=== PATIENT | female | born 1960 | race Caucasian/White ===

== ENCOUNTER 2017-10-22 16:00 | Inpatient (IN) | payer BC ==
[~2017-10-22] VITALS: Ht 172.7 cm; Wt 68.6 kg
[2017-10-22] MEDS ORDERED: SODIUM CHLORIDE 0.9% 1000ML 1,000 ML IV ONE (16:28)
[2017-10-22] MEDS ORDERED: ACETAMINOPHEN 500 MG TAB PO STA (16:32)
[2017-10-22] MEDS ORDERED: DEXAMETHASONE SOD INJ 4 MG/ML VIAL IV STA (16:34)
[2017-10-22] MEDS ORDERED: ALBUT/IPRATROP 3MG/0.5MG NEB 3 ML VIAL INH STA (16:34)
[2017-10-22] MEDS ORDERED: LEVAQUIN 750MG / 150ML D5W IV ONE (16:45)
--- NOTE | 2017-10-22 16:53 | DIAGNOSTIC IMAGING REPORT ---
CHEST ONE VIEW PORTABLE CLINICAL HISTORY: Sepsis sepsis COMPARISON STUDY: No previous studies for comparison. FINDINGS: Infiltrate right pulmonary apex. Moderate bronchovascular prominence throughout both hemithoraces. Diaphragms smooth. IMPRESSION: Parenchymal infiltrate right pulmonary apex. The above report was generated using voice recognition software. It may contain grammatical, syntax or spelling errors. Electronically signed by: Elvis Boyd M.D. 10/22/2017 4:52 PM Dictated Date/Time: 10/22/2017 4:51 PM
--- NOTE | 2017-10-22 17:25 | EMERGENCY ROOM VISIT NOTE ---
History Report prepared by Michelle: Beatriz Young Under the Supervision of: Kayli PlunkettO. First contact with patient: 16:27 Chief Complaint: ALTERED MENTAL STATUS Stated Complaint: AMS Nursing Triage Summary: pt arrived als from the doctors 79% o2 on room air + fever pt had flu like symptoms for one week pt given 500ml ns bolus in route History of Present Illness The patient is a 57 year old female who presents to the Emergency Room with complaints of flu like symptoms that began 5 days ago. The patients states the patient seems confused and not at her baseline behavior. She notes she has some headaches, congestion, fevers, and chills. The patient denies any nausea, vomiting, and diarrhea. She notes she fell on Wednesday, but denies hitting her head. The patient denies any history of diabetes or hypertension. She denies any smoking, but notes she occasionally drinks wine. Source of History: patient Onset: 5 days ago Position: other (global) Quality: other (flu like symptoms) Timing: other (persistent) Associated Symptoms: + fevers, + chills, + headache, No nausea, No vomiting , No diarrhea Review of Systems See HPI for pertinent positives & negatives. A total of 10 systems reviewed and were otherwise negative. Family History Patient reports no known family medical history. Social History Smoking Status: Never Smoker Smokeless Tobacco Use: No Alcohol Use: occasionally Drug Use: none Marital Status: Housing Status: lives with family Occupation Status: employed Current/Historical Medications Scheduled Levothyroxine Sodium (Levothyroxine Sodium), 100 MCG PO DAILY Multivitamin (Multivitamin), 1 TAB PO DAILY Allergies Coded Allergies: No Known Allergies (Unverified , 10/22/17) Physical Exam Vital Signs Date Time Temp Pulse Resp B/P (MAP) Pulse Ox O2 Delivery O2 Flow Rate FiO2 10/22/17 22:17 67 18 94/55 92 Nasal Cannula 6.0 10/22/17 20:50 70 18 88/51 92 3.0 10/22/17 18:46 85 18 86/50 92 Room Air 10/22/17 18:45 85/74 86/50 10/22/17 17:22 37.7 10/22/17 16:43 79 Room Air 10/22/17 16:20 102 10/22/17 16:19 38.9 93 10 151/140 79 Room Air Physical Exam GENERAL: Patient is awake, alert, and in no acute distress. Patient is somewhat anxious, but comfortable EYES: The conjunctivae are clear. The pupils are round and reactive. EARS, NOSE, MOUTH AND THROAT: The nose is without any evidence of any deformity. Mucous membranes are moist tongue is midline NECK: The neck is nontender and supple. RESPIRATORY: Lung sounds diminished throughout with scattered rhonchi, absent sounds at right base. CARDIOVASCULAR: Tachycardic rate but regular rhythm, no murmur noted with auscultation. GASTROINTESTINAL: The abdomen is soft. Bowel sounds are present in all quadrants. Abdomen is nontender MUSCULOSKELETAL/EXTREMITIES: There is no evidence of gross deformity full range of motion is noted in the hips and shoulders SKIN: There is no obvious evidence of any rash. There are no petechiae, pallor or cyanosis noted. NEUROLOGIC: Awake, oriented to person, place, and time, patellar reflex 2+ bilaterally Medical Decision & Procedures ER Provider Diagnostic Interpretation: Radiology results as stated below per my review and radiologist interpretation: CHEST ONE VIEW PORTABLE CLINICAL HISTORY: Sepsis sepsis COMPARISON STUDY: No previous studies for comparison. FINDINGS: Infiltrate right pulmonary apex. Moderate bronchovascular prominence throughout both hemithoraces. Diaphragms smooth. IMPRESSION: Parenchymal infiltrate right pulmonary apex. The above report was generated using voice recognition software. It may contain grammatical, syntax or spelling errors. Electronically signed by: Elvis Boyd M.D. 10/22/2017 4:52 PM Dictated Date/Time: 10/22/2017 4:[address] CT DOSE: 537.48 mGy.cm HISTORY: Altered mental status. TECHNIQUE: Multiaxial CT images of the head were performed without the use of intravenous contrast. Automated exposure control was utilized for this study. A dose lowering technique was utilized adhering to the principles of ALARA. Comparison: None. Findings: The paranasal sinuses and mastoid air cells are clear. The calvarium and skull base are intact. The ventricles and sulci are within normal limits. There is no mass, hematoma, midline shift, or acute infarct. Impression: No acute intracranial abnormality. Electronically signed by: Jimmy Tovar M.D. 10/22/2017 6:09 PM Dictated Date/Time: 10/22/2017 6:03 PM (CHEST FOR PE) ANGIO WITH CT DOSE: 212.54 mGy.cm HISTORY: Chest pain infiltrate TECHNIQUE: Multiaxial CT images of the chest were performed following the intravenous administration of contrast to evaluate the pulmonary arteries. Maximal intensity projection images were also obtained. A dose lowering technique was utilized adhering to the principles of ALARA. COMPARISON STUDY: None. FINDINGS: Thoracic aorta is normal in course and caliber. Moderate motion artifact is present. The study nevertheless isn't negative for a significant filling defect within the pulmonary arterial structures. Diffuse parenchymal infiltrate right upper lung with minimal infiltrative changes superior segment right lower lobe and left upper lobe. Mild interstitial prominence of the mid to lower lung regions bilaterally. IMPRESSION: 1. No evidence for pulmonary embolus. 2. Patchy bilateral mid and upper lung parenchymal infiltrative changes most prominent in the right pulmonary apex. The above report was generated using voice recognition software. It may contain grammatical, syntax or spelling errors. Electronically signed by: Elvis Boyd M.D. 10/22/2017 6:11 PM Dictated Date/Time: 10/22/2017 6:08 PM Laboratory Results Test 10/22/17 16:51 10/22/17 17:03 10/22/17 17:04 10/22/17 17:10 Nucleated RBC Absolute Count (auto) 0.02 K/uL (0-0) Neutrophils % (Manual) 87.8 % Lymphocytes % (Manual) 6.1 % Monocytes % (Manual) 6.1 % Nucleated Red Blood Cells % 1.5 % Neutrophils # (Manual) 1.12 K/uL (1.4-6.5) Total Absolute Neutrophils 1.12 K/uL (1.4-6.5) Lymphocytes # (Manual) 0.08 K/uL (1.2-3.4) Total Absolute Lymphocytes 0.08 K/uL (1.2-3.4) Monocytes # (Manual) 0.08 K/uL (0.11-0.59) Erythrocyte Sedimentation Rate 30 mm/hr (0-21) Total Creatine Kinase 156 U/L (26-192) Creatine Kinase MB < 0.5 ng/ml (0.5-3.6) Creatine Kinase MB Ratio (0-3.0) Troponin I 0.024 ng/ml (0-0.045) C-Reactive Protein 2.90 mg/dl (0-0.29) Pro-B-Type Natriuretic Peptide 272 pg/ml (0-900) 25-Hydroxy Vitamin D Total 15.3 ng/ml (30-100) Procalcitonin 0.29 ng/ml (0-0.5) Thyroid Stimulating Hormone (TSH) 0.010 uIu/ml (0.300-4.500) Free Thyroxine 1.39 ng/dl (0.80-1.60) Free Triiodothyronine 1.29 pg/ml (2.30-4.20) Salicylates Level < 2.0 mg/dl (2.8-20) Acetaminophen Level 7 ug/ml (10-30) Immunoglobulin G 2920.0 mg/dL (700-1600) Immunoglobulin A 507.0 mg/dL (70-400) Immunoglobulin M 148.0 mg/dL (40-230) Venous Blood pH 7.47 (7.36-7.41) Venous Blood Partial Pressure CO2 29 mmHg (38.0-50.0) Venous Blood Partial Pressure O2 46 mmHg Venous Blood HCO3 21 mmol/L Venous Blood Oxygen Saturation 82.6 % Venous Blood Base Excess -2.0 mEq/L Bedside Lactic Acid Venous 2.35 mmol/L (0.90-1.70) Urine Color DK YELLOW Urine Appearance CLEAR (CLEAR) Urine pH 5.5 (4.5-7.5) Urine Specific Kaufman 1.023 (1.000-1.030) Urine Protein NEG (NEG) Urine Glucose (UA) NEG (NEG) Urine Ketones NEG (NEG) Urine Occult Blood NEG (NEG) Urine Nitrite POS (NEG) Urine Bilirubin 1+ (NEG) Urine Urobilinogen POS (NEG) Urine Leukocyte Esterase TRACE (NEG) Urine WBC (Auto) 1-5 /hpf (0-5) Urine RBC (Auto) 0-4 /hpf (0-4) Urine Hyaline Casts (Auto) 1-5 /lpf (0-5) Urine Epithelial Cells (Auto) 5-10 /lpf (0-5) Urine Bacteria (Auto) NEG (NEG) Test 10/22/17 18:12 10/22/17 22:10 Ionized Calcium 1.00 mmol/l (1.12-1.32) Ethyl Alcohol mg/dL < 3.0 mg/dl (0-3) Urine Opiates Screen POS (NEG) Urine Methadone, Qualitative NEG (NEG) Urine Barbiturates NEG (NEG) Urine Phencyclidine (PCP) Level NEG (NEG) Ur Amphetamine/Methamphetamine NEG (NEG) MDMA (Ecstasy) Screen NEG (NEG) Urine Benzodiazepines Screen NEG (NEG) Urine Cocaine Metabolite NEG (NEG) Urine Marijuana (THC) NEG (NEG) Laboratory results per my review. Medications Administered Medications (Trade) Dose Ordered Sig/Rodrigo Route Start Time Stop Time Status Last Admin Dose Admin Sodium Chloride 1,000 ml @ 999 mls/hr Q1H1M ONCE IV 10/22/17 16:28 10/22/17 17:28 DC 10/22/17 16:28 999 MLS/HR Acetaminophen (Tylenol Tab) 1,000 mg NOW STAT PO 10/22/17 16:32 10/22/17 16:34 DC 10/22/17 16:32 1,000 MG Albuterol/ Ipratropium (Duoneb) 3 ml NOW STAT INH 10/22/17 16:34 10/22/17 16:36 DC 10/22/17 16:34 3 ML Dexamethasone Sodium Phosphate (Decadron Inj) 10 mg NOW STAT IV 10/22/17 16:34 10/22/17 16:36 DC 10/22/17 16:34 10 MG Levofloxacin (Levaquin / D5W) 750 mg NOW ONCE IV 10/22/17 16:45 10/22/17 16:46 DC 10/22/17 16:45 750 MG Piperacillin Sod/ Tazobactam Sod (Zosyn Iv) 4.5 gm NOW STAT IV 10/22/17 17:37 10/22/17 17:38 DC 10/22/17 19:20 4.5 GM Magnesium Sulfate (Magnesium Sulfate) 2 gm NOW STAT IV 10/22/17 17:40 10/22/17 17:41 DC 10/22/17 19:20 2 GM Thiamine HCl (Vitamin B-1 Inj) 100 mg NOW STAT IV 10/22/17 18:05 10/22/17 18:06 DC 10/22/17 19:20 100 MG Diphenhydramine HCl (Benadryl Inj) 25 mg NOW STAT IV 10/22/17 20:56 10/22/17 20:57 DC 10/22/17 21:03 25 MG Potassium Chloride (Klor-Con Tab) 20 meq NOW STAT PO 10/22/17 22:01 1/12/18 22:39 DC 10/22/17 23:35 20 MEQ Potassium/ Phosphorus/Sodium (Phospha 250 Neutral 155-852-130 Mg) 2 tab 2201 ONCE PO 10/22/17 22:01 10/22/17 22:39 DC 10/22/17 23:35 2 TAB ECG Indication: altered mental status Rate (beats per minute): 86 Rhythm: normal sinus Findings: ST depression (Lateral), no ectopy Comparison ECG Date: no prior available ED Course 1621: The patient was evaluated in room A9. A complete history and physical examination were performed. 1628: Ordered Sodium Chloride 1000ml @ 999 mls/hr IV. 1632: Ordered Tylenol Tab 1000mg PO. 1634: Ordered Decadron Inj 10mg IV and Duoneb 3ml INH. 1645: Ordered Levaquin 750mg IV. 1737: Ordered Zosyn IV 4.5 mg. 1740: Ordered Magnesium Sulfate 2gm IV. 1745: Ordered Ioversol 100ml IV. 1749: I discussed the patient's case with Dr. Mariee [facility]. The patient will be evaluated for further management. Medical Decision Prior records/ancillary studies reviewed and summarized above. Nursing notes reviewed. Additional history obtained from the patients . The patient's history was concerning for altered mental status. Differential diagnosis: Etiologies such as metabolic, infection, hypoglycemia, electrolyte abnormalities , cardiac sources, intracerebral event, toxicologic, neurologic, as well as others were entertained. The patient is a 57-year-old female who presented to the emergency department for an evaluation of cough and difficulty breathing. The patient was at her primary care physician's office. She was very confused initially. The patient was found have hypoxia as well as abnormal lung sounds. The patient's primary care physician was very concerned and called the paramedics. The patient initially did not wish to come to the hospital but the dermatologist was able to convince the patient she required further treatment. She was treated with a bronchodilator treatment as well as IV fluids. She was also given IV antibiotic.the patient's fever was further treated with Tylenol. The patient was also given magnesium replacement. I discussed the patient's laboratory and radiographic studies with her. Because of her apical infiltrate a CT the chest was obtained to confirm that this was not a cavitary lesion. I discussed her case with the on-call [facility] hospitalist group. They've agreed to evaluate the patient in the emergency department for further management and disposition. Medication Reconcilliation Current Medication List: was personally reviewed by me Consults Time Called: 1748 Consulting Physician: ARAMIS Ding Returned Call: 1748 I discussed the patient's case with ARAMIS Ding. The patient will be evaluated for further management. Impression Primary Impression: Pneumonia Additional Impressions: Hypoxia Altered mental status Hypomagnesemia Hypocalcemia Scribe Attestation The scribe's documentation has been prepared under my direction and personally reviewed by me in its entirety. I confirm that the note above accurately reflects all work, treatment, procedures, and medical decision making performed by me. Departure Information Dispostion Being Evaluated By Hospitalist Forms HOME CARE DOCUMENTATION FORM, IMPORTANT VISIT INFORMATION Patient Instructions My [facility] Health Problem Qualifiers Primary Impression: Pneumonia Pneumonia type: due to unspecified organism Laterality: right Lung location : upper lobe of lung Qualified Codes: J18.1 - Lobar pneumonia, unspecified organism Additional Impressions: Altered mental status Altered mental status type: unspecified Qualified Codes: R41.82 - Altered mental status, unspecified
[2017-10-22 17:33] LABS: INR 1.5 (0.9-1.1)
[2017-10-22] MEDS ORDERED: PIPERACILLIN/TAZOBACTAM 4.5 GM/100ML D5W IV STA (17:37)
[2017-10-22 17:39] LABS: ALBUMIN 1.8 gm/dl (3.4-5.0); ALT/SGPT 20 U/L (12-78); AST/SGOT 49 U/L (15-37); BLOOD UREA NITROGEN 6 mg/dl (7-18); CALCIUM 6.9 mg/dl (8.5-10.1); CARBON DIOXIDE 20 mmol/L (21-32); CREATININE 0.52 mg/dl (0.60-1.20); GLUCOSE 89 mg/dl (70-99); LIPASE 843 U/L (73-393); POTASSIUM 3.3 mmol/L (3.5-5.1); SODIUM 133 mmol/L (136-145)
[2017-10-22] MEDS ORDERED: MAGNESIUM SULFATE 1GM / D5W 1 GM BAG IV STA (17:40)
[2017-10-22] MEDS ORDERED: OPTIRAY 320 IV PRN (17:45)
[2017-10-22 17:48] LABS: ALKALINE PHOSPHATASE 67 U/L (45-117); CKMB < 0.5 ng/ml (0.5-3.6); TOTAL PROTEIN 6.8 gm/dl (6.4-8.2)
[2017-10-22 17:55] LABS: HEMATOCRIT 37.1 % (37-47); HEMOGLOBIN 12.5 g/dL (12.0-16.0); MEAN CELL VOLUME 92.5 fL (80-100); MEAN CORPUSCULAR HEMOGLOBIN 31.2 pg (25-34); MEAN CORPUSCULAR HGB CONC 33.7 g/dl (32-36); NUCLEATED RED BLOOD CELL ABS 0.02 K/uL (0-0); PLATELET COUNT 30 K/uL (130-400); RED CELL DISTRIBUTION WIDTH CV 16.6 % (11.5-14.5); RED CELL DISTRIBUTION WIDTH SD 56.5 fL (36.4-46.3); WHITE BLOOD COUNT 1.28 K/uL (4.8-10.8)
[2017-10-22] MEDS ORDERED: THIAMINE HCL 100 MG/ML 2 ML VIAL IV STA (18:05)
--- NOTE | 2017-10-22 18:10 | DIAGNOSTIC IMAGING REPORT ---
HEAD CT NONCONTRAST CT DOSE: 537.48 mGy.cm HISTORY: Altered mental status. TECHNIQUE: Multiaxial CT images of the head were performed without the use of intravenous contrast. Automated exposure control was utilized for this study. A dose lowering technique was utilized adhering to the principles of ALARA. Comparison: None. Findings: The paranasal sinuses and mastoid air cells are clear. The calvarium and skull base are intact. The ventricles and sulci are within normal limits. There is no mass, hematoma, midline shift, or acute infarct. Impression: No acute intracranial abnormality. Electronically signed by: Jimmy Tovar M.D. 10/22/2017 6:09 PM Dictated Date/Time: 10/22/2017 6:03 PM
--- NOTE | 2017-10-22 18:12 | DIAGNOSTIC IMAGING REPORT ---
(CHEST FOR PE) ANGIO WITH CT DOSE: 212.54 mGy.cm HISTORY: Chest pain infiltrate TECHNIQUE: Multiaxial CT images of the chest were performed following the intravenous administration of contrast to evaluate the pulmonary arteries. Maximal intensity projection images were also obtained. A dose lowering technique was utilized adhering to the principles of ALARA. COMPARISON STUDY: None. FINDINGS: Thoracic aorta is normal in course and caliber. Moderate motion artifact is present. The study nevertheless isn't negative for a significant filling defect within the pulmonary arterial structures. Diffuse parenchymal infiltrate right upper lung with minimal infiltrative changes superior segment right lower lobe and left upper lobe. Mild interstitial prominence of the mid to lower lung regions bilaterally. IMPRESSION: 1. No evidence for pulmonary embolus. 2. Patchy bilateral mid and upper lung parenchymal infiltrative changes most prominent in the right pulmonary apex. The above report was generated using voice recognition software. It may contain grammatical, syntax or spelling errors. Electronically signed by: Elvis Boyd M.D. 10/22/2017 6:11 PM Dictated Date/Time: 10/22/2017 6:08 PM
[2017-10-22] MEDS ORDERED: LEVO100T7 PO (18:13)
[2017-10-22] MEDS ORDERED: MULT-506 PO (18:15)
[2017-10-22] MEDS ORDERED: DiphenhydrAMINE HCL 50 MG/ML VIAL IV STA (20:56)
--- NOTE | 2017-10-22 21:49 | History and Physical ---
History & Physical Date & Time of Service: Oct 22, 2017 at 21:07 Chief Complaint: [facility] Primary Care Physician: Sarthak Fox D.O. History of Present Illness Source: family, hospital records 5 days history of nasal congestion and cough felt deep in the chest with intermittent phlegm production in the morning, associated with dyspnea with coughing but not at rest and no CP. Chills, but no fevers. Patient was concerned for pneumonia, although she has no history of pneumonia. She denies recent travel or TB exposure. Denies sore throat, rhinorrhea, headaches, sinus pain. ear pain, myalgia, exertional dyspnea, post tussive vomiting. She denies urinary symptoms, back pain, diarrhea or constipation, or blood in stool. She admits to chronic fatigue and loss of ~30lb in last 6 months. She has not changed her exercise, and states no dietary changes (Breakfast: Cheerios and banana, Lunch: half a bologna or PBJ sandwich, Dinner: pasta and vegetables, no meat intake). She states no chronic health issues except hypothyroidism, and states levothyroxine and multivitamin are her only medications. She is an ex smoker of 20 years with ~15 pack year history and admits to a bottle of red wine weekly. She admits to a history of falls, but denies vasovagal or arrhythmic symptoms, stating she "always trips on things." She denies DM, neuropathy, problems with balance, or issues with her vision. She has never had PT. She lives alone with her who has a TBI, and is his primary care provider. Since coming to the ED she was placed on O2 for low initial sats of 72%. She was also started on abx for pneumonia. She states she had "allergic reaction to the penicillin" when she developed red palms and swelling and redness of her nail beds on her hands bilaterally. She was given Benadryl, although she states this has not seemed to improve the redness. Past Medical/Surgical History Hypothyroid Family History Patient reports no known family medical history. Mom: stroke and PR, severe hypothyroidism Dad: smoker, renal failure Sister: asthma Social History Smoking Status: Former Smoker (Ex smoker of 20 years, with 15-20 pack year history) Smokeless Tobacco Use: No Alcohol Use: occasionally (1 bottle of wine a week) Drug Use: none Marital Status: Housing status: lives with significant other Occupational Status: employed ([employer]) Immunizations History of Influenza Vaccine: No History of Tetanus Vaccine?: No History of Pneumococcal: No History of Hepatitis B Vaccine: No Multi-Drug Resistant Organisms History of MDRO: No Allergies Coded Allergies: No Known Allergies (Unverified , 10/22/17) Home Medications Scheduled Levothyroxine Sodium (Levothyroxine Sodium), 100 MCG PO DAILY Multivitamin (Multivitamin), 1 TAB PO DAILY Review of Systems Constitutional: + chills, + sweats, + weight loss, + fatigue, No fever, No weakness Eyes: No worsening of vision, No eye pain ENT: No hearing loss, No sore throat Respiratory: + cough, + sputum, + shortness of breath (with coughing), No wheezing, No dyspnea on exertion, No dyspnea at rest Cardiovascular: No chest pain, No orthopnea, No PND, No edema, No palpitations Abdomen: No pain, No nausea, No vomiting, No diarrhea, No constipation Musculoskeletal: No joint pain, No muscle pain Genitourinary - Female: No dysuria, No urinary frequency, No urinary urgency, No urinary incontinence Neurologic: No numbness/tingling, No balance problems Integumentary: No rash, No itch, No new/changing skin lesions Allergic / Immunologic: No environmental allergies, No seasonal allergies, No pet sensitivities, No food allergies, No hives Physical Exam Vital Signs Date Time Temp Pulse Resp B/P (MAP) Pulse Ox O2 Delivery O2 Flow Rate FiO2 10/22/17 18:46 85 18 86/50 92 Room Air 10/22/17 18:45 85/74 86/50 10/22/17 17:22 37.7 10/22/17 16:43 79 Room Air 10/22/17 16:20 102 10/22/17 16:19 38.9 93 10 151/140 79 Room Air General Appearance: WD/WN, no apparent distress Head: normocephalic, atraumatic Eyes: normal inspection, PERRL, EOMI ENT: hearing grossly normal, pharynx normal Neck: supple, no adenopathy, thyroid normal Respiratory/Chest: lungs clear, normal breath sounds, no respiratory distress, no accessory muscle use Cardiovascular: regular rate, rhythm, no edema, no JVD, no murmur, normal peripheral pulses Abdomen/GI: normal bowel sounds, non tender, soft, no organomegaly Back: normal inspection, no CVA tenderness, no muscle spasm Extremities/Musculoskelatal: no calf tenderness, normal capillary refill, no pedal edema Neurologic/Psych: aromatherapist II-XII nml as tested, no motor/sensory deficits, alert, normal mood/affect, oriented x 3 Skin: normal color, warm/dry, no rash, + pertinent finding (palms are erythematous, although not particularly hot to touch. Purple-pinky swelling under all nailbeds of hand) Lymphatic: no adenopathy Diagnostics Laboratory Results Results Past 24 Hours Test 10/22/17 16:51 10/22/17 17:03 10/22/17 17:04 10/22/17 17:10 Range/Units White Blood Count 1.28 4.8-10.8 K/uL Red Blood Count 4.01 4.2-5.4 M/uL Hemoglobin 12.5 12.0-16.0 g/dL Hematocrit 37.1 37-47 % Mean Corpuscular Volume 92.5 80-100 fL Mean Corpuscular Hemoglobin 31.2 25-34 pg Mean Corpuscular Hemoglobin Concent 33.7 32-36 g/dl Platelet Count 30 130-400 K/uL RDW Standard Deviation 56.5 36.4-46.3 fL RDW Coefficient of Variation 16.6 11.5-14.5 % Nucleated RBC Absolute Count (auto) 0.02 0-0 K/uL Neutrophils % (Manual) 87.8 % Lymphocytes % (Manual) 6.1 % Monocytes % (Manual) 6.1 % Nucleated Red Blood Cells % 1.5 % Neutrophils # (Manual) 1.12 1.4-6.5 K/uL Total Absolute Neutrophils 1.12 1.4-6.5 K/uL Lymphocytes # (Manual) 0.08 1.2-3.4 K/uL Total Absolute Lymphocytes 0.08 1.2-3.4 K/uL Monocytes # (Manual) 0.08 0.11-0.59 K/uL Platelet Estimate SIGNIFIC DECREASED Erythrocyte Sedimentation Rate 30 0-21 mm/hr Prothrombin Time 16.0 9.0-12.0 SECONDS Prothromb Time International Ratio 1.5 0.9-1.1 Activated Partial Thromboplast Time 38.0 21.0-31.0 SECONDS Partial Thromboplastin Ratio 1.5 Sodium Level 133 136-145 mmol/L Potassium Level 3.3 3.5-5.1 mmol/L Chloride Level 106 98-107 mmol/L Carbon Dioxide Level 20 21-32 mmol/L Anion Gap 8.0 3-11 mmol/L Blood Urea Nitrogen 6 7-18 mg/dl Creatinine 0.52 0.60-1.20 mg/dl Est Creatinine Clear Calc Drug Dose 125.4 ml/min Estimated GFR () 121.2 Estimated GFR (Non- 104.6 BUN/Creatinine Ratio 12.0 10-20 Random Glucose 89 70-99 mg/dl Calcium Level 6.9 8.5-10.1 mg/dl Phosphorus Level 2.0 2.5-4.9 mg/dl Magnesium Level 1.7 1.8-2.4 mg/dl Total Bilirubin 2.3 0.2-1 mg/dl Aspartate Amino Transf (AST/SGOT) 49 15-37 U/L Alanine Aminotransferase (ALT/SGPT) 20 12-78 U/L Alkaline Phosphatase 67 45-117 U/L Total Creatine Kinase 156 26-192 U/L Creatine Kinase MB < 0.5 0.5-3.6 ng/ml Creatine Kinase MB Ratio 0-3.0 Troponin I 0.024 0-0.045 ng/ml C-Reactive Protein 2.90 0-0.29 mg/dl Pro-B-Type Natriuretic Peptide 272 0-900 pg/ml Total Protein 6.8 6.4-8.2 gm/dl Albumin 1.8 3.4-5.0 gm/dl Globulin 5.0 2.5-4.0 gm/dl Albumin/Globulin Ratio 0.4 0.9-2 Lipase 843 73-393 U/L Thyroid Stimulating Hormone (TSH) 0.010 0.300-4.500 uIu/ml Free Thyroxine 1.39 0.80-1.60 ng/dl Salicylates Level < 2.0 2.8-20 mg/dl Acetaminophen Level 7 10-30 ug/ml Venous Blood pH 7.47 7.36-7.41 Venous Blood Partial Pressure CO2 29 38.0-50.0 mmHg Venous Blood Partial Pressure O2 46 mmHg Venous Blood HCO3 21 mmol/L Venous Blood Oxygen Saturation 82.6 % Venous Blood Base Excess -2.0 mEq/L Ammonia 32.7 11-32 umol/L Bedside Lactic Acid Venous 2.35 0.90-1.70 mmol/L Urine Color DK YELLOW Urine Appearance CLEAR CLEAR Urine pH 5.5 4.5-7.5 Urine Specific [place] 1.023 1.000-1.030 Urine Protein NEG NEG Urine Glucose (UA) NEG NEG Urine Ketones NEG NEG Urine Occult Blood NEG NEG Urine Nitrite POS NEG Urine Bilirubin 1+ NEG Urine Urobilinogen POS NEG Urine Leukocyte Esterase TRACE NEG Urine WBC (Auto) 1-5 0-5 /hpf Urine RBC (Auto) 0-4 0-4 /hpf Urine Hyaline Casts (Auto) 1-5 0-5 /lpf Urine Epithelial Cells (Auto) 5-10 0-5 /lpf Urine Bacteria (Auto) NEG NEG Test 10/22/17 18:12 Range/Units Ionized Calcium 1.00 1.12-1.32 mmol/l Ethyl Alcohol mg/dL < 3.0 0-3 mg/dl Microbiology Results 10/22/17 Blood Culture, Received Pending 10/22/17 Blood Culture, Received Pending Diagnostic Radiology CHEST ONE VIEW PORTABLE CLINICAL HISTORY: Sepsis sepsis COMPARISON STUDY: No previous studies for comparison. FINDINGS: Infiltrate right pulmonary apex. Moderate bronchovascular prominence throughout both hemithoraces. Diaphragms smooth. IMPRESSION: Parenchymal infiltrate right pulmonary apex. HEAD CT NONCONTRAST CT DOSE: 537.48 mGy.cm HISTORY: Altered mental status. TECHNIQUE: Multiaxial CT images of the head were performed without the use of intravenous contrast. Automated exposure control was utilized for this study. A dose lowering technique was utilized adhering to the principles of ALARA. Comparison: None. Findings: The paranasal sinuses and mastoid air cells are clear. The calvarium and skull base are intact. The ventricles and sulci are within normal limits. There is no mass, hematoma, midline shift, or acute infarct. Impression: No acute intracranial abnormality. (CHEST FOR PE) ANGIO WITH CT DOSE: 212.54 mGy.cm HISTORY: Chest pain infiltrate TECHNIQUE: Multiaxial CT images of the chest were performed following the intravenous administration of contrast to evaluate the pulmonary arteries. Maximal intensity projection images were also obtained. A dose lowering technique was utilized adhering to the principles of ALARA. COMPARISON STUDY: None. FINDINGS: Thoracic aorta is normal in course and caliber. Moderate motion artifact is present. The study nevertheless isn't negative for a significant filling defect within the pulmonary arterial structures. Diffuse parenchymal infiltrate right upper lung with minimal infiltrative changes superior segment right lower lobe and left upper lobe. Mild interstitial prominence of the mid to lower lung regions bilaterally. IMPRESSION: 1. No evidence for pulmonary embolus. 2. Patchy bilateral mid and upper lung parenchymal infiltrative changes most prominent in the right pulmonary apex. EKG Normal sinus rhythm Normal EKG, No prior EKG available Impression Assessment and Plan 57 year old female with hypothyroidism presents to hospital with flu like symptoms and admitted with pulmonary infiltrate and multiple concerning lab findings. Pneumonia with acute hypoxic respiratory failure - CXR shows parenchymal infiltrate right pulmonary apex, elevated lactic acid - O2 via nasal cannula to keep sats >92%, wean as tolerated - IV Abx: Vancomycin and doxycycline - ordered RAST testing for penicillin to confirm allergy - Check procal and trend lactic acid - Blood cultures pending Hypothyroidism - TSH significantly suppressed. - Free T3/T4 pending - Ordered thyroglobulin and microsomal antibodies - Continue levothyroxine 100 mcg daily Leukopenia/Thrombocytopenia/deranged coags - IgG, IgA, IgM ordered - Hematology consulted - Trend CBC, coags - Monitor for bruising/bleeding Deranged LFTs/elevated lipase - Elevated AST, bili, and ammonia, significantly decreased albumin, deranged coags - Ordered CT abdo/pelvis with PO and IV contrast to assess liver, pancreas, spleen - Trend CMP, lipase, coags Urine tox screen - negative for everything except opiates - Follow up for further tox evaluation Electrolyte disturbance - Low levels of K+, Mg+, PO4, Ca+ - Trend BMP, Mg+, PO4, check vitamin D levels - supplement as necessary Asymptomatic bacturia - UA shows nitrites, leuks, and urobilinogen, patient asymptomatic - Watch for cultures, and adjust abx as necessary Recurrent falls - PT/OT consulted - Check HbA1c and B12 levels for causes of neuropathy VTE PPx - SCDs, TEDs - Heparin C/I due to low platelets FULL CODE Attending addendum: I have physically seen this patient, have supervised the medical residents activities, and agree with the H&P unless as otherwise noted. Assessment and Plan: Acute respiratory failure with hypoxia/pneumonia-- Patient reportedly had a reaction to penicillin based antibiotic in the ED, which will be confirmed with RAST testing. Placed on vancomycin IV and doxycycline IV Follow sputum Gram stain and culture, and blood cultures. Hematologic abnormalities/leukopenia last thrombocytopenia-- Order peripheral smear Repeat labs in the a.m. Test for immunoglobulin deficiencies Hypothyroidism/pharmacologic hyperthyroidism-- Check a free T4 and free T3, along with thyroid antibodies. Hold levothyroxine sodium 100 g for now Level of Care Telemetry Advanced Directives Existing Advance Directive: No Existing Living Will: No Existing Power of [employer] Supervisor: No Existing Health Care Proxy: No Resuscitation Status FULL RESUSCITATION VTE Prophylaxis VTE Risk Assessment Done? Y/N: Yes Risk Level: Moderate Given or contraindicated: T.E.D. Stockings Note Total Time: Critical Care 30 - 74 minutes Resident Tracking Resident Involvement: Resident Care Provided Care Provided: Adult Hospital Medicine
[2017-10-22] MEDS ORDERED: POT PHOSPHATE MONOBASIC W/ SOD TAB PO ONE (22:01)
[2017-10-22] MEDS ORDERED: POTASSIUM CHLORIDE 20 MEQ TABCR PO STA (22:01)
[2017-10-22] MEDS ORDERED: NITROGLYCERIN 0.4 MG SL PER TAB CHARGE SL PRN (22:15)
[2017-10-22] MEDS ORDERED: MAGNESIUM HYDROXIDE SUSP 30 ML UDC PO PRN (22:15)
[2017-10-22] MEDS ORDERED: ALUMINUM/MAGNESIUM/SIMETH (MAALOX MAX) 30 ML UDC PO PRN (22:15)
[2017-10-22] MEDS ORDERED: POLYETHYLENE (MIRALAX) 17 GM PACK PO PRN (22:15)
[2017-10-22] MEDS ORDERED: ONDANSETRON INJ 2 MG/ML 2 ML VIAL IV PRN (22:15)
[2017-10-22] MEDS ORDERED: MAGNESIUM OXIDE 400 MG TAB PO STA (22:27)
[2017-10-22 23:50] VITALS: BP 82/50; PULSE 67; TEMP 36.4; O2SAT 94
[2017-10-23] VITALS (11 sets, daily range): BP systolic 81–96; BP diastolic 41–60; PULSE 62–87; TEMP 36.3–37.6; O2SAT 90–96; Ht 172.7 cm; Wt 68.6 kg
[2017-10-23] MEDS ORDERED: VANCOMYCIN CONSULT ACTIVE PRN (00:15)
[2017-10-23] MEDS ORDERED: VANCOMYCIN INJ 2,000 MG in SODIUM CHLORIDE 0.9% 500ML 500 ML IV SCH (00:30)
[2017-10-23 01:10] LABS: T3 FREE 1.29 pg/ml (2.30-4.20)
[2017-10-23] MEDS: LEVOTHYROXINE 100 MCG TAB PO SCH (06:01)
[2017-10-23 07:34] LABS: INR 1.7 (0.9-1.1); PTT PATIENT 43.8 SECONDS (21.0-31.0)
[2017-10-23 08:03] LABS: ALBUMIN 1.7 gm/dl (3.4-5.0); CALCIUM 7.4 mg/dl (8.5-10.1); CREATININE 0.67 mg/dl (0.60-1.20); POTASSIUM 3.6 mmol/L (3.5-5.1)
[2017-10-23 08:06] LABS: TOTAL PROTEIN 7.2 gm/dl (6.4-8.2)
[2017-10-23 08:33] LABS: HEMATOCRIT 41.9 % (37-47); HEMOGLOBIN 13.5 g/dL (12.0-16.0); MEAN CELL VOLUME 93.9 fL (80-100); MEAN CORPUSCULAR HEMOGLOBIN 30.3 pg (25-34); MEAN CORPUSCULAR HGB CONC 32.2 g/dl (32-36); PLATELET COUNT 30 K/uL (130-400); RED CELL DISTRIBUTION WIDTH CV 16.4 % (11.5-14.5); RED CELL DISTRIBUTION WIDTH SD 56.9 fL (36.4-46.3); WHITE BLOOD COUNT 0.55 K/uL (4.8-10.8)
[2017-10-23 08:35] LABS: LYMPH % 38.2 %; LYMPH ABS # 0.21 K/uL (1.2-3.4); MONO % 12.7 %; MONO ABS # 0.07 K/uL (0.11-0.59); NEUT % 49.1 %; NEUT ABS # 0.27 K/uL (1.4-6.5)
[2017-10-23] MEDS ORDERED: VANCOMYCIN INJ 1,000 MG in SODIUM CHLORIDE 0.9% 250ML 250 ML IV SCH (09:00)
[2017-10-23 09:02] LABS: HEMOGLOBIN A1C 4.7 % (4.5-5.6)
--- NOTE | 2017-10-23 09:52 | Oncology Consultation ---
Oncology/Heme Consultation Date of Consultation: Oct 23, 2017. Attending Physician: Helen Scott M.D. Reason for Consultation: Neutropenia and thrombocytopenia History of Present Illness Ms. Scanlon is a 57 year old woman with a history of hypothyroidism. She presents after about a week of flu-like symptoms, fevers, and generalized fatigue. On admission, she was found to be neutropenic and thrombocytopenic and to have a coagulopathy and other evidence of impaired hepatic synthetic function. She also had an elevated lipase. She reports that her acute symptoms started about 5-7 days ago. However, for a while before that (up to about 2 years), she has had vague constitutional symptoms, including generalized fatigue. She is a somewhat difficult historian, giving confusing and sometimes contradictory responses and having a hard time remembering details, so she had a hard time better characterizing these issues. She shopped around on the internet for supplements, most of which appear to be antioxidants. She admitted she doesn't like to tell doctors about these things, since she "knows I'm not supposed to take them." She denies any blood transfusion history. She isn't aware of any exposures to HIV or hepatitis. She denies any recent overseas travel. She was kind of vague about her alcohol history, changing the amount a few times, but it appears she drinks up to a few times per week. She denies any illicit drug use. Past Medical/Surgical History Medical Problems: (1) Altered mental status Status: Acute (2) Hypocalcemia Status: Acute (3) Hypomagnesemia Status: Acute (4) Hypoxia Status: Acute (5) Pneumonia Status: Acute Family History Patient reports no known family medical history. Social History Smoking Status: Former Smoker Smokeless Tobacco Use: No Alcohol Use: occasionally (1 bottle of wine a week) Drug Use: none Marital Status: Housing Status: lives with family Occupation Status: employed ([employer]) Allergies Coded Allergies: No Known Allergies (Unverified , 10/22/17) Home Medications Scheduled Levothyroxine Sodium (Levothyroxine Sodium), 100 MCG PO DAILY Multivitamin (Multivitamin), 1 TAB PO DAILY Current Inpatient Medications Current Inpatient Medications Medications (Trade) Dose Ordered Sig/Rodrigo Route Start Time Stop Time Status Last Admin Dose Admin Ioversol (Optiray 320) 100 ml UD PRN IV 10/22/17 17:45 10/26/17 17:44 Acetaminophen (Tylenol Tab) 650 mg Q4H PRN PO 10/22/17 22:15 11/21/17 22:14 Al Hydrox/Mg Hydrox/Simethicone (Maalox Max Susp) 15 ml Q4H PRN PO 10/22/17 22:15 11/21/17 22:14 Magnesium Hydroxide (Milk Of Magnesia Susp) 30 ml Q12H PRN PO 10/22/17 22:15 11/21/17 22:14 Ondansetron HCl (Zofran Inj) 4 mg Q6H PRN IV 10/22/17 22:15 11/21/17 22:14 Nitroglycerin (Nitrostat Tab) 0.4 mg UD PRN SL 10/22/17 22:15 11/21/17 22:14 Polyethylene (Miralax Powder Packet) 17 gm DAILY PRN PO 10/22/17 22:15 11/21/17 22:14 Potassium Chloride (Klor-Con Tab) 20 meq BID PO 10/23/17 09:00 10/24/17 08:59 Magnesium Oxide (Mag-Ox Tab) 400 mg BID PO 10/23/17 09:00 10/24/17 08:59 Potassium/ Phosphorus/Sodium (Phospha 250 Neutral [id number] Mg) 2 tab QID PO 10/23/17 09:00 10/24/17 08:59 Levothyroxine Sodium (Synthroid Tab) 100 mcg DAILYBB PO 10/23/17 06:30 11/22/17 06:59 10/23/17 06:01 100 MCG Multivitamins (Multivitamin Tab) 1 tab DAILY PO 10/23/17 09:00 11/22/17 08:59 Doxycycline Hyclate 100 mg/ Dextrose 110 ml @ 50 mls/hr Q12 IV 10/23/17 09:00 10/30/17 08:59 Vancomycin HCl (Consult) 1 ea UD PRN N/A 10/23/17 00:15 11/22/17 00:14 Review of Systems Constitutional: + fever, + chills, + sweats, + fatigue ENT: No unusual epistaxis Respiratory: No cough, No shortness of breath Cardiovascular: No chest pain Abdomen: No pain, No nausea, No vomiting Musculoskeletal: No joint pain, No muscle pain Genitourinary - Female: No dysuria, No urinary frequency, No hematuria Neurologic: No weakness, No numbness/tingling Hematologic / Lymphatic: No abnormal bleeding/bruising, No night sweats Integumentary: No rash Physical Exam Date Time Temp Pulse Resp B/P (MAP) Pulse Ox O2 Delivery O2 Flow Rate FiO2 10/23/17 07:45 36.4 64 18 86/48 (61) 95 10/23/17 05:33 36.3 64 18 81/50 (60) 92 Nasal Cannula 5.0 10/23/17 04:00 Nasal Cannula 6.0 10/23/17 00:00 36.4 67 20 82/50 94 Nasal Cannula 6.0 10/22/17 23:50 36.4 67 20 82/50 (61) 94 Nasal Cannula 6.0 Humidified Oxygen 10/22/17 23:25 60 18 94 10/22/17 23:20 64 18 92 10/22/17 23:15 60 20 92 10/22/17 23:10 66 18 92 10/22/17 23:05 64 21 92 10/22/17 23:00 68 23 92/53 81 10/22/17 22:55 62 21 95 10/22/17 22:50 69 26 91 10/22/17 22:45 66 19 93 10/22/17 22:40 67 20 92 10/22/17 22:35 67 20 92 10/22/17 22:30 66 18 84/56 93 10/22/17 22:17 67 18 94/55 92 Nasal Cannula 6.0 10/22/17 20:50 70 18 88/51 92 3.0 10/22/17 18:46 85 18 86/50 92 Room Air 10/22/17 18:45 85/74 86/50 10/22/17 17:22 37.7 10/22/17 16:43 79 Room Air 10/22/17 16:20 102 10/22/17 16:19 38.9 93 10 151/140 79 Room Air General Appearance: WD/WN, no apparent distress Eyes: EOMI, sclerae normal (anicteric) ENT: pharynx normal (no bleeding) Respiratory/Chest: lungs clear Cardiovascular: regular rate, rhythm Abdomen/GI: non tender, soft Extremities/Musculoskelatal: no pedal edema, + pertinent finding (dusky, chronic venous stasis changes in her ankles bilaterally) Neurologic/Psych: no motor/sensory deficits (grossly), alert, oriented x 3 Lymphatic: no adenopathy Laboratory Results Last 24 Hours Test 10/22/17 16:51 10/22/17 17:03 10/22/17 17:04 10/22/17 17:10 White Blood Count 1.28 K/uL Red Blood Count 4.01 M/uL Hemoglobin 12.5 g/dL Hematocrit 37.1 % Mean Corpuscular Volume 92.5 fL Mean Corpuscular Hemoglobin 31.2 pg Mean Corpuscular Hemoglobin Concent 33.7 g/dl Platelet Count 30 K/uL RDW Standard Deviation 56.5 fL RDW Coefficient of Variation 16.6 % Nucleated RBC Absolute Count (auto) 0.02 K/uL Neutrophils % (Manual) 87.8 % Lymphocytes % (Manual) 6.1 % Monocytes % (Manual) 6.1 % Nucleated Red Blood Cells % 1.5 % Neutrophils # (Manual) 1.12 K/uL Total Absolute Neutrophils 1.12 K/uL Lymphocytes # (Manual) 0.08 K/uL Total Absolute Lymphocytes 0.08 K/uL Monocytes # (Manual) 0.08 K/uL Platelet Estimate SIGNIFIC DECREASED Erythrocyte Sedimentation Rate 30 mm/hr Prothrombin Time 16.0 SECONDS Prothromb Time International Ratio 1.5 Activated Partial Thromboplast Time 38.0 SECONDS Partial Thromboplastin Ratio 1.5 Sodium Level 133 mmol/L Potassium Level 3.3 mmol/L Chloride Level 106 mmol/L Carbon Dioxide Level 20 mmol/L Anion Gap 8.0 mmol/L Blood Urea Nitrogen 6 mg/dl Creatinine 0.52 mg/dl Est Creatinine Clear Calc Drug Dose 125.4 ml/min Estimated GFR () 121.2 Estimated GFR (Non- 104.6 BUN/Creatinine Ratio 12.0 Random Glucose 89 mg/dl Calcium Level 6.9 mg/dl Phosphorus Level 2.0 mg/dl Magnesium Level 1.7 mg/dl Total Bilirubin 2.3 mg/dl Aspartate Amino Transf (AST/SGOT) 49 U/L Alanine Aminotransferase (ALT/SGPT) 20 U/L Alkaline Phosphatase 67 U/L Total Creatine Kinase 156 U/L Creatine Kinase MB < 0.5 ng/ml Creatine Kinase MB Ratio Troponin I 0.024 ng/ml C-Reactive Protein 2.90 mg/dl Pro-B-Type Natriuretic Peptide 272 pg/ml Total Protein 6.8 gm/dl Albumin 1.8 gm/dl Globulin 5.0 gm/dl Albumin/Globulin Ratio 0.4 Lipase 843 U/L 25-Hydroxy Vitamin D Total 15.3 ng/ml Procalcitonin 0.29 ng/ml Thyroid Stimulating Hormone (TSH) 0.010 uIu/ml Free Thyroxine 1.39 ng/dl Free Triiodothyronine 1.29 pg/ml Salicylates Level < 2.0 mg/dl Acetaminophen Level 7 ug/ml Immunoglobulin G 2920.0 mg/dL Immunoglobulin A 507.0 mg/dL Immunoglobulin M 148.0 mg/dL Venous Blood pH 7.47 Venous Blood Partial Pressure CO2 29 mmHg Venous Blood Partial Pressure O2 46 mmHg Venous Blood HCO3 21 mmol/L Venous Blood Oxygen Saturation 82.6 % Venous Blood Base Excess -2.0 mEq/L Ammonia 32.7 umol/L Bedside Lactic Acid Venous 2.35 mmol/L Urine Color DK YELLOW Urine Appearance CLEAR Urine pH 5.5 Urine Specific [place] 1.023 Urine Protein NEG Urine Glucose (UA) NEG Urine Ketones NEG Urine Occult Blood NEG Urine Nitrite POS Urine Bilirubin 1+ Urine Urobilinogen POS Urine Leukocyte Esterase TRACE Urine WBC (Auto) 1-5 /hpf Urine RBC (Auto) 0-4 /hpf Urine Hyaline Casts (Auto) 1-5 /lpf Urine Epithelial Cells (Auto) 5-10 /lpf Urine Bacteria (Auto) NEG Test 10/22/17 18:12 10/22/17 22:10 10/23/17 07:07 10/23/17 07:08 Ionized Calcium 1.00 mmol/l Ethyl Alcohol mg/dL < 3.0 mg/dl Urine Opiates Screen POS Urine Methadone, Qualitative NEG Urine Barbiturates NEG Urine Phencyclidine (PCP) Level NEG Ur Amphetamine/Methamphetamine NEG MDMA (Ecstasy) Screen NEG Urine Benzodiazepines Screen NEG Urine Cocaine Metabolite NEG Urine Marijuana (THC) NEG White Blood Count 0.55 K/uL Red Blood Count 4.46 M/uL Hemoglobin 13.5 g/dL Hematocrit 41.9 % Mean Corpuscular Volume 93.9 fL Mean Corpuscular Hemoglobin 30.3 pg Mean Corpuscular Hemoglobin Concent 32.2 g/dl Platelet Count 30 K/uL Neutrophils (%) (Auto) 49.1 % Lymphocytes (%) (Auto) 38.2 % Monocytes (%) (Auto) 12.7 % Eosinophils (%) (Auto) 0.0 % Basophils (%) (Auto) 0.0 % Neutrophils # (Auto) 0.27 K/uL Lymphocytes # (Auto) 0.21 K/uL Monocytes # (Auto) 0.07 K/uL Eosinophils # (Auto) 0.00 K/uL Basophils # (Auto) 0.00 K/uL RDW Standard Deviation 56.9 fL RDW Coefficient of Variation 16.4 % Immature Granulocyte % (Auto) 0.0 % Immature Granulocyte # (Auto) 0.00 K/uL Platelet Estimate SIGNIFIC DECREASED Echinocytes 1+ Prothrombin Time 17.2 SECONDS Prothromb Time International Ratio 1.7 Activated Partial Thromboplast Time 43.8 SECONDS Partial Thromboplastin Ratio 1.7 Sodium Level 135 mmol/L Potassium Level 3.6 mmol/L Chloride Level 105 mmol/L Carbon Dioxide Level 21 mmol/L Anion Gap 9.0 mmol/L Blood Urea Nitrogen 9 mg/dl Creatinine 0.67 mg/dl Est Creatinine Clear Calc Drug Dose 84.6 ml/min Estimated GFR () 111.5 Estimated GFR (Non- 96.2 BUN/Creatinine Ratio 12.7 Random Glucose 267 mg/dl Estimated Average Glucose 88 mg/dl Hemoglobin A1c 4.7 % Lactic Acid Level 4.5 mmol/L Calcium Level 7.4 mg/dl Phosphorus Level 2.0 mg/dl Magnesium Level 2.3 mg/dl Total Bilirubin 2.0 mg/dl Aspartate Amino Transf (AST/SGOT) 48 U/L Alanine Aminotransferase (ALT/SGPT) 21 U/L Alkaline Phosphatase 81 U/L Ammonia 26.3 umol/L Total Protein 7.2 gm/dl Albumin 1.7 gm/dl Globulin 5.5 gm/dl Albumin/Globulin Ratio 0.3 Lipase 540 U/L Vitamin B12 Level 1934 pg/mL Assessment & Plan Ms. Scanlon is a 57 year old woman with a history of hypothyroidism. She presents with flu-like symptoms for the last week or so. On admission, she was found to be markedly neutropenic and thrombocytopenic and to have evidence of acute liver injury. Her CT chest reveals what appears to be a markedly enlarged spleen, which could absolutely explain her cytopenias. Her peripheral smear shows an abundance of veronica cells, consistent with liver disease, and a bandemia , consistent with an acute infection. Overall, I strongly suspect an infectious cause, particularly as she does not give a good history of toxic exposures. Her salicylate and Tylenol levels were normal and, though she is somewhat vague about it, it does not appear that she drinks heavily. I would screen her for viral hepatitis, HIV, EBV, and CMV. If that is unrevealing, we could consider a zoonosis workup, though this is the wrong time of year for such infections. Hemophagocytic syndrome can present with cytopenias and splenomegaly, but is usually seen in the context of a severe illness. Her upcoming CT A/P will shed light on possible adenopathy that might point toward a malignant etiology for her splenomegaly. She also is prone to buying supplements off the internet and taking them. I searched the ones she's taking and did not find any evidence of hepatotoxicty. However, a more detailed ingestion history might be warranted, as it is possible she is taking other things as well (she frankly admitted to not telling doctors about this habit).
[2017-10-23] MEDS ORDERED: OPTIRAY 320 IV PRN (10:00)
--- NOTE | 2017-10-23 10:41 | DIAGNOSTIC IMAGING REPORT ---
ABD/PELVIS IV AND ORAL CONT CT DOSE: 372.57 mGy.cm HISTORY: Abnormal liver function tests abnormal LFTs, elevated ammonia and lipase, low platelets TECHNIQUE: Multiaxial CT images of the abdomen and pelvis were performed following the use of intravenous and oral contrast. A dose lowering technique was utilized adhering to the principles of ALARA. COMPARISON STUDY: None. FINDINGS: Mild prominence of the basilar basilar pulmonary vasculature. Findings suggesting hepatic cirrhosis. Splenomegaly. Patent upper abdominal varices consistent with portal hypertension. Kidneys enhance uniformly. 1.2 cm left renal cortical cyst. Moderately contracted gallbladder with several gallstones. Trace amount of upper abdominal ascites. Mid to lower abdominal region demonstrates a nonobstructive bowel pattern. Mild body wall anasarca. Bilateral inguinal hernias containing loops of bowel which are nonobstructive. Small periumbilical hernia containing fat as well as several small vessels. IMPRESSION: 1. Hepatic cirrhosis with evidence for portal hypertension. 2. Trace amount of abdominal and pelvic ascites. 3. Moderate body wall anasarca. 4. Patent upper abdominal varices. 5. Nonobstructive bowel pattern. 6. Bilateral bowel containing inguinal hernias felt to be nonobstructive. 7. Splenomegaly. The above report was generated using voice recognition software. It may contain grammatical, syntax or spelling errors. Electronically signed by: Elvis Boyd M.D. 10/23/2017 10:40 AM Dictated Date/Time: 10/23/2017 10:35 AM
[2017-10-23] MEDS: POT PHOSPHATE MONOBASIC W/ SOD TAB PO SCH ×4 (10:46→20:42)
[2017-10-23] MEDS: MAGNESIUM OXIDE 400 MG TAB PO SCH ×2 (10:46→20:42)
[2017-10-23] MEDS: DOXYCYCLINE IV 100 MG in DEXTROSE 5% 100ML 100 ML IV SCH ×2 (10:46→20:41)
[2017-10-23] MEDS: POTASSIUM CHLORIDE 20 MEQ TABCR PO SCH ×2 (10:47→20:42)
[2017-10-23] MEDS: MULTIVITAMIN TAB PO SCH (10:47)
--- NOTE | 2017-10-23 13:49 | Family Medicine Progress Note ---
Progress Note Date of Service Oct 23, 2017. Subjective Pt evaluation today including: conversation w/ patient, physical exam, chart review, lab review Voiding: no voiding problems Patient describes feeling fatigued for quit sometime. She reports feeling increasing flu symptoms over the past week which prompted her to seek medical attention. The patient had difficulty articulating the course of her illness or her specific symptoms. Later in the afternoon, I met with the patient who was accompanied with her family. The family reports that she has been feeling ill and has had a poor appetite and oral intake during this period. In addition, she has refused to seek out medical care. Her sister followed me into the hallway and detailed that she has been the machine set up of her who suffered a brain injury. is functional, but highly dependant on the patient Constitutional: + chills, No fever Respiratory: + cough, No wheezing, No shortness of breath Cardiovascular: No chest pain, No palpitations Abdomen: + pain, No nausea, No vomiting, No diarrhea Female : No dysuria, No urinary frequency Medications Current Inpatient Medications Medications (Trade) Dose Ordered Sig/Rodrigo Route Start Time Stop Time Status Last Admin Dose Admin Ioversol (Optiray 320) 100 ml UD PRN IV 10/22/17 17:45 10/26/17 17:44 Acetaminophen (Tylenol Tab) 650 mg Q4H PRN PO 10/22/17 22:15 11/21/17 22:14 Al Hydrox/Mg Hydrox/Simethicone (Maalox Max Susp) 15 ml Q4H PRN PO 10/22/17 22:15 11/21/17 22:14 Magnesium Hydroxide (Milk Of Magnesia Susp) 30 ml Q12H PRN PO 10/22/17 22:15 11/21/17 22:14 Ondansetron HCl (Zofran Inj) 4 mg Q6H PRN IV 10/22/17 22:15 11/21/17 22:14 Nitroglycerin (Nitrostat Tab) 0.4 mg UD PRN SL 10/22/17 22:15 11/21/17 22:14 Polyethylene (Miralax Powder Packet) 17 gm DAILY PRN PO 10/22/17 22:15 11/21/17 22:14 Potassium Chloride (Klor-Con Tab) 20 meq BID PO 10/23/17 09:00 10/24/17 08:59 10/23/17 10:47 20 MEQ Magnesium Oxide (Mag-Ox Tab) 400 mg BID PO 10/23/17 09:00 10/24/17 08:59 10/23/17 10:46 400 MG Potassium/ Phosphorus/Sodium (Phospha 250 Neutral 155-852-130 Mg) 2 tab QID PO 10/23/17 09:00 10/24/17 08:59 10/23/17 13:08 2 TAB Levothyroxine Sodium (Synthroid Tab) 100 mcg DAILYBB PO 10/23/17 06:30 11/22/17 06:59 10/23/17 06:01 100 MCG Multivitamins (Multivitamin Tab) 1 tab DAILY PO 10/23/17 09:00 11/22/17 08:59 10/23/17 10:47 1 TAB Doxycycline Hyclate 100 mg/ Dextrose 110 ml @ 50 mls/hr Q12 IV 10/23/17 09:00 10/30/17 08:59 10/23/17 10:46 50 MLS/HR Vancomycin HCl (Consult) 1 ea UD PRN N/A 10/23/17 00:15 11/22/17 00:14 Ioversol (Optiray 320) 100 ml UD PRN IV 10/23/17 10:00 10/27/17 09:59 Vancomycin HCl 750 mg/Sodium Chloride 265 ml @ 125 mls/hr Q10H IV 10/23/17 16:00 10/30/17 15:59 Objective Vital Signs Date Time Temp Pulse Resp B/P (MAP) Pulse Ox O2 Delivery O2 Flow Rate FiO2 10/23/17 12:00 95 Nasal Cannula 4.0 10/23/17 11:34 36.5 62 16 89/58 (68) 96 4.0 94/54 (67) 10/23/17 08:00 95 Nasal Cannula 6.0 10/23/17 07:45 36.4 64 18 86/48 (61) 95 10/23/17 05:33 36.3 64 18 81/50 (60) 92 Nasal Cannula 5.0 10/23/17 04:00 Nasal Cannula 6.0 10/23/17 00:00 36.4 67 20 82/50 94 Nasal Cannula 6.0 10/22/17 23:50 36.4 67 20 82/50 (61) 94 Nasal Cannula 6.0 Humidified Oxygen 10/22/17 23:25 60 18 94 10/22/17 23:20 64 18 92 10/22/17 23:15 60 20 92 10/22/17 23:10 66 18 92 10/22/17 23:05 64 21 92 10/22/17 23:00 68 23 92/53 81 10/22/17 22:55 62 21 95 10/22/17 22:50 69 26 91 10/22/17 22:45 66 19 93 10/22/17 22:40 67 20 92 10/22/17 22:35 67 20 92 10/22/17 22:30 66 18 84/56 93 10/22/17 22:17 67 18 94/55 92 Nasal Cannula 6.0 10/22/17 20:50 70 18 88/51 92 3.0 10/22/17 18:46 85 18 86/50 92 Room Air 10/22/17 18:45 85/74 86/50 10/22/17 17:22 37.7 10/22/17 16:43 79 Room Air 10/22/17 16:20 102 10/22/17 16:19 38.9 93 10 151/140 79 Room Air Physical Exam General Appearance: no apparent distress, + pertinent finding (pallor) Respiratory/Chest: chest non-tender, normal breath sounds, no respiratory distress Cardiovascular: regular rate, rhythm, no murmur Abdomen: normal bowel sounds, non tender, soft Neurologic/Psychiatric: alert, normal mood/affect, oriented x 3 Skin: warm/dry, no rash Laboratory Results 10/23/17 07:08 Red Blood Count 4.46, Mean Corpuscular Volume 93.9, Mean Corpuscular Hemoglobin 30.3, Mean Corpuscular Hemoglobin Concent 32.2, Neutrophils (%) (Auto) 49.1, Lymphocytes (%) (Auto) 38.2, Monocytes (%) (Auto) 12.7, Eosinophils (%) (Auto) 0.0, Basophils (%) (Auto) 0.0, Neutrophils # (Auto) 0.27, Lymphocytes # (Auto) 0.21, Monocytes # (Auto) 0.07, Eosinophils # (Auto) 0.00, Basophils # (Auto) 0.00 10/23/17 07:08 Test 10/22/17 16:51 10/22/17 17:03 10/22/17 17:04 10/22/17 17:10 Nucleated RBC Absolute Count (auto) 0.02 K/uL (0-0) Neutrophils % (Manual) 87.8 % Lymphocytes % (Manual) 6.1 % Monocytes % (Manual) 6.1 % Nucleated Red Blood Cells % 1.5 % Neutrophils # (Manual) 1.12 K/uL (1.4-6.5) Total Absolute Neutrophils 1.12 K/uL (1.4-6.5) Lymphocytes # (Manual) 0.08 K/uL (1.2-3.4) Total Absolute Lymphocytes 0.08 K/uL (1.2-3.4) Monocytes # (Manual) 0.08 K/uL (0.11-0.59) Erythrocyte Sedimentation Rate 30 mm/hr (0-21) Total Creatine Kinase 156 U/L (26-192) Creatine Kinase MB < 0.5 ng/ml (0.5-3.6) Creatine Kinase MB Ratio (0-3.0) Troponin I 0.024 ng/ml (0-0.045) C-Reactive Protein 2.90 mg/dl (0-0.29) Pro-B-Type Natriuretic Peptide 272 pg/ml (0-900) 25-Hydroxy Vitamin D Total 15.3 ng/ml (30-100) Procalcitonin 0.29 ng/ml (0-0.5) Thyroid Stimulating Hormone (TSH) 0.010 uIu/ml (0.300-4.500) Free Thyroxine 1.39 ng/dl (0.80-1.60) Free Triiodothyronine 1.29 pg/ml (2.30-4.20) Salicylates Level < 2.0 mg/dl (2.8-20) Acetaminophen Level 7 ug/ml (10-30) Immunoglobulin G 2920.0 mg/dL (700-1600) Immunoglobulin A 507.0 mg/dL (70-400) Immunoglobulin M 148.0 mg/dL (40-230) Venous Blood pH 7.47 (7.36-7.41) Venous Blood Partial Pressure CO2 29 mmHg (38.0-50.0) Venous Blood Partial Pressure O2 46 mmHg Venous Blood HCO3 21 mmol/L Venous Blood Oxygen Saturation 82.6 % Venous Blood Base Excess -2.0 mEq/L Bedside Lactic Acid Venous 2.35 mmol/L (0.90-1.70) Urine Color DK YELLOW Urine Appearance CLEAR (CLEAR) Urine pH 5.5 (4.5-7.5) Urine Specific Burns 1.023 (1.000-1.030) Urine Protein NEG (NEG) Urine Glucose (UA) NEG (NEG) Urine Ketones NEG (NEG) Urine Occult Blood NEG (NEG) Urine Nitrite POS (NEG) Urine Bilirubin 1+ (NEG) Urine Urobilinogen POS (NEG) Urine Leukocyte Esterase TRACE (NEG) Urine WBC (Auto) 1-5 /hpf (0-5) Urine RBC (Auto) 0-4 /hpf (0-4) Urine Hyaline Casts (Auto) 1-5 /lpf (0-5) Urine Epithelial Cells (Auto) 5-10 /lpf (0-5) Urine Bacteria (Auto) NEG (NEG) Test 10/22/17 18:12 10/22/17 22:10 10/23/17 07:07 10/23/17 07:08 Ionized Calcium 1.00 mmol/l (1.12-1.32) Ethyl Alcohol mg/dL < 3.0 mg/dl (0-3) Urine Opiates Screen POS (NEG) Urine Methadone, Qualitative NEG (NEG) Urine Barbiturates NEG (NEG) Urine Phencyclidine (PCP) Level NEG (NEG) Ur Amphetamine/Methamphetamine NEG (NEG) MDMA (Ecstasy) Screen NEG (NEG) Urine Benzodiazepines Screen NEG (NEG) Urine Cocaine Metabolite NEG (NEG) Urine Marijuana (THC) NEG (NEG) White Blood Count 0.55 K/uL (4.8-10.8) Red Blood Count 4.46 M/uL (4.2-5.4) Hemoglobin 13.5 g/dL (12.0-16.0) Hematocrit 41.9 % (37-47) Mean Corpuscular Volume 93.9 fL (80-100) Mean Corpuscular Hemoglobin 30.3 pg (25-34) Mean Corpuscular Hemoglobin Concent 32.2 g/dl (32-36) Platelet Count 30 K/uL (130-400) Neutrophils (%) (Auto) 49.1 % Lymphocytes (%) (Auto) 38.2 % Monocytes (%) (Auto) 12.7 % Eosinophils (%) (Auto) 0.0 % Basophils (%) (Auto) 0.0 % Neutrophils # (Auto) 0.27 K/uL (1.4-6.5) Lymphocytes # (Auto) 0.21 K/uL (1.2-3.4) Monocytes # (Auto) 0.07 K/uL (0.11-0.59) Eosinophils # (Auto) 0.00 K/uL (0-0.5) Basophils # (Auto) 0.00 K/uL (0-0.2) RDW Standard Deviation 56.9 fL (36.4-46.3) RDW Coefficient of Variation 16.4 % (11.5-14.5) Immature Granulocyte % (Auto) 0.0 % Immature Granulocyte # (Auto) 0.00 K/uL (0.00-0.02) Platelet Estimate SIGNIFIC DECREASED Echinocytes 1+ Prothrombin Time 17.2 SECONDS (9.0-12.0) Prothromb Time International Ratio 1.7 (0.9-1.1) Activated Partial Thromboplast Time 43.8 SECONDS (21.0-31.0) Partial Thromboplastin Ratio 1.7 Anion Gap 9.0 mmol/L (3-11) Est Creatinine Clear Calc Drug Dose 84.6 ml/min Estimated GFR () 111.5 Estimated GFR (Non- 96.2 BUN/Creatinine Ratio 12.7 (10-20) Estimated Average Glucose 88 mg/dl Hemoglobin A1c 4.7 % (4.5-5.6) Lactic Acid Level 4.5 mmol/L (0.4-2.0) Calcium Level 7.4 mg/dl (8.5-10.1) Phosphorus Level 2.0 mg/dl (2.5-4.9) Magnesium Level 2.3 mg/dl (1.8-2.4) Total Bilirubin 2.0 mg/dl (0.2-1) Aspartate Amino Transf (AST/SGOT) 48 U/L (15-37) Alanine Aminotransferase (ALT/SGPT) 21 U/L (12-78) Alkaline Phosphatase 81 U/L (45-117) Ammonia 26.3 umol/L (11-32) Total Protein 7.2 gm/dl (6.4-8.2) Albumin 1.7 gm/dl (3.4-5.0) Globulin 5.5 gm/dl (2.5-4.0) Albumin/Globulin Ratio 0.3 (0.9-2) Lipase 540 U/L (73-393) Vitamin B12 Level 1934 pg/mL (211-911) Test 10/23/17 11:31 10/23/17 13:41 Bedside Glucose 112 mg/dl (70-90) Assessment and Plan 57 year old female with hypothyroidism presents to hospital with flu like symptoms and admitted with pulmonary infiltrate and multiple concerning lab findings. Sepsis with Flu like symptoms possibly secondary to CAP/UTI - CXR shows parenchymal infiltrate right pulmonary apex, elevated lactic acid - O2 via nasal cannula to keep sats >92%, wean as tolerated - Continue IV Abx: Vancomycin and doxycycline. day 1 - Patient had a potential allergic reaction to Levaquin/Zosyn. RAST testing pending. Will review abx based on culture. - lactic acid 4.5 - Blood cultures pending - UA shows nitrites, leuks, and urobilinogen, patient asymptomatic - Watch for cultures, and adjust abx as necessary Liver Cirrhosis/Hepatosplenomegaly - Newly diagnosed - possibly alcoholic -Revealed on AbCT -Elevated AST, bili, and ammonia, significantly decreased albumin, deranged coags -Following CMP, ammonia -Hepatitis panel ordered. -Drinks one bottle of wine a week. Will get more detailed history. Concern of alcohol use ds - Get more detailed history. - Add multivitamin. Leukopenia/Thrombocytopenia/deranged coags - Hypergammaglobulinemia - Hematology consulted; recommends ordering infectious test; HIV, CMV, EBV, hepatitis panel - Considering consulting GI and infectious depending on the results. - Trend CBC, coags - Monitor for bruising/bleeding Hypothyroidism - TSH significantly suppressed. - Free T3/T4 pending - Ordered thyroglobulin and microsomal antibodies - Continue levothyroxine 100 mcg daily Urine tox screen - negative for everything except opiates - Follow up for further tox evaluation Electrolyte disturbance - Low levels of K+, Mg+, PO4, Ca+ - Trend BMP, Mg+, PO4, check vitamin D levels - supplement as necessary Recurrent falls - PT/OT consulted - Check HbA1c and B12 levels for causes of neuropathy VTE PPx - SCDs, TEDs - Heparin C/I due to low platelets Reviewed: Pt Seen/Exam by Me History breathing is better cough still present and now bringing up phlegm overall feeling better though. Constitutional: denies: fever Cardiovascular: denies chest pain Gastrointestinal/Abdominal: negative: abdominal pain General Appearance: mild distress Respiratory: lungs clear, no respiratory distress Cardiovascular: regular rate, rhythm Gastrointestinal: normal bowel sounds, non tender, soft Neurologic/Psychiatric: alert, oriented x 3 Skin Characteristics: warm/dry Assessment/Plan Resident Physician Supervision Note: I independently interviewed and examined the patient and verified the snider history and physical, reviewed labs and image studies, discussed the case with the resident Dr. Mayers and agree with the findings and care plan.
--- NOTE | 2017-10-23 15:11 | Pharmacy Progress Note ---
Pharmacy Abx Dose Short Note Date of Service Oct 23, 2017. Assessment & Plan 10/23/17 Pt receiving Vancomycin/Zosyn for pulmonary source. Pt is immunosuppressed 2/2 pancytopenia. Unknown etiology at this juncture. Pt population p'kinetics: t1/2= 9, ke: 0.0750, Vd: 0.6. Ordered a MRSA nasal swab in an effort to potentially de -escalate antibx. * Pt received a large dose of Vancomycin in the ED 2000mg (33mg/kg) to achieve a peak of about 49mcg/mL. Will thus dose maintenance dose conservatively to mitigate any nephrotoxicity. * Will start Vanco 750mg (12.7mg/kg) q10 10/23/17 at 1600 * Goal trough for pulmonary source 15-20mcg/mL * Trough ordered for 10/24/17 @ 1130 10/24/17 Trough prior to Css low at 7.4mcg/mL. Will increase dose and adjust dosing interval to achieve higher peaks and troughs. New dose Vancomycin 1000mg (16mg/ kg) q8hrs. Trough ordered for 10/25/17 @ 1930 10/25/17 Tonight's trough at Css is therapeutic at 17.4mcg/mL. Pt has nil risk factors for Vancomycin accumulation at this juncture. Will continue Vanco 1000mg q8. Trough ordered for 10/27/17 @ 0330 to ensure we are achieving therapeutic lvls in Ms. Scanlon. Pt doesn't look to be improving clinically, will hold off on d/c 'ing Vancomycin despite negative MRSA nares. 10/27/17 Trough therapeutic at 19.7mcg/mL. Will decrease dose to Vanco 750mg (11.4mg/mL) and continue current dosing interval. Will check trough 10/28/17 @ 1130. Pharmacy will continue to follow and will adjust dose/frequency as necessary. Thank you.
[2017-10-23 15:18] LABS: HEP C IGG 13 YRS+OLDER_RFLX NEG (NEG)
[2017-10-23] MEDS: VANCOMYCIN INJ 750 MG in SODIUM CHLORIDE 0.9% 250ML 250 ML IV SCH (16:21)
[2017-10-23] MEDS ORDERED: MULTIVITAMIN TAB PO ONE (19:24)
[2017-10-23] MEDS ORDERED: THIAMINE HCL 100 MG TAB PO ONE (19:24)
[2017-10-23] MEDS ORDERED: INFLUENZA ADMINISTRATION CHARGE ONE (20:00)
[2017-10-23] MEDS ORDERED: INFLUENZA VIRUS QUAD VACCINE 0.5 ML SYR IM. ONE (20:00)
[2017-10-24] VITALS (13 sets, daily range): BP systolic 76–97; BP diastolic 51–62; PULSE 60–99; TEMP 37.1–39.1; O2SAT 84–94
[2017-10-24] MEDS: VANCOMYCIN INJ 750 MG in SODIUM CHLORIDE 0.9% 250ML 250 ML IV SCH ×2 (02:58→12:33)
[2017-10-24] MEDS: ACETAMINOPHEN 325 MG TAB PO PRN ×3 (03:06→22:21)
[2017-10-24] MEDS ORDERED: SODIUM CHLORIDE 0.9% 500ML 500 ML IV SCH (04:45)
[2017-10-24] MEDS: LEVOTHYROXINE 100 MCG TAB PO SCH (05:10)
[2017-10-24 08:59] LABS: ALBUMIN 1.6 gm/dl (3.4-5.0); CALCIUM 7.3 mg/dl (8.5-10.1); CREATININE 0.49 mg/dl (0.60-1.20); POTASSIUM 4.1 mmol/L (3.5-5.1); TOTAL PROTEIN 6.1 gm/dl (6.4-8.2)
[2017-10-24] MEDS: MULTIVITAMIN TAB PO SCH ×2 (09:00→10:03)
[2017-10-24 09:01] LABS: HEMATOCRIT 35.4 % (37-47); HEMOGLOBIN 11.9 g/dL (12.0-16.0); MEAN CELL VOLUME 92.2 fL (80-100); MEAN CORPUSCULAR HGB CONC 33.6 g/dl (32-36); PLATELET COUNT 23 K/uL (130-400); RED CELL DISTRIBUTION WIDTH CV 16.7 % (11.5-14.5); RED CELL DISTRIBUTION WIDTH SD 56.5 fL (36.4-46.3)
--- NOTE | 2017-10-24 09:23 | Hematology/Oncology Prog Note ---
Hematology/Onc Progress Note Date of Service Oct 24, 2017. Diagnoses Leukopenia and thrombocytopenia Liver cirrhosis Medications Medications Administered Medications (Trade) Dose Ordered Sig/Rodrigo Route Start Time Stop Time Status Last Admin Dose Admin Sodium Chloride 1,000 ml @ 999 mls/hr Q1H1M ONCE IV 10/22/17 16:28 10/22/17 17:28 DC 10/22/17 16:28 999 MLS/HR Acetaminophen (Tylenol Tab) 1,000 mg NOW STAT PO 10/22/17 16:32 10/22/17 16:34 DC 10/22/17 16:32 1,000 MG Albuterol/ Ipratropium (Duoneb) 3 ml NOW STAT INH 10/22/17 16:34 10/22/17 16:36 DC 10/22/17 16:34 3 ML Dexamethasone Sodium Phosphate (Decadron Inj) 10 mg NOW STAT IV 10/22/17 16:34 10/22/17 16:36 DC 10/22/17 16:34 10 MG Levofloxacin (Levaquin / D5W) 750 mg NOW ONCE IV 10/22/17 16:45 10/22/17 16:46 DC 10/22/17 16:45 750 MG Piperacillin Sod/ Tazobactam Sod (Zosyn Iv) 4.5 gm NOW STAT IV 10/22/17 17:37 10/22/17 17:38 DC 10/22/17 19:20 4.5 GM Magnesium Sulfate (Magnesium Sulfate) 2 gm NOW STAT IV 10/22/17 17:40 10/22/17 17:41 DC 10/22/17 19:20 2 GM Thiamine HCl (Vitamin B-1 Inj) 100 mg NOW STAT IV 10/22/17 18:05 10/22/17 18:06 DC 10/22/17 19:20 100 MG Diphenhydramine HCl (Benadryl Inj) 25 mg NOW STAT IV 10/22/17 20:56 10/22/17 20:57 DC 10/22/17 21:03 25 MG Acetaminophen (Tylenol Tab) 650 mg Q4H PRN PO 10/22/17 22:15 11/21/17 22:14 10/24/17 03:06 650 MG Potassium Chloride (Klor-Con Tab) 20 meq NOW STAT PO 10/22/17 22:01 1/12/18 22:39 DC 10/22/17 23:35 20 MEQ Potassium Chloride (Klor-Con Tab) 20 meq BID PO 10/23/17 09:00 10/24/17 08:59 DC 10/23/17 20:42 20 MEQ Magnesium Oxide (Mag-Ox Tab) 400 mg BID PO 10/23/17 09:00 10/24/17 08:59 DC 10/23/17 20:42 400 MG Magnesium Oxide (Mag-Ox Tab) 400 mg NOW STAT PO 10/22/17 22:27 10/22/17 22:28 DC 10/22/17 22:35 400 MG Potassium/ Phosphorus/Sodium (Phospha 250 Neutral 155-852-130 Mg) 2 tab QID PO 10/23/17 09:00 10/24/17 08:59 DC 10/23/17 20:42 2 TAB Potassium/ Phosphorus/Sodium (Phospha 250 Neutral 155-852-130 Mg) 2 tab 2201 ONCE PO 10/22/17 22:01 10/22/17 22:39 DC 10/22/17 23:35 2 TAB Levothyroxine Sodium (Synthroid Tab) 100 mcg DAILYBB PO 10/23/17 06:30 11/22/17 06:59 10/24/17 05:10 100 MCG Multivitamins (Multivitamin Tab) 1 tab DAILY PO 10/23/17 09:00 11/22/17 08:59 10/23/17 10:47 1 TAB Doxycycline Hyclate 100 mg/ Dextrose 110 ml @ 50 mls/hr Q12 IV 10/23/17 09:00 10/30/17 08:59 10/23/17 20:41 50 MLS/HR Vancomycin HCl 2000 mg/Sodium Chloride 540 ml @ 200 mls/hr TODAY@0030 IV 10/23/17 00:30 10/23/17 03:11 DC 10/23/17 01:58 200 MLS/HR Vancomycin HCl 750 mg/Sodium Chloride 265 ml @ 125 mls/hr Q10H IV 10/23/17 16:00 10/30/17 15:59 10/24/17 02:58 125 MLS/HR Multivitamins (Multivitamin Tab) 1 tab 1924 ONCE PO 10/23/17 19:24 10/23/17 20:07 DC 10/23/17 20:41 1 TAB Thiamine HCl (Vitamin B-1 Tab) 100 mg 1924 ONCE PO 10/23/17 19:24 10/23/17 20:07 DC 10/23/17 20:41 100 MG Sodium Chloride 500 ml @ 200 mls/hr Q2H30M IV 10/24/17 04:45 10/24/17 07:14 DC 10/24/17 05:01 200 MLS/HR Subjective Ms. Scanlon is seated comfortably in bed. She had an episode last night where she got stuck in a doorway and pulled out her IV, leading to gross bleeding. She is feeling better this morning. Her CT demonstrated cirrhosis and splenomegaly, along with other features of chronic liver disease. Review of Systems: Constitutional: No fever Eyes: No worsening of vision ENT: No unusual epistaxis Respiratory: No cough, No hemoptysis Cardiovascular: No chest pain Abdomen: No pain, No nausea, No GI bleeding Heme: No abnormal bleeding/bruising Vital Signs Vital Signs Past 12 Hours Date Time Temp Pulse Resp B/P (MAP) Pulse Ox O2 Delivery O2 Flow Rate FiO2 10/24/17 07:03 37.2 78 16 92/51 (65) 91 Nasal Cannula 6.0 10/24/17 04:40 37.1 60 18 76/52 (60) 94 Oxymask 10.0 10/24/17 04:00 86 Oxymask 10.0 10/24/17 00:00 92 Nasal Cannula 4.0 10/23/17 23:46 37.6 87 21 91/41 (58) 90 Nasal Cannula 4.0 Physical Exam Constitutional: General Apperance: too thin Level of Distress: NAD Psychiatric: Mental Status: active & alert, confused Lungs: Auscuitation: breath sounds normal Cardiovascular: Heart Auscultation: RRR Abdomen: Inspection & Palpation: soft, no tenderness, guarding & rebound Extremities: no edema Laboratory Last 24 Hours Test 10/23/17 11:31 10/23/17 13:41 10/24/17 04:39 10/24/17 08:11 Bedside Glucose 112 mg/dl 88 mg/dl Hepatitis B Surface Antigen NEG Hepatitis C Antibody NEG Monoscreen NEG HIV (1&2) Ab and P24 Ag, 4th Gener NEG White Blood Count 1.60 K/uL Red Blood Count 3.84 M/uL Hemoglobin 11.9 g/dL Hematocrit 35.4 % Mean Corpuscular Volume 92.2 fL Mean Corpuscular Hemoglobin 31.0 pg Mean Corpuscular Hemoglobin Concent 33.6 g/dl Platelet Count 23 K/uL RDW Standard Deviation 56.5 fL RDW Coefficient of Variation 16.7 % Sodium Level 137 mmol/L Potassium Level 4.1 mmol/L Chloride Level 107 mmol/L Carbon Dioxide Level 22 mmol/L Anion Gap 7.0 mmol/L Blood Urea Nitrogen 13 mg/dl Creatinine 0.49 mg/dl Est Creatinine Clear Calc Drug Dose 119.8 ml/min Estimated GFR () 123.6 Estimated GFR (Non- 106.6 BUN/Creatinine Ratio 27.1 Random Glucose 100 mg/dl Calcium Level 7.3 mg/dl Total Bilirubin 1.5 mg/dl Aspartate Amino Transf (AST/SGOT) 42 U/L Alanine Aminotransferase (ALT/SGPT) 19 U/L Alkaline Phosphatase 56 U/L Total Protein 6.1 gm/dl Albumin 1.6 gm/dl Globulin 4.5 gm/dl Albumin/Globulin Ratio 0.4 Test 10/24/17 08:14 Ammonia 50.0 umol/L Assessment & Plan Ms. Scanlon's overall clinical presentation is one consistent with chronic liver disease. She has cirrhosis with multiple imaging findings consistent with portal hypertension. She also seems encephalopathic and her ammonia is 50. Her history is entirely unreliable and, given these findings, I strongly doubt this is a new issue. Acute/fulminant liver failure generally presents with very high transaminases, for instance, and doesn't present with these type of decompensated, chronic findings. I would consult Hepatology. I would also see if there is more family or someone else who knows Ms. Scanlon that we could contact that might shed more light on her situation. With regard to her counts, they are consistent with splenomegaly and splenic sequestration. Her platelets are somewhat lower than are usually seen in this context, but not necessarily incompatible, especially if this is a long-standing issue. I would not transfuse her unless she is bleeding or has a platelet count below 15K. Finally , with regard to her altered mentation, while it is certainly consistent with hepatic encephalopathy, given her very low platelet count, I would consider a CT of her head to rule out a CASER IN bleed.
[2017-10-24] MEDS: THIAMINE HCL 100 MG TAB PO SCH (10:03)
[2017-10-24] MEDS: DOXYCYCLINE IV 100 MG in DEXTROSE 5% 100ML 100 ML IV SCH ×2 (10:04→21:56)
[2017-10-24] MEDS ORDERED: VANCOMYCIN TROUGH ONE (11:30)
--- NOTE | 2017-10-24 11:34 | Family Medicine Progress Note ---
Progress Note Date of Service Oct 24, 2017. Subjective Pt evaluation today including: conversation w/ patient, physical exam, chart review, lab review Voiding: no voiding problems Today Ms. Cordova was awake, alert and oriented. While alert, the patient does appear a bit confused. During the interview that patient was distracted and at times would lose train of thought. According to the night team, the patient tried to go to the bathroom on her own and pulled out her IV lines and took of her O2. She desaturated to 86% and required 10 L to get herself back in the 90' s. Did discuss with the patient regarding Etoh consumption. The patient admits to drinking 1 bottle of wine per week, 1-2 glasses per evening. She does mention that during the holidays she has been drinking a bit more. Medications Current Inpatient Medications Medications (Trade) Dose Ordered Sig/Rodrigo Route Start Time Stop Time Status Last Admin Dose Admin Ioversol (Optiray 320) 100 ml UD PRN IV 10/22/17 17:45 10/26/17 17:44 Acetaminophen (Tylenol Tab) 650 mg Q4H PRN PO 10/22/17 22:15 11/21/17 22:14 10/24/17 03:06 650 MG Al Hydrox/Mg Hydrox/Simethicone (Maalox Max Susp) 15 ml Q4H PRN PO 10/22/17 22:15 11/21/17 22:14 Magnesium Hydroxide (Milk Of Magnesia Susp) 30 ml Q12H PRN PO 10/22/17 22:15 11/21/17 22:14 Ondansetron HCl (Zofran Inj) 4 mg Q6H PRN IV 10/22/17 22:15 11/21/17 22:14 Nitroglycerin (Nitrostat Tab) 0.4 mg UD PRN SL 10/22/17 22:15 11/21/17 22:14 Polyethylene (Miralax Powder Packet) 17 gm DAILY PRN PO 10/22/17 22:15 11/21/17 22:14 Levothyroxine Sodium (Synthroid Tab) 100 mcg DAILYBB PO 10/23/17 06:30 11/22/17 06:59 10/24/17 05:10 100 MCG Multivitamins (Multivitamin Tab) 1 tab DAILY PO 10/23/17 09:00 11/22/17 08:59 10/24/17 10:03 1 TAB Doxycycline Hyclate 100 mg/ Dextrose 110 ml @ 50 mls/hr Q12 IV 10/23/17 09:00 10/30/17 08:59 10/24/17 10:04 50 MLS/HR Vancomycin HCl (Consult) 1 ea UD PRN N/A 10/23/17 00:15 11/22/17 00:14 Ioversol (Optiray 320) 100 ml UD PRN IV 10/23/17 10:00 10/27/17 09:59 Vancomycin HCl 750 mg/Sodium Chloride 265 ml @ 125 mls/hr Q10H IV 10/23/17 16:00 10/30/17 15:59 10/24/17 02:58 125 MLS/HR Multivitamins (Multivitamin Tab) 1 tab QAM PO 10/24/17 09:00 11/23/17 08:59 Thiamine HCl (Vitamin B-1 Tab) 100 mg QAM PO 10/24/17 09:00 11/23/17 08:59 10/24/17 10:03 100 MG Objective Vital Signs Date Time Temp Pulse Resp B/P (MAP) Pulse Ox O2 Delivery O2 Flow Rate FiO2 10/24/17 08:00 92 Nasal Cannula 6.0 10/24/17 07:03 37.2 78 16 92/51 (65) 91 Nasal Cannula 6.0 10/24/17 04:40 37.1 60 18 76/52 (60) 94 Oxymask 10.0 10/24/17 04:00 86 Oxymask 10.0 10/24/17 00:00 92 Nasal Cannula 4.0 10/23/17 23:46 37.6 87 21 91/41 (58) 90 Nasal Cannula 4.0 10/23/17 20:00 92 Nasal Cannula 4.0 10/23/17 19:30 36.7 74 18 96/57 (70) 92 Nasal Cannula 6.0 10/23/17 16:05 92 Nasal Cannula 4.0 10/23/17 15:25 36.5 77 16 94/60 (71) Physical Exam General Appearance: WD/WN, no apparent distress Neck: supple, no adenopathy Respiratory/Chest: lungs clear, normal breath sounds, no respiratory distress Cardiovascular: regular rate, rhythm, no murmur Abdomen: non tender, soft, no organomegaly Neurologic/Psychiatric: alert, normal mood/affect, oriented x 3 Skin: normal color, warm/dry, no rash Laboratory Results 10/24/17 08:11 Red Blood Count 3.84, Mean Corpuscular Volume 92.2, Mean Corpuscular Hemoglobin 31.0, Mean Corpuscular Hemoglobin Concent 33.6 10/24/17 08:11 Test 10/23/17 13:41 10/24/17 04:39 10/24/17 08:11 10/24/17 08:14 Hepatitis B Surface Antigen NEG (NEG) Hepatitis C Antibody NEG (NEG) Monoscreen NEG (NEG) HIV (1&2) Ab and P24 Ag, 4th Gener NEG (NEG) Bedside Glucose 88 mg/dl (70-90) White Blood Count 1.60 K/uL (4.8-10.8) Red Blood Count 3.84 M/uL (4.2-5.4) Hemoglobin 11.9 g/dL (12.0-16.0) Hematocrit 35.4 % (37-47) Mean Corpuscular Volume 92.2 fL (80-100) Mean Corpuscular Hemoglobin 31.0 pg (25-34) Mean Corpuscular Hemoglobin Concent 33.6 g/dl (32-36) Platelet Count 23 K/uL (130-400) RDW Standard Deviation 56.5 fL (36.4-46.3) RDW Coefficient of Variation 16.7 % (11.5-14.5) Neutrophils % (Manual) 91.2 % Lymphocytes % (Manual) 5.3 % Monocytes % (Manual) 3.5 % Neutrophils # (Manual) 1.46 K/uL (1.4-6.5) Total Absolute Neutrophils 1.46 K/uL (1.4-6.5) Lymphocytes # (Manual) 0.08 K/uL (1.2-3.4) Total Absolute Lymphocytes 0.08 K/uL (1.2-3.4) Monocytes # (Manual) 0.06 K/uL (0.11-0.59) Platelet Estimate SIGNIFIC DECREASED Anion Gap 7.0 mmol/L (3-11) Est Creatinine Clear Calc Drug Dose 119.8 ml/min Estimated GFR () 123.6 Estimated GFR (Non- 106.6 BUN/Creatinine Ratio 27.1 (10-20) Calcium Level 7.3 mg/dl (8.5-10.1) Total Bilirubin 1.5 mg/dl (0.2-1) Aspartate Amino Transf (AST/SGOT) 42 U/L (15-37) Alanine Aminotransferase (ALT/SGPT) 19 U/L (12-78) Alkaline Phosphatase 56 U/L (45-117) Total Protein 6.1 gm/dl (6.4-8.2) Albumin 1.6 gm/dl (3.4-5.0) Globulin 4.5 gm/dl (2.5-4.0) Albumin/Globulin Ratio 0.4 (0.9-2) Ammonia 50.0 umol/L (11-32) Test 10/24/17 11:48 Date/Time Source Procedure Growth Status 10/23/17 16:00 Nasal MRSA DNA Surveillance Screen - Final Specimen Negative for MRSA by DNA Probe Complete Assessment and Plan 57 year old female with hypothyroidism presents to hospital with flu like symptoms and admitted with pulmonary infiltrate and multiple concerning lab findings. Patient found to have new cirrhosis. Cause unknown. Patient appears encephalopathic and is not a reliable historian. Family denies alcohol abuse, but report concerning behavior; patient is more withdrawn, has a poor appetite and nutrition. Patient denies alcohol or drug abuse. Urine tox is positive for opiates, but the patient denies taking opioid medications. Patient being followed by hematology, GI. Sepsis with Flu like symptoms possibly secondary to CAP/UTI - CXR shows parenchymal infiltrate right pulmonary apex - O2 via nasal cannula to keep sats >92%, wean as tolerated - Continue IV Abx: Vancomycin and doxycycline. day 2 - Patient had a potential allergic reaction to Levaquin/Zosyn. RAST testing pending. - lactic acid 4.5, will trend in the morning - Blood cultures pending - UA shows nitrites, leuks, and urobilinogen, patient asymptomatic - Watch for cultures, and adjust abx as necessary Liver Cirrhosis/Hepatosplenomegaly - Newly diagnosed - possibly alcoholic -Revealed on AbCT -MADDRY of 26, MELD of 19. -Elevated AST, bili, and ammonia, significantly decreased albumin, deranged coags -Following CMP, ammonia -Hepatitis panel ordered. -Per H and P drinks one bottle of wine a week. -Patient reports taking a various supplements -Ordered test for infectious causes; HIV, CMV, HIV, hep panel. -GI consulted with the following recs; JOSSELYN, ASMA, Fe sat, ferritin Hepatic Encephalopathy -Continue lactulose -Monitor mental status Concern of alcohol abuse - Patient admits to drinking 1 bottle of wine per week. - Denies taking opiates, but urine tox positive - Patient is confused, maybe an unreliable historian - Add multivitamin. Leukopenia/Thrombocytopenia/deranged coags - - wbc count better today - Hematology consulted likely 2/2 to splenic sequestration due to underlying cirrhosis - Leukopenia, thrombocytopenia, Hypergammaglobulinemia - Trend CBC, coags - Monitor for bruising/bleeding Hypothyroidism - TSH suppressed, low T3 - Ordered thyroglobulin and microsomal antibodies - Continue levothyroxine 100 mcg daily Urine tox screen - negative for everything except opiates - Follow up for further tox evaluation Electrolyte disturbance - Low levels of K+, Mg+, PO4, Ca+ - Trend BMP, Mg+, PO4, check vitamin D levels - supplement as necessary Recurrent falls - PT/OT consulted - Check HbA1c and B12 levels for causes of neuropathy VTE PPx - SCDs, TEDs - Heparin C/I due to low platelets Reviewed: Pt Seen/Exam by Me History denies any concerns. sitting up in bed Constitutional: denies: fever Respiratory: negative: short of breath Cardiovascular: denies chest pain General Appearance: no apparent distress Respiratory: lungs clear, no respiratory distress Cardiovascular: regular rate, rhythm Gastrointestinal: soft Neurologic/Psychiatric: alert, other (confused) Skin Characteristics: warm/dry Assessment/Plan Resident Physician Supervision Note: I independently interviewed and examined the patient and verified the snider history and physical, reviewed labs and image studies, discussed the case with the resident Dr. Mayers and agree with the findings and care plan.
--- NOTE | 2017-10-24 17:23 | Gastrointestinal Consultation ---
Gastrointestinal Consultation Date of Consultation: Oct 24, 2017 Attending Physician: Helen Scott Consulting Physician: Hugh Viera Reason for Consultation: cirrhosis History of Present Illness Patient is a 57 year old female admitted CC of cough and fatigue and SOB. HPI Pt vague historian but history obtained from her and chart. There is weight loss of 30 lbs reported in chart but I ask her and she does not corroborate that. She does corroborate fatigue and use of OTC supplements of unknown type over the last year. She states no history of liver problems but Fhx of alcoholism with liver problems. She states bowels normal at home but dark here. No change in bowels otherwise and no red blood in stools. No abd pain. Apparently decreased appetite over last 2 years. A/P CT scan portal HTNw with varices, cirrhosis, splenomegaly. Head CT neg, CTA chest neg for PE but pnemonia noted. She denies every having EGD or colo. She states drinks 2 glasses of wine a week and never heavy use but in other places says 1-2 glasses a night. Ammonia 32.7 on admit and up to 50 today. Mildly elevated LFTS noted. INR is elevated. Lipase is elevated but no mention of pancreatitis on CT. thrombocytopenia and leukopenia noted. Hematology thought combination of infection and chronic liver disease. Tox screen pos for opiates but supposedly not on any at home. ETOH on admit neg. Past Medical/Surgical History Medical Problems: (1) Altered mental status Status: Acute (2) Hypocalcemia Status: Acute (3) Hypomagnesemia Status: Acute (4) Hypoxia Status: Acute (5) Pneumonia Status: Acute Family History alcoholism Social History Smoking Status: Former Smoker Alcohol Use: occasionally Drug Use: none Marital Status: Housing Status: lives with family Occupation Status: employed ([employer]) Allergies Coded Allergies: No Known Allergies (Unverified , 10/22/17) Current Medications Home Meds and Scripts Medications Dose Route/Sig Max Daily Dose Days Date Category Multivitamin (Multivitamins) Tab 1 Tab PO DAILY 10/22/17 Reported Levothyroxine Sodium 100 Mcg Tab 100 Mcg PO DAILY 10/22/17 Reported Review of Systems See HPI. Ten ROS otherwise negative. Physical Exam Date Time Temp Pulse Resp B/P (MAP) Pulse Ox O2 Delivery O2 Flow Rate FiO2 10/24/17 15:03 37.2 99 16 95/54 (68) 93 Nasal Cannula 7.0 1/14/18 13:41 37.8 90 26 84 Nasal Cannula 6.0 10/24/17 12:09 Nasal Cannula 6.0 10/24/17 08:00 92 Nasal Cannula 6.0 10/24/17 07:03 37.2 78 16 92/51 (65) 91 Nasal Cannula 6.0 10/24/17 04:40 37.1 60 18 76/52 (60) 94 Oxymask 10.0 10/24/17 04:00 86 Oxymask 10.0 10/24/17 00:00 92 Nasal Cannula 4.0 10/23/17 23:46 37.6 87 21 91/41 (58) 90 Nasal Cannula 4.0 10/23/17 20:00 92 Nasal Cannula 4.0 10/23/17 19:30 36.7 74 18 96/57 (70) 92 Nasal Cannula 6.0 General Appearance: WD/WN, no apparent distress Eyes: normal inspection, PERRL ENT: hearing grossly normal, TMs normal Neck: supple, trachea midline Respiratory/Chest: lungs clear, no respiratory distress Cardiovascular: regular rate, rhythm, no edema, no murmur Abdomen: normal bowel sounds, non tender, soft, no organomegaly, no pulsatile mass Extremities: normal range of motion, normal inspection Neurologic/Psych: no motor/sensory deficits, alert (but some confusion), normal mood/affect, oriented x 3 Skin: normal color Laboratory Results Last 24 Hours Test 10/24/17 04:39 10/24/17 08:11 10/24/17 08:14 10/24/17 11:48 Bedside Glucose 88 mg/dl White Blood Count 1.60 K/uL Red Blood Count 3.84 M/uL Hemoglobin 11.9 g/dL Hematocrit 35.4 % Mean Corpuscular Volume 92.2 fL Mean Corpuscular Hemoglobin 31.0 pg Mean Corpuscular Hemoglobin Concent 33.6 g/dl Platelet Count 23 K/uL RDW Standard Deviation 56.5 fL RDW Coefficient of Variation 16.7 % Neutrophils % (Manual) 91.2 % Lymphocytes % (Manual) 5.3 % Monocytes % (Manual) 3.5 % Neutrophils # (Manual) 1.46 K/uL Total Absolute Neutrophils 1.46 K/uL Lymphocytes # (Manual) 0.08 K/uL Total Absolute Lymphocytes 0.08 K/uL Monocytes # (Manual) 0.06 K/uL Platelet Estimate SIGNIFIC DECREASED Sodium Level 137 mmol/L Potassium Level 4.1 mmol/L Chloride Level 107 mmol/L Carbon Dioxide Level 22 mmol/L Anion Gap 7.0 mmol/L Blood Urea Nitrogen 13 mg/dl Creatinine 0.49 mg/dl Est Creatinine Clear Calc Drug Dose 119.8 ml/min Estimated GFR () 123.6 Estimated GFR (Non- 106.6 BUN/Creatinine Ratio 27.1 Random Glucose 100 mg/dl Calcium Level 7.3 mg/dl Total Bilirubin 1.5 mg/dl Aspartate Amino Transf (AST/SGOT) 42 U/L Alanine Aminotransferase (ALT/SGPT) 19 U/L Alkaline Phosphatase 56 U/L Total Protein 6.1 gm/dl Albumin 1.6 gm/dl Globulin 4.5 gm/dl Albumin/Globulin Ratio 0.4 Ammonia 50.0 umol/L Vancomycin Level Trough 7.4 mcg/ml Impression Patient is a 57 year old female Plan cirrhosis-- Acute hep panel pending, Check JOSSELYN, ASMA, Fe sat and ferritin. Pt may drinks more than she lets on also. This is an acute recognition of chronic liver problems. Even if supplement cause liver issues would not expect cirrhosis in one year of them Elev LFTS--mild, indicative of chronic liver disease rather than acute hepatititis elevated lipase--no indication of pancreatitis on CT portal HTN/varices--check U/S of portal venous system to look for obstruction-- eventual staging EGD for varices when pneumonia cleared splenomegaly--can be from chronic liver diseaea---mono neg, CMV and EBV pending thrombocytopenia-can be from splenomegaly leukopenia--not usually this low from liver disease alone--infectious workup per ID elevated INR--can be from cirrhosis but give vit K to see if corrects mental status issues--mild ammonia elevation--recommend lactulose in case she has an element of hepatic encephalopahty trace ascites on CT--not enough to tap but c/w cirrhosis gallstones--asymptomatic elevated lactic acid--nothing on CT nor abd pain to suggest bowel ischemia-- presumably infection process--defer to admitting team, elevated ammonia--as above wt loss--recommend eventual EGD and colonoscopy depending on plts count and stability of INR. No explained by cirrhosis in and of itself. pneumonia--per admitting fatigue--not explained by cirrhosis necesarily. I am going off service tomorrow 10/[address] Jameson is on schedule to be assuming GI care then.
[2017-10-24] MEDS ORDERED: PHYTONADIONE INJ 10 MG in SODIUM CHLORIDE 0.9% 50ML 50 ML IV ONE (17:45)
[2017-10-24] MEDS: VANCOMYCIN INJ 1,000 MG in SODIUM CHLORIDE 0.9% 250ML 250 ML IV SCH (20:19)
[2017-10-24] MEDS: LACTULOSE SYRUP 30 GM/45 ML UDP PO SCH (20:19)
[2017-10-24] MEDS: BOOST VANILLA PO SCH (20:24)
[2017-10-25] VITALS (14 sets, daily range): BP systolic 93–111; BP diastolic 54–70; PULSE 75–88; TEMP 36.8–39.1; O2SAT 65–93
[2017-10-25] MEDS ORDERED: CEFEPIME IV 2,000 MG in DEXTROSE 5% 100ML 100 ML IV ONE (00:34)
[2017-10-25] MEDS ORDERED: FUROSEMIDE 40 MG/4 ML VIAL ONE (00:37)
[2017-10-25] MEDS ORDERED: FUROSEMIDE INJ 40 MG in SYRINGE 0 ML IV ONE (00:45)
[2017-10-25] MEDS ORDERED: CEFEPIME IV 2,000 MG in DEXTROSE 5% 100ML 100 ML IV SCH (00:45)
[2017-10-25] MEDS ORDERED: CEFEPIME IV 2,000 MG in SYRINGE 7.5 ML IV SCH (01:00)
[2017-10-25 01:12] LABS: INFLUENZA A PCR POS for Influ A (NEG); INFLUENZA B PCR Neg for Influ B (NEG)
[2017-10-25 01:30] LABS: HEMATOCRIT 33.1 % (37-47); HEMOGLOBIN 11.3 g/dL (12.0-16.0); MEAN CELL VOLUME 91.7 fL (80-100); MEAN CORPUSCULAR HEMOGLOBIN 31.3 pg (25-34); MEAN CORPUSCULAR HGB CONC 34.1 g/dl (32-36); PLATELET COUNT 24 K/uL (130-400); RED CELL DISTRIBUTION WIDTH CV 16.6 % (11.5-14.5); RED CELL DISTRIBUTION WIDTH SD 55.5 fL (36.4-46.3); WHITE BLOOD COUNT 0.83 K/uL (4.8-10.8)
[2017-10-25] MEDS ORDERED: OSELTAMIVIR PHOSPHATE 75 MG CAP PO ONE (01:37)
[2017-10-25 01:43] LABS: LYMPH % 31.3 %; LYMPH ABS # 0.26 K/uL (1.2-3.4); MONO % 14.5 %; MONO ABS # 0.12 K/uL (0.11-0.59); NEUT % 54.2 %; NEUT ABS # 0.45 K/uL (1.4-6.5)
[2017-10-25] MEDS: ALBUT/IPRATROP 3MG/0.5MG NEB 3 ML VIAL INH PRN ×2 (02:27→10:02)
--- NOTE | 2017-10-25 04:00 | Progress Note ---
Progress Note Date of Service Oct 25, 2017. Progress Note Contacted regarding worsening o2 req despite interventions completed; once again febrile exam reveals short expiratory phase, bilat lower lobe crackles, occasional end expiratory wheeze, decreased to bilat bases, no acute distress repeat cxr reflective of mild pulmonary congestion and progression of rt upper lobe consolidation doxy changed to cefepime for klebsiella coverage, 40 mg iv lasix influenza positive, tamiflu initiated with contact precautions blood cx redrawn, Ucx was not completed initially and repeat UA wnl duonebs prn
[2017-10-25] MEDS: VANCOMYCIN INJ 1,000 MG in SODIUM CHLORIDE 0.9% 250ML 250 ML IV SCH ×3 (04:17→20:27)
[2017-10-25 05:50] LABS: INR 1.5 (0.9-1.1)
[2017-10-25 06:01] LABS: ALBUMIN 1.6 gm/dl (3.4-5.0); CREATININE 0.59 mg/dl (0.60-1.20); POTASSIUM 3.5 mmol/L (3.5-5.1)
[2017-10-25 06:03] LABS: HEMOGLOBIN 11.7 g/dL (12.0-16.0); MEAN CELL VOLUME 92.3 fL (80-100); MEAN CORPUSCULAR HEMOGLOBIN 30.9 pg (25-34); MEAN CORPUSCULAR HGB CONC 33.4 g/dl (32-36); PLATELET COUNT 19 K/uL (130-400); RED CELL DISTRIBUTION WIDTH CV 16.5 % (11.5-14.5); RED CELL DISTRIBUTION WIDTH SD 55.8 fL (36.4-46.3); WHITE BLOOD COUNT 0.78 K/uL (4.8-10.8)
[2017-10-25 06:05] LABS: IG# 0.01 K/uL (0.00-0.02); LYMPH % 33.3 %; LYMPH ABS # 0.26 K/uL (1.2-3.4); MONO % 15.4 %; MONO ABS # 0.12 K/uL (0.11-0.59); NEUT ABS # 0.39 K/uL (1.4-6.5)
[2017-10-25] MEDS: LEVOTHYROXINE 100 MCG TAB PO SCH (06:30)
--- NOTE | 2017-10-25 06:41 | DIAGNOSTIC IMAGING REPORT ---
CHEST ONE VIEW PORTABLE CLINICAL HISTORY: hypoxia dyspnea COMPARISON STUDY: 10/22/2017 FINDINGS: Mildly progressive infiltrative changes right pulmonary apex as well as right mid to lower lung. Left lung remains generally clear. Mild stable cardiomegaly. IMPRESSION: Mildly progressive right hemithoracic infiltrate. The above report was generated using voice recognition software. It may contain grammatical, syntax or spelling errors. Electronically signed by: Elvis Boyd M.D. 10/25/2017 6:39 AM Dictated Date/Time: 10/25/2017 6:39 AM
[2017-10-25] MEDS: ACETAMINOPHEN 325 MG TAB PO PRN ×2 (07:24→16:24)
[2017-10-25] MEDS: OSELTAMIVIR PHOSPHATE 75 MG CAP PO SCH ×2 (07:27→20:29)
[2017-10-25] MEDS: MULTIVITAMIN TAB PO SCH ×2 (07:27)
[2017-10-25] MEDS: THIAMINE HCL 100 MG TAB PO SCH (07:27)
--- NOTE | 2017-10-25 08:03 | Clinical Documentation Query ---
Dr. COURTNEY, [facility] : CLINICAL DOCUMENTATION QUERY Patient is a 57 year old female admitted for evaluation of flu like symptoms and pneumonia. Documentation of sepsis began on hospital day #2. Additionally, despite symptoms, flu swab not obtained until hospital day #4 despite presenting symptoms. With worsening symptomology, Doxycycline was changed to Cefepime for Klebsiella coverage. As appropriate, consider please document POA status of sepsis and influenza as documented below. Thank you. In your clinical opinion is this patient being managed for: (x ) Sepsis secondary to Influenza A and/or possible Klebsiella/other gram negative pneumonia, POA ( ) Not Agree ( ) Other explanation of clinical findings (Please Explain) ( ) Unable to determine (Please Define) ( ) Need to Discuss The medical record reflects the following clinical findings, treatment, and risk factors. Clinical Indicators: Treatment: IV antibiotics, labs, cultures, droplet precautions. Risk Factors: Seasonal, cirrhosis, encephalopathy, CAP, UTI Please clarify and document your clinical opinion in the progress notes and discharge summary. Terms such as "probable", "suspected", "likely", "questionable", "possible", or "still to be ruled out" are acceptable. IF IN AGREEMENT, YOU MUST DOCUMENT ABOVE DIAGNOSTIC STATEMENT IN DAILY PROGRESS NOTES AND DISCHARGE SUMMARY. This document is not part of the patient's record. Thank You, Hugh Cehster, VINCENT [phone]
--- NOTE | 2017-10-25 08:04 | Clinical Documentation Query ---
Dr. MCKEON [facility] : CLINICAL DOCUMENTATION QUERY Patient is a 57 year old female admitted for evaluation of flu like symptoms and pneumonia. Documentation of sepsis began on hospital day #2. Additionally, despite symptoms, flu swab not obtained until hospital day #4 despite presenting symptoms. With worsening symptomology, Doxycycline was changed to Cefepime for Klebsiella coverage. As appropriate, consider please document POA status of sepsis and influenza as documented below. Thank you. In your clinical opinion is this patient being managed for: ( x ) Sepsis secondary to Influenza A and/or possible Klebsiella/other gram negative pneumonia, POA ( ) Not Agree ( ) Other explanation of clinical findings (Please Explain) ( ) Unable to determine (Please Define) ( ) Need to Discuss The medical record reflects the following clinical findings, treatment, and risk factors. Clinical Indicators: Treatment: IV antibiotics, labs, cultures, droplet precautions. Risk Factors: Seasonal, cirrhosis, encephalopathy, CAP, UTI Please clarify and document your clinical opinion in the progress notes and discharge summary. Terms such as "probable", "suspected", "likely", "questionable", "possible", or "still to be ruled out" are acceptable. IF IN AGREEMENT, YOU MUST DOCUMENT ABOVE DIAGNOSTIC STATEMENT IN DAILY PROGRESS NOTES AND DISCHARGE SUMMARY. This document is not part of the patient's record. Thank You, Hugh Chester, VINCENT [phone]
--- NOTE | 2017-10-25 09:14 | DIAGNOSTIC IMAGING REPORT ---
DUPLEX PORTAL HEPATIC VEINS HISTORY: 57 years-old Female portal HTN on CT, splenomegaly splenomegaly with stigmata of portal hypertension COMPARISON: CT abdomen and pelvis 10/23/2017 TECHNIQUE: Multiple real-time sonographic images of the hepatic vascular structures were obtained assessing grayscale appearance, color and spectral flow FINDINGS: Patent phasic flow is noted within the IVC and splenic vein. Portal vein is patent with hepatopedal flow. Hepatic artery is patent with normal appearing low resistance waveforms. The hepatic veins also appear to be patent. Mild right upper quadrant ascites. IMPRESSION: 1. Patent hepatic vascularity. Portal vein is patent with hepatopedal flow. 2. Right upper quadrant ascites. The above report was generated using voice recognition software. It may contain grammatical, syntax or spelling errors. Electronically signed by: Tong Ochoa M.D. 10/25/2017 9:13 AM Dictated Date/Time: 10/25/2017 9:09 AM
[2017-10-25] MEDS: BOOST VANILLA PO SCH ×2 (09:17→20:35)
[2017-10-25] MEDS: LACTULOSE SYRUP 30 GM/45 ML UDP PO SCH ×2 (09:17→20:29)
[2017-10-25] MEDS: CEFEPIME IV 2,000 MG in SYRINGE 7.5 ML IV SCH ×2 (09:17→16:25)
--- NOTE | 2017-10-25 10:56 | Hematology/Oncology Prog Note ---
Hematology/Onc Progress Note Date of Service Oct 25, 2017. 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 Medications Medications Administered Medications (Trade) Dose Ordered Sig/Rodrigo Route Start Time Stop Time Status Last Admin Dose Admin Sodium Chloride 1,000 ml @ 999 mls/hr Q1H1M ONCE IV 10/22/17 16:28 10/22/17 17:28 DC 10/22/17 16:28 999 MLS/HR Acetaminophen (Tylenol Tab) 1,000 mg NOW STAT PO 10/22/17 16:32 10/22/17 16:34 DC 10/22/17 16:32 1,000 MG Albuterol/ Ipratropium (Duoneb) 3 ml NOW STAT INH 10/22/17 16:34 10/22/17 16:36 DC 10/22/17 16:34 3 ML Dexamethasone Sodium Phosphate (Decadron Inj) 10 mg NOW STAT IV 10/22/17 16:34 10/22/17 16:36 DC 10/22/17 16:34 10 MG Levofloxacin (Levaquin / D5W) 750 mg NOW ONCE IV 10/22/17 16:45 10/22/17 16:46 DC 10/22/17 16:45 750 MG Piperacillin Sod/ Tazobactam Sod (Zosyn Iv) 4.5 gm NOW STAT IV 10/22/17 17:37 10/22/17 17:38 DC 10/22/17 19:20 4.5 GM Magnesium Sulfate (Magnesium Sulfate) 2 gm NOW STAT IV 10/22/17 17:40 10/22/17 17:41 DC 10/22/17 19:20 2 GM Thiamine HCl (Vitamin B-1 Inj) 100 mg NOW STAT IV 10/22/17 18:05 10/22/17 18:06 DC 10/22/17 19:20 100 MG Diphenhydramine HCl (Benadryl Inj) 25 mg NOW STAT IV 10/22/17 20:56 10/22/17 20:57 DC 10/22/17 21:03 25 MG Acetaminophen (Tylenol Tab) 650 mg Q4H PRN PO 10/22/17 22:15 11/21/17 22:14 10/25/17 07:24 650 MG Potassium Chloride (Klor-Con Tab) 20 meq NOW STAT PO 10/22/17 22:01 10/22/17 22:39 DC 10/22/17 23:35 20 MEQ Potassium Chloride (Klor-Con Tab) 20 meq BID PO 10/23/17 09:00 10/24/17 08:59 DC 10/23/17 20:42 20 MEQ Magnesium Oxide (Mag-Ox Tab) 400 mg BID PO 10/23/17 09:00 10/24/17 08:59 DC 10/23/17 20:42 400 MG Magnesium Oxide (Mag-Ox Tab) 400 mg NOW STAT PO 10/22/17 22:27 10/22/17 22:28 DC 10/22/17 22:35 400 MG Potassium/ Phosphorus/Sodium (Phospha 250 Neutral 155-852-130 Mg) 2 tab QID PO 10/23/17 09:00 10/24/17 08:59 DC 10/23/17 20:42 2 TAB Potassium/ Phosphorus/Sodium (Phospha 250 Neutral 155-852-130 Mg) 2 tab 2201 ONCE PO 10/22/17 22:01 10/22/17 22:39 DC 10/22/17 23:35 2 TAB Levothyroxine Sodium (Synthroid Tab) 100 mcg DAILYBB PO 10/23/17 06:30 11/22/17 06:59 10/24/17 05:10 100 MCG Multivitamins (Multivitamin Tab) 1 tab DAILY PO 10/23/17 09:00 11/22/17 08:59 10/25/17 07:27 1 TAB Doxycycline Hyclate 100 mg/ Dextrose 110 ml @ 50 mls/hr Q12 IV 10/23/17 09:00 10/25/17 00:42 DC 10/24/17 21:56 50 MLS/HR Vancomycin HCl 2000 mg/Sodium Chloride 540 ml @ 200 mls/hr TODAY@0030 IV 10/23/17 00:30 10/23/17 03:11 DC 10/23/17 01:58 200 MLS/HR Vancomycin HCl 750 mg/Sodium Chloride 265 ml @ 125 mls/hr Q10H IV 10/23/17 16:00 10/24/17 13:34 DC 10/24/17 12:33 125 MLS/HR Multivitamins (Multivitamin Tab) 1 tab 1924 ONCE PO 10/23/17 19:24 10/23/17 20:07 DC 10/23/17 20:41 1 TAB Thiamine HCl (Vitamin B-1 Tab) 100 mg QAM PO 10/24/17 09:00 11/23/17 08:59 10/25/17 07:27 100 MG Thiamine HCl (Vitamin B-1 Tab) 100 mg 1924 ONCE PO 10/23/17 19:24 10/23/17 20:07 DC 10/23/17 20:41 100 MG Sodium Chloride 500 ml @ 200 mls/hr Q2H30M IV 10/24/17 04:45 10/24/17 07:14 DC 10/24/17 05:01 200 MLS/HR Vancomycin HCl 1000 mg/Sodium Chloride 270 ml @ 125 mls/hr Q8@0400,1200,2000 IV 10/24/17 20:00 10/31/17 19:59 10/25/17 04:17 125 MLS/HR Enteral Nutritional Formula (Boost) 1 can BID PO 10/24/17 21:00 11/23/17 20:59 10/25/17 09:17 1 CAN Phytonadione 10 mg/Sodium Chloride 51 ml @ 102 mls/hr ONE ONCE IV 10/24/17 17:45 10/24/17 18:14 DC 10/24/17 18:31 102 MLS/HR Lactulose (Chronulac Syrup) 30 gm BID PO 10/24/17 21:00 11/23/17 20:59 10/25/17 09:17 30 GM Furosemide (Lasix Inj) 40 mg STK-MED ONCE .ROUTE 10/25/17 00:37 10/25/17 00:38 DC 10/25/17 00:41 40 MG Cefepime HCl 2000 mg/Syringe 20 ml @ 5 mls/min TODAY@0100 IV 10/25/17 01:00 10/25/17 01:03 DC 10/25/17 01:17 5 MLS/MIN Cefepime HCl 2000 mg/Syringe 20 ml @ 5 mls/min Q8H IV 10/25/17 09:00 11/01/17 08:59 10/25/17 09:17 5 MLS/MIN Oseltamivir Phosphate (Tamiflu Cap) 75 mg BID PO 10/25/17 09:00 10/30/17 08:59 10/25/17 07:27 75 MG Oseltamivir Phosphate (Tamiflu Cap) 75 mg 0137 ONCE PO 10/25/17 01:37 10/25/17 01:46 DC 10/25/17 02:01 75 MG Albuterol/ Ipratropium (Duoneb) 3 ml QID PRN INH 10/25/17 02:15 11/24/17 02:14 10/25/17 10:02 3 ML Subjective She states she feels fairly well. She denies new shortness of breath or abdominal pain. Review of Systems: Constitutional: She states her weight is been stable at home. She has had a fever she states at home Eyes: Negative for event change of vision ENT: Negative for epistaxis, nasal discharge, sore throat, or deafness Cardiovascular: Negative for chest pain, palpitations, dizziness, diaphoresis Respiratory: Negative for new shortness of breath,hemoptysis, or purulent cough Gastrointestinal: Negative for diarrhea, hematemesis, melena, nausea, vomiting , or dyspepsia Integumentary (skin): Negative for rash or jaundice discoloration Genitourinary: Negative for urinary frequency, hematuria, or dysuria Neurological: Negative for weakness, seizure activity, headache, or dizziness Lymphatic/Hematologic: Negative for petechiae, bleeding or new adenopathy Musculoskeletal: Negative for new joint or back pain Allergic/Immunologic: Negative for unusual rash or pruritis. Vital Signs Vital Signs Past 12 Hours Date Time Temp Pulse Resp B/P (MAP) Pulse Ox O2 Delivery O2 Flow Rate FiO2 10/25/17 10:02 83 16 65 Room Air 10/25/17 09:18 36.8 10/25/17 07:15 Oxymask 10.0 10/25/17 07:09 38.5 88 19 93/54 (67) 90 Oxymask 10.0 10/25/17 04:41 38.2 82 20 103/64 (77) 91 Oxymask 11.0 10/25/17 04:00 91 Oxymask 10.0 10/25/17 02:27 75 16 90 Mask 11.0 10/25/17 00:18 39.1 88 18 102/64 (77) 90 Oxymask 10.0 10/25/17 00:00 90 Oxymask 10.0 Physical Exam Constitutional: vitals are stable. Alert and oriented Eyes: Eyes are RIDDHI EOMI without conjuctival erythema or icterus. ENT: External examination was negative for masses. Neck: Negative for masses or palpable thyromegaly Respiratory: Lung sounds were generally clear bilaterally Cardiovascular: Heart was RRR without significant murmur, gallops aoe rubs Gastrointestinal: No palpable hepatic. Does have a left upper quadrant fullness. Lymphatic system: there was no palpable peripheral lymphadenopathy Musculoskeletal System: The musculoskeletal system seemed concordant with age. Skin: The skin was negative for jaundice. Neurologic exam: The exam was negative for any focal findings. Deep tendon reflexes were equal and symmetrical. Psychiatric exam: Was essentially negative with normal mood and effect. Breast exam: Not done Extremities: Negative for edems, Hint of early stasis clor change distally. Constitutional: General Apperance: too thin Level of Distress: NAD Psychiatric: Mental Status: active & alert, confused Lungs: Auscuitation: breath sounds normal Cardiovascular: Heart Auscultation: RRR Abdomen: Inspection & Palpation: soft, no tenderness, guarding & rebound Extremities: no edema Laboratory Last 24 Hours Test 10/24/17 11:48 10/24/17 18:24 10/25/17 00:22 10/25/17 00:56 Vancomycin Level Trough 7.4 mcg/ml Lactic Acid Level 2.6 mmol/L Influenza Type A (RT-PCR) POS for Influ A Influenza Type B (RT-PCR) Neg for Influ B White Blood Count 0.83 K/uL Red Blood Count 3.61 M/uL Hemoglobin 11.3 g/dL Hematocrit 33.1 % Mean Corpuscular Volume 91.7 fL Mean Corpuscular Hemoglobin 31.3 pg Mean Corpuscular Hemoglobin Concent 34.1 g/dl Platelet Count 24 K/uL Neutrophils (%) (Auto) 54.2 % Lymphocytes (%) (Auto) 31.3 % Monocytes (%) (Auto) 14.5 % Eosinophils (%) (Auto) 0.0 % Basophils (%) (Auto) 0.0 % Neutrophils # (Auto) 0.45 K/uL Lymphocytes # (Auto) 0.26 K/uL Monocytes # (Auto) 0.12 K/uL Eosinophils # (Auto) 0.00 K/uL Basophils # (Auto) 0.00 K/uL RDW Standard Deviation 55.5 fL RDW Coefficient of Variation 16.6 % Immature Granulocyte % (Auto) 0.0 % Immature Granulocyte # (Auto) 0.00 K/uL Test 10/25/17 01:05 10/25/17 05:21 10/25/17 05:22 Urine Color DK YELLOW Urine Appearance CLOUDY Urine pH 5.5 Urine Specific [place] 1.033 Urine Protein NEG Urine Glucose (UA) NEG Urine Ketones NEG Urine Occult Blood NEG Urine Nitrite NEG Urine Bilirubin NEG Urine Urobilinogen POS Urine Leukocyte Esterase NEG Urine WBC (Auto) 1-5 /hpf Urine RBC (Auto) 0-4 /hpf Urine Hyaline Casts (Auto) 5-10 /lpf Urine Epithelial Cells (Auto) >30 /lpf Urine Bacteria (Auto) NEG Prothrombin Time 15.3 SECONDS Prothromb Time International Ratio 1.5 White Blood Count 0.78 K/uL Red Blood Count 3.79 M/uL Hemoglobin 11.7 g/dL Hematocrit 35.0 % Mean Corpuscular Volume 92.3 fL Mean Corpuscular Hemoglobin 30.9 pg Mean Corpuscular Hemoglobin Concent 33.4 g/dl Platelet Count 19 K/uL Neutrophils (%) (Auto) 50.0 % Lymphocytes (%) (Auto) 33.3 % Monocytes (%) (Auto) 15.4 % Eosinophils (%) (Auto) 0.0 % Basophils (%) (Auto) 0.0 % Neutrophils # (Auto) 0.39 K/uL Lymphocytes # (Auto) 0.26 K/uL Monocytes # (Auto) 0.12 K/uL Eosinophils # (Auto) 0.00 K/uL Basophils # (Auto) 0.00 K/uL RDW Standard Deviation 55.8 fL RDW Coefficient of Variation 16.5 % Immature Granulocyte % (Auto) 1.3 % Immature Granulocyte # (Auto) 0.01 K/uL Toxic Vacuolation 1+ Platelet Estimate SIGNIFIC DECREASED Sodium Level 136 mmol/L Potassium Level 3.5 mmol/L Chloride Level 108 mmol/L Carbon Dioxide Level 24 mmol/L Anion Gap 4.0 mmol/L Blood Urea Nitrogen 12 mg/dl Creatinine 0.59 mg/dl Est Creatinine Clear Calc Drug Dose 102.1 ml/min Estimated GFR () 116.3 Estimated GFR (Non- 100.3 BUN/Creatinine Ratio 21.2 Random Glucose 80 mg/dl Lactic Acid Level 1.9 mmol/L Calcium Level 7.0 mg/dl Iron Level 18 mcg/dl Total Iron Binding Capacity 203 mcg/dl Transferrin 135 mg/dl Transferrin % Saturation 10 % Ferritin 109.5 ng/ml Total Bilirubin 1.3 mg/dl Aspartate Amino Transf (AST/SGOT) 53 U/L Alanine Aminotransferase (ALT/SGPT) 19 U/L Alkaline Phosphatase 58 U/L Ammonia 28.0 umol/L Total Protein 6.0 gm/dl Albumin 1.6 gm/dl Globulin 4.4 gm/dl Albumin/Globulin Ratio 0.4 Lipase 846 U/L Assessment & Plan Cirrhosis with splenomegaly and resultant hypersplenism. CT scan was reviewed. The hemoglobin level is about where I would expected with the exam that she has today. The white cell and platelet numbers however are a bit more severely depressed and I would expect. Nevertheless I believe that this is all in keeping with hypersplenism. CBC should be watched of course. Ferritin is normal. Total serum iron and TIBC are consistent more with an anemia chronic disease. The cause of the cirrhosis is not clear. She denies any family history of liver problems. She denies significant alcohol usage.
[2017-10-25 12:06] LABS: MICROSOMAL AB <1 IU/ML (<9)
[2017-10-25] MEDS ORDERED: ZOLPIDEM TARTRATE 5 MG TAB PO PRN (16:15)
--- NOTE | 2017-10-25 16:37 | Family Medicine Progress Note ---
Progress Note Date of Service Oct 25, 2017. Subjective Pt evaluation today including: conversation w/ patient, physical exam, chart review, lab review Pain: no discomfort this AM PO Intake: on boost this AM Voiding: no voiding problems This AM reports improvement in breathing and denies any discomfort. Constitutional: No fever, No chills Respiratory: No wheezing, No shortness of breath Cardiovascular: No chest pain Abdomen: No pain, No nausea, No vomiting Female : No dysuria Medications Current Inpatient Medications Medications (Trade) Dose Ordered Sig/Rodrigo Route Start Time Stop Time Status Last Admin Dose Admin Ioversol (Optiray 320) 100 ml UD PRN IV 10/22/17 17:45 10/26/17 17:44 Acetaminophen (Tylenol Tab) 650 mg Q4H PRN PO 10/22/17 22:15 11/21/17 22:14 10/25/17 07:24 650 MG Al Hydrox/Mg Hydrox/Simethicone (Maalox Max Susp) 15 ml Q4H PRN PO 10/22/17 22:15 11/21/17 22:14 Magnesium Hydroxide (Milk Of Magnesia Susp) 30 ml Q12H PRN PO 10/22/17 22:15 11/21/17 22:14 Ondansetron HCl (Zofran Inj) 4 mg Q6H PRN IV 10/22/17 22:15 11/21/17 22:14 Nitroglycerin (Nitrostat Tab) 0.4 mg UD PRN SL 10/22/17 22:15 11/21/17 22:14 Polyethylene (Miralax Powder Packet) 17 gm DAILY PRN PO 10/22/17 22:15 11/21/17 22:14 Levothyroxine Sodium (Synthroid Tab) 100 mcg DAILYBB PO 10/23/17 06:30 11/22/17 06:59 10/24/17 05:10 100 MCG Multivitamins (Multivitamin Tab) 1 tab DAILY PO 10/23/17 09:00 11/22/17 08:59 10/25/17 07:27 1 TAB Vancomycin HCl (Consult) 1 ea UD PRN N/A 10/23/17 00:15 11/22/17 00:14 Ioversol (Optiray 320) 100 ml UD PRN IV 10/23/17 10:00 10/27/17 09:59 Multivitamins (Multivitamin Tab) 1 tab QAM PO 10/24/17 09:00 11/23/17 08:59 Thiamine HCl (Vitamin B-1 Tab) 100 mg QAM PO 10/24/17 09:00 11/23/17 08:59 10/25/17 07:27 100 MG Vancomycin HCl 1000 mg/Sodium Chloride 270 ml @ 125 mls/hr Q8@0400,1200,2000 IV 10/24/17 20:00 10/31/17 19:59 10/25/17 11:52 125 MLS/HR Enteral Nutritional Formula (Boost) 1 can BID PO 10/24/17 21:00 11/23/17 20:59 10/25/17 09:17 1 CAN Lactulose (Chronulac Syrup) 30 gm BID PO 10/24/17 21:00 11/23/17 20:59 10/25/17 09:17 30 GM Cefepime HCl 2000 mg/Syringe 20 ml @ 5 mls/min Q8H IV 10/25/17 09:00 11/01/17 08:59 10/25/17 09:17 5 MLS/MIN Oseltamivir Phosphate (Tamiflu Cap) 75 mg BID PO 10/25/17 09:00 10/30/17 08:59 10/25/17 07:27 75 MG Albuterol/ Ipratropium (Duoneb) 3 ml QID PRN INH 10/25/17 02:15 11/24/17 02:14 10/25/17 10:02 3 ML Zolpidem Tartrate (Ambien Tab) 5 mg HS PRN PO 10/25/17 16:15 11/24/17 16:14 Objective Vital Signs Date Time Temp Pulse Resp B/P (MAP) Pulse Ox O2 Delivery O2 Flow Rate FiO2 10/25/17 16:22 38.4 10/25/17 15:45 Oxymask 7.0 10/25/17 15:06 38.1 83 16 94/61 (72) 92 Oxymask 7.0 10/25/17 11:45 Oxymask 10.0 10/25/17 11:31 37.2 88 16 111/65 (80) 93 Oxymask 5.0 10/25/17 10:02 83 16 65 Room Air 10/25/17 09:18 36.8 10/25/17 07:15 Oxymask 10.0 10/25/17 07:09 38.5 88 19 93/54 (67) 90 Oxymask 10.0 10/25/17 04:41 38.2 82 20 103/64 (77) 91 Oxymask 11.0 10/25/17 04:00 91 Oxymask 10.0 10/25/17 02:27 75 16 90 Mask 11.0 10/25/17 00:18 39.1 88 18 102/64 (77) 90 Oxymask 10.0 10/25/17 00:00 90 Oxymask 10.0 10/24/17 22:45 39.1 83 18 96/60 (72) 90 Oxymask 8.0 10/24/17 20:00 Oxymask 7.0 10/24/17 19:04 37.6 77 20 95/59 (71) 94 Oxymask 7.0 10/24/17 18:47 37.7 79 20 96/61 (73) 91 Oxymask 7.0 10/24/17 18:28 37.9 78 20 97/62 (74) 91 Oxymask 7.0 Physical Exam General Appearance: no apparent distress Eyes: normal inspection, sclerae normal Neck: supple Respiratory/Chest: lungs clear, + decreased breath sounds Cardiovascular: regular rate, rhythm, no murmur Abdomen: normal bowel sounds, non tender, soft Extremities: non-tender, no pedal edema Neurologic/Psychiatric: alert Laboratory Results 10/25/17 05:22 Red Blood Count 3.79, Mean Corpuscular Volume 92.3, Mean Corpuscular Hemoglobin 30.9, Mean Corpuscular Hemoglobin Concent 33.4, Neutrophils (%) (Auto) 50.0, Lymphocytes (%) (Auto) 33.3, Monocytes (%) (Auto) 15.4, Eosinophils (%) (Auto) 0.0, Basophils (%) (Auto) 0.0, Neutrophils # (Auto) 0.39, Lymphocytes # (Auto) 0.26, Monocytes # (Auto) 0.12, Eosinophils # (Auto) 0.00, Basophils # (Auto) 0.00 10/25/17 05:22 Test 10/25/17 00:22 10/25/17 01:05 10/25/17 05:21 10/25/17 05:22 Influenza Type A (RT-PCR) POS for Influ A (NEG) Influenza Type B (RT-PCR) Neg for Influ B (NEG) Urine Color DK YELLOW Urine Appearance CLOUDY (CLEAR) Urine pH 5.5 (4.5-7.5) Urine Specific [place] 1.033 (1.000-1.030) Urine Protein NEG (NEG) Urine Glucose (UA) NEG (NEG) Urine Ketones NEG (NEG) Urine Occult Blood NEG (NEG) Urine Nitrite NEG (NEG) Urine Bilirubin NEG (NEG) Urine Urobilinogen POS (NEG) Urine Leukocyte Esterase NEG (NEG) Urine WBC (Auto) 1-5 /hpf (0-5) Urine RBC (Auto) 0-4 /hpf (0-4) Urine Hyaline Casts (Auto) 5-10 /lpf (0-5) Urine Epithelial Cells (Auto) >30 /lpf (0-5) Urine Bacteria (Auto) NEG (NEG) Prothrombin Time 15.3 SECONDS (9.0-12.0) Prothromb Time International Ratio 1.5 (0.9-1.1) White Blood Count 0.78 K/uL (4.8-10.8) Red Blood Count 3.79 M/uL (4.2-5.4) Hemoglobin 11.7 g/dL (12.0-16.0) Hematocrit 35.0 % (37-47) Mean Corpuscular Volume 92.3 fL (80-100) Mean Corpuscular Hemoglobin 30.9 pg (25-34) Mean Corpuscular Hemoglobin Concent 33.4 g/dl (32-36) Platelet Count 19 K/uL (130-400) Neutrophils (%) (Auto) 50.0 % Lymphocytes (%) (Auto) 33.3 % Monocytes (%) (Auto) 15.4 % Eosinophils (%) (Auto) 0.0 % Basophils (%) (Auto) 0.0 % Neutrophils # (Auto) 0.39 K/uL (1.4-6.5) Lymphocytes # (Auto) 0.26 K/uL (1.2-3.4) Monocytes # (Auto) 0.12 K/uL (0.11-0.59) Eosinophils # (Auto) 0.00 K/uL (0-0.5) Basophils # (Auto) 0.00 K/uL (0-0.2) RDW Standard Deviation 55.8 fL (36.4-46.3) RDW Coefficient of Variation 16.5 % (11.5-14.5) Immature Granulocyte % (Auto) 1.3 % Immature Granulocyte # (Auto) 0.01 K/uL (0.00-0.02) Toxic Vacuolation 1+ Platelet Estimate SIGNIFIC DECREASED Anion Gap 4.0 mmol/L (3-11) Est Creatinine Clear Calc Drug Dose 102.1 ml/min Estimated GFR () 116.3 Estimated GFR (Non- 100.3 BUN/Creatinine Ratio 21.2 (10-20) Lactic Acid Level 1.9 mmol/L (0.4-2.0) Calcium Level 7.0 mg/dl (8.5-10.1) Iron Level 18 mcg/dl (35-150) Total Iron Binding Capacity 203 mcg/dl (250-450) Transferrin 135 mg/dl (200-360) Transferrin % Saturation 10 % (15-50) Ferritin 109.5 ng/ml (8.0-388.0) Total Bilirubin 1.3 mg/dl (0.2-1) Aspartate Amino Transf (AST/SGOT) 53 U/L (15-37) Alanine Aminotransferase (ALT/SGPT) 19 U/L (12-78) Alkaline Phosphatase 58 U/L (45-117) Ammonia 28.0 umol/L (11-32) Total Protein 6.0 gm/dl (6.4-8.2) Albumin 1.6 gm/dl (3.4-5.0) Globulin 4.4 gm/dl (2.5-4.0) Albumin/Globulin Ratio 0.4 (0.9-2) Lipase 846 U/L (73-393) Test 10/25/17 16:18 Assessment and Plan 57 year old female with hypothyroidism presented with flu like symptoms. Admitted for pulmonary infiltrate and multiple concerning lab findings and found to have new cirrhosis of unknown etiology. No fhx of liver disease or significant alcohol use per patient and family. Also concern for poor appetite/ nutrition, and encephalopathy vs pt not being a reliable historian. Urine tox is positive for opiates, but patient denies taking opioid medications. Patient being followed by hematology, GI. Sepsis in the setting of flu like symptoms possibly secondary to CAP/Influenza A /UTI - Repeat CXR with worsening parenchymal infiltrate right pulmonary apex, 10/24 - Influenza A pos, 10/24 - Continue Tamiflu, and contact precautions - O2 increased from 2L NC to 10L on oxymask, sating 90-91%, wean as tolerated - Continue IV Abx: Vancomycin day 3 - Doxycycline changed to Cefepime for Klebsiella coverage - Patient had a potential allergic reaction to Levaquin/Zosyn. RAST testing pending. - lactic acid 4.5 --> 1.9 this AM - Blood cultures redrawn - pending; BCx 10/22 NGTD - initial UA (nitrites, leuks, and urobilinogen); repeat UA 10/24 wnl, patient asymptomatic - Duoneb Q4H - Watch for cultures, and adjust abx as necessary Liver Cirrhosis/Hepatosplenomegaly - Newly diagnosed, possibly alcoholic, unknown etiology - Per H and P drinks one bottle of wine a week. - Patient reports taking various supplements - CT abdomen - Hepatic cirrhosis with portal HTN, trace abd/pelvic ascites, moderate body wall anasarca, upper abd varices, splenomegaly - Hepatitis panel neg - MELD of 13 - Elevated AST 53, bili 1.3, significantly decreased albumin 1.6, deranged coags (INR 1.5, PT 15.3) - Ammonia improved to 28 from 50 - F/u infectious testing HIV and mono neg, CMV pending - GI consulted with the following recs; f/u JOSSELYN pending , ASMA pending, Fe low 18, ferritin nl 109 (anemia of chronic disease) - Following CMP, ammonia Hepatic Encephalopathy - Continue lactulose 30mg BID PO - Monitor mental status Concern of alcohol abuse - Patient admits to drinking 1 bottle of wine per week. - Denies taking opiates, but urine tox positive - Patient is confused, maybe an unreliable historian - Add multivitamin Leukopenia/Thrombocytopenia/deranged coags - WBC 1.6 -> 0.78 this AM - Plt 24 -> 19 this AM - Hematology consulted likely 2/2 to splenomegaly/splenic sequestration due to underlying cirrhosis - Trend CBC, coags - Monitor for bruising/bleeding Hypothyroidism - TSH suppressed, low T3 - Ordered thyroglobulin and microsomal antibodies - Continue levothyroxine 100 mcg daily Urine tox screen - negative for everything except opiates - Follow up for further tox evaluation Electrolyte disturbance - resolved - Trend electrolytes - Vit D level 15.3 - Started on vit D 50,000 units twice a week for 6 weeks total Recurrent falls - PT/OT consulted - HbA1c 4.7 and B12 elevated at 1934 unlikely to be from neuropathy VTE PPx - SCDs, TEDs - Heparin hold due to low platelets Resident Involvement: Resident Care Provided Care Provided: Adult [facility] Reviewed: Pt Seen/Exam by Me History Pt is feeling improved. Breathing is better. Pt is tolerating PO. No chest pain. Agree with HPI/ROS as noted by resident General Appearance: no apparent distress, thin Respiratory: no respiratory distress Cardiovascular: regular rate, rhythm, no edema Gastrointestinal: non tender, soft Extremities: non-tender, no pedal edema Neurologic/Psychiatric: alert, normal mood/affect Skin Characteristics: normal color, warm/dry Assessment/Plan Agree with plan as outlined above PNA Now with flu +, tamiflu New dx cirrhosis, uncertain etiology Labs pending for infectious etiologies Needs EGD and c-scope once stable
[2017-10-25] MEDS ORDERED: ERGOCALCIFEROL 50,000 INTER.UNIT CAP PO STA (16:42)
--- NOTE | 2017-10-25 18:05 | PROGRESS NOTE ---
DATE: 10/25/2017 SUBJECTIVE: The patient continues to feel fatigued and cough. She is having trouble sleeping at night and has tried Benadryl in the past, which did not help. She was found to have influenza A today and was started on Tamiflu. This could explain several of her symptoms. OBJECTIVE: VITAL SIGNS: Show temperature of 38.1, blood pressure is 94/61, pulse 83. LABORATORY: Shows an elevated and IgG and IgA, antinuclear antibody and antismooth muscle antibody are pending at this time. Her iron studies show a ferritin of 109; iron saturation is 10%, which is low. Hepatitis B surface antigen is negative, hepatitis C is antibody negative. JOSSELYN and an alpha 1 antitrypsin level are pending at this time. IMPRESSION AND PLAN: The patient has influenza A, which could account for her acute illness with cough, shortness of breath and possible pneumonia, fatigue and potential weight loss. She also has CT findings that suggest cirrhosis of the liver. Her ultrasound showed portal veins patent and has correct directional flow. Influenza and cirrhosis could account for her pancytopenia. At this point, she will need to recover from her influenza, will wait for several of these lab tests to come back to see if directs us to the underlying etiology of her liver disease. At some point, she may need a liver biopsy, but will wait until she is recovered from the flu. Dr. Franz will be following the patient starting tomorrow in the next 3 days.
[2017-10-25] MEDS ORDERED: VANCOMYCIN TROUGH ONE (19:30)
[2017-10-26] VITALS (11 sets, daily range): BP systolic 97–109; BP diastolic 61–70; PULSE 78–94; TEMP 36.7–37.8; O2SAT 75–95
[2017-10-26] MEDS: CEFEPIME IV 2,000 MG in SYRINGE 7.5 ML IV SCH ×3 (03:58→17:00)
[2017-10-26] MEDS: VANCOMYCIN INJ 1,000 MG in SODIUM CHLORIDE 0.9% 250ML 250 ML IV SCH ×3 (04:10→20:04)
[2017-10-26] MEDS: LEVOTHYROXINE 100 MCG TAB PO SCH (04:12)
[2017-10-26 04:54] LABS: INR 1.4 (0.9-1.1); PTT PATIENT 44.3 SECONDS (21.0-31.0)
[2017-10-26 05:12] LABS: ALBUMIN 1.5 gm/dl (3.4-5.0); CALCIUM 7.4 mg/dl (8.5-10.1); CREATININE 0.47 mg/dl (0.60-1.20); PHOSPHORUS 2.1 mg/dl (2.5-4.9); POTASSIUM 3.9 mmol/L (3.5-5.1); TOTAL PROTEIN 6.2 gm/dl (6.4-8.2)
[2017-10-26 05:28] LABS: HEMATOCRIT 37.4 % (37-47); HEMOGLOBIN 12.3 g/dL (12.0-16.0); MEAN CORPUSCULAR HEMOGLOBIN 30.6 pg (25-34); MEAN CORPUSCULAR HGB CONC 32.9 g/dl (32-36); PLATELET COUNT 19 K/uL (130-400); RED CELL DISTRIBUTION WIDTH CV 16.6 % (11.5-14.5); RED CELL DISTRIBUTION WIDTH SD 56.9 fL (36.4-46.3); WHITE BLOOD COUNT 1.46 K/uL (4.8-10.8)
[2017-10-26 05:52] LABS: IG# 0.01 K/uL (0.00-0.02); LYMPH % 26.7 %; LYMPH ABS # 0.39 K/uL (1.2-3.4); MONO % 10.3 %; MONO ABS # 0.15 K/uL (0.11-0.59); NEUT % 62.3 %; NEUT ABS # 0.91 K/uL (1.4-6.5)
[2017-10-26] MEDS: BOOST VANILLA PO SCH ×2 (07:56→20:08)
[2017-10-26] MEDS: MULTIVITAMIN TAB PO SCH (07:56)
[2017-10-26] MEDS: THIAMINE HCL 100 MG TAB PO SCH ×2 (07:57→20:12)
[2017-10-26] MEDS: OSELTAMIVIR PHOSPHATE 75 MG CAP PO SCH ×2 (07:57→21:16)
[2017-10-26] MEDS: LACTULOSE SYRUP 30 GM/45 ML UDP PO SCH ×2 (07:57→20:12)
--- NOTE | 2017-10-26 08:21 | Family Medicine Progress Note ---
Progress Note Date of Service Oct 26, 2017. Subjective Pt evaluation today including: conversation w/ patient, physical exam, chart review, lab review Pain: chest pain and abdominal pain when coughing PO Intake: tolerating Voiding: no voiding problems This AM reports mostly dry cough which is causing abdominal and chest pain. o/w asymptomatic Constitutional: No fever, No chills Respiratory: + cough, + sputum, No shortness of breath Cardiovascular: + chest pain Abdomen: + pain, No nausea, No vomiting, No diarrhea, No constipation Female : No dysuria Medications Current Inpatient Medications Medications (Trade) Dose Ordered Sig/Rodrigo Route Start Time Stop Time Status Last Admin Dose Admin Ioversol (Optiray 320) 100 ml UD PRN IV 10/22/17 17:45 10/26/17 17:44 Acetaminophen (Tylenol Tab) 650 mg Q4H PRN PO 10/22/17 22:15 11/21/17 22:14 10/25/17 16:24 650 MG Al Hydrox/Mg Hydrox/Simethicone (Maalox Max Susp) 15 ml Q4H PRN PO 10/22/17 22:15 11/21/17 22:14 Magnesium Hydroxide (Milk Of Magnesia Susp) 30 ml Q12H PRN PO 10/22/17 22:15 11/21/17 22:14 Ondansetron HCl (Zofran Inj) 4 mg Q6H PRN IV 10/22/17 22:15 11/21/17 22:14 Nitroglycerin (Nitrostat Tab) 0.4 mg UD PRN SL 10/22/17 22:15 11/21/17 22:14 Polyethylene (Miralax Powder Packet) 17 gm DAILY PRN PO 10/22/17 22:15 11/21/17 22:14 Levothyroxine Sodium (Synthroid Tab) 100 mcg DAILYBB PO 10/23/17 06:30 11/22/17 06:59 10/26/17 04:12 100 MCG Vancomycin HCl (Consult) 1 ea UD PRN N/A 10/23/17 00:15 11/22/17 00:14 Ioversol (Optiray 320) 100 ml UD PRN IV 10/23/17 10:00 10/27/17 09:59 Multivitamins (Multivitamin Tab) 1 tab QAM PO 10/24/17 09:00 11/23/17 08:59 10/26/17 07:56 1 TAB Thiamine HCl (Vitamin B-1 Tab) 100 mg QAM PO 10/24/17 09:00 11/23/17 08:59 10/26/17 07:57 100 MG Vancomycin HCl 1000 mg/Sodium Chloride 270 ml @ 125 mls/hr Q8@0400,1200,2000 IV 10/24/17 20:00 10/31/17 19:59 10/26/17 04:10 125 MLS/HR Enteral Nutritional Formula (Boost) 1 can BID PO 10/24/17 21:00 11/23/17 20:59 10/25/17 20:35 1 CAN Lactulose (Chronulac Syrup) 30 gm BID PO 10/24/17 21:00 11/23/17 20:59 10/26/17 07:57 30 GM Cefepime HCl 2000 mg/Syringe 20 ml @ 5 mls/min Q8H IV 10/25/17 09:00 11/01/17 08:59 10/26/17 07:55 5 MLS/MIN Oseltamivir Phosphate (Tamiflu Cap) 75 mg BID PO 10/25/17 09:00 10/30/17 08:59 10/26/17 07:57 75 MG Albuterol/ Ipratropium (Duoneb) 3 ml QID PRN INH 10/25/17 02:15 11/24/17 02:14 10/25/17 10:02 3 ML Zolpidem Tartrate (Ambien Tab) 5 mg HS PRN PO 10/25/17 16:15 11/24/17 16:14 Objective Vital Signs Date Time Temp Pulse Resp B/P (MAP) Pulse Ox O2 Delivery O2 Flow Rate FiO2 10/26/17 07:29 37.6 83 20 104/64 (77) 94 10/26/17 04:05 Oxymask 7.0 10/26/17 03:59 37.0 80 18 109/70 (83) 95 Oxymask 7.0 10/26/17 00:05 Oxymask 7.0 10/25/17 23:18 37.2 84 20 104/58 (73) 92 Oxymask 7.0 10/25/17 20:05 Oxymask 7.0 1/15/18 19:29 37.5 79 20 104/70 (81) 91 Oxymask 7.0 10/25/17 18:14 37.3 10/25/17 16:22 38.4 10/25/17 15:45 Oxymask 7.0 10/25/17 15:06 38.1 83 16 94/61 (72) 92 Oxymask 7.0 10/25/17 11:45 Oxymask 10.0 10/25/17 11:31 37.2 88 16 111/65 (80) 93 Oxymask 5.0 10/25/17 10:02 83 16 65 Room Air 10/25/17 09:18 36.8 Physical Exam General Appearance: no apparent distress Eyes: normal inspection, sclerae normal Neck: supple Respiratory/Chest: + decreased breath sounds, + rhonchi Cardiovascular: regular rate, rhythm, no murmur Abdomen: normal bowel sounds, non tender, soft Extremities: non-tender, no pedal edema Neurologic/Psychiatric: alert, oriented x 3 Laboratory Results 10/26/17 04:27 Red Blood Count 4.02, Mean Corpuscular Volume 93.0, Mean Corpuscular Hemoglobin 30.6, Mean Corpuscular Hemoglobin Concent 32.9, Neutrophils (%) (Auto) 62.3, Lymphocytes (%) (Auto) 26.7, Monocytes (%) (Auto) 10.3, Eosinophils (%) (Auto) 0.0, Basophils (%) (Auto) 0.0, Neutrophils # (Auto) 0.91, Lymphocytes # (Auto) 0.39, Monocytes # (Auto) 0.15, Eosinophils # (Auto) 0.00, Basophils # (Auto) 0.00 10/26/17 04:27 Test 10/25/17 16:32 10/25/17 19:28 10/26/17 04:27 Vancomycin Level Trough 17.4 mcg/ml (SEE COMMENT) White Blood Count 1.46 K/uL (4.8-10.8) Red Blood Count 4.02 M/uL (4.2-5.4) Hemoglobin 12.3 g/dL (12.0-16.0) Hematocrit 37.4 % (37-47) Mean Corpuscular Volume 93.0 fL (80-100) Mean Corpuscular Hemoglobin 30.6 pg (25-34) Mean Corpuscular Hemoglobin Concent 32.9 g/dl (32-36) Platelet Count 19 K/uL (130-400) Neutrophils (%) (Auto) 62.3 % Lymphocytes (%) (Auto) 26.7 % Monocytes (%) (Auto) 10.3 % Eosinophils (%) (Auto) 0.0 % Basophils (%) (Auto) 0.0 % Neutrophils # (Auto) 0.91 K/uL (1.4-6.5) Lymphocytes # (Auto) 0.39 K/uL (1.2-3.4) Monocytes # (Auto) 0.15 K/uL (0.11-0.59) Eosinophils # (Auto) 0.00 K/uL (0-0.5) Basophils # (Auto) 0.00 K/uL (0-0.2) RDW Standard Deviation 56.9 fL (36.4-46.3) RDW Coefficient of Variation 16.6 % (11.5-14.5) Immature Granulocyte % (Auto) 0.7 % Immature Granulocyte # (Auto) 0.01 K/uL (0.00-0.02) Toxic Vacuolation 1+ Platelet Estimate SIGNIFIC DECREASED Echinocytes 1+ Prothrombin Time 15.1 SECONDS (9.0-12.0) Prothromb Time International Ratio 1.4 (0.9-1.1) Activated Partial Thromboplast Time 44.3 SECONDS (21.0-31.0) Partial Thromboplastin Ratio 1.7 Anion Gap 9.0 mmol/L (3-11) Est Creatinine Clear Calc Drug Dose 128.2 ml/min Estimated GFR () 125.3 Estimated GFR (Non- 108.1 BUN/Creatinine Ratio 21.3 (10-20) Lactic Acid Level 1.9 mmol/L (0.4-2.0) Calcium Level 7.4 mg/dl (8.5-10.1) Phosphorus Level 2.1 mg/dl (2.5-4.9) Magnesium Level 1.8 mg/dl (1.8-2.4) Total Bilirubin 1.6 mg/dl (0.2-1) Aspartate Amino Transf (AST/SGOT) 70 U/L (15-37) Alanine Aminotransferase (ALT/SGPT) 21 U/L (12-78) Alkaline Phosphatase 60 U/L (45-117) Total Protein 6.2 gm/dl (6.4-8.2) Albumin 1.5 gm/dl (3.4-5.0) Globulin 4.7 gm/dl (2.5-4.0) Albumin/Globulin Ratio 0.3 (0.9-2) Chemistry Specimen Hemolysis Assessment and Plan 57 year old female with hypothyroidism presented with flu like symptoms. Admitted for pulmonary infiltrate and multiple concerning lab findings and found to have new cirrhosis of unknown etiology. No fhx of liver disease or significant alcohol use per patient and family. Also concern for poor appetite/ nutrition, and encephalopathy vs pt not being a reliable historian. Urine tox is positive for opiates, but patient denies taking opioid medications. Patient being followed by hematology, GI. Sepsis in the setting of flu like symptoms possibly secondary to CAP/Influenza A /UTI - Repeat CXR with worsening parenchymal infiltrate right pulmonary apex, 10/24 - Influenza A pos, 10/24 - Continue Tamiflu, and contact precautions - O2 increased from 2L NC to 7L on oxymask, sating 90-91%, wean as tolerated - Continue IV Abx: Vancomycin day 4 - Doxycycline changed to Cefepime for Klebsiella coverage, day 2 - Patient had a potential allergic reaction to Levaquin/Zosyn. RAST testing pending. - lactic acid 4.5 --> 1.9 - Blood cultures 10/25 NGTD; BCx 10/22 NGTD - initial UA (nitrites, leuks, and urobilinogen); repeat UA 10/24 wnl, patient asymptomatic - Duoneb Q4H - Watch for cultures, and adjust abx as necessary Liver Cirrhosis/Hepatosplenomegaly - Newly diagnosed, possibly alcoholic, unknown etiology - Per H and P drinks one bottle of wine a week. - Patient reports taking various supplements - CT abdomen - Hepatic cirrhosis with portal HTN, trace abd/pelvic ascites, moderate body wall anasarca, upper abd varices, splenomegaly - Hepatitis panel neg - MELD of 13 - Elevated AST 70, bili 1.6, significantly decreased albumin 1.5, deranged coags (INR 1.4, PT 15.1) - Ammonia improved to 28 from 50 - F/u infectious testing HIV and mono neg, CMV pending - GI consulted with the following recs; f/u JOSSELYN pending , ASMA pending, Fe low 18, ferritin nl 109 (anemia of chronic disease) - no biopsy until recovers from influenza - Following CMP Hepatic Encephalopathy - Continue lactulose 30mg BID PO - Monitor mental status Concern of alcohol abuse - Patient admits to drinking 1 bottle of wine per week. - Denies taking opiates, but urine tox positive - Patient is confused, maybe an unreliable historian - Add multivitamin Leukopenia/Thrombocytopenia/deranged coags - WBC 0.78 -> 1.46 this AM - Plt 19 -> 19 this AM - Hematology consulted likely 2/2 to splenomegaly/splenic sequestration due to underlying cirrhosis - Trend CBC, coags - Monitor for bruising/bleeding Hypothyroidism - TSH suppressed, low T3 - Ordered thyroglobulin and microsomal antibodies - Continue levothyroxine 100 mcg daily Urine tox screen - negative for everything except opiates - Follow up for further tox evaluation Electrolyte disturbance - resolved - Trend electrolytes - Vit D level 15.3 - Started on vit D 50,000 units twice a week for 6 weeks total Recurrent falls - PT/OT consulted - HbA1c 4.7 and B12 elevated at 1934 unlikely to be from neuropathy VTE PPx - SCDs, TEDs - Heparin hold due to low platelets Resident Involvement: Resident Care Provided Care Provided: Adult [facility] Medicine Reviewed: Pt Seen/Exam by Me History Pt is feeling improved overall. Still with SOB, but better. She is tolerating PO without issue but her intake is low which she feels is due to not getting much activity. A friend is present and feels pt is improving. Discussed alcohol use with pt. She states she has "a glass or two of wine a week". She states that she "partied in college" but not regularly since that time. 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 Pt states she has been taking many different supplements for some time now. She orders off of the internet and would not be surprised if some of what she takes comes from [employer] or [employer], although she cannot state this with certainty. She does have some pain with her cough, but otherwise is pain free. Agree with HPI/ROS as noted by resident. General Appearance: WD/WN, no apparent distress Respiratory: normal breath sounds, no respiratory distress Cardiovascular: normal peripheral pulses, regular rate, rhythm Gastrointestinal: non tender, soft Extremities: non-tender, pedal edema (1+ pitting) Neurologic/Psychiatric: alert, normal mood/affect, oriented x 3 Skin Characteristics: normal color, warm/dry Assessment/Plan Agree with plan as outlined above PNA Now with flu +, tamiflu sepsis POA New dx cirrhosis, uncertain etiology. ???Possible heavy metal toxicity due to supplements from [place] or [employer] that may have been worsened by mild alcohol use? ? Labs pending for infectious etiologies Needs EGD and c-scope once stable
[2017-10-26] MEDS: ALBUT/IPRATROP 3MG/0.5MG NEB 3 ML VIAL INH SCH ×4 (09:10→19:54)
[2017-10-26] MEDS ORDERED: POT PHOSPHATE MONOBASIC W/ SOD TAB PO STA (18:02)
[2017-10-27] VITALS (10 sets, daily range): BP systolic 91–122; BP diastolic 56–77; PULSE 75–96; TEMP 36.5–36.9; O2SAT 90–100
[2017-10-27] MEDS: CEFEPIME IV 2,000 MG in SYRINGE 7.5 ML IV SCH ×3 (01:06→16:51)
[2017-10-27] MEDS ORDERED: VANCOMYCIN TROUGH ONE (03:30)
[2017-10-27] MEDS: VANCOMYCIN INJ 1,000 MG in SODIUM CHLORIDE 0.9% 250ML 250 ML IV SCH (04:27)
[2017-10-27] MEDS: LEVOTHYROXINE 100 MCG TAB PO SCH (04:28)
[2017-10-27] MEDS: ALBUT/IPRATROP 3MG/0.5MG NEB 3 ML VIAL INH SCH ×4 (07:12→19:59)
[2017-10-27] MEDS: BOOST VANILLA PO SCH ×2 (08:59→20:43)
[2017-10-27] MEDS: LACTULOSE SYRUP 30 GM/45 ML UDP PO SCH (09:00)
[2017-10-27] MEDS: OSELTAMIVIR PHOSPHATE 75 MG CAP PO SCH ×2 (09:01→20:43)
[2017-10-27] MEDS: MULTIVITAMIN TAB PO SCH (09:01)
[2017-10-27 09:50] LABS: HEMATOCRIT 36.4 % (37-47); MEAN CELL VOLUME 93.6 fL (80-100); MEAN CORPUSCULAR HEMOGLOBIN 30.8 pg (25-34); RED CELL DISTRIBUTION WIDTH CV 16.8 % (11.5-14.5); RED CELL DISTRIBUTION WIDTH SD 57.5 fL (36.4-46.3); WHITE BLOOD COUNT 2.56 K/uL (4.8-10.8)
[2017-10-27 09:55] LABS: PLATELET COUNT 28 K/uL (130-400)
[2017-10-27 09:56] LABS: BASO % 0.4 %; BASO ABS # 0.01 K/uL (0-0.2); EOS ABS # 0.05 K/uL (0-0.5); IG# 0.02 K/uL (0.00-0.02); LYMPH % 17.6 %; LYMPH ABS # 0.45 K/uL (1.2-3.4); MONO % 16.4 %; MONO ABS # 0.42 K/uL (0.11-0.59); NEUT % 62.8 %; NEUT ABS # 1.61 K/uL (1.4-6.5)
[2017-10-27 10:19] LABS: ALBUMIN 1.6 gm/dl (3.4-5.0); CALCIUM 7.5 mg/dl (8.5-10.1); CREATININE 0.61 mg/dl (0.60-1.20); POTASSIUM 3.6 mmol/L (3.5-5.1)
[2017-10-27 10:22] LABS: TOTAL PROTEIN 6.1 gm/dl (6.4-8.2)
[2017-10-27] MEDS ORDERED: CLINDAMYCIN 600 MG/54 ML D5W IV SCH (11:30)
[2017-10-27] MEDS ORDERED: VANCOMYCIN INJ 750 MG in SODIUM CHLORIDE 0.9% 250ML 250 ML IV SCH (12:00)
[2017-10-27] MEDS: CLINDAMYCIN IV 600 MG in DEXTROSE 5% 50ML 50 ML IV SCH (15:38)
[2017-10-27 15:46] LABS: ANA SCREEN TC 249X NEGATIVE (NEGATIVE)
--- NOTE | 2017-10-27 16:01 | Family Medicine Progress Note ---
Progress Note Date of Service Oct 27, 2017. Subjective Pt evaluation today including: conversation w/ patient, physical exam, chart review, lab review Pain: abdominal discomfort reported with coughing PO Intake: tolerating Voiding: no voiding problems This AM pt reports abdominal discomfort with coughing episodes. Also reports 3 episodes of loose stools and more swelling in legs Constitutional: No fever, No chills Respiratory: + cough, + sputum, No shortness of breath Cardiovascular: No chest pain Abdomen: + diarrhea, No pain, No nausea, No vomiting Female : No dysuria Medications Current Inpatient Medications Medications (Trade) Dose Ordered Sig/Rodrigo Route Start Time Stop Time Status Last Admin Dose Admin Acetaminophen (Tylenol Tab) 650 mg Q4H PRN PO 10/22/17 22:15 11/21/17 22:14 10/25/17 16:24 650 MG Al Hydrox/Mg Hydrox/Simethicone (Maalox Max Susp) 15 ml Q4H PRN PO 10/22/17 22:15 11/21/17 22:14 Magnesium Hydroxide (Milk Of Magnesia Susp) 30 ml Q12H PRN PO 10/22/17 22:15 11/21/17 22:14 Ondansetron HCl (Zofran Inj) 4 mg Q6H PRN IV 10/22/17 22:15 11/21/17 22:14 10/26/17 14:16 4 MG Nitroglycerin (Nitrostat Tab) 0.4 mg UD PRN SL 10/22/17 22:15 11/21/17 22:14 Polyethylene (Miralax Powder Packet) 17 gm DAILY PRN PO 10/22/17 22:15 11/21/17 22:14 Multivitamins (Multivitamin Tab) 1 tab QAM PO 10/24/17 09:00 11/23/17 08:59 10/27/17 09:01 1 TAB Thiamine HCl (Vitamin B-1 Tab) 100 mg QAM PO 10/24/17 09:00 11/23/17 08:59 10/26/17 20:12 100 MG Enteral Nutritional Formula (Boost) 1 can BID PO 10/24/17 21:00 11/23/17 20:59 10/26/17 20:08 1 CAN Cefepime HCl 2000 mg/Syringe 20 ml @ 5 mls/min Q8H IV 10/25/17 09:00 11/01/17 08:59 10/27/17 08:59 5 MLS/MIN Oseltamivir Phosphate (Tamiflu Cap) 75 mg BID PO 10/25/17 09:00 10/30/17 08:59 10/27/17 09:01 75 MG Zolpidem Tartrate (Ambien Tab) 5 mg HS PRN PO 10/25/17 16:15 11/24/17 16:14 Albuterol/ Ipratropium (Duoneb) 3 ml QIDR INH 10/26/17 08:15 11/25/17 08:14 10/27/17 15:20 3 ML Lactulose (Chronulac Syrup) 30 gm DAILY PO 10/28/17 09:00 11/27/17 08:59 Levothyroxine Sodium (Synthroid Tab) 88 mcg DAILYBB PO 10/28/17 06:30 11/27/17 06:29 Clindamycin Phosphate 600 mg/ Dextrose 54 ml @ 108 mls/hr Q8H IV 10/27/17 16:00 11/03/17 15:59 10/27/17 15:38 108 MLS/HR Objective Vital Signs Date Time Temp Pulse Resp B/P (MAP) Pulse Ox O2 Delivery O2 Flow Rate FiO2 10/27/17 15:20 89 18 90 Nasal Cannula 5.0 10/27/17 11:40 Nasal Cannula 5.5 10/27/17 11:39 36.8 75 16 96/60 (72) 90 10/27/17 11:22 82 18 92 Nasal Cannula 5.0 10/27/17 08:00 Nasal Cannula 6.0 10/27/17 07:37 36.5 76 16 122/77 (92) 92 Nasal Cannula 5.5 10/27/17 07:12 76 18 92 Nasal Cannula 5.5 10/27/17 04:05 Nasal Cannula 6.0 10/27/17 03:05 36.8 86 18 102/67 (79) 91 Nasal Cannula 6.0 10/27/17 00:05 Nasal Cannula 6.0 10/26/17 22:56 36.9 91 16 105/69 (81) 90 Nasal Cannula 6.0 10/26/17 20:05 Nasal Cannula 6.0 10/26/17 19:54 90 18 94 Nasal Cannula 6.0 10/26/17 19:30 36.8 94 24 97/64 (75) 91 Nasal Cannula 6.0 10/26/17 16:00 Nasal Cannula 6.0 Physical Exam General Appearance: no apparent distress Eyes: normal inspection, sclerae normal Respiratory/Chest: + decreased breath sounds, + crackles (RLL) Cardiovascular: regular rate, rhythm, no murmur Abdomen: normal bowel sounds, non tender, soft Extremities: non-tender, no pedal edema, + pertinent finding (bilateral calves tense) Neurologic/Psychiatric: alert, oriented x 3 Skin: warm/dry Laboratory Results 10/27/17 09:20 Red Blood Count 3.89, Mean Corpuscular Volume 93.6, Mean Corpuscular Hemoglobin 30.8, Mean Corpuscular Hemoglobin Concent 33.0, Neutrophils (%) (Auto) 62.8, Lymphocytes (%) (Auto) 17.6, Monocytes (%) (Auto) 16.4, Eosinophils (%) (Auto) 2.0, Basophils (%) (Auto) 0.4, Neutrophils # (Auto) 1.61, Lymphocytes # (Auto) 0.45, Monocytes # (Auto) 0.42, Eosinophils # (Auto) 0.05, Basophils # (Auto) 0.01 10/27/17 09:20 Test 10/27/17 03:34 10/27/17 09:20 Vancomycin Level Trough 19.7 mcg/ml (SEE COMMENT) White Blood Count 2.56 K/uL (4.8-10.8) Red Blood Count 3.89 M/uL (4.2-5.4) Hemoglobin 12.0 g/dL (12.0-16.0) Hematocrit 36.4 % (37-47) Mean Corpuscular Volume 93.6 fL (80-100) Mean Corpuscular Hemoglobin 30.8 pg (25-34) Mean Corpuscular Hemoglobin Concent 33.0 g/dl (32-36) Platelet Count 28 K/uL (130-400) Neutrophils (%) (Auto) 62.8 % Lymphocytes (%) (Auto) 17.6 % Monocytes (%) (Auto) 16.4 % Eosinophils (%) (Auto) 2.0 % Basophils (%) (Auto) 0.4 % Neutrophils # (Auto) 1.61 K/uL (1.4-6.5) Lymphocytes # (Auto) 0.45 K/uL (1.2-3.4) Monocytes # (Auto) 0.42 K/uL (0.11-0.59) Eosinophils # (Auto) 0.05 K/uL (0-0.5) Basophils # (Auto) 0.01 K/uL (0-0.2) RDW Standard Deviation 57.5 fL (36.4-46.3) RDW Coefficient of Variation 16.8 % (11.5-14.5) Immature Granulocyte % (Auto) 0.8 % Immature Granulocyte # (Auto) 0.02 K/uL (0.00-0.02) Smudge Cells PRESENT Platelet Estimate SIGNIFIC DECREASED Anion Gap 5.0 mmol/L (3-11) Est Creatinine Clear Calc Drug Dose 100.1 ml/min Estimated GFR () 115.0 Estimated GFR (Non- 99.2 BUN/Creatinine Ratio 16.2 (10-20) Calcium Level 7.5 mg/dl (8.5-10.1) Total Bilirubin 2.0 mg/dl (0.2-1) Aspartate Amino Transf (AST/SGOT) 66 U/L (15-37) Alanine Aminotransferase (ALT/SGPT) 20 U/L (12-78) Alkaline Phosphatase 65 U/L (45-117) Total Protein 6.1 gm/dl (6.4-8.2) Albumin 1.6 gm/dl (3.4-5.0) Globulin 4.5 gm/dl (2.5-4.0) Albumin/Globulin Ratio 0.4 (0.9-2) Assessment and Plan 57 year old female with hypothyroidism presented with flu like symptoms. Admitted for pulmonary infiltrate and multiple concerning lab findings and found to have new cirrhosis of unknown etiology. No fhx of liver disease or significant alcohol use per patient and family. Also concern for poor appetite/ nutrition, and encephalopathy vs pt not being a reliable historian. Urine tox is positive for opiates, but patient denies taking opioid medications. Patient being followed by hematology, GI. Sepsis in the setting of flu like symptoms possibly secondary to CAP/Influenza A - improving - Repeat CXR with worsening parenchymal infiltrate right pulmonary apex, 10/24 - Influenza A pos, 10/24 - Continue Tamiflu 75mg BID, and contact precautions - O2 increased from 2L NC to now 5.5L, sating 92%, wean as tolerated - Received Vancomycin for 4 days, dced 10/27 - Doxycycline changed to Cefepime for Klebsiella coverage, day 3 - Started on Clindamycin 800mg IV Q3H for anaerobic coverage - Patient had a potential allergic reaction to Levaquin/Zosyn. RAST testing pending. - lactic acid 4.5 --> 1.9 - repeat blood cultures 10/25 NGTD; BCx 10/22 NGTD - Duoneb Q4H Liver Cirrhosis/Hepatosplenomegaly - Newly diagnosed, possibly alcoholic, unknown etiology - Per H and P drinks one bottle of wine a week. - Patient reports taking various supplements - advised to stop taking - CT abdomen - Hepatic cirrhosis with portal HTN, trace abd/pelvic ascites, moderate body wall anasarca, upper abd varices, splenomegaly - Hepatitis panel neg, Hep B core IgM and Hep A IgM pending - MELD of 13 - Elevated AST 60, bili 2, significantly decreased albumin 1.5, deranged coags ( INR 1.4, PT 15.1) - Ammonia improved to 28 from 50 - F/u infectious testing HIV and mono neg, CMV and EBV pending - GI consulted with the following recs; JOSSELYN neg , ASMA 1:40 abnormal, Fe low 18 , ferritin nl 109 (anemia of chronic disease) - no biopsy until recovers from influenza - outpt EGD for varices - Following CMP, coags, pending studies Hepatic Encephalopathy - Continue lactulose 30mg BID PO --> decreased to once a day given diarrhea - last Ammonia 28, repeat having AMS - Monitor mental status Concern of alcohol abuse - Patient admits to drinking 1 bottle of wine per week. - Denies taking opiates, but urine tox positive - Patient is confused, maybe an unreliable historian - Add multivitamin Leukopenia/Thrombocytopenia/deranged coags - WBC 1.46 -> 2.56 this AM - Plt 19 -> 28 this AM - Hematology consulted likely 2/2 to splenomegaly/splenic sequestration due to underlying cirrhosis - Trend CBC, coags - Monitor for bruising/bleeding Hypothyroidism - TSH 0.01 suppressed, low T3 1.29 - Thyroglobulin and microsomal antibodies <1 - Decreased levothyroxine from 100 to 88 mcg daily, PCP follow up on d/c Urine tox screen - negative for everything except opiates - Follow up for further tox evaluation Electrolyte disturbance - resolved - Trend electrolytes - Vit D level 15.3 - Started on vit D 50,000 units twice a week for 6 weeks total Recurrent falls - PT/OT consulted - HbA1c 4.7 and B12 elevated at 1934 unlikely to be from neuropathy VTE PPx - SCDs, TEDs - Heparin hold due to low platelets Resident Involvement: Resident Care Provided Care Provided: Adult Hospital Medicine Reviewed: Pt Seen/Exam by Me History Resident Physician Supervision Note: I interviewed and examined the patient. Discussed with Dr. Strong and agree with findings and plan as documented in the note. Any exceptions or clarifications are listed here: Patient feeling fairly well today. Denies chest pain or shortness of breath. Once no in is being discharged. Remains afebrile. Vitals reviewed NAD, appears older than stated age Regular rate and rhythm, no murmurs gallops rubs Lungs with decreased breath sounds in the right upper lung field, otherwise clear Abdomen positive bowel sounds soft nontender nondistended, unable to appreciate splenomegaly Extremities no calf tenderness, 1+ pitting edema bilaterally Patient is a 57-year-old female who presents with altered mental status, influenza A respiratory illness with right upper lobe pneumonia and sepsis, found to have cirrhosis and evidence of hepatic synthetic dysfunction on admission. -Anti-smooth muscle antibody is mildly positive today, alpha-1 antitrypsin is normal, CMV and EBV are still pending, hepatitis panel negative, could be combination of alcoholic cirrhosis plus autoimmune hepatitis-we will discuss with GI -Will eventually need liver biopsy -Pancytopenia-improving, likely combination of cirrhosis, hypersplenism, and acute suppression secondary to viral illness, no evidence of bleeding at this time -We'll need screening EGD for varices and possible commencement of propranolol for portal hypertension-will defer to GI for management -Decrease her levothyroxine to 88 for suppressed TSH -Decrease lactulose and titrate for 2-3 bowel movements a day to prevent recurrent hepatic encephalopathy -Add on clindamycin to cover for aspiration pneumonia, continue cefepime as well -Likely discharged home in the next 1-2 days if blood counts continue to improve , wean down off oxygen a little bit more Documented By: Elisabeth Mcginnis
[2017-10-27] MEDS: SACCHAROMYCES BOUL (FLORASTOR) 250 MG CAP PO SCH (20:43)
[2017-10-28] VITALS (16 sets, daily range): BP systolic 97–115; BP diastolic 62–72; PULSE 74–94; TEMP 36.7–37.1; O2SAT 88–95
[2017-10-28] MEDS: CLINDAMYCIN IV 600 MG in DEXTROSE 5% 50ML 50 ML IV SCH ×4 (00:19→23:59)
[2017-10-28] MEDS: CEFEPIME IV 2,000 MG in SYRINGE 7.5 ML IV SCH ×4 (00:30→23:55)
[2017-10-28] MEDS: LEVOTHYROXINE 88 MCG TAB PO SCH (04:51)
[2017-10-28 06:12] LABS: INR 1.5 (0.9-1.1); PTT PATIENT 43.8 SECONDS (21.0-31.0)
[2017-10-28 06:35] LABS: ALBUMIN 1.5 gm/dl (3.4-5.0); CALCIUM 7.7 mg/dl (8.5-10.1); CREATININE 0.48 mg/dl (0.60-1.20); POTASSIUM 3.9 mmol/L (3.5-5.1)
[2017-10-28 06:38] LABS: TOTAL PROTEIN 6.2 gm/dl (6.4-8.2)
[2017-10-28 07:08] LABS: HEMATOCRIT 36.1 % (37-47); HEMOGLOBIN 11.7 g/dL (12.0-16.0); MEAN CELL VOLUME 92.3 fL (80-100); MEAN CORPUSCULAR HEMOGLOBIN 29.9 pg (25-34); MEAN CORPUSCULAR HGB CONC 32.4 g/dl (32-36); PLATELET COUNT 37 K/uL (130-400); RED CELL DISTRIBUTION WIDTH CV 16.5 % (11.5-14.5); RED CELL DISTRIBUTION WIDTH SD 55.5 fL (36.4-46.3); WHITE BLOOD COUNT 2.26 K/uL (4.8-10.8)
[2017-10-28 07:11] LABS: BASO % 0.4 %; BASO ABS # 0.01 K/uL (0-0.2); EOS % 4.4 %; IG# 0.01 K/uL (0.00-0.02); LYMPH % 23.5 %; LYMPH ABS # 0.53 K/uL (1.2-3.4); MONO % 16.8 %; MONO ABS # 0.38 K/uL (0.11-0.59); NEUT % 54.5 %; NEUT ABS # 1.23 K/uL (1.4-6.5)
[2017-10-28] MEDS: ALBUT/IPRATROP 3MG/0.5MG NEB 3 ML VIAL INH SCH ×4 (07:16→18:27)
[2017-10-28] MEDS: LACTULOSE SYRUP 30 GM/45 ML UDP PO SCH (08:21)
[2017-10-28] MEDS: SACCHAROMYCES BOUL (FLORASTOR) 250 MG CAP PO SCH ×2 (08:21→20:41)
[2017-10-28] MEDS: BOOST VANILLA PO SCH (08:21)
[2017-10-28] MEDS: MULTIVITAMIN TAB PO SCH (08:22)
[2017-10-28] MEDS: THIAMINE HCL 100 MG TAB PO SCH (08:22)
[2017-10-28] MEDS: OSELTAMIVIR PHOSPHATE 75 MG CAP PO SCH ×2 (08:22→20:41)
[2017-10-28] MEDS ORDERED: VANCOMYCIN TROUGH ONE (11:30)
[2017-10-28] MEDS ORDERED: PROPRANOLOL HCL 10 MG TAB PO ONE (12:30)
--- NOTE | 2017-10-28 13:40 | Hematology/Oncology Prog Note ---
Hematology/Onc Progress Note Date of Service Oct 28, 2017. 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 Medications Medications Administered Medications (Trade) Dose Ordered Sig/Rodrigo Route Start Time Stop Time Status Last Admin Dose Admin Sodium Chloride 1,000 ml @ 999 mls/hr Q1H1M ONCE IV 10/22/17 16:28 10/22/17 17:28 DC 10/22/17 16:28 999 MLS/HR Acetaminophen (Tylenol Tab) 1,000 mg NOW STAT PO 10/22/17 16:32 10/22/17 16:34 DC 10/22/17 16:32 1,000 MG Albuterol/ Ipratropium (Duoneb) 3 ml NOW STAT INH 10/22/17 16:34 10/22/17 16:36 DC 10/22/17 16:34 3 ML Dexamethasone Sodium Phosphate (Decadron Inj) 10 mg NOW STAT IV 10/22/17 16:34 10/22/17 16:36 DC 10/22/17 16:34 10 MG Levofloxacin (Levaquin / D5W) 750 mg NOW ONCE IV 10/22/17 16:45 10/22/17 16:46 DC 10/22/17 16:45 750 MG Piperacillin Sod/ Tazobactam Sod (Zosyn Iv) 4.5 gm NOW STAT IV 10/22/17 17:37 10/22/17 17:38 DC 10/22/17 19:20 4.5 GM Magnesium Sulfate (Magnesium Sulfate) 2 gm NOW STAT IV 10/22/17 17:40 10/22/17 17:41 DC 10/22/17 19:20 2 GM Thiamine HCl (Vitamin B-1 Inj) 100 mg NOW STAT IV 10/22/17 18:05 10/22/17 18:06 DC 10/22/17 19:20 100 MG Diphenhydramine HCl (Benadryl Inj) 25 mg NOW STAT IV 10/22/17 20:56 10/22/17 20:57 DC 10/22/17 21:03 25 MG Acetaminophen (Tylenol Tab) 650 mg Q4H PRN PO 10/22/17 22:15 11/21/17 22:14 10/25/17 16:24 650 MG Ondansetron HCl (Zofran Inj) 4 mg Q6H PRN IV 10/22/17 22:15 11/21/17 22:14 10/26/17 14:16 4 MG Potassium Chloride (Klor-Con Tab) 20 meq NOW STAT PO 10/22/17 22:01 10/22/17 22:39 DC 10/22/17 23:35 20 MEQ Potassium Chloride (Klor-Con Tab) 20 meq BID PO 10/23/17 09:00 10/24/17 08:59 DC 10/23/17 20:42 20 MEQ Magnesium Oxide (Mag-Ox Tab) 400 mg BID PO 10/23/17 09:00 10/24/17 08:59 DC 10/23/17 20:42 400 MG Magnesium Oxide (Mag-Ox Tab) 400 mg NOW STAT PO 10/22/17 22:27 10/22/17 22:28 DC 10/22/17 22:35 400 MG Potassium/ Phosphorus/Sodium (Phospha 250 Neutral 155-852-130 Mg) 2 tab QID PO 10/23/17 09:00 10/24/17 08:59 DC 10/23/17 20:42 2 TAB Potassium/ Phosphorus/Sodium (Phospha 250 Neutral 155-852-130 Mg) 2 tab 2201 ONCE PO 10/22/17 22:01 10/22/17 22:39 DC 10/22/17 23:35 2 TAB Levothyroxine Sodium (Synthroid Tab) 100 mcg DAILYBB PO 10/23/17 06:30 10/27/17 11:24 DC 10/27/17 04:28 100 MCG Multivitamins (Multivitamin Tab) 1 tab DAILY PO 10/23/17 09:00 10/25/17 23:24 DC 10/25/17 07:27 1 TAB Doxycycline Hyclate 100 mg/ Dextrose 110 ml @ 50 mls/hr Q12 IV 10/23/17 09:00 10/25/17 00:42 DC 10/24/17 21:56 50 MLS/HR Vancomycin HCl 2000 mg/Sodium Chloride 540 ml @ 200 mls/hr TODAY@0030 IV 10/23/17 00:30 10/23/17 03:11 DC 10/23/17 01:58 200 MLS/HR Vancomycin HCl 750 mg/Sodium Chloride 265 ml @ 125 mls/hr Q10H IV 10/23/17 16:00 10/24/17 13:34 DC 10/24/17 12:33 125 MLS/HR Multivitamins (Multivitamin Tab) 1 tab QAM PO 10/24/17 09:00 11/23/17 08:59 10/28/17 08:22 1 TAB Multivitamins (Multivitamin Tab) 1 tab 1924 ONCE PO 10/23/17 19:24 10/23/17 20:07 DC 10/23/17 20:41 1 TAB Thiamine HCl (Vitamin B-1 Tab) 100 mg QAM PO 10/24/17 09:00 11/23/17 08:59 10/28/17 08:22 100 MG Thiamine HCl (Vitamin B-1 Tab) 100 mg 1924 ONCE PO 10/23/17 19:24 10/23/17 20:07 DC 10/23/17 20:41 100 MG Sodium Chloride 500 ml @ 200 mls/hr Q2H30M IV 10/24/17 04:45 10/24/17 07:14 DC 10/24/17 05:01 200 MLS/HR Vancomycin HCl 1000 mg/Sodium Chloride 270 ml @ 125 mls/hr Q8@0400,1200,2000 IV 10/24/17 20:00 10/27/17 10:40 DC 10/27/17 04:27 125 MLS/HR Enteral Nutritional Formula (Boost) 1 can BID PO 10/24/17 21:00 11/23/17 20:59 10/28/17 08:21 1 CAN Phytonadione 10 mg/Sodium Chloride 51 ml @ 102 mls/hr ONE ONCE IV 10/24/17 17:45 10/24/17 18:14 DC 10/24/17 18:31 102 MLS/HR Lactulose (Chronulac Syrup) 30 gm BID PO 10/24/17 21:00 10/27/17 11:23 DC 10/26/17 20:12 30 GM Furosemide (Lasix Inj) 40 mg STK-MED ONCE .ROUTE 10/25/17 00:37 10/25/17 00:38 DC 10/25/17 00:41 40 MG Cefepime HCl 2000 mg/Syringe 20 ml @ 5 mls/min TODAY@0100 IV 10/25/17 01:00 10/25/17 01:03 DC 10/25/17 01:17 5 MLS/MIN Cefepime HCl 2000 mg/Syringe 20 ml @ 5 mls/min Q8H IV 10/25/17 09:00 11/01/17 08:59 10/28/17 08:20 5 MLS/MIN Oseltamivir Phosphate (Tamiflu Cap) 75 mg BID PO 10/25/17 09:00 10/30/17 08:59 10/28/17 08:22 75 MG Oseltamivir Phosphate (Tamiflu Cap) 75 mg 0137 ONCE PO 10/25/17 01:37 10/25/17 01:46 DC 10/25/17 02:01 75 MG Albuterol/ Ipratropium (Duoneb) 3 ml QID PRN INH 10/25/17 02:15 10/26/17 08:06 DC 10/25/17 10:02 3 ML Ergocalciferol (Vitamin D Cap) 50,000 interunit NOW STAT PO 10/25/17 16:42 10/25/17 16:43 DC 10/25/17 16:58 50,000 INTERUNIT Albuterol/ Ipratropium (Duoneb) 3 ml QIDR INH 10/26/17 08:15 11/25/17 08:14 10/28/17 11:58 3 ML Potassium/ Phosphorus/Sodium (Phospha 250 Neutral 155-852-130 Mg) 2 tab ONE STAT PO 10/26/17 18:02 10/26/17 18:13 DC 10/26/17 20:05 2 TAB Lactulose (Chronulac Syrup) 30 gm DAILY PO 10/28/17 09:00 11/27/17 08:59 10/28/17 08:21 30 GM Levothyroxine Sodium (Synthroid Tab) 88 mcg DAILYBB PO 10/28/17 06:30 11/27/17 06:29 10/28/17 04:51 88 MCG Clindamycin Phosphate 600 mg/ Dextrose 54 ml @ 108 mls/hr Q8H IV 10/27/17 16:00 11/03/17 15:59 10/28/17 08:20 108 MLS/HR Saccharomyces Boulardii (Florastor Cap) 250 mg BID PO 10/27/17 21:00 11/26/17 20:59 10/28/17 08:21 250 MG Subjective Seems to be doing fairly well. No obvious bleeding. Really offers no new complaints Review of Systems: Constitutional: Negative for weight loss, night sweats, or fever Eyes: Negative for event change of vision ENT: Negative for epistaxis, nasal discharge, sore throat, or deafness Cardiovascular: Negative for chest pain, palpitations, dizziness, diaphoresis Respiratory: Negative for new shortness of breath,hemoptysis, or purulent cough Gastrointestinal: Negative for diarrhea, hematemesis, melena, nausea, vomiting , or dyspepsia Integumentary (skin): Negative for rash or jaundice discoloration Genitourinary: Negative for urinary frequency, hematuria, or dysuria Neurological: Negative for weakness, seizure activity, headache, or dizziness Lymphatic/Hematologic: Negative for petechiae, bleeding or new adenopathy Musculoskeletal: Negative for new joint or back pain Allergic/Immunologic: Negative for unusual rash or pruritis. Vital Signs Vital Signs Past 12 Hours Date Time Temp Pulse Resp B/P (MAP) Pulse Ox O2 Delivery O2 Flow Rate FiO2 10/28/17 12:00 93 Nasal Cannula 6.0 10/28/17 11:58 92 18 94 Nasal Cannula 5.0 10/28/17 11:49 37.1 84 16 99/63 (75) 95 Nasal Cannula 6.0 10/28/17 08:00 93 Nasal Cannula 6.0 10/28/17 07:32 36.7 80 16 101/63 (76) 92 Nasal Cannula 6.0 10/28/17 07:16 88 18 90 Nasal Cannula 5.0 10/28/17 05:22 37.0 85 21 97/64 (75) 90 Nasal Cannula 6.0 10/28/17 04:05 Nasal Cannula 5.0 Physical Exam Constitutional: vitals are stable. Thin pleasant female. Eyes: Eyes are RIDDHI EOMI without conjuctival erythema or icterus. ENT: External examination was negative for masses. Neck: Negative for masses or palpable thyromegaly Respiratory: Lung sounds were generally clear bilaterally Cardiovascular: Heart was RRR without significant murmur, gallops aoe rubs Gastrointestinal: No palpable hepatic or splenomegaly. The abdomen was soft with normal bowel sounds. Lymphatic system: there was no palpable peripheral lymphadenopathy Musculoskeletal System: The musculoskeletal system seemed concordant with age. Skin: The skin was negative for jaundice. Neurologic exam: The exam was negative for any focal findings. Deep tendon reflexes were equal and symmetrical. Psychiatric exam: Was essentially negative with normal mood and effect. Extremities: mild bilateral 1 plus dependent edema at most Constitutional: General Apperance: too thin Level of Distress: NAD Psychiatric: Mental Status: active & alert, confused Lungs: Auscuitation: breath sounds normal Cardiovascular: Heart Auscultation: RRR Abdomen: Inspection & Palpation: soft, no tenderness, guarding & rebound Extremities: no edema Laboratory Last 24 Hours Test 10/28/17 05:46 10/28/17 12:39 White Blood Count 2.26 K/uL Red Blood Count 3.91 M/uL Hemoglobin 11.7 g/dL Hematocrit 36.1 % Mean Corpuscular Volume 92.3 fL Mean Corpuscular Hemoglobin 29.9 pg Mean Corpuscular Hemoglobin Concent 32.4 g/dl Platelet Count 37 K/uL Neutrophils (%) (Auto) 54.5 % Lymphocytes (%) (Auto) 23.5 % Monocytes (%) (Auto) 16.8 % Eosinophils (%) (Auto) 4.4 % Basophils (%) (Auto) 0.4 % Neutrophils # (Auto) 1.23 K/uL Lymphocytes # (Auto) 0.53 K/uL Monocytes # (Auto) 0.38 K/uL Eosinophils # (Auto) 0.10 K/uL Basophils # (Auto) 0.01 K/uL RDW Standard Deviation 55.5 fL RDW Coefficient of Variation 16.5 % Immature Granulocyte % (Auto) 0.4 % Immature Granulocyte # (Auto) 0.01 K/uL Prothrombin Time 15.7 SECONDS Prothromb Time International Ratio 1.5 Activated Partial Thromboplast Time 43.8 SECONDS Partial Thromboplastin Ratio 1.7 Sodium Level 131 mmol/L Potassium Level 3.9 mmol/L Chloride Level 102 mmol/L Carbon Dioxide Level 25 mmol/L Anion Gap 4.0 mmol/L Blood Urea Nitrogen 9 mg/dl Creatinine 0.48 mg/dl Est Creatinine Clear Calc Drug Dose 127.3 ml/min Estimated GFR () 124.4 Estimated GFR (Non- 107.4 BUN/Creatinine Ratio 18.1 Random Glucose 81 mg/dl Calcium Level 7.7 mg/dl Total Bilirubin 2.5 mg/dl Aspartate Amino Transf (AST/SGOT) 60 U/L Alanine Aminotransferase (ALT/SGPT) 20 U/L Alkaline Phosphatase 67 U/L Ammonia 16.0 umol/L Total Protein 6.2 gm/dl Albumin 1.5 gm/dl Globulin 4.7 gm/dl Albumin/Globulin Ratio 0.3 Triglycerides Level 91 mg/dl Cholesterol Level 60 mg/dl HDL Cholesterol 12 mg/dl LDL Cholesterol, Calculated 30 mg/dl VLDL Cholesterol, Calculated 18 mg/dl Cholesterol/HDL Ratio 5.0 Direct Bilirubin 1.2 mg/dl Assessment & Plan Cirrhosis with splenomegaly and resultant hypersplenism. Her counts seem to be better. At this juncture there is little need for us to be involved. Fibrinogen low but acceptable in addition. The severity of the cytopenias seem to be more severe than the degree of splenomegaly suggesting that the cytopenias were influenced by some of the toxin such as viral, alcohol etc. With that then we will sign off of his as a service please not hesitate to reconsult as needed.
--- NOTE | 2017-10-28 17:29 | DIAGNOSTIC IMAGING REPORT ---
SINGLE VIEW CHEST CLINICAL HISTORY: Follow-up pneumonia. FINDINGS: An AP, portable, upright chest radiograph is compared to study dated 10/25/2017 and correlated with chest CT dated 10/22/2017. The examination is degraded by portable technique and patient rotation. The heart is mildly enlarged. There is prominence of the pulmonary vasculature. There is patchy airspace consolidation present throughout both lungs, greatest at the right apex. This is similar to 10/25/2017 examination. Trace pleural effusions are identified. No pneumothorax is seen. The skeletal structures are osteopenic. The bony thorax is grossly intact. IMPRESSION: 1. Cardiomegaly with prominence of the central pulmonary vasculature. Correlate clinically for evidence of congestive failure 2. There are bilateral airspace opacities, most confluent in the right upper lobe. The appearance suggests pneumonia. Asymmetric pulmonary edema is considered less likely but could have a similar appearance. Clinical correlation will be required. 3. Trace pleural effusions. Electronically signed by: Victoriano Middleton M.D. 10/28/2017 5:28 PM Dictated Date/Time: 10/28/2017 5:26 PM
[2017-10-28] MEDS ORDERED: FUROSEMIDE INJ 20 MG in SYRINGE 0 ML IV ONE (20:00)
[2017-10-28] MEDS ORDERED: ALBUMIN 25% 50 ML with FUROSEMIDE INJ 20 MG IV ONE ×2 (20:15)
[2017-10-28] MEDS: BOOST BREEZE NUTRITION DRINK 1 BOX PO SCH (20:38)
--- NOTE | 2017-10-28 22:05 | GASTROENTEROLOGY PROGRESS NOTE ---
DATE: 10/27/2017 GASTROINTESTINAL INPATIENT PROGRESS NOTE SUBJECTIVE: Chart reviewed, patient examined. This is the first day of evaluation for this patient by me. The patient has been seen by Dr. Jameson during the earlier part of this admission. The patient with a history of acute influenza A infection and possibly another source of pneumonia. The patient was found to have incidental changes of chronic liver disease and cirrhosis with features of portal hypertension on CT scan and subsequently on portal Doppler studies. The patient has no prior history of gastrointestinal bleeding or significant abdominal ascites. Additionally, there has been no reports of jaundice by the patient or the family members present today, which include her sister and . There has been some aspect of alcohol history over the years and she operated a tavern but believes that alcohol intake overall has been only small to moderate at best over the years. Recently, she has not consumed alcoholic beverages. REVIEW OF SYSTEMS: Otherwise noncontributory. At the present time, she is sitting at the bedside with family members, eating her meal, which she reports tolerating well. There has been no gastrointestinal bleeding and her breathing is comfortable overall. PHYSICAL EXAMINATION: VITAL SIGNS: This afternoon - blood pressure 100/64, pulse 88, respirations 18, temperature 36.6, afebrile. She is 90% on 5 liters nasal cannula, on respiratory isolation. GENERAL: The patient is awake, alert and oriented x3 and accompanied by family. LUNGS: Show coarse sounds and diminished breath sounds in various areas of the lung mckinney. There are no wheezes noted. HEART: Normal S1, S2. ABDOMEN: Soft, nontender, nondistended with good bowel sounds. EXTREMITIES: Show +1 edema. RECTAL: Deferred. LABORATORY VALUES: Today show a sodium of 131, potassium 3.6, BUN and creatinine are 10 and 0.6, total calcium 7.5. Total bilirubin 2.0, AST 66, ALT 20, and alk phos 60. The patient's prior LFTs showed a similar pattern since admission on the with essentially a mildly elevated total bilirubin and AST, but ALT and alkaline phosphatase have been essentially normal. Iron studies show a 10% saturation, TIBC of 203, serum iron 18, transferrin percent saturation of 10% and transferrin of 135. Hematologic markers were reviewed with the negative hepatitis B surface antibody, elevated IgG and IgA; CMV, EBV are pending at this time. Hepatitis B surface antigen was negative and hepatitis C antibody was negative. IMAGING DATA: Imaging studies were reviewed. IMPRESSION AND PLAN: I spoke with the patient and her family for approximately 20 minutes this evening after reviewing examination of the chart. The source of the patient's incidental finding of chronic liver disease, cirrhosis and portal hypertension is unclear. This may reflect use of alcohol, although the alcohol history does not suggest a significant alcohol intake for many years or recently. Currently, most of the markers have not identified the cause and fatty liver is not described on imaging. At the present time, the patient's liver status is stable and that LFTs are well controlled and the modest elevation in bilirubin may be multifactorial including the infection. I believe that the primary goal is maintaining good cardiopulmonary, optimizing cardiopulmonary status with the current treatment plan that includes antibiotics for influenza and possible aspiration pneumonia. Either later during the hospitalization or ideally as an outpatient, the patient can undergo a more formal testing to assess her variceal screening. The patient will need alpha fetoprotein testing. Right sided heart failure may be a culprit and perhaps echocardiogram if not performed, would be reasonable. We will continue to follow with you. Additional markers may be necessary to exclude any other liver sources. Nutrition consultation may be of benefit to optimize patient's protein levels and overall status. We will continue to follow with you. PAOLO
--- NOTE | 2017-10-28 22:06 | GASTROENTEROLOGY PROGRESS NOTE ---
DATE: 10/28/2017 Chart reviewed, patient examined. The patient is sitting in bed comfortably, in no acute respiratory distress. She is on nasal cannula at 6 liters. Her appetite has been good and she had breakfast and lunch without difficulty. She denies any abdominal pain at the present time and also denies any melena, bright red blood per rectum, coffee-ground emesis or hematemesis. She is currently treated for acute influenza A, pneumonia and a consolidation in the right upper lobe that suggest a pneumonia. There is also asymmetric pulmonary edema. Cardiomegaly is also noted. I also spoke with the patient's sister today. MEDICATIONS: The patient's current medications include lactulose 45 mL daily, levothyroxine, Florastor, clindamycin q. 8 IV, Ambien, DuoNeb, cefepime 2 g, Tamiflu, multivitamins, thiamine and magnesium hydroxide. Beginning Inderal was discussed with Dr. Mcginnis as described below. REVIEW OF SYSTEMS: Otherwise noncontributory based on 13-point exam. LABORATORY STUDIES: Today show that her white count is slightly lower than yesterday but overall improving since admission, it is 2.26 today, hemoglobin is stable at 11.7, platelets have increased to 37,000. INR is stable at 1.5, serum chemistries today show sodium 131, potassium 4.0, BUN and creatinine are 9 and 0.48, calcium slightly low at 7.7 although albumin is also low. Total bilirubin is 2.5, up from 2.0 yesterday. AST 60, ALT 20, alk phos 67, bilirubin is 1.2 today representing approximately 50% indirect fraction. Ceruloplasmin is still pending. Other serologic markers that were both added on today and have been accumulative include a negative Monospot, HIV, influenza B. Influenza A is positive by PCR. Hepatitis B surface antibody is negative, surface antigen is negative. Hepatitis A IgM is pending as are most of the CMV and EBV antibody titers. A hepatitis B core total is pending. Hepatitis C antibody was negative. The patient shows increased gamma globulin of 29/20. JOSSELYN is negative and antismooth muscle is elevated at 1-40 with normal range is less than 1-20. The source of the patient's gamma globulin elevation may be multifactorial. The patient was positive urinary opiates on admission, but ethanol alcohol level was less than 3. Tylenol was less than 7 and salicylates less than 2. The patient's liver ultrasound from October 25 was a duplex portal Dopplers which showed patent hepatic vascular studies with a patent portal vein with hepatopedal flow. There was right upper quadrant ascites but this is not described significant. PHYSICAL EXAMINATION: VITAL SIGNS: The patient is afebrile at 37.0, blood pressure 115/72, pulse ox 88% on 6 liters, heart rate 90, respirations 20. GENERAL: The patient is awake, alert and oriented x3, breathing comfortably without exertion. LUNGS: Show decreased breath sounds bilaterally and some course sounds noted bilaterally. There are no wheezes. HEART: Normal S1, S2. ABDOMEN: Soft, nontender, nondistended, without evidence of ascites or shifting dullness. There is no rebound or guarding. I do not appreciate hepatosplenomegaly on palpation. There are positive bowel sounds. EXTREMITIES: Showed trace to +1 pitting edema bilaterally. There is no focal tenderness. NEUROLOGIC: The patient is awake, alert and oriented x3. RECTAL: Deferred. IMPRESSION AND PLAN: A few additional markers are pending for the patient regarding a potential source of chronic liver disease. The patient's history of alcohol take intake over the years is less than straight forward, although recently she has not used alcoholic beverages heavily by her description and the family's description. I suspect that alcohol nevertheless has played some influence in the patient's liver disease. The CT scan showed hepatic cirrhosis with evidence of portal hypertension with moderate body wall anasarca, nonobstructing pattern abdominal varices, splenomegaly and inguinal hernias. Significant ascites was not identified on the initial CT scan and a description of the fatty appearance to the liver is not made. Alcohol may be a culprit. The patient's JOSSELYN is negative and the smooth muscle antibody is only marginally elevated, although the patient's immunoglobulins are elevated on admission. However, these may be difficult to interpret in the setting of the acute viral pneumonia and possible bacterial pneumonia and should be repeated in several weeks once this acute illness has stopped. If these are elevated, it is possible that autoimmune hepatitis may be a cause of the patient's chronic liver disease and cirrhosis or at least a contributing fracture. We will await the results of additional markers; however, based on her hepatitis B serologies, she should receive vaccination for hepatitis B. Hepatitis A total IgG is pending and if negative, hepatitis A vaccination is also warranted. There is a component of congestive heart failure in the patient and a more chronic history of leg swelling that is intermittent according to the patient. If not recently performed, echocardiogram may be helpful to exclude right-sided heart failure given the patient's body wall anasarca and potentially could be a cause of passive liver congestion and cirrhosis. The patient's bilirubin although elevated is a mixture of direct and indirect at 50% and given that her transaminases and alkaline phosphatase remains stable, this may be part of the acute infectious illness. As we discussed earlier today, I believe a small dose of propranolol initially to reduce portal pressure is reasonable provided that the patient can tolerate this medication. Once the patient is cardiopulmonary stable, upper endoscopy for variceal assessment is prudent and this can be arranged as an outpatient over the next couple of weeks. Ultimately, we will have the patient follow with Dr. Jameson in GI clinic for chronic care. The patient's sister had commented that she would like to establish more consistent primary care for the patient. Lastly, the patient apparently with discussion by the patient's sister has had a weight loss of unclear etiology and this has been noticed for a couple of years. The source of this is also unclear and although it may be related to sarcopenia associated with chronic liver disease, other sources may need to be excluded. At some point, it may be reasonable to place a PPD or perform a QuantiFERON Gold given the description of the patient's right upper lobe lung changes although I think this is less likely. We will continue to follow along with you during the hospitalization and make arrangements for continued outpatient assessment and care upon discharge. Dr. Jameson is covering the service on Wednesday. All the patient's and sister's questions were answered.
[2017-10-28] MEDS: PROPRANOLOL HCL 10 MG TAB PO SCH (22:09)
--- NOTE | 2017-10-28 22:26 | Family Medicine Progress Note ---
Progress Note Date of Service Oct 28, 2017. Subjective Pt evaluation today including: conversation w/ patient, physical exam, chart review, lab review Pain: no discomfort reported PO Intake: tolerating Voiding: no voiding problems This AM pt reported improvement in cough and associated abdominal pain. Also reported more formed BM this AM and improvement in diarrhea Constitutional: No fever, No chills Respiratory: + cough, + sputum, + shortness of breath Abdomen: + diarrhea, No pain, No nausea, No vomiting Female : No dysuria Medications Current Inpatient Medications Medications (Trade) Dose Ordered Sig/Rodrigo Route Start Time Stop Time Status Last Admin Dose Admin Acetaminophen (Tylenol Tab) 650 mg Q4H PRN PO 10/22/17 22:15 11/21/17 22:14 10/25/17 16:24 650 MG Al Hydrox/Mg Hydrox/Simethicone (Maalox Max Susp) 15 ml Q4H PRN PO 10/22/17 22:15 11/21/17 22:14 Magnesium Hydroxide (Milk Of Magnesia Susp) 30 ml Q12H PRN PO 10/22/17 22:15 11/21/17 22:14 Ondansetron HCl (Zofran Inj) 4 mg Q6H PRN IV 10/22/17 22:15 11/21/17 22:14 10/26/17 14:16 4 MG Nitroglycerin (Nitrostat Tab) 0.4 mg UD PRN SL 10/22/17 22:15 11/21/17 22:14 Polyethylene (Miralax Powder Packet) 17 gm DAILY PRN PO 10/22/17 22:15 11/21/17 22:14 Multivitamins (Multivitamin Tab) 1 tab QAM PO 10/24/17 09:00 11/23/17 08:59 10/28/17 08:22 1 TAB Thiamine HCl (Vitamin B-1 Tab) 100 mg QAM PO 10/24/17 09:00 11/23/17 08:59 10/28/17 08:22 100 MG Cefepime HCl 2000 mg/Syringe 20 ml @ 5 mls/min Q8H IV 10/25/17 09:00 11/01/17 08:59 10/28/17 16:30 5 MLS/MIN Oseltamivir Phosphate (Tamiflu Cap) 75 mg BID PO 10/25/17 09:00 10/30/17 08:59 10/28/17 20:41 75 MG Zolpidem Tartrate (Ambien Tab) 5 mg HS PRN PO 10/25/17 16:15 11/24/17 16:14 Albuterol/ Ipratropium (Duoneb) 3 ml QIDR INH 10/26/17 08:15 11/25/17 08:14 10/28/17 18:27 3 ML Lactulose (Chronulac Syrup) 30 gm DAILY PO 10/28/17 09:00 11/27/17 08:59 10/28/17 08:21 30 GM Levothyroxine Sodium (Synthroid Tab) 88 mcg DAILYBB PO 10/28/17 06:30 11/27/17 06:29 10/28/17 04:51 88 MCG Clindamycin Phosphate 600 mg/ Dextrose 54 ml @ 108 mls/hr Q8H IV 10/27/17 16:00 11/03/17 15:59 10/28/17 16:29 108 MLS/HR Saccharomyces Boulardii (Florastor Cap) 250 mg BID PO 10/27/17 21:00 11/26/17 20:59 10/28/17 20:41 250 MG Propranolol HCl (Inderal Tab) 10 mg BID PO 10/28/17 21:00 11/27/17 20:59 10/28/17 22:09 10 MG Enteral Nutritional Formula (Boost Breeze Nutritional Drink) 1 box TID PO 10/28/17 21:00 11/27/17 20:59 10/28/17 20:38 1 BOX Objective Vital Signs Date Time Temp Pulse Resp B/P (MAP) Pulse Ox O2 Delivery O2 Flow Rate FiO2 10/28/17 22:05 94 105/62 (76) 10/28/17 21:16 86 104/66 (79) 90 Nasal Cannula 6.0 10/28/17 20:38 91 100/62 (75) 91 Humidified Oxygen 6.0 10/28/17 20:00 90 Nasal Cannula 6.0 10/28/17 18:27 90 18 93 Nasal Cannula 6.0 10/28/17 16:00 90 Nasal Cannula 6.0 10/28/17 15:36 37.0 90 20 115/72 (86) 88 6.0 10/28/17 15:22 90 18 92 Nasal Cannula 5.0 10/28/17 12:00 93 Nasal Cannula 6.0 10/28/17 11:58 92 18 94 Nasal Cannula 5.0 10/28/17 11:49 37.1 84 16 99/63 (75) 95 Nasal Cannula 6.0 10/28/17 08:00 93 Nasal Cannula 6.0 10/28/17 07:32 36.7 80 16 101/63 (76) 92 Nasal Cannula 6.0 10/28/17 07:16 88 18 90 Nasal Cannula 5.0 10/28/17 05:22 37.0 85 21 97/64 (75) 90 Nasal Cannula 6.0 10/28/17 04:05 Nasal Cannula 5.0 10/28/17 00:02 Nasal Cannula 5.0 10/27/17 23:17 36.7 96 19 97/56 (70) 90 Nasal Cannula 6.0 Physical Exam General Appearance: no apparent distress Eyes: normal inspection, sclerae normal Respiratory/Chest: + decreased breath sounds (improved from yesterday ), + crackles (RLL) Cardiovascular: regular rate, rhythm, no murmur Abdomen: normal bowel sounds, soft, + tenderness (LLQ) Extremities: + pertinent finding (tense calves; 1+ edema) Laboratory Results 10/28/17 05:46 Red Blood Count 3.91, Mean Corpuscular Volume 92.3, Mean Corpuscular Hemoglobin 29.9, Mean Corpuscular Hemoglobin Concent 32.4, Neutrophils (%) (Auto) 54.5, Lymphocytes (%) (Auto) 23.5, Monocytes (%) (Auto) 16.8, Eosinophils (%) (Auto) 4.4, Basophils (%) (Auto) 0.4, Neutrophils # (Auto) 1.23, Lymphocytes # (Auto) 0.53, Monocytes # (Auto) 0.38, Eosinophils # (Auto) 0.10, Basophils # (Auto) 0.01 10/28/17 05:46 Test 10/28/17 05:46 10/28/17 12:39 10/28/17 22:14 White Blood Count 2.26 K/uL (4.8-10.8) Red Blood Count 3.91 M/uL (4.2-5.4) Hemoglobin 11.7 g/dL (12.0-16.0) Hematocrit 36.1 % (37-47) Mean Corpuscular Volume 92.3 fL (80-100) Mean Corpuscular Hemoglobin 29.9 pg (25-34) Mean Corpuscular Hemoglobin Concent 32.4 g/dl (32-36) Platelet Count 37 K/uL (130-400) Neutrophils (%) (Auto) 54.5 % Lymphocytes (%) (Auto) 23.5 % Monocytes (%) (Auto) 16.8 % Eosinophils (%) (Auto) 4.4 % Basophils (%) (Auto) 0.4 % Neutrophils # (Auto) 1.23 K/uL (1.4-6.5) Lymphocytes # (Auto) 0.53 K/uL (1.2-3.4) Monocytes # (Auto) 0.38 K/uL (0.11-0.59) Eosinophils # (Auto) 0.10 K/uL (0-0.5) Basophils # (Auto) 0.01 K/uL (0-0.2) RDW Standard Deviation 55.5 fL (36.4-46.3) RDW Coefficient of Variation 16.5 % (11.5-14.5) Immature Granulocyte % (Auto) 0.4 % Immature Granulocyte # (Auto) 0.01 K/uL (0.00-0.02) Prothrombin Time 15.7 SECONDS (9.0-12.0) Prothromb Time International Ratio 1.5 (0.9-1.1) Activated Partial Thromboplast Time 43.8 SECONDS (21.0-31.0) Partial Thromboplastin Ratio 1.7 Anion Gap 4.0 mmol/L (3-11) Est Creatinine Clear Calc Drug Dose 127.3 ml/min Estimated GFR () 124.4 Estimated GFR (Non- 107.4 BUN/Creatinine Ratio 18.1 (10-20) Calcium Level 7.7 mg/dl (8.5-10.1) Total Bilirubin 2.5 mg/dl (0.2-1) Aspartate Amino Transf (AST/SGOT) 60 U/L (15-37) Alanine Aminotransferase (ALT/SGPT) 20 U/L (12-78) Alkaline Phosphatase 67 U/L (45-117) Ammonia 16.0 umol/L (11-32) Total Protein 6.2 gm/dl (6.4-8.2) Albumin 1.5 gm/dl (3.4-5.0) Globulin 4.7 gm/dl (2.5-4.0) Albumin/Globulin Ratio 0.3 (0.9-2) Triglycerides Level 91 mg/dl (0-150) Cholesterol Level 60 mg/dl (0-200) HDL Cholesterol 12 mg/dl LDL Cholesterol, Calculated 30 mg/dl VLDL Cholesterol, Calculated 18 mg/dl Cholesterol/HDL Ratio 5.0 Direct Bilirubin 1.2 mg/dl (0-0.2) Hepatitis B Surface Antibody NEG Assessment and Plan 57 year old female with hypothyroidism presented with flu like symptoms. Admitted for pulmonary infiltrate and multiple concerning lab findings and found to have new cirrhosis of unknown etiology. No fhx of liver disease or significant alcohol use per patient and family. Also concern for poor appetite/ nutrition, and encephalopathy vs pt not being a reliable historian. Urine tox is positive for opiates, but patient denies taking opioid medications. Patient being followed by hematology, GI. Sepsis in the setting of flu like symptoms possibly secondary to CAP/Influenza A - improving - Repeat CXR bilateral airspace opacities worse in RUL c/w PNA; cardiomegaly with prominence of central pulmonary vasculature; trace pleural effusion, 10/28 - Influenza A pos, 10/24 - Continue Tamiflu 75mg BID, and contact precautions - O2 increased from 2L NC to now 6L NC, sating 92%, wean as tolerated - Received Vancomycin for 4 days, dced 10/27 - Doxycycline changed to Cefepime for Klebsiella coverage, day 4 - Started on Clindamycin 800mg IV Q3H for anaerobic coverage, day 2 - Patient had a potential allergic reaction to Levaquin/Zosyn. RAST testing pending. - lactic acid 4.5 --> 1.9 - repeat blood cultures 10/25 NGTD - Duoneb Q4H ? CHF in the setting of pulmonary edema and worsening LE edema - Echo ordered to evaluate EF - B/l LE venous doppler - Given low albumin and hypotension administered albumin to increase oncotic pressure - Lasix 20mg IV to diurese - Hold propranolol 10mg BID for SBP <100 and HR <60 Liver Cirrhosis/Hepatosplenomegaly - Newly diagnosed, possibly alcoholic, unknown etiology - Per H and P drinks one bottle of wine a week. - Patient reports taking various supplements - advised to stop taking - CT abdomen - Hepatic cirrhosis with portal HTN, trace abd/pelvic ascites, moderate body wall anasarca, upper abd varices, splenomegaly - MELD of 13 - Elevated AST 60, bili 2.5, significantly decreased albumin 1.5, deranged coags (INR 1.5, PT 15.7) - Ammonia improved to 16 from 28 - F/u infectious testing HIV and mono neg, CMV and EBV pending - GI consulted with the following recs: likely alcohol related - Hepatitis panel neg, Hep B core IgM and Hep A IgM pending, Hep B total core AB and Hep A total core Ab pending - HIV and mono neg, CMV and EBV pending - JOSSELYN neg , ASMA 1:40 abnormal (mildly elevated), Fe low 18, ferritin nl 109 (anemia of chronic disease) - ceruloplasmin pending - no biopsy until recovers from influenza - outpt EGD for varices - Hep B surface antibody neg - vaccinate - Started on propranolol 10mg BID hold for SBP <100 and HR <60 - Following BMP, LFT, coags, pending studies Hepatic Encephalopathy - Continue lactulose 30mg BID PO --> decreased to once a day given diarrhea - last Ammonia 28, repeat having AMS - Monitor mental status Concern of alcohol abuse - Patient admits to drinking 1 bottle of wine per week. - Denies taking opiates, but urine tox positive - Patient is confused, maybe an unreliable historian - Add multivitamin Leukopenia/Thrombocytopenia/deranged coags - WBC 1.46 -> 2.06 this AM - Plt 19 -> 37 this AM - Hematology consulted likely 2/2 to splenomegaly/splenic sequestration due to underlying cirrhosis - Trend CBC, coags - Monitor for bruising/bleeding Hypothyroidism - TSH 0.01 suppressed, low T3 1.29 - Thyroglobulin and microsomal antibodies <1 - Decreased levothyroxine from 100 to 88 mcg daily, PCP follow up on d/c Urine tox screen - negative for everything except opiates - Follow up for further tox evaluation Electrolyte disturbance - resolved - Trend electrolytes - Vit D level 15.3 - Started on vit D 50,000 units twice a week for 6 weeks total Recurrent falls - PT/OT consulted - HbA1c 4.7 and B12 elevated at 1934 unlikely to be from neuropathy VTE PPx - SCDs, TEDs - Heparin hold due to low platelets Resident Involvement: Resident Care Provided Care Provided: Adult [facility] Medicine Reviewed: Pt Seen/Exam by Me History Resident Physician Supervision Note: I interviewed and examined the patient. Discussed with Dr. Strong and agree with findings and plan as documented in the note. Any exceptions or clarifications are listed here: Patient feeling fairly well today. Denies chest pain or shortness of breath. Still requiring 6 L of oxygen and pulse ox is in the 70s when not on oxygen as per RN. She complains of worsening swelling in her legs. Vitals reviewed NAD, appears older than stated age Regular rate and rhythm, no murmurs gallops rubs Lungs with decreased breath sounds in the right upper lung field with crackles, otherwise some crackles in the left lower lung field Abdomen positive bowel sounds soft nontender nondistended, unable to appreciate splenomegaly Extremities no calf tenderness, 2+ pitting edema bilaterally Patient is a 57-year-old female who presents with altered mental status, influenza A respiratory illness with right upper lobe pneumonia and sepsis, found to have cirrhosis and evidence of hepatic synthetic dysfunction on admission. -Anti-smooth muscle antibody is mildly positive, alpha-1 antitrypsin is normal, CMV and EBV are still pending, hepatitis panel negative except hepatitis A IgM pending, could be combination of alcoholic cirrhosis plus autoimmune hepatitis- I discussed the case with GI -Check for immune status to hepatitis A and B and vaccinate if negative -Check ceruloplasmin as was not done previously -Will eventually need liver biopsy -Pancytopenia-continues to improve- likely combination of cirrhosis, hypersplenism, and acute suppression secondary to viral illness, no evidence of bleeding at this time -Will need screening EGD for varices and will start low-dose propranolol for portal hypertension -Decreased her levothyroxine to 88 for suppressed TSH-repeat TSH in 4-6 weeks as an outpatient -Decreased lactulose and titrate for 2-3 bowel movements a day to prevent recurrent hepatic encephalopathy -Continue on clindamycin to cover for aspiration pneumonia, continue cefepime as well-chest x-ray today worsening pulmonary vascular congestion in addition to persistent right upper lobe opacity, with worsening hypoxemia-we'll give albumin and Lasix, consult pulmonology -Significant pitting edema in lower extremities-could be combination of right- sided heart failure, severe hypoalbuminemia, but need to rule out DVT-check venous Dopplers bilaterally, check echocardiogram -Elevated bilirubin is 50% direct-mild elevation in transaminases-could be from cirrhosis versus hepatic congestion, viral illness-follow -Likely discharged home in the next 1-2 days if blood counts continue to improve , wean down off oxygen a little bit more Documented By: Elisabeth Mcginnis Documented By: Elisabeth Mcginnis
--- NOTE | 2017-10-28 22:58 | DIAGNOSTIC IMAGING REPORT ---
ULTRASOUND BILATERAL LOWER EXTREMITY VENOUS CLINICAL HISTORY: Lower extremity edema. COMPARISON STUDY: No priors. TECHNIQUE: Real-time, grayscale, and color Doppler sonography of the deep veins of the right and left lower extremity was performed from the inguinal crease to the calf. Compression and augmentation were utilized. FINDINGS: There is no sonographic evidence of deep venous thrombosis identified in the right or left lower extremity. The common femoral, superficial femoral, and popliteal veins are patent and normally compressible bilaterally. The greater saphenous vein and the profunda femoris vein at the junction with the common femoral vein are clear in both legs. The visualized calf veins are patent bilaterally. IMPRESSION: There is no sonographic evidence of deep venous thrombosis identified in the right or left lower extremity. Electronically signed by: Victoriano Middleton M.D. 10/28/2017 10:56 PM Dictated Date/Time: 10/28/2017 10:56 PM
[2017-10-29] VITALS (12 sets, daily range): BP systolic 86–97; BP diastolic 52–62; PULSE 64–84; TEMP 36.2–36.7; O2SAT 88–95
[2017-10-29] MEDS ORDERED: METHYLPREDNISOLONE IV 125 MG in SYRINGE 0 ML IV SCH
[2017-10-29 05:40] LABS: MEAN CORPUSCULAR HGB CONC 33.4 g/dl (32-36)
[2017-10-29 05:48] LABS: INR 1.6 (0.9-1.1)
[2017-10-29 06:04] LABS: HEMATOCRIT 34.4 % (37-47); HEMOGLOBIN 11.5 g/dL (12.0-16.0); MEAN CORPUSCULAR HEMOGLOBIN 30.7 pg (25-34); RED CELL DISTRIBUTION WIDTH CV 16.5 % (11.5-14.5); RED CELL DISTRIBUTION WIDTH SD 55.8 fL (36.4-46.3); WHITE BLOOD COUNT 2.28 K/uL (4.8-10.8)
[2017-10-29 06:05] LABS: PLATELET COUNT 36 K/uL (130-400)
[2017-10-29 06:08] LABS: ALBUMIN 1.6 gm/dl (3.4-5.0); CALCIUM 7.9 mg/dl (8.5-10.1); CREATININE 0.42 mg/dl (0.60-1.20); POTASSIUM 3.9 mmol/L (3.5-5.1)
[2017-10-29 06:10] LABS: TOTAL PROTEIN 6.1 gm/dl (6.4-8.2)
[2017-10-29] MEDS: LEVOTHYROXINE 88 MCG TAB PO SCH (06:37)
[2017-10-29] MEDS: ALBUT/IPRATROP 3MG/0.5MG NEB 3 ML VIAL INH SCH ×4 (07:20→19:19)
[2017-10-29] MEDS: PROPRANOLOL HCL 10 MG TAB PO SCH ×3 (09:00→21:11)
--- NOTE | 2017-10-29 09:15 | ECHOCARDIOGRAM REPORT ---
*NOTICE TO RECEIVING [employer] This information is strictly Confidential and protected under [place] law. [place] law prohibits you from making any further disclosure of this information unless further disclosure is expressly permitted by the written consent of the person to whom it pertains or is authorized by law. A general authorization for the release of medical or other information is not sufficient for this purpose. Hospital accepts no responsibility if the information is made available to any other person, INCLUDING THE PATIENT. Interpretation Summary * Name: CHE MAY Study Date: 10/29/2017 06:40 AM BP: 86/52 mmHg * Patient Location: [facility]\S\N280\S\1 HR: 67 * : 1960 (M/d/yyyy) Gender: Female Height: 68 in * Age: 57 yrs Ethnicity: [place] Weight: 147 lb * Ordering Physician: Elisabeth Mcginnis * Referring Physician: No Doctor, Assigned * Performed By: Radha Olguin RCS * * Reason For Study: CHF * BSA: 1.8 m2 * -- Conclusions -- * Left ventricular systolic function is normal. * The left atrium is mildly dilated. * There is mild to moderate mitral regurgitation. Procedure Details * A complete two-dimensional transthoracic echocardiogram was performed (2D, M-mode, Doppler and color flow Doppler). Left Ventricle * The left ventricle is normal in size. * There is normal left ventricular wall thickness. * Left ventricular systolic function is normal. * Normal diastiolic function * The left ventricular wall motion is normal. Right Ventricle * The right ventricle is normal in size and function. Atria * The left atrium is mildly dilated. * Right atrial size is normal. Mitral Valve * The mitral valve anatomy is normal. * There is mild to moderate mitral regurgitation. Tricuspid Valve * The tricuspid valve is not well visualized, but is grossly normal. * There is mild tricuspid regurgitation. Aortic Valve * The aortic valve is normal in structure and function. * The aortic valve is trileaflet. * No hemodynamically significant valvular aortic stenosis. * There is no significant aortic regurgitation. Great Vessels * The aortic root is normal size. Pericardium/Pleural * There is no pericardial effusion. MMode 2D Measurements and Calculations IVSd 1.0 cm IVSs 1.3 cm LVIDd 4.0 cm LVIDs 2.9 cm LVPWd 0.92 cm LVPWs 1.1 cm IVS/LVPW 1.1 FS 27.5 % EDV(Teich) 70.9 ml ESV(Teich) 32.7 ml EF(Teich) 53.9 % EDV(cubed) 65.0 ml ESV(cubed) 24.8 ml EF(cubed) 61.8 % % IVS thick 22.2 % % LVPW thick 20.7 % LV mass(C)d 123.5 grams LV mass(C)dI 68.9 grams/m\S\2 LV mass(C)s 102.7 grams LV mass(C)sI 57.3 grams/m\S\2 SV(Teich) 38.2 ml SI(Teich) 21.3 ml/m\S\2 SV(cubed) 40.2 ml SI(cubed) 22.4 ml/m\S\2 Ao root diam 3.0 cm Ao root area 7.0 cm\S\2 ACS 2.0 cm LA dimension 4.3 cm LA/Ao 1.4 LVOT diam 2.0 cm LVOT area 3.0 cm\S\2 Doppler Measurements and Calculations MV E max tre 80.5 cm/sec MV P1/2t max tre 104.5 cm/sec MV P1/2t 108.3 msec MVA(P1/2t) 2.0 cm\S\2 MV dec slope 282.7 cm/sec\S\2 MV dec time 0.29 sec Ao V2 max 129.0 cm/sec Ao max PG 6.7 mmHg Ao max PG (full) 1.8 mmHg PADDY(V,A) 2.6 cm\S\2 PADDY(V,D) 2.6 cm\S\2 LV V1 max PG 4.8 mmHg LV V1 max 109.6 cm/sec MR max tre 443.3 cm/sec MR max PG 78.7 mmHg PI max tre 215.3 cm/sec PI max PG 18.5 mmHg PI dec slope 287.6 cm/sec\S\2 PI P1/2t 219.2 msec
--- NOTE | 2017-10-29 10:05 | PULMONARY CONSULTATION ---
DATE OF CONSULTATION: 10/29/2017 REASON FOR CONSULTATION: Bronchopneumonia in a patient with influenza A. HISTORY OF PRESENT ILLNESS: A 57-year-old white female who was admitted on 10/22/2017 by the hospitalist service following a 5-day history of nasal congestion, productive cough, and dyspnea associated with a fever. She has had chronic fatigue and apparently a 30-pound weight loss in the past 6 months. She is active, teaching adult education classes and has a remote smoking history of 15 pack years, having quit 30 years ago. Her appetite has been poor. She has been treated for thyroid disease with levothyroxine and denies ethanol abuse history. Her primary care physician is Dr. Sarthak Fox. She came to our ED and her sats were in the 70 percentile range. She was cultured and started on antibiotic therapy. She has a history of ALLERGY TO PENICILLIN in the past. She did not receive influenza vaccine this year and has had no history of hepatitis B vaccination or pneumococcal vaccination as well. She denies previous admission for any medical problem, let alone treatment for chronic medical condition other than that her thyroid disease. She has a negative travel history and a negative tuberculosis history. Chest x-ray on admission suggested a parenchymal infiltrate at right apex. Head CT scan on admission showed no acute intracranial abnormality. CT angiogram done on admission showed no evidence of pulmonary thromboembolic disease, but patchy bilateral mid and upper lung parenchymal infiltrative changes, most prominently displayed on the right pulmonary apex were noted. The patient demonstrated a level of pancytopenia on admission and was evaluated by Dr. Trell Sheth. She was found to be neutropenic and thrombocytopenic and impaired hepatic synthetic function. She also had an elevated lipase and gives a 2-year history of generalized fatigue. She has a changing story as to her alcohol history, but appears to have several drinks per week. Denies illicit drug use. CAT scan suggests an enlarged spleen as well and the peripheral smear showed an abundance of veronica cells consistent with liver disease as well as a bandemia consistent with an acute infection. The suspicion was that the thrombocytopenia and leukopenia were result of her viral infection and not toxic exposure. She was screened for viral hepatitis, HIV, EBV and CMV and some of the workup is pending. Hemophagocytic syndrome was felt to be a possibility, but presenting with cytopenias and splenomegaly. Workup is still pending. The patient has also been seen by GI, both Dr. Franz and Dr. Viera. The CT scan of the abdomen and pelvis suggests the presence of portal hypertension with varices and cirrhosis along with splenomegaly. Ultrasound of the lower extremities did not reveal evidence for DVT, although the patient has had problems with chronic swelling of both lower extremities and does wear compression stockings at home. Serum ammonia was elevated along with elevated LFTs. INR was elevated. Most recently, she was seen by Dr. Franz yesterday. Her O2 requirements have increased and she requires 6 liters by nasal cannula, although she states from a respiratory standpoint, she is feeling much better and feels less dyspneic. Cough is occasionally productive. No hemoptysis or pleuritic pain is noted. She has been placed on lactulose and clindamycin along with cefepime and Tamiflu. Hemoglobin was stable at 11.7 and platelets have increased at 37,000. INR is 1.5. Albumin is low with a total bilirubin of 2.5. AST 60 and ALT of 20. The patient has had a negative Monospot, HIV, serology and influenza B. Influenza A was positive by PCR for the antigen. Hepatitis B surface antigen is negative. Hepatitis A IgM is pending as were the CMV and EB virus antibody titers. Hepatitis C antibody was negative. The gammaglobulin was elevated at 2920. The urine was positive for opiates on admission, but ethanol level was low. For details of past medical history, medications, family and social history, I refer you to current and past record. PHYSICAL EXAMINATION: GENERAL: Reveals a frail white female, appearing slightly older than stated age, coughing sporadically, but exhibiting no signs of respiratory distress. VITAL SIGNS: Temperature 36.3, pulse 67 and regular, respiratory rate 20, blood pressure is low at 86/52, and O2 sat 95% on 6 liters. SKIN: Without lesion. HEENT: Atraumatic and normocephalic. PERRLA. EOMI. Conjunctivae pale. Sclerae nonicteric. Fundi poorly visualized. NECK: Neck veins are not distended at 45 degrees. No evidence of adenopathy in the supra or infraclavicular areas. LUNGS: Scattered rhonchi at the right posterior with fine rales. CARDIAC EXAM: Regular rate and rhythm. I do not appreciate a gallop. ABDOMEN: Soft. Mildly distended. I cannot appreciate an ascitic wave. Liver percussed 2 fingerbreadths below the right costal margin. EXTREMITIES: 1-2+ pitting edema bilaterally. NEUROLOGIC: Intact. No lateralizing signs. LABORATORY DATA: As mentioned in the H&P. Venous Doppler showed no evidence of DVT. Chest x-ray on 10/28/2017 and followup of previous chest x-ray on 10/25/2017 and CAT scan of 10/22/2017, continued to show cardiomegaly. I agree with the report suggested prominence of the central pulmonary vasculature. Diffuse bilateral airspace opacities, most prominently displayed in the right upper lobe were noted. This could represent asymmetric pulmonary edema and also trace pleural effusions noted. OVERALL ASSESSMENT: A 57-year-old white female who appears to have chronic liver disease of uncertain etiology, possibly alcoholic cirrhosis with portal hypertension, splenomegaly and thrombocytopenia associated as well with neutropenia. The latter could be seen certainly with the severe or overwhelming viral syndrome and I agree with placing her on coverage for superimposed bacterial pneumonitis. I do believe that an echocardiogram should be done and the patient should be assessed for underlying cardiac disease as some of the findings on x-ray could very well represent asymmetric pulmonary edema especially with the patient being compromised with significant liver disease and hypoalbuminemia. At this point in time, I would not make any changes, but I would evaluate her cardiac status and continue to follow and watch for any signs of worsening cardiopulmonary status. Thank you very much for this consultation.
[2017-10-29 13:17] LABS: EBV EARLY ANTIGEN AB < 9.00 U/ML; HEPATITIS A IGM TC 51813E NON-REACTIVE (NON-REACTIVE); HEPATITIS B CORE IGM TC51854R NON-REACTIVE (NON-REACTIVE)
[2017-10-29] MEDS: BOOST BREEZE NUTRITION DRINK 1 BOX PO SCH ×3 (13:39→21:11)
[2017-10-29] MEDS: CEFEPIME IV 2,000 MG in SYRINGE 7.5 ML IV SCH ×2 (13:39→16:19)
[2017-10-29] MEDS: CLINDAMYCIN IV 600 MG in DEXTROSE 5% 50ML 50 ML IV SCH ×3 (13:39→23:36)
[2017-10-29] MEDS: LACTULOSE SYRUP 30 GM/45 ML UDP PO SCH (13:39)
[2017-10-29] MEDS: MULTIVITAMIN TAB PO SCH (13:40)
[2017-10-29] MEDS: SACCHAROMYCES BOUL (FLORASTOR) 250 MG CAP PO SCH ×2 (13:40→21:11)
[2017-10-29] MEDS: OSELTAMIVIR PHOSPHATE 75 MG CAP PO SCH ×2 (13:41→21:12)
[2017-10-29] MEDS: THIAMINE HCL 100 MG TAB PO SCH (13:41)
--- NOTE | 2017-10-29 15:16 | PROGRESS NOTE ---
DATE: 10/29/2017 DATE: 10/29/2017 SUBJECTIVE: The patient continues to recover from her influenza A with bronchopneumonia. As far as her liver is concerned, all of her liver tests to try to find a potential cause have returned negative including serologic tests for hepatitis A, B and C, mononucleosis, CMV, alpha 1 antitrypsin deficiency, hemochromatosis, Tayo's disease, autoimmune hepatitis, all are negative. There is no mass lesions in the liver on imaging to suggest hepatoma. The patient's ammonia level has returned to normal. Her bilirubin today is 2.8. AST 51, ALT 20, alkaline phos 66. Albumin is low at 1.6. IMPRESSION: The patient has probable cirrhosis of undetermined etiology, possibly alcohol. When she recovers from influenza I think she will probably need to have a liver biopsy and EGD to assess for esophageal varices. In the meantime, we will just continue to support her clinically through her acute infection. Dr. Maximino Wise from [place] will be covering over the weekend.
--- NOTE | 2017-10-29 18:18 | Family Medicine Progress Note ---
Progress Note Date of Service Oct 29, 2017. Subjective Pt evaluation today including: conversation w/ patient, physical exam, chart review, lab review Pain: denies any discomfort PO Intake: tolerating Voiding: no voiding problems This AM pt reports improved sob, 5 episodes of loose BM, still have edema in legs but improved Constitutional: No fever, No chills Respiratory: + shortness of breath Cardiovascular: No chest pain Abdomen: + diarrhea, No pain, No nausea, No vomiting Female : No dysuria Medications Current Inpatient Medications Medications (Trade) Dose Ordered Sig/Rodrigo Route Start Time Stop Time Status Last Admin Dose Admin Acetaminophen (Tylenol Tab) 650 mg Q4H PRN PO 10/22/17 22:15 11/21/17 22:14 10/25/17 16:24 650 MG Al Hydrox/Mg Hydrox/Simethicone (Maalox Max Susp) 15 ml Q4H PRN PO 10/22/17 22:15 11/21/17 22:14 Magnesium Hydroxide (Milk Of Magnesia Susp) 30 ml Q12H PRN PO 10/22/17 22:15 11/21/17 22:14 Ondansetron HCl (Zofran Inj) 4 mg Q6H PRN IV 10/22/17 22:15 11/21/17 22:14 10/26/17 14:16 4 MG Nitroglycerin (Nitrostat Tab) 0.4 mg UD PRN SL 10/22/17 22:15 11/21/17 22:14 Polyethylene (Miralax Powder Packet) 17 gm DAILY PRN PO 10/22/17 22:15 11/21/17 22:14 Multivitamins (Multivitamin Tab) 1 tab QAM PO 10/24/17 09:00 11/23/17 08:59 10/29/17 13:40 1 TAB Thiamine HCl (Vitamin B-1 Tab) 100 mg QAM PO 10/24/17 09:00 11/23/17 08:59 10/29/17 13:41 100 MG Cefepime HCl 2000 mg/Syringe 20 ml @ 5 mls/min Q8H IV 10/25/17 09:00 11/01/17 08:59 10/29/17 16:19 5 MLS/MIN Oseltamivir Phosphate (Tamiflu Cap) 75 mg BID PO 10/25/17 09:00 10/30/17 08:59 10/29/17 13:41 75 MG Zolpidem Tartrate (Ambien Tab) 5 mg HS PRN PO 10/25/17 16:15 11/24/17 16:14 Albuterol/ Ipratropium (Duoneb) 3 ml QIDR INH 10/26/17 08:15 11/25/17 08:14 10/29/17 15:16 3 ML Lactulose (Chronulac Syrup) 30 gm DAILY PO 10/28/17 09:00 11/27/17 08:59 10/29/17 13:39 30 GM Levothyroxine Sodium (Synthroid Tab) 88 mcg DAILYBB PO 10/28/17 06:30 11/27/17 06:29 10/29/17 06:37 88 MCG Clindamycin Phosphate 600 mg/ Dextrose 54 ml @ 108 mls/hr Q8H IV 10/27/17 16:00 11/03/17 15:59 10/29/17 15:55 108 MLS/HR Saccharomyces Boulardii (Florastor Cap) 250 mg BID PO 10/27/17 21:00 11/26/17 20:59 10/29/17 13:40 250 MG Propranolol HCl (Inderal Tab) 10 mg BID PO 10/28/17 21:00 11/27/17 20:59 10/28/17 22:09 10 MG Enteral Nutritional Formula (Boost Breeze Nutritional Drink) 1 box TID PO 10/28/17 21:00 11/27/17 20:59 10/29/17 13:39 1 BOX Albumin Human (Albumin 25%) 12.5 gm DAILY IV 10/30/17 09:00 11/02/17 08:59 Objective Vital Signs Date Time Temp Pulse Resp B/P (MAP) Pulse Ox O2 Delivery O2 Flow Rate FiO2 10/29/17 16:57 88 Nasal Cannula 6.0 10/29/17 15:53 36.4 84 18 97/62 (74) 88 Nasal Cannula 6.0 10/29/17 15:19 72 16 93 Nasal Cannula 6.0 10/29/17 12:15 36.2 64 20 86/53 (64) 93 10/29/17 12:00 Nasal Cannula 6.0 10/29/17 11:23 70 16 93 Nasal Cannula 6.0 10/29/17 09:33 72 16 88/54 (65) 90 Nasal Cannula 6.0 10/29/17 08:00 Nasal Cannula 6.0 10/29/17 07:58 36.3 67 20 86/52 (63) 95 6.0 10/29/17 07:21 65 16 92 Nasal Cannula 6.0 10/29/17 06:00 92 Nasal Cannula 6.0 Humidified Oxygen 10/29/17 05:19 36.7 71 19 96/59 (71) 89 Oxymask 8.0 10/29/17 04:00 Nasal Cannula 5.0 10/29/17 00:00 Nasal Cannula 5.0 10/28/17 23:44 37.1 74 18 106/68 (81) 92 Nasal Cannula 6.0 10/28/17 22:05 94 105/62 (76) 10/28/17 21:16 86 104/66 (79) 90 Nasal Cannula 6.0 10/28/17 20:38 91 100/62 (75) 91 Humidified Oxygen 6.0 10/28/17 20:00 90 Nasal Cannula 6.0 10/28/17 18:27 90 18 93 Nasal Cannula 6.0 Physical Exam General Appearance: no apparent distress Eyes: normal inspection, sclerae normal Respiratory/Chest: lungs clear, + decreased breath sounds Cardiovascular: regular rate, rhythm, no murmur Abdomen: normal bowel sounds, non tender, soft Extremities: non-tender, + swelling (2+ LE edema) Neurologic/Psychiatric: alert, oriented x 3 Skin: warm/dry Laboratory Results 10/29/17 05:14 Red Blood Count 3.74, Mean Corpuscular Volume 92.0, Mean Corpuscular Hemoglobin 30.7, Mean Corpuscular Hemoglobin Concent 33.4 10/29/17 05:14 Test 10/28/17 22:14 10/29/17 05:14 Random Cortisol 12.81 mcg/dl White Blood Count 2.28 K/uL (4.8-10.8) Red Blood Count 3.74 M/uL (4.2-5.4) Hemoglobin 11.5 g/dL (12.0-16.0) Hematocrit 34.4 % (37-47) Mean Corpuscular Volume 92.0 fL (80-100) Mean Corpuscular Hemoglobin 30.7 pg (25-34) Mean Corpuscular Hemoglobin Concent 33.4 g/dl (32-36) Platelet Count 36 K/uL (130-400) RDW Standard Deviation 55.8 fL (36.4-46.3) RDW Coefficient of Variation 16.5 % (11.5-14.5) Neutrophils % (Manual) 93.9 % Lymphocytes % (Manual) 2.6 % Monocytes % (Manual) 3.5 % Neutrophils # (Manual) 2.14 K/uL (1.4-6.5) Total Absolute Neutrophils 2.14 K/uL (1.4-6.5) Lymphocytes # (Manual) 0.06 K/uL (1.2-3.4) Total Absolute Lymphocytes 0.06 K/uL (1.2-3.4) Monocytes # (Manual) 0.08 K/uL (0.11-0.59) Platelet Estimate DECREASED Echinocytes 1+ Prothrombin Time 16.9 SECONDS (9.0-12.0) Prothromb Time International Ratio 1.6 (0.9-1.1) Anion Gap 7.0 mmol/L (3-11) Est Creatinine Clear Calc Drug Dose 145.5 ml/min Estimated GFR () 130.0 Estimated GFR (Non- 112.2 BUN/Creatinine Ratio 21.9 (10-20) Calcium Level 7.9 mg/dl (8.5-10.1) Total Bilirubin 2.8 mg/dl (0.2-1) Direct Bilirubin 1.2 mg/dl (0-0.2) Aspartate Amino Transf (AST/SGOT) 51 U/L (15-37) Alanine Aminotransferase (ALT/SGPT) 20 U/L (12-78) Alkaline Phosphatase 66 U/L (45-117) Total Protein 6.1 gm/dl (6.4-8.2) Albumin 1.6 gm/dl (3.4-5.0) Assessment and Plan 57 year old female with hypothyroidism presented with flu like symptoms. Admitted for pulmonary infiltrate and multiple concerning lab findings and found to have new cirrhosis of unknown etiology. No fhx of liver disease or significant alcohol use per patient and family. Also concern for poor appetite/ nutrition, and encephalopathy vs pt not being a reliable historian. Urine tox is positive for opiates, but patient denies taking opioid medications. Patient being followed by hematology, GI. Sepsis in the setting of flu like symptoms possibly secondary to CAP/Influenza A - improving - Repeat CXR bilateral airspace opacities worse in RUL c/w PNA; cardiomegaly with prominence of central pulmonary vasculature; trace pleural effusion, 10/28 - Influenza A pos, 10/24 - Continue Tamiflu 75mg BID, and contact precautions - O2 increased from 2L NC to now 6L NC, sating 92%, wean as tolerated - Received Vancomycin for 4 days, dced 10/27 - Doxycycline changed to Cefepime for Klebsiella coverage, day 5 - Started on Clindamycin 800mg IV Q3H for anaerobic coverage, day 3 - Patient had a potential allergic reaction to Levaquin/Zosyn. RAST testing pending. - lactic acid 4.5 --> 1.9 - repeat blood cultures 10/25 NGTD - Duoneb Q4H - Pulm consult - no changes in treatment plan ? CHF in the setting of pulmonary edema and worsening LE edema - Echo EF 60% LV function normal, L atrium mildly dilated and mild-mod MV regurg - B/l LE venous doppler - no DVT - Given low albumin and hypotension administered albumin to increase oncotic pressure 25%, 12.5g daily IV - Lasix 20mg IV to diurese - Hold propranolol 10mg BID for SBP <100 and HR <60 Liver Cirrhosis/Hepatosplenomegaly - Newly diagnosed, possibly alcoholic, unknown etiology - Per H and P drinks one bottle of wine a week. - Patient reports taking various supplements - advised to stop taking - CT abdomen - Hepatic cirrhosis with portal HTN, trace abd/pelvic ascites, moderate body wall anasarca, upper abd varices, splenomegaly - MELD of 13 - Elevated AST 51, bili 2.8, significantly decreased albumin 1.6, deranged coags (INR 1.6, PT 16.9) - Ammonia improved to 16 from 28 - F/u infectious testing HIV and mono neg, CMV and EBV pending - GI consulted with the following recs: likely alcohol related - Hepatitis panel neg, Hep B core IgM and Hep A IgM pending, Hep B total core AB and Hep A total core Ab non-reactive - HIV and mono neg, CMV and EBV pending - JOSSELYN neg , ASMA 1:40 abnormal (mildly elevated), Fe low 18, ferritin nl 109 (anemia of chronic disease) - ceruloplasmin 25 low - no biopsy until recovers from influenza - outpt EGD for varices - Hep B surface antibody neg - vaccinate - Started on propranolol 10mg BID hold for SBP <100 and HR <60 - Following BMP, LFT, coags, pending studies Hepatic Encephalopathy - Continue lactulose 30mg BID PO --> decreased to once a day given diarrhea - last Ammonia 16 - Monitor mental status Concern of alcohol abuse - Patient admits to drinking 1 bottle of wine per week. - Denies taking opiates, but urine tox positive - Patient is confused, maybe an unreliable historian - Add multivitamin Leukopenia/Thrombocytopenia/deranged coags - WBC 1.46 -> 2.28 this AM - Plt 19 -> 36 this AM - Hematology consulted likely 2/2 to splenomegaly/splenic sequestration due to underlying cirrhosis - Trend CBC, coags - Monitor for bruising/bleeding Hypothyroidism - TSH 0.01 suppressed, low T3 1.29 - Thyroglobulin and microsomal antibodies <1 - Decreased levothyroxine from 100 to 88 mcg daily, PCP follow up on d/c Urine tox screen - negative for everything except opiates - Follow up for further tox evaluation Electrolyte disturbance - resolved - Trend electrolytes - Vit D level 15.3 - Started on vit D 50,000 units twice a week for 6 weeks total Recurrent falls - PT/OT consulted - HbA1c 4.7 and B12 elevated at 1934 unlikely to be from neuropathy VTE PPx - SCDs, TEDs - Heparin hold due to low platelets Resident Involvement: Resident Care Provided Care Provided: Adult [facility] Medicine Reviewed: Pt Seen/Exam by Me History Resident Physician Supervision Note: I interviewed and examined the patient. Discussed with Dr. Strong and agree with findings and plan as documented in the note. Any exceptions or clarifications are listed here: Patient feels well and has no complaints. Nurses report that even when her nasal cannula is dislodged from her nose for brief amounts of time, her pulse ox drops to the 70s. Patient denies cough. No abdominal pain. Loose stools are decreasing in frequency. Leg swelling she thinks is improved from yesterday and she's been making plenty of urine after 1 dose of Lasix. Vitals reviewed NAD, appears older than stated age Regular rate and rhythm, no murmurs gallops rubs Lungs with decreased breath sounds in the right upper lung field with crackles, otherwise some crackles in the left lower lung field Abdomen positive bowel sounds soft nontender nondistended, unable to appreciate splenomegaly Extremities no calf tenderness, 2+ pitting edema bilaterally Patient is a 57-year-old female who presents with altered mental status, influenza A respiratory illness with right upper lobe pneumonia and sepsis, found to have cirrhosis and evidence of hepatic synthetic dysfunction on admission. -Anti-smooth muscle antibody is mildly positive but of probable low significance , alpha-1 antitrypsin is normal, CMV and EBV are still pending, hepatitis panel negative except hepatitis A IgM pending, IgA total antibody of hep A is negative , ceruloplasmin is normal. This could be combination of alcoholic cirrhosis plus autoimmune hepatitis-I discussed the case with GI -Check for immune status to hepatitis A and B-both are negative-she will need hepatitis A and B vaccinations as an outpatient -Will eventually need liver biopsy -Pancytopenia-continues to improve- likely combination of cirrhosis, hypersplenism, and acute suppression secondary to viral illness, no evidence of bleeding at this time -Will need screening EGD for varices and will start low-dose propranolol for portal hypertension -Blood pressures have been low but she states they normally run low, also with third spacing from hypoalbuminemia-continue albumin daily and add Lasix if blood pressure is improved -Was given a one-time dose of stress dosed steroids for low random cortisol level -Decreased her levothyroxine to 88 for suppressed TSH-repeat TSH in 4-6 weeks as an outpatient -Decrease lactulose to daily as needed given frequent loose stools persisting to prevent recurrent hepatic encephalopathy -Continue on clindamycin to cover for aspiration pneumonia, continue cefepime as well-her chest x-ray showed worsening pulmonary vascular congestion in addition to persistent right upper lobe opacity, with persistent significant hypoxemia-continue albumin and Lasix, consult pulmonology appreciated -Significant pitting edema in lower extremities-echocardiogram normal without evidence of right-sided heart failure, Dopplers negative for DVT bilaterally, but with severe hypoalbuminemia, continue diuresis -Elevated bilirubin is 50% direct-mild elevation in transaminases-could be from cirrhosis versus hepatic congestion, viral illness-follow -Likely discharged home in the next 1-2 days if blood counts continue to improve , wean down off oxygen a little bit more Documented By: Elisabeth Mcginnis
[2017-10-30] VITALS (15 sets, daily range): BP systolic 84–106; BP diastolic 49–65; PULSE 18–89; TEMP 36.4–36.9; O2SAT 30–95
[2017-10-30] MEDS: CEFEPIME IV 2,000 MG in SYRINGE 7.5 ML IV SCH ×4 (00:40→23:58)
[2017-10-30 06:15] LABS: MEAN CORPUSCULAR HGB CONC 33.2 g/dl (32-36)
[2017-10-30 06:35] LABS: INR 1.7 (0.9-1.1)
[2017-10-30 06:44] LABS: HEMOGLOBIN 11.3 g/dL (12.0-16.0); MEAN CELL VOLUME 92.6 fL (80-100); MEAN CORPUSCULAR HEMOGLOBIN 30.8 pg (25-34); RED CELL DISTRIBUTION WIDTH CV 16.5 % (11.5-14.5); RED CELL DISTRIBUTION WIDTH SD 55.9 fL (36.4-46.3); WHITE BLOOD COUNT 5.23 K/uL (4.8-10.8)
[2017-10-30] MEDS: LEVOTHYROXINE 88 MCG TAB PO SCH (06:44)
[2017-10-30 06:48] LABS: BASO % 0.2 %; BASO ABS # 0.01 K/uL (0-0.2); EOS % 0.2 %; EOS ABS # 0.01 K/uL (0-0.5); IG# 0.05 K/uL (0.00-0.02); LYMPH % 11.7 %; LYMPH ABS # 0.61 K/uL (1.2-3.4); MONO % 9.6 %; NEUT % 77.3 %; NEUT ABS # 4.05 K/uL (1.4-6.5); PLATELET COUNT 52 K/uL (130-400)
[2017-10-30 06:53] LABS: ALBUMIN 1.6 gm/dl (3.4-5.0); CALCIUM 8.1 mg/dl (8.5-10.1); CREATININE 0.49 mg/dl (0.60-1.20); POTASSIUM 3.7 mmol/L (3.5-5.1)
[2017-10-30 07:05] LABS: TOTAL PROTEIN 6.2 gm/dl (6.4-8.2)
[2017-10-30] MEDS: ALBUT/IPRATROP 3MG/0.5MG NEB 3 ML VIAL INH SCH ×3 (07:13→19:28)
[2017-10-30] MEDS: PROPRANOLOL HCL 10 MG TAB PO SCH ×2 (07:39→21:37)
[2017-10-30] MEDS: BOOST BREEZE NUTRITION DRINK 1 BOX PO SCH ×3 (07:39→21:00)
[2017-10-30] MEDS: SACCHAROMYCES BOUL (FLORASTOR) 250 MG CAP PO SCH ×2 (07:39→21:39)
[2017-10-30] MEDS: LACTULOSE SYRUP 30 GM/45 ML UDP PO SCH ×2 (07:39→07:53)
[2017-10-30] MEDS: CLINDAMYCIN IV 600 MG in DEXTROSE 5% 50ML 50 ML IV SCH ×3 (07:47→23:58)
[2017-10-30] MEDS: ALBUMIN HUMAN 25% 12.5 GM/50 ML VIAL IV SCH (08:37)
[2017-10-30] MEDS ORDERED: LACTULOSE SYRUP 30 GM/45 ML UDP PO PRN (09:00)
[2017-10-30] MEDS: MULTIVITAMIN TAB PO SCH (09:04)
[2017-10-30] MEDS: THIAMINE HCL 100 MG TAB PO SCH (09:04)
[2017-10-30] MEDS: FUROSEMIDE INJ 20 MG in SYRINGE 0 ML IV SCH (09:18)
[2017-10-30] MEDS ORDERED: ERGOCALCIFEROL 50,000 INTER.UNIT CAP PO ONE (09:45)
--- NOTE | 2017-10-30 12:08 | Gastroenterology Progress Note ---
Progress Note Date of Service: Oct 30, 2017 Subjective Pt evaluation today including: conversation w/ patient, chart review, conversation w/ customer experience consultant Doing well from Gi stand point Review of Systems Constitutional: No fever Cardiac: + edema, No PND Abdomen: No pain, No nausea, No GI bleeding Medications Current Inpatient Medications Medications (Trade) Dose Ordered Sig/Rodrigo Route Start Time Stop Time Status Last Admin Dose Admin Acetaminophen (Tylenol Tab) 650 mg Q4H PRN PO 10/22/17 22:15 11/21/17 22:14 10/25/17 16:24 650 MG Al Hydrox/Mg Hydrox/Simethicone (Maalox Max Susp) 15 ml Q4H PRN PO 10/22/17 22:15 11/21/17 22:14 Magnesium Hydroxide (Milk Of Magnesia Susp) 30 ml Q12H PRN PO 10/22/17 22:15 11/21/17 22:14 Ondansetron HCl (Zofran Inj) 4 mg Q6H PRN IV 10/22/17 22:15 11/21/17 22:14 10/26/17 14:16 4 MG Nitroglycerin (Nitrostat Tab) 0.4 mg UD PRN SL 10/22/17 22:15 11/21/17 22:14 Polyethylene (Miralax Powder Packet) 17 gm DAILY PRN PO 10/22/17 22:15 11/21/17 22:14 Multivitamins (Multivitamin Tab) 1 tab QAM PO 10/24/17 09:00 11/23/17 08:59 10/30/17 09:04 1 TAB Thiamine HCl (Vitamin B-1 Tab) 100 mg QAM PO 10/24/17 09:00 11/23/17 08:59 10/30/17 09:04 100 MG Cefepime HCl 2000 mg/Syringe 20 ml @ 5 mls/min Q8H IV 10/25/17 09:00 11/01/17 08:59 10/30/17 07:51 5 MLS/MIN Zolpidem Tartrate (Ambien Tab) 5 mg HS PRN PO 10/25/17 16:15 11/24/17 16:14 Albuterol/ Ipratropium (Duoneb) 3 ml QIDR INH 10/26/17 08:15 11/25/17 08:14 10/30/17 11:13 3 ML Levothyroxine Sodium (Synthroid Tab) 88 mcg DAILYBB PO 10/28/17 06:30 11/27/17 06:29 10/30/17 06:44 88 MCG Clindamycin Phosphate 600 mg/ Dextrose 54 ml @ 108 mls/hr Q8H IV 10/27/17 16:00 11/03/17 15:59 10/30/17 07:47 108 MLS/HR Saccharomyces Boulardii (Florastor Cap) 250 mg BID PO 10/27/17 21:00 11/26/17 20:59 10/30/17 07:39 250 MG Propranolol HCl (Inderal Tab) 10 mg BID PO 10/28/17 21:00 11/27/17 20:59 10/30/17 07:39 10 MG Enteral Nutritional Formula (Boost Breeze Nutritional Drink) 1 box TID PO 10/28/17 21:00 11/27/17 20:59 10/30/17 07:39 1 BOX Albumin Human (Albumin 25%) 12.5 gm DAILY IV 10/30/17 09:00 11/02/17 08:59 10/30/17 08:37 12.5 GM Furosemide 20 mg/ Syringe 2 ml @ 4 mls/min DAILY IV 10/30/17 09:00 11/29/17 08:59 10/30/17 09:18 4 MLS/MIN Lactulose (Chronulac Syrup) 30 gm DAILY PRN PO 10/30/17 09:00 11/27/17 08:59 Objective Vital Signs Date Time Temp Pulse Resp B/P (MAP) Pulse Ox O2 Delivery O2 Flow Rate FiO2 10/30/17 11:51 36.4 89 20 88/56 (67) 91 Nasal Cannula 6.0 Humidified Oxygen 10/30/17 11:13 71 16 95 Nasal Cannula 5.0 10/30/17 09:18 36.4 67 18 96/57 (70) 94 Nasal Cannula 6.0 Humidified Oxygen 10/30/17 08:44 36.6 68 18 96/65 (75) 92 Nasal Cannula 6.0 Humidified Oxygen 10/30/17 07:45 36.4 68 18 106/54 (71) 94 6.0 10/30/17 07:13 69 16 94 Nasal Cannula 6.0 10/30/17 04:00 95 Nasal Cannula 6.0 10/30/17 03:54 36.5 70 18 97/61 (73) 92 6.0 10/30/17 00:00 95 Nasal Cannula 6.0 10/29/17 19:50 36.4 65 18 95/58 (70) 93 6.0 10/29/17 19:23 68 16 95 Nasal Cannula 6.0 10/29/17 16:57 88 Nasal Cannula 6.0 10/29/17 15:53 36.4 84 18 97/62 (74) 88 Nasal Cannula 6.0 10/29/17 15:19 72 16 93 Nasal Cannula 6.0 10/29/17 12:15 36.2 64 20 86/53 (64) 93 Physical Exam General Appearance: no apparent distress Respiratory/Chest: lungs clear, no accessory muscle use Cardiovascular: regular rate, rhythm Abdomen: non tender, soft Extremities: + pedal edema (++) Neurologic/Psych: alert, normal mood/affect, oriented x 3 (No sleep reversal) Laboratory Results Last 24 Hours Test 10/30/17 05:24 White Blood Count 5.23 K/uL Red Blood Count 3.67 M/uL Hemoglobin 11.3 g/dL Hematocrit 34.0 % Mean Corpuscular Volume 92.6 fL Mean Corpuscular Hemoglobin 30.8 pg Mean Corpuscular Hemoglobin Concent 33.2 g/dl Platelet Count 52 K/uL Neutrophils (%) (Auto) 77.3 % Lymphocytes (%) (Auto) 11.7 % Monocytes (%) (Auto) 9.6 % Eosinophils (%) (Auto) 0.2 % Basophils (%) (Auto) 0.2 % Neutrophils # (Auto) 4.05 K/uL Lymphocytes # (Auto) 0.61 K/uL Monocytes # (Auto) 0.50 K/uL Eosinophils # (Auto) 0.01 K/uL Basophils # (Auto) 0.01 K/uL RDW Standard Deviation 55.9 fL RDW Coefficient of Variation 16.5 % Immature Granulocyte % (Auto) 1.0 % Immature Granulocyte # (Auto) 0.05 K/uL Platelet Estimate DECREASED Large Platelets 1+ Echinocytes 1+ Prothrombin Time 17.4 SECONDS Prothromb Time International Ratio 1.7 Sodium Level 133 mmol/L Potassium Level 3.7 mmol/L Chloride Level 103 mmol/L Carbon Dioxide Level 23 mmol/L Anion Gap 7.0 mmol/L Blood Urea Nitrogen 15 mg/dl Creatinine 0.49 mg/dl Est Creatinine Clear Calc Drug Dose 124.7 ml/min Estimated GFR () 123.6 Estimated GFR (Non- 106.6 BUN/Creatinine Ratio 30.9 Random Glucose 136 mg/dl Calcium Level 8.1 mg/dl Total Bilirubin 2.1 mg/dl Direct Bilirubin 0.8 mg/dl Aspartate Amino Transf (AST/SGOT) 38 U/L Alanine Aminotransferase (ALT/SGPT) 17 U/L Alkaline Phosphatase 75 U/L Total Protein 6.2 gm/dl Albumin 1.6 gm/dl Assessment and Plan No GI intervention until completely better. Outpatient EGD and Liver biopsy. Please put on 2gm sodium restriction. No NSAIDS Only tylenol for pain, < 2gms per day Need to quit drinking Given onset of ascites, limited life expectancy without treatment and if liver disease progress.
--- NOTE | 2017-10-30 18:21 | Family Medicine Progress Note ---
Progress Note Date of Service Oct 30, 2017. Subjective Pt evaluation today including: conversation w/ patient, physical exam, chart review, lab review Pain: denies any discomfort PO Intake: tolerating Voiding: no voiding problems This AM reports improvement in sob but worsening of edema in legs. Reports improvement in diarrhea frequency and more formed stools now. Constitutional: No fever, No chills Respiratory: + shortness of breath Cardiovascular: No chest pain Abdomen: + diarrhea, No pain, No nausea Musculoskeletal: + problem reported (leg edema) Female : No dysuria Medications Current Inpatient Medications Medications (Trade) Dose Ordered Sig/Rodrigo Route Start Time Stop Time Status Last Admin Dose Admin Acetaminophen (Tylenol Tab) 650 mg Q4H PRN PO 10/22/17 22:15 11/21/17 22:14 10/25/17 16:24 650 MG Al Hydrox/Mg Hydrox/Simethicone (Maalox Max Susp) 15 ml Q4H PRN PO 10/22/17 22:15 11/21/17 22:14 Magnesium Hydroxide (Milk Of Magnesia Susp) 30 ml Q12H PRN PO 10/22/17 22:15 11/21/17 22:14 Ondansetron HCl (Zofran Inj) 4 mg Q6H PRN IV 10/22/17 22:15 11/21/17 22:14 10/26/17 14:16 4 MG Nitroglycerin (Nitrostat Tab) 0.4 mg UD PRN SL 10/22/17 22:15 11/21/17 22:14 Polyethylene (Miralax Powder Packet) 17 gm DAILY PRN PO 10/22/17 22:15 11/21/17 22:14 Multivitamins (Multivitamin Tab) 1 tab QAM PO 10/24/17 09:00 11/23/17 08:59 10/30/17 09:04 1 TAB Thiamine HCl (Vitamin B-1 Tab) 100 mg QAM PO 10/24/17 09:00 11/23/17 08:59 10/30/17 09:04 100 MG Cefepime HCl 2000 mg/Syringe 20 ml @ 5 mls/min Q8H IV 10/25/17 09:00 11/01/17 08:59 10/30/17 16:43 5 MLS/MIN Zolpidem Tartrate (Ambien Tab) 5 mg HS PRN PO 10/25/17 16:15 11/24/17 16:14 Albuterol/ Ipratropium (Duoneb) 3 ml QIDR INH 10/26/17 08:15 11/25/17 08:14 10/30/17 11:13 3 ML Levothyroxine Sodium (Synthroid Tab) 88 mcg DAILYBB PO 10/28/17 06:30 11/27/17 06:29 10/30/17 06:44 88 MCG Clindamycin Phosphate 600 mg/ Dextrose 54 ml @ 108 mls/hr Q8H IV 10/27/17 16:00 11/03/17 15:59 10/30/17 16:42 108 MLS/HR Saccharomyces Boulardii (Florastor Cap) 250 mg BID PO 10/27/17 21:00 11/26/17 20:59 10/30/17 07:39 250 MG Propranolol HCl (Inderal Tab) 10 mg BID PO 10/28/17 21:00 11/27/17 20:59 10/30/17 07:39 10 MG Enteral Nutritional Formula (Boost Breeze Nutritional Drink) 1 box TID PO 10/28/17 21:00 11/27/17 20:59 10/30/17 07:39 1 BOX Albumin Human (Albumin 25%) 12.5 gm DAILY IV 10/30/17 09:00 11/02/17 08:59 10/30/17 08:37 12.5 GM Furosemide 20 mg/ Syringe 2 ml @ 4 mls/min DAILY IV 10/30/17 09:00 11/29/17 08:59 10/30/17 09:18 4 MLS/MIN Lactulose (Chronulac Syrup) 30 gm DAILY PRN PO 10/30/17 09:00 11/27/17 08:59 Objective Vital Signs Date Time Temp Pulse Resp B/P (MAP) Pulse Ox O2 Delivery O2 Flow Rate FiO2 10/30/17 16:00 30 Nasal Cannula 3.0 10/30/17 12:00 Nasal Cannula 5.0 10/30/17 11:51 36.4 89 20 88/56 (67) 91 Nasal Cannula 6.0 Humidified Oxygen 10/30/17 11:13 71 16 95 Nasal Cannula 5.0 10/30/17 09:18 36.4 67 18 96/57 (70) 94 Nasal Cannula 6.0 Humidified Oxygen 10/30/17 08:44 36.6 68 18 96/65 (75) 92 Nasal Cannula 6.0 Humidified Oxygen 10/30/17 08:00 Nasal Cannula 5.0 10/30/17 07:45 36.4 68 18 106/54 (71) 94 6.0 10/30/17 07:13 69 16 94 Nasal Cannula 6.0 10/30/17 04:00 95 Nasal Cannula 6.0 10/30/17 03:54 36.5 70 18 97/61 (73) 92 6.0 10/30/17 00:00 95 Nasal Cannula 6.0 10/29/17 19:50 36.4 65 18 95/58 (70) 93 6.0 10/29/17 19:23 68 16 95 Nasal Cannula 6.0 Physical Exam General Appearance: no apparent distress Eyes: normal inspection, sclerae normal Neck: + JVD (at the cricoid level at 45 degrees; increases with RUQ abdominal pressure) Respiratory/Chest: lungs clear, + decreased breath sounds Cardiovascular: regular rate, rhythm, no murmur Abdomen: normal bowel sounds, non tender, soft Extremities: non-tender, + pertinent finding (2+ bilateral LE edema worse on R even with compression stockings) Neurologic/Psychiatric: alert, oriented x 3 Skin: warm/dry Laboratory Results 10/30/17 05:24 Red Blood Count 3.67, Mean Corpuscular Volume 92.6, Mean Corpuscular Hemoglobin 30.8, Mean Corpuscular Hemoglobin Concent 33.2, Neutrophils (%) (Auto) 77.3, Lymphocytes (%) (Auto) 11.7, Monocytes (%) (Auto) 9.6, Eosinophils (%) (Auto) 0.2, Basophils (%) (Auto) 0.2, Neutrophils # (Auto) 4.05, Lymphocytes # (Auto) 0.61, Monocytes # (Auto) 0.50, Eosinophils # (Auto) 0.01, Basophils # (Auto) 0.01 10/30/17 05:24 Test 10/30/17 05:24 White Blood Count 5.23 K/uL (4.8-10.8) Red Blood Count 3.67 M/uL (4.2-5.4) Hemoglobin 11.3 g/dL (12.0-16.0) Hematocrit 34.0 % (37-47) Mean Corpuscular Volume 92.6 fL (80-100) Mean Corpuscular Hemoglobin 30.8 pg (25-34) Mean Corpuscular Hemoglobin Concent 33.2 g/dl (32-36) Platelet Count 52 K/uL (130-400) Neutrophils (%) (Auto) 77.3 % Lymphocytes (%) (Auto) 11.7 % Monocytes (%) (Auto) 9.6 % Eosinophils (%) (Auto) 0.2 % Basophils (%) (Auto) 0.2 % Neutrophils # (Auto) 4.05 K/uL (1.4-6.5) Lymphocytes # (Auto) 0.61 K/uL (1.2-3.4) Monocytes # (Auto) 0.50 K/uL (0.11-0.59) Eosinophils # (Auto) 0.01 K/uL (0-0.5) Basophils # (Auto) 0.01 K/uL (0-0.2) RDW Standard Deviation 55.9 fL (36.4-46.3) RDW Coefficient of Variation 16.5 % (11.5-14.5) Immature Granulocyte % (Auto) 1.0 % Immature Granulocyte # (Auto) 0.05 K/uL (0.00-0.02) Platelet Estimate DECREASED Large Platelets 1+ Echinocytes 1+ Prothrombin Time 17.4 SECONDS (9.0-12.0) Prothromb Time International Ratio 1.7 (0.9-1.1) Anion Gap 7.0 mmol/L (3-11) Est Creatinine Clear Calc Drug Dose 124.7 ml/min Estimated GFR () 123.6 Estimated GFR (Non- 106.6 BUN/Creatinine Ratio 30.9 (10-20) Calcium Level 8.1 mg/dl (8.5-10.1) Total Bilirubin 2.1 mg/dl (0.2-1) Direct Bilirubin 0.8 mg/dl (0-0.2) Aspartate Amino Transf (AST/SGOT) 38 U/L (15-37) Alanine Aminotransferase (ALT/SGPT) 17 U/L (12-78) Alkaline Phosphatase 75 U/L (45-117) Total Protein 6.2 gm/dl (6.4-8.2) Albumin 1.6 gm/dl (3.4-5.0) Assessment and Plan 57 year old female with hypothyroidism presented with flu like symptoms. Admitted for pulmonary infiltrate and multiple concerning lab findings and found to have new cirrhosis of unknown etiology. No fhx of liver disease or significant alcohol use per patient and family. Also concern for poor appetite/ nutrition, and encephalopathy vs pt not being a reliable historian. Urine tox is positive for opiates, but patient denies taking opioid medications and confirmatory testing negative. Patient being followed by hematology, GI. Sepsis in the setting of flu like symptoms possibly secondary to CAP/Influenza A - improving - Repeat CXR bilateral airspace opacities worse in RUL c/w PNA; cardiomegaly with prominence of central pulmonary vasculature; trace pleural effusion, 10/28 - Influenza A pos, 10/24 - Completed Tamiflu 75mg BID x 5 days - O2 increased from 2L NC to now 6L NC, sating 92%, wean as tolerated - Received Vancomycin for 4 days, dced 10/27 - Doxycycline changed to Cefepime for Klebsiella coverage, day 6 - Started on Clindamycin 800mg IV Q3H for anaerobic coverage, day 4 - Patient had a potential allergic reaction to Levaquin/Zosyn. RAST testing pending. - lactic acid 4.5 --> 1.9 - repeat blood cultures 10/25 NGTD - Duoneb Q4H - Low cotisol - received stress dose of methylprednisone 125mg IV one - Pulm consult - no changes in treatment plan Hepatic congestion vs CHF in the setting of pulmonary edema and worsening LE edema - Echo EF 60% LV function normal, L atrium mildly dilated and mild-mod MV regurg - B/l LE venous doppler - no DVT - Given low albumin and hypotension albumin to increase oncotic pressure 25%, 12.5g daily IV prior to Lasix - Lasix 20mg IV daily to diurese - Low salt diet - Hold propranolol 10mg BID for SBP <100 and HR <60 Liver Cirrhosis/Hepatosplenomegaly - Newly diagnosed, possibly alcoholic, unknown etiology - Per H and P drinks one bottle of wine a week. - Patient reports taking various supplements - advised to stop taking - CT abdomen - Hepatic cirrhosis with portal HTN, trace abd/pelvic ascites, moderate body wall anasarca, upper abd varices, splenomegaly - MELD of 13 - LFT improved: AST 38, bili 2.1, significantly decreased albumin 1.6, deranged coags (INR 1.7, PT 17.4) - Ammonia improved to 16 from 28 - Infectious testing HIV neg, mono neg, CMV neg and EBV exposure but no acute infection - GI consulted with the following recs: likely alcohol related - Hepatitis panel neg, Hep B core IgM and Hep A IgM non-reactive, Hep B total core AB and Hep A total core Ab non-reactive - JOSSELYN neg , ASMA 1:40 abnormal (mildly elevated), Fe low 18, ferritin nl 109 (anemia of chronic disease) - ceruloplasmin 25 normal - no biopsy until recovers from influenza - outpt EGD for varices - Hep B surface antibody neg - vaccinate - Limit tylenol to < 2g; avoid NSAIDs - Started on propranolol 10mg BID hold for SBP <100 and HR <60 - Following BMP, LFT, coags, pending studies Hepatic Encephalopathy - Lactulose 30mg PRN if no BM in 2 days - last Ammonia 16 - Monitor mental status Concern of alcohol abuse - Patient admits to drinking 1 bottle of wine per week. - Denies taking opiates, but urine tox positive - Patient is confused, maybe an unreliable historian - Add multivitamin Leukopenia/Thrombocytopenia/deranged coags - WBC 1.46 -> 5.23 this AM - Plt 36 -> 52 this AM - INR 1.7 - Hematology consulted likely 2/2 to splenomegaly/splenic sequestration due to underlying cirrhosis - Trend CBC, coags - Monitor for bruising/bleeding Hypothyroidism - TSH 0.01 suppressed, low T3 1.29 - Thyroglobulin and microsomal antibodies <1 - Decreased levothyroxine from 100 to 88 mcg daily, PCP follow up on d/c Urine tox screen - negative for everything except opiates, confirmatory testing negative Electrolyte disturbance - resolved - Trend electrolytes - Vit D level 15.3 - Started on vit D 50,000 units once a week for 6 weeks total then Vit D3 2000 units/day Recurrent falls - PT/OT consulted - HbA1c 4.7 and B12 elevated at 1934 unlikely to be from neuropathy VTE PPx - SCDs, TEDs - Heparin hold due to low platelets Resident Involvement: Resident Care Provided Care Provided: Adult Hospital Medicine Reviewed: Pt Seen/Exam by Me History Resident Physician Supervision Note: I interviewed and examined the patient. Discussed with Dr. Strong and agree with findings and plan as documented in the note. Any exceptions or clarifications are listed here: Patient is diuresing despite the ins and outs not being recorded-addressed with nursing today. She feels better. Pressures are still low but she denies lightheadedness. She is ambulating to the bathroom without difficulty. Denies cough. She was actually weaned down to 3 L nasal cannula when I saw her. Had in-depth discussion with patient, her , and her sister about her prognosis and her condition. Vitals reviewed NAD, appears older than stated age Regular rate and rhythm, no murmurs gallops rubs Lungs with decreased breath sounds in the right upper lung field with crackles, otherwise clear Abdomen positive bowel sounds soft nontender nondistended, unable to appreciate splenomegaly Extremities no calf tenderness, 1+ pitting edema bilaterally Patient is a 57-year-old female who presents with altered mental status, influenza A respiratory illness with right upper lobe pneumonia and sepsis, found to have cirrhosis and evidence of hepatic synthetic dysfunction on admission. MELD score is 17-discussed mortality risk associated with this with patient and family -Anti-smooth muscle antibody is mildly positive but of probable low significance , alpha-1 antitrypsin is normal, CMV and EBV are negative for acute infection, however there is evidence of previous EBV infection; hepatitis panel negative for hepatitis A, B, and C, ceruloplasmin is normal. This could be combination of alcoholic cirrhosis plus autoimmune hepatitis-I discussed the case with GI -Checked immune status to hepatitis A and B-both are negative-she will need hepatitis A and B vaccinations as an outpatient -Will eventually need liver biopsy after recovers from acute illness -Avoid NSAIDs, less than 2 g acetaminophen daily, no alcohol, and low sodium diet all discussed with patient -Pancytopenia-continues to improve and was probably assisted by one-time bolus of IV Solu-Medrol for low cortisol- likely combination of cirrhosis, hypersplenism, and acute suppression secondary to viral illness, no evidence of bleeding at this time -Will need screening EGD for varices and will continue low-dose propranolol for portal hypertension with hold parameters for low blood pressure -Blood pressures have been low but she states they normally run low, also with third spacing from hypoalbuminemia-continue albumin daily and daily IV Lasix, will convert to by mouth Lasix and possibly Aldactone if blood pressure can tolerate -Was given a one-time dose of stress dosed steroids for low random cortisol level -Decreased her levothyroxine to 88 for suppressed TSH-repeat TSH in 4-6 weeks as an outpatient -Decrease lactulose to daily as needed given frequent loose stools persisting to prevent recurrent hepatic encephalopathy -Continue on clindamycin to cover for aspiration pneumonia for 7 day course, follow on Quantiferon Gold for TB but low suspicion, continue cefepime as well- her chest x-ray showed worsening pulmonary vascular congestion in addition to persistent right upper lobe opacity, with persistent significant hypoxemia- continue albumin and Lasix, consult pulmonology appreciated-hypoxemia is improving with IV diuresis -Significant pitting edema in lower extremities-echocardiogram normal without evidence of right-sided heart failure, Dopplers negative for DVT bilaterally, but with severe hypoalbuminemia, continue diuresis which is helping -Elevated bilirubin is 50% direct-mild elevation in transaminases both are improved today-could be from cirrhosis versus hepatic congestion, viral illness- follow -Discharge to home if blood counts continue to improve, wean down off oxygen a little bit more-hopefully in the next several days -Appreciate gastroenterology, pulmonology consultations Documented By: Elisabeth Mcginnis
[2017-10-31] VITALS (9 sets, daily range): BP systolic 86–100; BP diastolic 42–57; PULSE 62–84; TEMP 36.8–37; O2SAT 90–96
[2017-10-31] MEDS: LEVOTHYROXINE 88 MCG TAB PO SCH (05:35)
[2017-10-31 06:55] LABS: MEAN CORPUSCULAR HGB CONC 32.7 g/dl (32-36)
[2017-10-31 07:03] LABS: HEMATOCRIT 34.3 % (37-47); HEMOGLOBIN 11.2 g/dL (12.0-16.0); INR 1.6 (0.9-1.1); MEAN CELL VOLUME 92.5 fL (80-100); MEAN CORPUSCULAR HEMOGLOBIN 30.2 pg (25-34); RED CELL DISTRIBUTION WIDTH CV 16.7 % (11.5-14.5); RED CELL DISTRIBUTION WIDTH SD 55.8 fL (36.4-46.3); WHITE BLOOD COUNT 4.55 K/uL (4.8-10.8)
[2017-10-31] MEDS: ALBUT/IPRATROP 3MG/0.5MG NEB 3 ML VIAL INH SCH ×4 (07:14→20:00)
[2017-10-31 07:27] LABS: BASO % 0.2 %; BASO ABS # 0.01 K/uL (0-0.2); EOS % 1.3 %; EOS ABS # 0.06 K/uL (0-0.5); IG# 0.05 K/uL (0.00-0.02); LYMPH % 9.2 %; LYMPH ABS # 0.42 K/uL (1.2-3.4); MONO % 13.4 %; MONO ABS # 0.61 K/uL (0.11-0.59); NEUT % 74.8 %; PLATELET COUNT 59 K/uL (130-400)
[2017-10-31 07:40] LABS: ALBUMIN 1.5 gm/dl (3.4-5.0); CALCIUM 8.1 mg/dl (8.5-10.1); CREATININE 0.44 mg/dl (0.60-1.20); POTASSIUM 3.6 mmol/L (3.5-5.1); TOTAL PROTEIN 5.9 gm/dl (6.4-8.2)
[2017-10-31] MEDS: ALBUMIN HUMAN 25% 12.5 GM/50 ML VIAL IV SCH (08:04)
[2017-10-31] MEDS: CLINDAMYCIN IV 600 MG in DEXTROSE 5% 50ML 50 ML IV SCH ×2 (08:04→16:28)
[2017-10-31] MEDS: FUROSEMIDE INJ 20 MG in SYRINGE 0 ML IV SCH (08:05)
[2017-10-31] MEDS: CEFEPIME IV 2,000 MG in SYRINGE 7.5 ML IV SCH ×2 (08:05→16:28)
[2017-10-31] MEDS: MULTIVITAMIN TAB PO SCH (08:06)
[2017-10-31] MEDS: SACCHAROMYCES BOUL (FLORASTOR) 250 MG CAP PO SCH ×2 (08:06→20:15)
[2017-10-31] MEDS: PROPRANOLOL HCL 10 MG TAB PO SCH ×2 (08:06→20:17)
[2017-10-31] MEDS: THIAMINE HCL 100 MG TAB PO SCH (08:06)
[2017-10-31] MEDS: BOOST BREEZE NUTRITION DRINK 1 BOX PO SCH ×3 (08:07→20:14)
--- NOTE | 2017-10-31 10:53 | DIAGNOSTIC IMAGING REPORT ---
CHEST 2 VIEWS ROUTINE HISTORY: 57 years-old Female Pneumonia follow-up study in a patient with pneumonia. COMPARISON: Chest radiograph 10/28/2017 and 10/25/2017, CTA of the chest 10/22/2017. TECHNIQUE: PA and lateral views of the chest FINDINGS: Cardiomediastinal and hilar silhouettes are within normal limits. There is no pneumothorax. There are trace bilateral pleural effusions. No overt pulmonary edema. Patchy consolidative opacities are present within the upper lobes, right greater than left, and bilateral lung bases, right greater than left. Airspace disease within the right upper lobe appears to have slightly progressed. There is decreased pulmonary vascular congestion. Bones appear grossly intact. IMPRESSION: 1. Slightly decreased pulmonary vascular congestion. 2. Multifocal patchy alveolar opacities are again seen, most pronounced within the right upper lobe where it has slightly worsened again suspicious for pneumonia. 3. Trace bilateral pleural effusions. The above report was generated using voice recognition software. It may contain grammatical, syntax or spelling errors. Electronically signed by: Tong Ochoa M.D. 10/31/2017 10:51 AM Dictated Date/Time: 10/31/2017 10:47 AM
--- NOTE | 2017-10-31 16:45 | Family Medicine Progress Note ---
Progress Note Date of Service Oct 31, 2017. Subjective Pt evaluation today including: conversation w/ patient, physical exam, chart review, lab review Pain: denies any discomfort PO Intake: tolerating Voiding: no voiding problems This AM reports improved sob and 5 BMs yesterday which were loose but more formed. Persistent swelling in legs Constitutional: No fever, No chills Respiratory: + shortness of breath Cardiovascular: No chest pain Abdomen: + diarrhea, No pain, No nausea, No vomiting Musculoskeletal: + problem reported (LE edema) Female : No dysuria Medications Current Inpatient Medications Medications (Trade) Dose Ordered Sig/Rodrigo Route Start Time Stop Time Status Last Admin Dose Admin Acetaminophen (Tylenol Tab) 650 mg Q4H PRN PO 10/22/17 22:15 11/21/17 22:14 10/25/17 16:24 650 MG Al Hydrox/Mg Hydrox/Simethicone (Maalox Max Susp) 15 ml Q4H PRN PO 10/22/17 22:15 11/21/17 22:14 Magnesium Hydroxide (Milk Of Magnesia Susp) 30 ml Q12H PRN PO 10/22/17 22:15 11/21/17 22:14 Ondansetron HCl (Zofran Inj) 4 mg Q6H PRN IV 10/22/17 22:15 11/21/17 22:14 10/26/17 14:16 4 MG Nitroglycerin (Nitrostat Tab) 0.4 mg UD PRN SL 10/22/17 22:15 11/21/17 22:14 Polyethylene (Miralax Powder Packet) 17 gm DAILY PRN PO 10/22/17 22:15 11/21/17 22:14 Multivitamins (Multivitamin Tab) 1 tab QAM PO 10/24/17 09:00 11/23/17 08:59 10/31/17 08:06 1 TAB Thiamine HCl (Vitamin B-1 Tab) 100 mg QAM PO 10/24/17 09:00 11/23/17 08:59 10/31/17 08:06 100 MG Cefepime HCl 2000 mg/Syringe 20 ml @ 5 mls/min Q8H IV 10/25/17 09:00 11/01/17 08:59 10/31/17 16:28 5 MLS/MIN Zolpidem Tartrate (Ambien Tab) 5 mg HS PRN PO 10/25/17 16:15 11/24/17 16:14 Albuterol/ Ipratropium (Duoneb) 3 ml QIDR INH 10/26/17 08:15 11/25/17 08:14 10/31/17 15:11 3 ML Levothyroxine Sodium (Synthroid Tab) 88 mcg DAILYBB PO 10/28/17 06:30 11/27/17 06:29 10/31/17 05:35 88 MCG Clindamycin Phosphate 600 mg/ Dextrose 54 ml @ 108 mls/hr Q8H IV 10/27/17 16:00 11/03/17 15:59 10/31/17 16:28 108 MLS/HR Saccharomyces Boulardii (Florastor Cap) 250 mg BID PO 10/27/17 21:00 11/26/17 20:59 10/31/17 08:06 250 MG Propranolol HCl (Inderal Tab) 10 mg BID PO 10/28/17 21:00 11/27/17 20:59 10/30/17 07:39 10 MG Enteral Nutritional Formula (Boost Breeze Nutritional Drink) 1 box TID PO 10/28/17 21:00 11/27/17 20:59 10/30/17 07:39 1 BOX Albumin Human (Albumin 25%) 12.5 gm DAILY IV 10/30/17 09:00 11/02/17 08:59 10/31/17 08:04 12.5 GM Furosemide 20 mg/ Syringe 2 ml @ 4 mls/min DAILY IV 10/30/17 09:00 11/29/17 08:59 10/31/17 08:05 4 MLS/MIN Lactulose (Chronulac Syrup) 30 gm DAILY PRN PO 10/30/17 09:00 11/27/17 08:59 Objective Vital Signs Date Time Temp Pulse Resp B/P (MAP) Pulse Ox O2 Delivery O2 Flow Rate FiO2 10/31/17 15:18 37.0 72 18 90/51 (64) 90 Nasal Cannula 2.0 10/31/17 15:11 74 16 93 Nasal Cannula 2.5 10/31/17 12:00 Nasal Cannula 3.0 10/31/17 12:00 36.8 71 20 100/57 (71) 90 Nasal Cannula 3.0 10/31/17 11:26 62 16 96 Nasal Cannula 3.0 10/31/17 08:00 Nasal Cannula 3.0 10/31/17 07:56 36.9 73 18 90/54 (66) 90 Room Air 10/31/17 07:14 84 16 91 Nasal Cannula 3.0 10/31/17 04:05 37.0 76 20 86/54 (65) 92 Nasal Cannula 3.0 10/31/17 04:00 Nasal Cannula 3.0 10/31/17 00:00 Nasal Cannula 3.0 10/30/17 23:11 36.9 74 18 93/59 (70) 91 Nasal Cannula 3.0 10/30/17 21:35 81 84/49 (61) 90 High Flow Oxygen 3.0 10/30/17 20:00 30 Nasal Cannula 2.5 10/30/17 19:40 36.8 76 20 95/57 (70) 91 Nasal Cannula 2.5 Humidified Oxygen 10/30/17 19:28 77 16 92 Nasal Cannula 4.0 Physical Exam General Appearance: no apparent distress Eyes: normal inspection, sclerae normal Respiratory/Chest: lungs clear, + decreased breath sounds Cardiovascular: regular rate, rhythm, no murmur Abdomen: normal bowel sounds, non tender, soft Extremities: non-tender, + pertinent finding (RLE 2+ edema; LLE trace) Skin: warm/dry Laboratory Results 10/31/17 06:06 Red Blood Count 3.71, Mean Corpuscular Volume 92.5, Mean Corpuscular Hemoglobin 30.2, Mean Corpuscular Hemoglobin Concent 32.7, Neutrophils (%) (Auto) 74.8, Lymphocytes (%) (Auto) 9.2, Monocytes (%) (Auto) 13.4, Eosinophils (%) (Auto) 1.3, Basophils (%) (Auto) 0.2, Neutrophils # (Auto) 3.40, Lymphocytes # (Auto) 0.42, Monocytes # (Auto) 0.61, Eosinophils # (Auto) 0.06, Basophils # (Auto) 0.01 10/31/17 06:06 Test 10/31/17 06:06 White Blood Count 4.55 K/uL (4.8-10.8) Red Blood Count 3.71 M/uL (4.2-5.4) Hemoglobin 11.2 g/dL (12.0-16.0) Hematocrit 34.3 % (37-47) Mean Corpuscular Volume 92.5 fL (80-100) Mean Corpuscular Hemoglobin 30.2 pg (25-34) Mean Corpuscular Hemoglobin Concent 32.7 g/dl (32-36) Platelet Count 59 K/uL (130-400) Neutrophils (%) (Auto) 74.8 % Lymphocytes (%) (Auto) 9.2 % Monocytes (%) (Auto) 13.4 % Eosinophils (%) (Auto) 1.3 % Basophils (%) (Auto) 0.2 % Neutrophils # (Auto) 3.40 K/uL (1.4-6.5) Lymphocytes # (Auto) 0.42 K/uL (1.2-3.4) Monocytes # (Auto) 0.61 K/uL (0.11-0.59) Eosinophils # (Auto) 0.06 K/uL (0-0.5) Basophils # (Auto) 0.01 K/uL (0-0.2) RDW Standard Deviation 55.8 fL (36.4-46.3) RDW Coefficient of Variation 16.7 % (11.5-14.5) Immature Granulocyte % (Auto) 1.1 % Immature Granulocyte # (Auto) 0.05 K/uL (0.00-0.02) Platelet Estimate DECREASED Prothrombin Time 16.7 SECONDS (9.0-12.0) Prothromb Time International Ratio 1.6 (0.9-1.1) Anion Gap 6.0 mmol/L (3-11) Est Creatinine Clear Calc Drug Dose 138.9 ml/min Estimated GFR () 128.1 Estimated GFR (Non- 110.5 BUN/Creatinine Ratio 33.3 (10-20) Calcium Level 8.1 mg/dl (8.5-10.1) Total Bilirubin 1.6 mg/dl (0.2-1) Direct Bilirubin 0.7 mg/dl (0-0.2) Aspartate Amino Transf (AST/SGOT) 45 U/L (15-37) Alanine Aminotransferase (ALT/SGPT) 22 U/L (12-78) Alkaline Phosphatase 70 U/L (45-117) Total Protein 5.9 gm/dl (6.4-8.2) Albumin 1.5 gm/dl (3.4-5.0) Assessment and Plan 57 year old female with hypothyroidism presented with flu like symptoms. Admitted for pulmonary infiltrate and multiple concerning lab findings and found to have new cirrhosis of unknown etiology. No fhx of liver disease or significant alcohol use per patient and family. Also concern for poor appetite/ nutrition, and encephalopathy vs pt not being a reliable historian. Urine tox is positive for opiates, but patient denies taking opioid medications and confirmatory testing negative. Patient being followed by hematology, GI. Sepsis in the setting of flu like symptoms possibly secondary to CAP/Influenza A - improving - Repeat CXR bilateral airspace opacities worse in RUL c/w PNA; cardiomegaly with prominence of central pulmonary vasculature; trace pleural effusion, 10/28 - Repeat CXR 10/31 - slightly decreased pulmonary vascular congestion, multifocal patchy alveolar opacities more RUL which has worsened, trace jumana pleural effusion - Influenza A pos, 10/24 - Completed Tamiflu 75mg BID x 5 days - O2 increased from 2L NC to now 3L NC, sating 92%, wean as tolerated - Received Vancomycin for 4 days, dced 10/27 - Doxycycline changed to Cefepime for Klebsiella coverage, day 7 - stopped - Started on Clindamycin 800mg IV Q3H for anaerobic coverage, day 5 of 7 - Patient had a potential allergic reaction to Levaquin/Zosyn. RAST testing pending. - lactic acid 4.5 --> 1.9 - repeat blood cultures 10/25 NGTD - Low cotisol - received stress dose of methylprednisone 125mg IV one - Duoneb Q4H - Pulm consult - no changes in treatment plan Hepatic congestion vs CHF in the setting of improving pulmonary edema and LE edema - Echo EF 60% LV function normal, L atrium mildly dilated and mild-mod MV regurg - B/l LE venous doppler - no DVT - Given low albumin and hypotension albumin to increase oncotic pressure 25%, 12.5g daily IV prior to Lasix (stop tomorrow if pt ready for d/c) - Lasix 20mg IV daily to diurese - Low salt diet - Hold propranolol 10mg BID for SBP <100 and HR <60 - Consider discharging with Lasix 20mg PO daily and Spirolactone 12.5mg (2:1 ratio), discuss with GI Liver Cirrhosis/Hepatosplenomegaly - Newly diagnosed, possibly alcoholic, unknown etiology - Per H and P drinks one bottle of wine a week. - Patient reports taking various supplements - advised to stop taking - CT abdomen - Hepatic cirrhosis with portal HTN, trace abd/pelvic ascites, moderate body wall anasarca, upper abd varices, splenomegaly - MELD of 15, 6% 3 month mortality - LFT improved: AST 45, bili 1.6, significantly decreased albumin 1.6, deranged coags (INR 1.6, PT 16.7) - Ammonia improved to 16 from 28 - Infectious testing HIV neg, mono neg, CMV neg and EBV exposure but no acute infection - GI consulted with the following recs: likely alcohol related - Hepatitis panel neg, Hep B core IgM and Hep A IgM non-reactive, Hep B total core AB and Hep A total core Ab non-reactive - JOSSELYN neg , ASMA 1:40 abnormal (mildly elevated), Fe low 18, ferritin nl 109 (anemia of chronic disease) - ceruloplasmin 25 normal - no biopsy until recovers from influenza - outpt EGD for varices - Hep B surface antibody neg - vaccinate - TB testing pending - Limit tylenol to < 2g; avoid NSAIDs - Continue propranolol 10mg BID hold for SBP <100 and HR <60 - Following BMP, LFT, coags, pending studies Hepatic Encephalopathy - Lactulose 30mg PRN if no BM in 2 days - last Ammonia 16 - Monitor mental status Concern of alcohol abuse - Patient admits to drinking 1 bottle of wine per week. - Denies taking opiates, but urine tox positive - Patient is confused, maybe an unreliable historian - Add multivitamin Leukopenia/Thrombocytopenia/deranged coags - WBC 1.46 -> 4.55 this AM - Plt 36 -> 59 this AM - INR 1.6 - Hematology consulted likely 2/2 to splenomegaly/splenic sequestration due to underlying cirrhosis - Trend CBC, coags - Monitor for bruising/bleeding Hypothyroidism - TSH 0.01 suppressed, low T3 1.29 - Thyroglobulin and microsomal antibodies <1 - Decreased levothyroxine from 100 to 88 mcg daily, PCP follow up on d/c Urine tox screen - negative for everything except opiates, confirmatory testing negative Electrolyte disturbance - resolved - Trend electrolytes - Vit D level 15.3 - Started on vit D 50,000 units once a week for 6 weeks total then Vit D3 2000 units/day Recurrent falls - PT/OT consulted - HbA1c 4.7 and B12 elevated at 1934 unlikely to be from neuropathy VTE PPx - SCDs, TEDs - Heparin hold due to low platelets Resident Involvement: Resident Care Provided Care Provided: Adult Hospital Medicine Reviewed: Pt Seen/Exam by Me History Resident Physician Supervision Note: I interviewed and examined the patient. Discussed with Dr. Strong and agree with findings and plan as documented in the note. Any exceptions or clarifications are listed here: Pt feels well, is ambulating, O2 weaned down to 3L, diuresing, leg swelling about the same. No cough. Repeat CXR improved pulm vasc congestion today. Vitals reviewed NAD, appears older than stated age Regular rate and rhythm, no murmurs gallops rubs Lungs with decreased breath sounds in the right upper lung field with crackles, otherwise clear Abdomen positive bowel sounds soft nontender nondistended, unable to appreciate splenomegaly Extremities no calf tenderness, 1+ pitting edema bilaterally Patient is a 57-year-old female who presents with altered mental status, influenza A respiratory illness with right upper lobe pneumonia and sepsis, found to have cirrhosis and evidence of hepatic synthetic dysfunction on admission. MELD score is 15 today-discussed mortality risk associated with this with patient and family -Anti-smooth muscle antibody is mildly positive but of probable low significance , alpha-1 antitrypsin is normal, CMV and EBV are negative for acute infection, however there is evidence of previous EBV infection; hepatitis panel negative for hepatitis A, B, and C, ceruloplasmin is normal. This could be combination of alcoholic cirrhosis plus autoimmune hepatitis-I discussed the case with GI -Checked immune status to hepatitis A and B-both are negative-she will need hepatitis A and B vaccinations as an outpatient -Will eventually need liver biopsy after recovers from acute illness -Avoid NSAIDs, less than 2 g acetaminophen daily, no alcohol, and low sodium diet all discussed with patient -Pancytopenia-improving and was probably assisted by one-time bolus of IV Solu- Medrol for low cortisol- likely combination of cirrhosis, hypersplenism, and acute suppression secondary to viral illness, no evidence of bleeding at this time -Will need screening EGD for varices and will continue low-dose propranolol for portal hypertension with hold parameters for low blood pressure -Blood pressures have been low but she states they normally run low, also with third spacing from hypoalbuminemia-continue albumin daily and daily IV Lasix, will convert to by mouth Lasix and possibly Aldactone if blood pressure can tolerate likely tomorrow -Decreased her levothyroxine to 88 for suppressed TSH-repeat TSH in 4-6 weeks as an outpatient -Decrease lactulose to daily as needed given frequent loose stools persisting to prevent recurrent hepatic encephalopathy -Continue on clindamycin to cover for aspiration pneumonia for 7 day course, follow on Quantiferon Gold for TB but low suspicion, has completed course of cefepime -continue albumin and Lasix, consult pulmonology appreciated-hypoxemia is improving with IV diuresis -Significant pitting edema in lower extremities-echocardiogram normal without evidence of right-sided heart failure, Dopplers negative for DVT bilaterally, but with severe hypoalbuminemia, continue diuresis which is helping -Elevated bilirubin is 50% direct-mild elevation in transaminases both continue to improve-could be from cirrhosis versus hepatic congestion, viral illness- follow -Discharge to home if blood counts continue to improve, wean down off oxygen a little bit more-hopefully in the next 1-2 days -Appreciate gastroenterology, pulmonology consultations Documented By: Elisabeth Mcginnis
[2017-11-01] VITALS (9 sets, daily range): BP systolic 87–101; BP diastolic 57–69; PULSE 62–80; TEMP 36.5–36.8; O2SAT 88–94
[2017-11-01] MEDS: CLINDAMYCIN IV 600 MG in DEXTROSE 5% 50ML 50 ML IV SCH ×3 (00:04→16:00)
[2017-11-01] MEDS: CEFEPIME IV 2,000 MG in SYRINGE 7.5 ML IV SCH (00:39)
[2017-11-01 06:01] LABS: MEAN CORPUSCULAR HGB CONC 33.2 g/dl (32-36)
[2017-11-01 06:05] LABS: HEMATOCRIT 35.8 % (37-47); HEMOGLOBIN 11.9 g/dL (12.0-16.0); MEAN CORPUSCULAR HEMOGLOBIN 31.2 pg (25-34); RED CELL DISTRIBUTION WIDTH CV 17.2 % (11.5-14.5); RED CELL DISTRIBUTION WIDTH SD 57.5 fL (36.4-46.3); WHITE BLOOD COUNT 3.36 K/uL (4.8-10.8)
[2017-11-01 06:15] LABS: INR 1.7 (0.9-1.1)
[2017-11-01 06:35] LABS: BASO % 0.9 %; BASO ABS # 0.03 K/uL (0-0.2); EOS % 1.8 %; EOS ABS # 0.06 K/uL (0-0.5); IG# 0.07 K/uL (0.00-0.02); LYMPH % 17.3 %; LYMPH ABS # 0.58 K/uL (1.2-3.4); MONO % 14.6 %; MONO ABS # 0.49 K/uL (0.11-0.59); NEUT % 63.3 %; NEUT ABS # 2.13 K/uL (1.4-6.5); PLATELET COUNT 57 K/uL (130-400)
[2017-11-01] MEDS: LEVOTHYROXINE 88 MCG TAB PO SCH (06:39)
[2017-11-01 06:51] LABS: ALBUMIN 1.7 gm/dl (3.4-5.0); CREATININE 0.53 mg/dl (0.60-1.20); POTASSIUM 3.3 mmol/L (3.5-5.1); TOTAL PROTEIN 6.2 gm/dl (6.4-8.2)
[2017-11-01] MEDS: ALBUT/IPRATROP 3MG/0.5MG NEB 3 ML VIAL INH SCH ×3 (07:08→14:48)
[2017-11-01] MEDS: THIAMINE HCL 100 MG TAB PO SCH (07:44)
[2017-11-01] MEDS: PROPRANOLOL HCL 10 MG TAB PO SCH (07:44)
[2017-11-01] MEDS: MULTIVITAMIN TAB PO SCH (07:44)
[2017-11-01] MEDS: SACCHAROMYCES BOUL (FLORASTOR) 250 MG CAP PO SCH (07:45)
[2017-11-01] MEDS: BOOST BREEZE NUTRITION DRINK 1 BOX PO SCH ×2 (08:30→14:00)
[2017-11-01] MEDS: FUROSEMIDE INJ 20 MG in SYRINGE 0 ML IV SCH (09:21)
[2017-11-01] MEDS: ALBUMIN HUMAN 25% 12.5 GM/50 ML VIAL IV SCH (09:21)
[2017-11-01] MEDS ORDERED: POTASSIUM CHLORIDE 20 MEQ/15 ML UDC PO ONE (12:00)
[2017-11-01 13:23] LABS: QUANTIF MITOGEN-NIL 0.12 IU/ML; QUANTIFERON INDETERMINATE (NEGATIVE); QUANTIFERON NIL 0.04 IU/ML
[2017-11-01] MEDS ORDERED: CLC/300 PO (13:25)
[2017-11-01] MEDS ORDERED: THM100 PO (13:25)
[2017-11-01] MEDS ORDERED: IPRA1AER2 INH (13:25)
[2017-11-01] MEDS ORDERED: SYN88 PO (13:25)
[2017-11-01] MEDS ORDERED: SACC250C3 PO (13:25)
[2017-11-01] MEDS ORDERED: VNTHFA/IN INH (13:25)
[2017-11-01] MEDS ORDERED: PROP10TA7 PO (13:25)
[2017-11-01] MEDS ORDERED: FURO-85 PO (13:25)
--- NOTE | 2017-11-01 13:25 | Discharge Instructions ---
Discharge Instructions Date of Service Nov 01, 2017. Admission Reason for Admission: Pneumonia Discharge Discharge Diagnosis / Problem: pneumonia, newly diagnosed cirrhosis Discharge Goals Goal(s): Diagnostic testing, Therapeutic intervention Activity Recommendations Activity Limitations: as noted below (use oxygen at all times, follow your oxygen numbers closely) . Instructions / Follow-Up Instructions / Follow-Up pneumonia -this appears to be getting better, but will require a course of antibiotics to clear - we've started clindamycin in the hospital, so we'll finish out a course of clindamycin (three times a day for the next week) to clear the infection -clindamycin does sometimes cause diarrhea - the probiotic can help mitigate this some; if it's bad diarrhea or things "just don't feel right" then obviously get checked out -the pneumonia (and flu that preceded it) are the "acute" part of what is making your oxygen low, however, as outlined below we believe there is more to the story -have Dr Strong repeat a chest xray in about 4 weeks to ensure things have cleared (unless the workup for the low oxygen has landed you with a CT scan before then) -until the low oxygen situation is sorted out, use the combivent inhaler four times a day REGULARLY, and use the albuterol inhaler as needed for shortness of breath/wheezing low oxygen -acutely your oxygen numbers are low due to the flu and the superimposed pneumonia, and that may be the whole story; however, given that you weren't feeling as short of breath as you should for numbers as low as you were, there' s a high suspicion that you have something else underlying with your lungs (COPD , for instance) that is making your numbers low on a typical day, and that the flu/pneumonia is just making things worse on top of that -for now, as we discussed, it would be safer to have you still in a healthcare environment until your numbers improve further, but as we discussed as well, as long as you are careful and manage things vigilantly, you can be safe. -remember that with oxygen numbers, 90% isn't "an A" -- 90% is the threshold of "livable" and anything below that should get your attention - no matter how you feel -right now it's taking about 3L of oxygen (about 25-26%, normal room air is about 21%) to keep your numbers good at rest; and even with 5L (closer to 34% oxygen) your numbers are still not good -what that means is we'll need you to take it very easy, get a pulse ox for your own use, and abide by the numbers even when you're not feeling short of breath -use the oxygen at all times, keep a goal of a pulse ox of NO LESS than 90 %; with exertion, take it easy, move slowly, and be ready to need to stop to rest frequently - turn up the oxygen with exertion, and when you see your numbers drop to below 90%, then stop and rest if it takes more than 5 minutes of rest to get your numbers back above 90% , we'd need you seen right away -likewise, if you have a fever, we'll need you seen right away as well -further workup for this will need to be done, but first we need to get you over the acute part of this with the flu and pneumonia; after that, Dr Strong will be able to get pulmonary function tests, as well as repeat chest imaging ( at least an xray, possibly CT as noted above) and be able to then guide further on what treatment we'll need to do cirrhosis -while it's of unclear cause at this point, it does appear quite real, and will need to be monitored and managed even while it's being investigated further -have Dr Strong check periodic labwork (BMP, CMP) based on how you're doing, and to make sure that the dose of lasix (furosemide) isn't causing you to get dehydrated (usually we'll see that on labs before people start to feel it) -Dr Strong will be working together with gastroenterology to get to the bottom of why you have cirrhosis - although commonly it relates to alcohol ingestion, fatty liver related to diet, or toxic medications -to that end, avoid tylenol (acetaminophen) entirely, and avoid alcohol entirely as well -take the thiamine and folic acid for the indefinite future - this is something that can help replete nutrients that your body may be lacking as it relates to the possible alcohol component of the cirrhosis Current Hospital Diet Patient's current hospital diet: Low Sodium Diet (2gm Na) Discharge Diet Recommended Diet: Low Sodium Diet (2gm Na) Pending Studies Studies pending at discharge: no Laboratory Results Hemoglobin A1c Test 10/23/17 07:08 Range/Units Estimated Average Glucose 88 mg/dl Hemoglobin A1c 4.7 4.5-5.6 % Lipid Panel Test 10/28/17 05:46 Range/Units Triglycerides Level 91 0-150 mg/dl Cholesterol Level 60 0-200 mg/dl HDL Cholesterol 12 mg/dl Cholesterol/HDL Ratio 5.0 LDL Cholesterol, Calculated 30 mg/dl Medical Emergencies . Who to Call and When: Medical Emergencies: If at any time you feel your situation is an emergency, please call 911 immediately. . Non-Emergent Contact Non-Emergency issues call your: Primary Care Provider (Dr Strong - [facility] - [phone]), Getter Filler . . "Provider Documentation" section prepared by Gino Nathan. . VTE Core Measure Inpt VTE Proph given/why not?: David Ma
--- NOTE | 2017-11-01 19:58 | Discharge Summary ---
Discharge Summary Date of Service Nov 01, 2017. Discharge Summary Admission Date: Oct 22, 2017 at 22:24 Discharge Date: Nov 01, 2017 Discharge Disposition: Home with services Principal Diagnosis: Sepsis in the setting of CAP/Influenza; liver cirrhose Problems/Secondary Diagnoses: newly diagnosed liver cirrhosis likely due to alcohol hepatic congestion hepatosplenomegaly leukopenia thrombocytopenia hypothyroidism Immunizations: Have You Had Influenza Vaccine: No History of Tetanus Vaccine?: No History of Pneumococcal: No History of Hepatitis B Vaccine: No Procedures: none Consultations: gastroenterology pulmonology hematology oncology Medication Reconciliation New Medications: Albuterol Hfa (Ventolin Hfa) 200 Puffs/61129 Mcg Aers 2-4 PUFFS INH Q6H PRN for SOB/Wheezing, #1 INHALER Clindamycin HCl (Clindamycin HCl) 300 Mg Cap 1 CAP PO TID for 7 Days, #21 CAP Furosemide (Lasix) 20 Mg Tab 20 MG PO DAILY, #30 TAB Ipratropium-Albuterol (Combivent Respimat) 1 Aer Aer 1 PUFFS INH QID, #1 INH Levothyroxine Sodium (Synthroid) 88 Mcg Tab 88 MCG PO DAILYBB, #30 TAB Propranolol (Inderal) 10 Mg Tab 10 MG PO BID, #30 TAB Saccharomyces Boulardii (Florastor) 250 Mg Cap 250 MG PO BID, #20 CAP Thiamine HCl (Vitamin B-1) 100 Mg Tab 100 MG PO QAM, #30 TAB Continued Medications: Multivitamin (Multivitamin) Tab 1 TAB PO DAILY Discontinued Medications: Levothyroxine Sodium (Levothyroxine Sodium) 100 Mcg Tab 100 MCG PO DAILY Discharge Exam Constitutional: No fever, No chills Respiratory: + shortness of breath Cardiovascular: No chest pain Abdomen: + diarrhea, No pain, No nausea, No vomiting Musculoskeletal: + problem reported (LE edema) Female : No dysuria General Appearance: no apparent distress Eyes: normal inspection, sclerae normal Respiratory/Chest: lungs clear, + decreased breath sounds Cardiovascular: regular rate, rhythm, no murmur Abdomen: normal bowel sounds, non tender, soft Extremities: non-tender, + pertinent finding (2+ edema b/l LEs) Skin: warm/dry Hospital Course 57 year old female with hypothyroidism presented with flu like symptoms. Admitted for pulmonary infiltrate and multiple concerning lab findings and found to have new cirrhosis of unknown etiology. No fhx of liver disease or significant alcohol use per patient and family. Also concern for poor appetite/ nutrition, and encephalopathy vs pt not being a reliable historian. Urine tox is positive for opiates, but patient denies taking opioid medications and confirmatory testing negative. Followed by hematology, GI. Sepsis in the setting of flu like symptoms possibly secondary to CAP/Influenza A - improving - Repeat CXR 10/31 - slightly decreased pulmonary vascular congestion, multifocal patchy alveolar opacities more RUL which has worsened, trace jumana pleural effusion - Influenza A pos, 10/24 - Completed Tamiflu 75mg BID x 5 days - Was on O2 3L NC, sating 92% - Received Vancomycin for 4 days - Doxycycline changed to Cefepime for Klebsiella coverage - received 7 days - Received Clindamycin 800mg IV Q3H for anaerobic coverage for 6 days - Discharged with clindamycin PO 300mg TID x 7 days - Patient had a potential allergic reaction to Levaquin/Zosyn. RAST testing pending - lactic acid 4.5 --> 1.9 - repeat blood cultures 10/25 NGTD - Low cotisol - received stress dose of methylprednisone 125mg IV received - Received Duoneb Q4H - Pulm consult - no changes in treatment plan - Discharged with Albuterol 2-4 puff Q6H PRN for wheezing/sob; combivent respimat 1 puff QID Hepatic congestion vs CHF in the setting of improving pulmonary edema and LE edema - Echo EF 60% LV function normal, L atrium mildly dilated and mild-mod MV regurg - B/l LE venous doppler - no DVT - Given low albumin and hypotension received albumin to increase oncotic pressure 25%, 12.5g daily IV prior to each Lasix - Received Lasix 20mg IV daily to diurese - DCED with Lasix 20mg PO daily - Low salt diet - Was on propranolol 10mg BID held for SBP <100 and HR <60 - continued on DC - Consider Spirolactone 12.5mg (2:1 ratio) on an outpt basis Liver Cirrhosis/Hepatosplenomegaly - Newly diagnosed, possibly alcoholic, unknown etiology - Per H and P drinks one bottle of wine a week. - Patient reports taking various supplements - advised to stop taking - CT abdomen - Hepatic cirrhosis with portal HTN, trace abd/pelvic ascites, moderate body wall anasarca, upper abd varices, splenomegaly - MELD of 15, 6% 3 month mortality - LFT improved: AST 45, bili 1.6, significantly decreased albumin 1.6, deranged coags (INR 1.6, PT 16.7) - Ammonia improved to 16 from 28 - Infectious testing HIV neg, mono neg, CMV neg and EBV exposure but no acute infection - GI consulted with the following recs: likely alcohol related - Hepatitis panel neg, Hep B core IgM and Hep A IgM non-reactive, Hep B total core AB and Hep A total core Ab non-reactive - JOSSELYN neg , ASMA 1:40 abnormal (mildly elevated), Fe low 18, ferritin nl 109 (anemia of chronic disease) - ceruloplasmin 25 normal - no biopsy until recovers from influenza - outpt EGD for varices - Hep B surface antibody neg - vaccinate - TB testing pending - Limit tylenol to < 2g; avoid NSAIDs - Continue propranolol 10mg BID Hepatic Encephalopathy - Received Lactulose 30mg PRN - last Ammonia 16 - Monitor mental status Concern of alcohol abuse - Patient admits to drinking 1 bottle of wine per week. - Patient unreliable historian - Add multivitamin Leukopenia/Thrombocytopenia/deranged coags - WBC 3.36 this AM - Plt 57 this AM - INR 1.7 - Hematology consulted likely 2/2 to splenomegaly/splenic sequestration due to underlying cirrhosis Hypothyroidism - TSH 0.01 suppressed, low T3 1.29 - Thyroglobulin and microsomal antibodies <1 - Decreased levothyroxine from 100 to 88 mcg daily, PCP follow up on d/c Urine tox screen - negative for everything except opiates, confirmatory testing negative Electrolyte disturbance - resolved - Trend electrolytes - Vit D level 15.3 - Started on vit D 50,000 units once a week for 6 weeks total then Vit D3 2000 units/day Recurrent falls - PT/OT consulted - HbA1c 4.7 and B12 elevated at 1934 unlikely to be from neuropathy VTE PPx - SCDs, TEDs - Heparin hold due to low platelets Total Time Spent: Less than 30 minutes This includes examination of the patient, discharge planning, medication reconciliation, and communication with other providers. Discharge Instructions Please refer to the electronic Patient Visit Report (Discharge Instructions) for additional information. Additional Copies To Jam Strong M.D.; Sarthak Fox D.O.
== END 2017-11-01 17:00 | disposition home health service (06) | DRG 871 ==
LOC: EDBD 16:00 → C.EDA 16:04 → C.MED 22:24 → ENRESERV 23:13
PROVIDERS: ADMIT Hospitalist; ATTEND Family Medicine
DX: A41.9 Sepsis, unspecified organism (principal); J18.9 Pneumonia, unspecified organism; J96.01 Acute respiratory failure with hypoxia; N39.0 Urinary tract infection, site not specified; S36.119A Unspecified injury of liver, initial encounter; E83.42 Hypomagnesemia; E83.51 Hypocalcemia; E03.9 Hypothyroidism, unspecified; Z87.891 Personal history of nicotine dependence; D72.819 Decreased white blood cell count, unspecified; D69.6 Thrombocytopenia, unspecified; K72.90 Hepatic failure, unspecified without coma; K70.30 Alcoholic cirrhosis of liver without ascites; X58.XXXA Exposure to other specified factors, initial encounter

== ENCOUNTER → 2017-11-11 | Outpatient (CLI) | payer BC ==
[~2017-11-11] MED LIST: CHOL1TAB53 PO; FLUT1INH INH; FURO-85 PO; IPRA1AER2 INH; MULT-506 PO; PROP10TA7 PO; SACC250C3 PO; SYN88 PO; THM100 PO; VITA400C28 PO; VNTHFA/IN INH
--- NOTE | 2017-11-11 12:12 | DIAGNOSTIC IMAGING REPORT ---
TWO VIEW CHEST CLINICAL HISTORY: Dyspnea. Hypoxia. FINDINGS: PA and lateral chest radiographs are compared to study dated 10/31/2017 and correlated with chest CT dated 10/22/2017. The heart is enlarged. The pulmonary vasculature is noncongested. Emphysema and chronic interstitial thickening are similar to previous. Right apical consolidation persists. Lungs are otherwise clear. No pleural effusion is identified. There is no pneumothorax. The skeletal structures are osteopenic. The bony thorax appears intact. IMPRESSION: 1. Right apical consolidation persists. This has modestly cleared from 10/31/2017. Continued follow-up to complete resolution is recommended. 2. The lungs are otherwise clear. 3. Cardiomegaly and suspect emphysema. Electronically signed by: Victoriano Middleton M.D. 11/11/2017 12:11 PM Dictated Date/Time: 11/11/2017 12:09 PM
[2017-11-11 13:23] LABS: MEAN CORPUSCULAR HGB CONC 32.3 g/dl (32-36)
[2017-11-11 13:30] LABS: INR 1.5 (0.9-1.1)
[2017-11-11 13:53] LABS: HEMATOCRIT 36.8 % (37-47); HEMOGLOBIN 11.9 g/dL (12.0-16.0); MEAN CELL VOLUME 98.1 fL (80-100); MEAN CORPUSCULAR HEMOGLOBIN 31.7 pg (25-34); RED CELL DISTRIBUTION WIDTH CV 19.5 % (11.5-14.5); RED CELL DISTRIBUTION WIDTH SD 69.9 fL (36.4-46.3); WHITE BLOOD COUNT 2.73 K/uL (4.8-10.8)
[2017-11-11 13:55] LABS: ALBUMIN 1.9 gm/dl (3.4-5.0); ALT/SGPT 20 U/L (12-78); AST/SGOT 37 U/L (15-37); BLOOD UREA NITROGEN 5 mg/dl (7-18); CALCIUM 7.9 mg/dl (8.5-10.1); CARBON DIOXIDE 28 mmol/L (21-32); CREATININE 0.46 mg/dl (0.60-1.20); GLUCOSE 71 mg/dl (70-99); POTASSIUM 3.6 mmol/L (3.5-5.1); SODIUM 139 mmol/L (136-145)
[2017-11-11 13:56] LABS: BASO % 2.9 %; BASO ABS # 0.08 K/uL (0-0.2); EOS % 5.9 %; EOS ABS # 0.16 K/uL (0-0.5); IG# 0.01 K/uL (0.00-0.02); LYMPH % 26.4 %; LYMPH ABS # 0.72 K/uL (1.2-3.4); MONO % 10.6 %; MONO ABS # 0.29 K/uL (0.11-0.59); NEUT % 53.8 %; NEUT ABS # 1.47 K/uL (1.4-6.5); PLATELET COUNT 58 K/uL (130-400)
[2017-11-11 13:59] LABS: ALKALINE PHOSPHATASE 106 U/L (45-117); TOTAL PROTEIN 6.8 gm/dl (6.4-8.2)
--- NOTE | 2017-11-12 08:58 | PULMONARY FUNCTION TEST ---
Reading is based off ATS criteria for spirometry. SPIROMETRY: Mild obstructive ventilatory disease. BRONCHODILATOR RESPONSE: Significant response based off FVC standards. INTERPRETATION: Mild obstructive ventilatory disease with a reversible component.
--- NOTE | 2017-11-12 08:59 | PULMONARY FUNCTION TEST ---
Interpretation based off ATS criteria. SPIROMETRY: Mild obstructive ventilatory disease. BRONCHODILATOR RESPONSE: Significant response based off FVC standards. INTERPRETATION: Mild obstructive ventilatory disease with reversible component.
[2017-11-15 14:16] LABS: QUANTIF MITOGEN-NIL 5.18 IU/ML; QUANTIFERON NEGATIVE (NEGATIVE); QUANTIFERON NIL 0.04 IU/ML
== END | disposition home or self-care (01) ==
LOC: C.RC 10:12
PROVIDERS: ATTEND Hospitalist
DX: J18.1 Lobar pneumonia, unspecified organism (principal); I51.7 Cardiomegaly; D47.3 Essential (hemorrhagic) thrombocythemia; D72.819 Decreased white blood cell count, unspecified; D68.9 Coagulation defect, unspecified; R06.02 Shortness of breath; R09.02 Hypoxemia

== ENCOUNTER 2017-11-17 21:28 | Emergency (ER) | payer BC ==
[~2017-11-17] VITALS: Ht 170.2 cm; Wt 63.6 kg
[~2017-11-17 21:28] MED LIST changes: -CHOL1TAB53 PO; -FLUT1INH INH; -VITA400C28 PO
[2017-11-17 21:34] VITALS: TEMP 36.4; Ht 170.2 cm; Wt 63.6 kg
[2017-11-17 21:46] VITALS: O2SAT 95
[2017-11-17] MEDS ORDERED: FLUT1INH INH (22:06)
[2017-11-17] MEDS ORDERED: VITA400C28 PO (22:10)
[2017-11-17] MEDS ORDERED: CHOL1TAB53 PO (22:10)
--- NOTE | 2017-11-17 22:31 | DIAGNOSTIC IMAGING REPORT ---
CHEST ONE VIEW PORTABLE HISTORY: Shortness of breath. COMPARISON: Chest 11/11/2017. FINDINGS: No pneumothorax. No pleural effusions. The heart remains mildly enlarged. The left lung is clear. Irregular right apical opacity persists. No new focal lung consolidations. IMPRESSION: No change in the right apical irregular opacity. This is slightly improved from the October study. However, a follow-up chest CT in one month is recommended to ensure complete resolution. Electronically signed by: Jimmy Tovar M.D. 11/17/2017 10:30 PM Dictated Date/Time: 11/17/2017 10:27 PM
[2017-11-17 23:15] LABS: INR 1.5 (0.9-1.1); PTT PATIENT 31.3 SECONDS (21.0-31.0)
[2017-11-17 23:21] LABS: ALT/SGPT 19 U/L (12-78); AST/SGOT 36 U/L (15-37); BLOOD UREA NITROGEN 8 mg/dl (7-18); CALCIUM 7.7 mg/dl (8.5-10.1); CARBON DIOXIDE 23 mmol/L (21-32); CREATININE 0.57 mg/dl (0.60-1.20); GLUCOSE 115 mg/dl (70-99); POTASSIUM 3.6 mmol/L (3.5-5.1); SODIUM 142 mmol/L (136-145)
[2017-11-17 23:26] LABS: ALKALINE PHOSPHATASE 125 U/L (45-117); TOTAL PROTEIN 7.1 gm/dl (6.4-8.2)
[2017-11-17 23:27] LABS: BASO % 1.4 %; BASO ABS # 0.03 K/uL (0-0.2); EOS % 11.5 %; EOS ABS # 0.25 K/uL (0-0.5); HEMATOCRIT 36.3 % (37-47); IG# 0.01 K/uL (0.00-0.02); LYMPH % 21.7 %; LYMPH ABS # 0.47 K/uL (1.2-3.4); MEAN CELL VOLUME 97.3 fL (80-100); MEAN CORPUSCULAR HEMOGLOBIN 32.2 pg (25-34); MEAN CORPUSCULAR HGB CONC 33.1 g/dl (32-36); MONO % 17.5 %; MONO ABS # 0.38 K/uL (0.11-0.59); NEUT % 47.4 %; NEUT ABS # 1.03 K/uL (1.4-6.5); PLATELET COUNT 43 K/uL (130-400); RED CELL DISTRIBUTION WIDTH CV 20.3 % (11.5-14.5); RED CELL DISTRIBUTION WIDTH SD 71.2 fL (36.4-46.3); WHITE BLOOD COUNT 2.17 K/uL (4.8-10.8)
--- NOTE | 2017-11-18 00:26 | EMERGENCY ROOM VISIT NOTE ---
History First contact with patient: 21:48 Chief Complaint: RESPIRATORY PROBLEMS Stated Complaint: TROUBLE BREATHING Nursing Triage Summary: Pt states she was told to come in by Dr. Liao. Pt recently admitted for pneumonia and flu, discharged 11/01 with home oxygen at 4.5L. Pt states sometime yesterday the home oxygen system stopped working for an unknown amount of time while the pt was sleeping. Pt woke up feeling SOB. Pt states "I've felt very tired and not myself ever since". History of Present Illness The patient is a 57 year old female who presents to the Emergency Room with complaints of shortness of breath. The patient reports that she was admitted for influenza and pneumonia 1 month ago. She has been on oxygen, 4.5 L all the time at home since then. She states that last night, she was woken up because her oxygen was not working. She is unsure for how long the oxygen was not working. She states that she has felt fatigued during the day since then. She feels like she is using increasing effort to walk around. She reports she is feeling better now. She saw her commercial litigation attorney yesterday and was prescribed a new inhaler. She denies any cough, chest pain or fevers. She has had leg swelling which has been gradually improving. She reports that Dr. Liao wanted her to be admitted yesterday, but she refused. Review of Systems A complete 10 point review of systems was reviewed with the patient with pertinent positives and negatives as per history of present illness. All else were negative. Family History Patient reports no known family medical history. Social History Smoking Status: Former Smoker Alcohol Use: occasionally Drug Use: none Marital Status: Housing Status: lives with family Occupation Status: employed Current/Historical Medications Scheduled Cholecalciferol (D 1000), 2,000 UNITS PO DAILY Fluticasone Furoate-Vilanterol (Breo Ellipta), 1 PUFF INH DAILY Levothyroxine Sodium (Synthroid), 88 MCG PO DAILYBB Multivitamin (Multivitamin), 1 TAB PO DAILY Vitamin E (Alph-E), 400 UNITS PO DAILY Physical Exam Vital Signs Date Time Temp Pulse Resp B/P (MAP) Pulse Ox O2 Delivery O2 Flow Rate FiO2 11/18/17 00:39 70 20 107/59 92 11/17/17 23:30 71 20 98/56 94 Nasal Cannula 5.0 11/17/17 21:46 92 Nasal Cannula 5.0 11/17/17 21:46 95 Nasal Cannula 11/17/17 21:45 82 Room Air 11/17/17 21:34 36.4 75 24 93/56 90 Nasal Cannula 4.5 Physical Exam VITALS: Vitals are noted on the nurse's note and reviewed by myself. Vital signs stable. GENERAL: This is a 57-year-old female, in no acute distress, chronically ill- appearing. SKIN: Jaundice noted. EARS: External auditory canals clear, tympanic membranes pearly metz without erythema or effusion bilaterally. EYES: Pupils equal round and reactive to light and accommodation. MOUTH: Mucous membranes moist. NECK: Supple without nuchal rigidity. HEART: Regular rate and rhythm without murmurs gallops or rubs. LUNGS: Clear to auscultation bilaterally without wheezes, rales or rhonchi. No retractions or accessory muscle use. ABDOMEN: Positive bowel sounds x 4. Soft, nontender to palpation. EXTREMITIES: Skin changes consistent with peripheral vascular disease. 2+ pitting edema bilaterally. NEURO: Patient was alert and oriented to person place and time. Medical Decision & Procedures ER Provider Diagnostic Interpretation: CHEST ONE VIEW PORTABLE HISTORY: Shortness of breath. COMPARISON: Chest 11/11/2017. FINDINGS: No pneumothorax. No pleural effusions. The heart remains mildly enlarged. The left lung is clear. Irregular right apical opacity persists. No new focal lung consolidations. IMPRESSION: No change in the right apical irregular opacity. This is slightly improved from the October study. However, a follow-up chest CT in one month is recommended to ensure complete resolution. Laboratory Results 11/17/17 22:35 Red Blood Count 3.73, Mean Corpuscular Volume 97.3, Mean Corpuscular Hemoglobin 32.2, Mean Corpuscular Hemoglobin Concent 33.1, Neutrophils (%) (Auto) 47.4, Lymphocytes (%) (Auto) 21.7, Monocytes (%) (Auto) 17.5, Eosinophils (%) (Auto) 11.5, Basophils (%) (Auto) 1.4, Neutrophils # (Auto) 1.03, Lymphocytes # (Auto) 0.47, Monocytes # (Auto) 0.38, Eosinophils # (Auto) 0.25, Basophils # (Auto) 0.03 11/17/17 22:35 Test 2/7/18 22:35 White Blood Count 2.17 K/uL (4.8-10.8) Red Blood Count 3.73 M/uL (4.2-5.4) Hemoglobin 12.0 g/dL (12.0-16.0) Hematocrit 36.3 % (37-47) Mean Corpuscular Volume 97.3 fL (80-100) Mean Corpuscular Hemoglobin 32.2 pg (25-34) Mean Corpuscular Hemoglobin Concent 33.1 g/dl (32-36) Platelet Count 43 K/uL (130-400) Neutrophils (%) (Auto) 47.4 % Lymphocytes (%) (Auto) 21.7 % Monocytes (%) (Auto) 17.5 % Eosinophils (%) (Auto) 11.5 % Basophils (%) (Auto) 1.4 % Neutrophils # (Auto) 1.03 K/uL (1.4-6.5) Lymphocytes # (Auto) 0.47 K/uL (1.2-3.4) Monocytes # (Auto) 0.38 K/uL (0.11-0.59) Eosinophils # (Auto) 0.25 K/uL (0-0.5) Basophils # (Auto) 0.03 K/uL (0-0.2) RDW Standard Deviation 71.2 fL (36.4-46.3) RDW Coefficient of Variation 20.3 % (11.5-14.5) Immature Granulocyte % (Auto) 0.5 % Immature Granulocyte # (Auto) 0.01 K/uL (0.00-0.02) Platelet Estimate DECREASED Giant Platelets 2+ Anisocytosis PRESENT Ovalocytes 1+ Prothrombin Time 15.5 SECONDS (9.0-12.0) Prothromb Time International Ratio 1.5 (0.9-1.1) Activated Partial Thromboplast Time 31.3 SECONDS (21.0-31.0) Partial Thromboplastin Ratio 1.2 Anion Gap 6.0 mmol/L (3-11) Est Creatinine Clear Calc Drug Dose 103.4 ml/min Estimated GFR () 117.6 Estimated GFR (Non- 101.5 BUN/Creatinine Ratio 13.8 (10-20) Calcium Level 7.7 mg/dl (8.5-10.1) Total Bilirubin 2.2 mg/dl (0.2-1) Aspartate Amino Transf (AST/SGOT) 36 U/L (15-37) Alanine Aminotransferase (ALT/SGPT) 19 U/L (12-78) Alkaline Phosphatase 125 U/L (45-117) Troponin I < 0.015 ng/ml (0-0.045) Pro-B-Type Natriuretic Peptide 275 pg/ml (0-900) Total Protein 7.1 gm/dl (6.4-8.2) Albumin 2.0 gm/dl (3.4-5.0) Globulin 5.1 gm/dl (2.5-4.0) Albumin/Globulin Ratio 0.4 (0.9-2) ECG Rate (beats per minute): 65 Rhythm: normal sinus Findings: no acute ischemic change, no ectopy Change: no significant change Medical Decision Differential diagnosis includes pneumonia, pneumothorax, CHF, ACS, among others. The patient is a 57-year-old female who presents today complaining of shortness of breath. She states that her oxygen was turned off for some period of time. She states that she is actually feeling much better at this time. Labs revealed pancytopenia which is chronic for the patient. LFTs and INR are elevated, consistent with patient's recently diagnosed cirrhosis. Troponin was not elevated. BNP was not elevated. EKG interpreted by myself and shows a normal sinus rhythm without ischemic changes. Chest x-ray again demonstrated a right apical abnormality. I was able to obtain the notes from the patient's office visit yesterday. Dr. Liao has ordered several outpatient studies for the patient, but I do not see any notes of him recommending admission. I do feel the patient will require further workup, however this can be performed as an outpatient. There is no reason for admission at this time. She is doing well on her usual 4.5 L of oxygen and saturations remained stable. Blood pressure was on the low side, however after reviewing previous notes this seems to be baseline for the patient. The patient's case was reviewed with Dr. Dumont, ED attending physician, who agreed with my assessment and treatment plan. Based on the patient's presentation and work up, I feel the patient is stable for outpatient treatment. The patient was educated to return to the emergency department for any worsening of their current condition or new/concerning symptoms. She will follow up with her PCP. Medication Reconcilliation Current Medication List: was personally reviewed by me Blood Pressure Screening Patient's blood pressure: Normal blood pressure Impression Primary Impression: Shortness of breath Departure Information Dispostion Home / Self-Care Condition GOOD Referrals Jam Strong M.D. (PCP) Patient Instructions My [facility] Additional Instructions Follow-up with your primary care provider and commercial litigation attorney as scheduled. Return to the emergency department with worsening shortness of breath, cough, fevers or any other new/concerning symptoms.
[2017-11-18 00:39] VITALS: BP 107/59; PULSE 70; O2SAT 92
== END 2017-11-18 00:41 | disposition home or self-care (01) ==
LOC: C.EDB 21:32 → C.EDC 11-18 00:41
DX: R06.02 Shortness of breath (principal); Z87.891 Personal history of nicotine dependence; Z79.899 Other long term (current) drug therapy

== ENCOUNTER → 2017-11-29 | Outpatient (CLI) | payer BC ==
[~2017-11-29] MED LIST changes: +CHOL1TAB53 PO; +FLUT1AER14 INH; +FLUT1INH INH; -FURO-85 PO; -IPRA1AER2 INH; +LEVO88TA3 PO; +OXGN; -PROP10TA7 PO; -SACC250C3 PO; -THM100 PO; +VITA400C28 PO; -VNTHFA/IN INH
[2017-11-29 12:39] LABS: INR 1.5 (0.9-1.1); PTT PATIENT 37.1 SECONDS (21.0-31.0)
[2017-11-29 14:24] LABS: PLATELET COUNT 72 K/uL (130-400)
== END | disposition home or self-care (01) ==
LOC: C.LABPBG 08:27
PROVIDERS: ATTEND Internal Medicine Gastroenterology
DX: K74.60 Unspecified cirrhosis of liver (principal)

== ENCOUNTER → 2017-12-03 | Outpatient (CLI) | payer BC ==
[~2017-12-03] MED LIST changes: -FLUT1INH INH; -SYN88 PO
[2017-12-03 12:33] LABS: HEMATOCRIT 39.2 % (37-47); HEMOGLOBIN 12.7 g/dL (12.0-16.0); MEAN CORPUSCULAR HEMOGLOBIN 31.8 pg (25-34); MEAN CORPUSCULAR HGB CONC 32.4 g/dl (32-36); RED CELL DISTRIBUTION WIDTH CV 20.3 % (11.5-14.5); RED CELL DISTRIBUTION WIDTH SD 72.8 fL (36.4-46.3); WHITE BLOOD COUNT 4.19 K/uL (4.8-10.8)
[2017-12-03 12:44] LABS: MEAN PLATELET VOLUME 11.7 fL (7.4-10.4); PLATELET COUNT 70 K/uL (130-400)
[2017-12-03 13:05] LABS: BASO % 1.4 %; BASO ABS # 0.06 K/uL (0-0.2); EOS % 6.2 %; EOS ABS # 0.26 K/uL (0-0.5); LYMPH % 17.9 %; LYMPH ABS # 0.75 K/uL (1.2-3.4); MONO % 8.8 %; MONO ABS # 0.37 K/uL (0.11-0.59); NEUT % 65.7 %; NEUT ABS # 2.75 K/uL (1.4-6.5)
[2017-12-03 13:10] LABS: ALBUMIN 2.2 gm/dl (3.4-5.0); ALT/SGPT 26 U/L (12-78); AST/SGOT 52 U/L (15-37); BLOOD UREA NITROGEN 7 mg/dl (7-18); CARBON DIOXIDE 25 mmol/L (21-32); CREATININE 0.56 mg/dl (0.60-1.20); GLUCOSE 68 mg/dl (70-99); POTASSIUM 3.5 mmol/L (3.5-5.1); SODIUM 139 mmol/L (136-145)
[2017-12-03 13:12] LABS: ALKALINE PHOSPHATASE 98 U/L (45-117); TOTAL PROTEIN 7.5 gm/dl (6.4-8.2)
[2017-12-07 11:53] LABS: ANA SCREEN TC 249X NEGATIVE (NEGATIVE)
== END | disposition home or self-care (01) ==
LOC: C.LABPBG 08:32
PROVIDERS: ATTEND Family Medicine
DX: R09.02 Hypoxemia (principal); R16.1 Splenomegaly, not elsewhere classified; D72.819 Decreased white blood cell count, unspecified; K74.60 Unspecified cirrhosis of liver; D69.6 Thrombocytopenia, unspecified

== ENCOUNTER → 2017-12-09 | Day surgery (SDC) | payer BC ==
[2017-11-29 13:06] VITALS: BMI 21.0
[~2017-12-09] VITALS: Ht 170.2 cm; Wt 61.4 kg
[~2017-12-09] MED LIST changes: +SODIUM CHLORIDE 0.9% 500ML 500 ML IV ONE
[2017-12-09 13:01] VITALS: Ht 170.2 cm; Wt 61.4 kg
--- NOTE | 2017-12-09 13:58 | Endo History and Physical ---
History & Physical Date of Service: Dec 09, 2017. Chief Complaint: CIRRHOSIS Referring Physician: DR. COURTNEY History of Present Illness variceal screen Past Surgical History Hx Cardiac Surgery: No Hx Internal Defibrillator: No Hx Pacemaker: No Hx Abdominal Surgery: No Hx of Implantable Prosthesis: No Hx Post-Op Nausea and Vomiting: No Hx Cancer Surgery: No Hx Thoracic Surgery: No Hx Orthopedic: No Hx Urinary Tract Surgery: No Family History None Social History Smoking Status: Former Smoker Hx Substance Use: No Hx Alcohol Use: Yes (red wine occasionally) Allergies Coded Allergies: No Known Allergies (Verified , 12/09/17) Current Medications Reported Home Medications Medications Dose Route/Sig Max Daily Dose Days Date Category Oxygen Gas 5 Liters NA CONTINOUS 12/01/17 Reported Trelegy Ellipta 100-62.5-25 Mcg/INH (Kckgizlknmz-Fqzzqzvaxupc-Oafos) 1 Aer Aer 1 Puff INH QAM 11/29/17 Reported Levothyroxine Sodium 88 Mcg Tab 88 Mcg PO QAM 11/29/17 Reported Alph-E (Vitamin E) 400 Unit Cap 400 Units PO DAILY 11/17/17 Reported D 1000 (Cholecalciferol) 1,000 Unit Tab 2,000 Units PO DAILY 11/17/17 Reported Multivitamin (Multivitamins) Tab 1 Tab PO DAILY 10/22/17 Reported Vital Signs Weight (Kilograms): 61.36 Height (Feet): 5 Height (Inches): 7 Date Time Temp Pulse Resp B/P (MAP) Pulse Ox O2 Delivery O2 Flow Rate FiO2 12/09/17 13:19 36.5 79 20 102/62 (75) 95 Nasal Cannula 5 Physical Exam General Appearance: WD/WN, no apparent distress Respiratory/Chest: Auscultation: breath sounds normal Cardiovascular: Heart Auscultation: RRR Abdomen: Bowel Sounds: normal Inspection & Palpation: soft, non-distended, no tenderness, guarding & rebound Assessment and Plan EGD for varices
--- NOTE | 2017-12-09 14:23 | Discharge Instructions ---
Endoscopy Patient Instructions Date / Procedure(s) Performed Dec 09, 2017. EGD Allergy Information Coded Allergies: No Known Allergies (Verified , 12/09/17) Discharge Date / Findings Dec 09, 2017. HH esophageal varices portal gastropathy Medication Instructions Restart Stopped Medication(s): Reported Home Medications Medications Dose Route/Sig Max Daily Dose Days Date Category Oxygen Gas 5 Liters NA CONTINOUS 12/01/17 Reported Trelegy Ellipta 100-62.5-25 Mcg/INH (Dteemmajyza-Izilptrghpub-Hnwru) 1 Aer Aer 1 Puff INH QAM 11/29/17 Reported Levothyroxine Sodium 88 Mcg Tab 88 Mcg PO QAM 11/29/17 Reported Alph-E (Vitamin E) 400 Unit Cap 400 Units PO DAILY 11/17/17 Reported D 1000 (Cholecalciferol) 1,000 Unit Tab 2,000 Units PO DAILY 11/17/17 Reported Multivitamin (Multivitamins) Tab 1 Tab PO DAILY 10/22/17 Reported omeprazole 40mg daily repeat EGD 1 month carvedilol 3.125 mg twice daily Reported Home Medications Medications Dose Route/Sig Max Daily Dose Days Date Category Oxygen Gas 5 Liters NA CONTINOUS 12/01/17 Reported Trelegy Ellipta 100-62.5-25 Mcg/INH (Exgemjhkmbb-Xrraaittyydg-Hioxs) 1 Aer Aer 1 Puff INH QAM 11/29/17 Reported Levothyroxine Sodium 88 Mcg Tab 88 Mcg PO QAM 11/29/17 Reported Alph-E (Vitamin E) 400 Unit Cap 400 Units PO DAILY 11/17/17 Reported D 1000 (Cholecalciferol) 1,000 Unit Tab 2,000 Units PO DAILY 11/17/17 Reported Multivitamin (Multivitamins) Tab 1 Tab PO DAILY 10/22/17 Reported omeprazole 40mg daily repeat EGD 1 month carvedilol 3.125 mg twice daily Provider Instructions Activity Restrictions - No exercising or heavy lifting for 24 hours. - Do not drink alcohol the day of the procedure. - Do not drive a car or operate machinery until the day after the procedure. - Do not make any important decisions or sign important papers in 24 hours after the procedure. Following Day: - Return to full activity which may include returning to work/school. Diet Start your diet with liquids and light foods (jello, soup, juice, toast). Then eat your usual diet if not nauseated. Treatment For Common After Affects For mild abdominal pain, bloating, or excessive gas: - Rest - Eat lightly - Lie on right side Follow-Up Information Follow-up with DR. COURTNEY as scheduled Anesthesia Information What You Should Know You have had a procedure that required some medicine to reduce anxiety and discomfort. This treatment is called moderate sedation. After receiving the treatment, you may be sleepy, but you will be able to breathe on your own. The effects of the treatment may last for several hours. Follow these instructions along with Activity/Diet recommendations noted above: * Do NOT do anything where dizziness or clumsiness would be dangerous. * Rest quietly at home today, then you can be up and about tomorrow. * Have a responsible person stay with you the rest of today. * You may have had an I.V. today. If so, you may take the dressing off later today. Recommendations Call your doctor if: * Trouble breathing * Continuous vomiting for more than 24 hours * Temperature above 101 degrees * Severe abdominal pain or bloating * Pain not relieved by pain medicine ordered * There is increased drainage or redness from any incision * A large amount of rectal bleeding greater than 2-3 tablespoons. (If you had a polyp/s removed or have hemorrhoids, a small amount of blood - from the rectum is to be expected.) * You have any unanswered questions or concerns. IN THE EVENT OF A SERIOUS EMERGENCY, GO TO THE NEAREST EMERGENCY ROOM Your discharge instructions were prepared by provider Mir Franz. Patient Instructions Signature Page Paty Arredondo Patient (or Guardian) Signature/Date: I have read and understand the instructions given to me by my caregivers. Caregiver/RN/Doctor Signature/Date: The above-named patient and/or guardian has received patient instructions on this date. + Original Patient Signature Page (only) stays with chart. Please make copy for patient.
--- NOTE | 2017-12-09 14:32 | GI REPORT ---
Procedure Date: 12/09/2017 1:53 PM Procedure: Upper GI endoscopy Indications: Cirrhosis rule out esophageal varices, Abnormal CT of the GI tract, Abnormal ultrasound of the GI tract Medicines: Propofol per Anesthesia Complications: No immediate complications. Estimated blood loss: None. Estimated Blood Loss: Estimated blood loss: none. Procedure: Pre-Anesthesia Assessment: - Prior to the procedure, a History and Physical was performed, and patient medications and allergies were reviewed. The patient's tolerance of previous anesthesia was also reviewed. The risks and benefits of the procedure and the sedation options and risks were discussed with the patient. All questions were answered, and informed consent was obtained. Prior Anticoagulants: The patient has taken no previous anticoagulant or antiplatelet agents. ASA Grade Assessment: IV - A patient with severe systemic disease that is a constant threat to life. After reviewing the risks and benefits, the patient was deemed in satisfactory condition to undergo the procedure. After obtaining informed consent, the endoscope was passed under direct vision. Throughout the procedure, the patient's blood pressure, pulse, and oxygen saturations were monitored continuously. The scope was introduced through the mouth, and advanced to the second part of duodenum. The upper GI endoscopy was accomplished without difficulty. The patient tolerated the procedure well. Findings: Three columns of non-bleeding grade II varices were found in the middle third of the esophagus and in the lower third of the esophagus, 27 cm from the incisors. They were 4 mm in largest diameter. No stigmata of recent bleeding were evident and no red paulette signs were present. Four bands were successfully placed with incomplete eradication of varices. There was no bleeding during, and at the end, of the procedure. Moderate portal hypertensive gastropathy was found in the cardia, in the gastric fundus, in the gastric body and in the stomach. Retained gastric contents are not identified on this exam. The examined duodenum was normal. The cardia and gastric fundus were normal on retroflexion. Impression: - Non-bleeding grade II esophageal varices. Incompletely eradicated. Banded. - Portal hypertensive gastropathy. - Normal examined duodenum. - No specimens collected. Recommendation: - Discharge patient to home (ambulatory). - Resume regular diet. - Continue present medications. - Use Prilosec (omeprazole) 40 mg PO daily. - Give a beta amanda with dosage titrated by the heart rate. - Repeat upper endoscopy in 1 month for retreatment. - Return to GI clinic as previously scheduled. MD Mir [place] MD 12/09/2017 2:31:59 PM This report has been signed electronically. Note Initiated On: 12/09/2017 1:53 PM I attest to the content of the Intraoperative Record and orders documented therein, exceptions below
--- NOTE | 2017-12-09 14:47 | Anesthesiology Progress Note ---
Anesthesia Post Op Note Date & Time Dec 09, 2017 at 14:47 Vital Signs Pain Intensity: 0 Vital Signs Past 12 Hours Date Time Temp Pulse Resp B/P (MAP) Pulse Ox O2 Delivery O2 Flow Rate FiO2 12/09/17 14:35 36 82 20 96/58 (71) 93 Nasal Cannula 5 12/09/17 13:19 36.5 79 20 102/62 (75) 95 Nasal Cannula 5 Notes Mental Status: alert / awake / arousable, participated in evaluation Pt Amnestic to Procedure: Yes Nausea / Vomiting: adequately controlled Pain: adequately controlled Airway Patency, RR, SpO2: stable & adequate BP & HR: stable & adequate Hydration State: stable & adequate Anesthetic Complications: no major complications apparent
[2017-12-09 15:10] VITALS: BP 109/65; PULSE 81; O2SAT 94
== END | disposition home or self-care (01) ==
LOC: C.GI 12:49
PROVIDERS: ATTEND Internal Medicine Gastroenterology
DX: I85.00 Esophageal varices without bleeding (principal); K74.60 Unspecified cirrhosis of liver; K31.89 Other diseases of stomach and duodenum; J44.9 Chronic obstructive pulmonary disease, unspecified; E03.9 Hypothyroidism, unspecified; R93.3 Abnormal findings on diagnostic imaging of other parts of digestive tract; Z87.891 Personal history of nicotine dependence; Z99.81 Dependence on supplemental oxygen

== ENCOUNTER → 2017-12-10 | Outpatient (CLI) | payer BC ==
[~2017-12-10] MED LIST changes: +KETAMINE HCL INJ 50 MG/ML 10 ML VIAL ONE; +LIDOCAINE HCL 2% 2 ML VIAL (20MG/ML) ONE; +PHENYLEPHRINE 100MCG/ML 5ML SYR ONE; +PROPOFOL IV EMULSION 10 MG/ML 20 ML VIAL IV ONE; -SODIUM CHLORIDE 0.9% 500ML 500 ML IV ONE
--- NOTE | 2017-12-10 21:15 | ECHOCARDIOGRAM REPORT ---
*NOTICE TO RECEIVING [employer] This information is strictly Confidential and protected under [place] law. [place] law prohibits you from making any further disclosure of this information unless further disclosure is expressly permitted by the written consent of the person to whom it pertains or is authorized by law. A general authorization for the release of medical or other information is not sufficient for this purpose. Hospital accepts no responsibility if the information is made available to any other person, INCLUDING THE PATIENT. Interpretation Summary * Name: CHE MCGRATH Study Date: 12/10/2017 01:04 PM BP: 96/50 mmHg * Patient Location: [facility] [place]\S\N280\S\1 HR: 69 * : 1960 (M/d/yyyy) Gender: Female Height: 67 in * Age: 57 yrs Ethnicity: CA Weight: 145 lb * Ordering Physician: Vineet Liao * Referring Physician: Vineet Liao * Performed By: Doretha Andrade RDCS * * Reason For Study: HEPATOPULMONARY SYNDROME * BSA: 1.8 m2 * Bubble Study only * -- Conclusions -- * Contrast injection is positive and suggestive of intrapulmonary shunting. Procedure Details * A saline contrast injection was performed to assess for cardiac shunting. * The injection was performed through an intravenous line in the left arm. * The attending nurse who injected the saline contrast was PENNY SANTANA RN. * A total of 20 cc of agitated saline was given.
== END | disposition home or self-care (01) ==
LOC: C.CPL 12:58
PROVIDERS: ATTEND Internal Medicine Critical Care Medicine
DX: K76.81 Hepatopulmonary syndrome (principal)

== ENCOUNTER → 2017-12-14 | Outpatient (CLI) | payer BC ==
[~2017-12-14] MED LIST changes: -KETAMINE HCL INJ 50 MG/ML 10 ML VIAL ONE; -LIDOCAINE HCL 2% 2 ML VIAL (20MG/ML) ONE; -PHENYLEPHRINE 100MCG/ML 5ML SYR ONE; -PROPOFOL IV EMULSION 10 MG/ML 20 ML VIAL IV ONE
--- NOTE | 2017-12-14 12:42 | DIAGNOSTIC IMAGING REPORT ---
ULTRASOUND RIGHT GROIN NONVASCULAR CLINICAL HISTORY: Right groin swelling. Hernia. COMPARISON STUDY: Abdominal CT dated 10/23/2017. FINDINGS: Real-time, grayscale, and color flow sonography of the right groin is performed to assess a site of palpable swelling. There is a large right internal hernia which contains several nonobstructed bowel loops. There is ascitic fluid within the hernia sac. No inguinal lymphadenopathy is seen. IMPRESSION: There is a large right inguinal hernia which contains nonobstructed loops of bowel as well as a small amount of ascitic fluid. This was also seen by CT dated 10/23/2017. Electronically signed by: Victoriano Middleton M.D. 12/14/2017 12:41 PM Dictated Date/Time: 12/14/2017 12:39 PM
== END | disposition home or self-care (01) ==
LOC: C.ULTR 11:31
PROVIDERS: ATTEND Student in an Organized Health Care Education/Training Program
DX: R19.03 Right lower quadrant abdominal swelling, mass and lump (principal); K40.90 Unilateral inguinal hernia, without obstruction or gangrene, not specified as recurrent

== ENCOUNTER 2017-12-23 23:23 | Inpatient (IN) | payer BC ==
[~2017-12-23] VITALS: Ht 167.6 cm; Wt 59.4 kg
--- NOTE | 2017-12-23 23:38 | EMERGENCY ROOM VISIT NOTE ---
History Report prepared by Michelle: Vero Dickerson Under the Supervision of: Dr. Deborah Vargas M.D. First contact with patient: 23:33 Chief Complaint: ALTERED MENTAL STATUS Stated Complaint: THINKS HAD/HAVING A STROKE History of Present Illness The patient is a 57 year old female who presents to the Emergency Room with complaints of an altered mental status beginning 48 hours ago. The patient states that she has been dizzy and disoriented. Per sister, the patient forgot events over the last 48 hours. The patient denies having a fever. She reports that she wears 5L of oxygen at home all the time. Per sister, the patient has autoimmune hepatitis. Her sister states that the patient is seeing a doctor for pulmonary problems possibly due to the liver enlargement. Her sister also reports that the patient has not been eating a lot or at all recently. Pt has had a great deal Her sister states that the patient had an EGD done on December 09. Per sister, the patient had an ultrasound of her abdomen done on December 14 which showed a large inguinal hernia. Source of History: patient, sibling (sister) Onset: 48 hours ago Position: other (global) Quality: other (altered mental status ) Associated Symptoms: + weakness (dizziness), No fevers Note: additional symptoms: disoriented, loss of appetite Review of Systems See HPI for pertinent positives & negatives. A total of 10 systems reviewed and were otherwise negative. Past Medical & Surgical Medical Problems: (1) Autoimmune hepatitis (2) Hepatic encephalopathy Family History Patient reports no known family medical history. Social History Smoking Status: Former Smoker Alcohol Use: occasionally Drug Use: none Marital Status: Housing Status: lives with family Occupation Status: employed Current/Historical Medications Scheduled Cholecalciferol (D 1000), 2,000 UNITS PO DAILY Fluoxetine HCl (Fluoxetine HCl), 10 MG PO QAM Nwlnzijguon-Ivdmgoaxnfdt-Rkvrz (Trelegy Ellipta 100-62.5-25 Mcg/INH), 1 PUFF INH QAM Home O2 Therapy (Oxygen), 5 LITERS NA CONTINOUS Lactulose (Lactulose), 30 GM PO Q12 Levothyroxine Sodium (Levothyroxine Sodium), 88 MCG PO QAM Multivitamin (Multivitamin), 1 TAB PO DAILY Prednisone (Prednisone), 10 MG PO DAILY Vitamin E (Alph-E), 400 UNITS PO DAILY Allergies Coded Allergies: No Known Allergies (Verified , 12/24/17) Physical Exam Vital Signs Date Time Temp Pulse Resp B/P (MAP) Pulse Ox O2 Delivery O2 Flow Rate FiO2 12/24/17 00:46 70 20 122/54 91 Nasal Cannula 5.0 12/23/17 23:47 91 Nasal Cannula 5.0 12/23/17 23:39 73 12/23/17 23:27 36.5 79 18 128/69 92 Nasal Cannula 5.0 Physical Exam Vital signs reviewed. General: Chronically ill-appearing female, in no significant distress. Pleasantly confused. On nasal cannula oxygen. HEENT: No scleral icterus, PERRLA, neck supple. Atraumatic. Dry mucous membranes. Cardiovascular: Regular rate and rhythm, no extra sounds. Pulmonary: Clear to auscultation bilaterally, normal work of breathing. Abdomen: Soft, nontender, nondistended, positive bowel sounds. Musculoskeletal: Atraumatic, no peripheral edema. Neurologic: Patient awake and answering questions, but confused. Follows commands, but unable to identify month, year, or the president. Full strength in all 4 extremities. Cranial nerves 2 through 12 grossly intact. Skin: Warm, dry, no rash Medical Decision & Procedures ER Provider Diagnostic Interpretation: Radiology results as stated below per my review. Chest X-Ray: Elevated left hemidiaphragm. Cardiomegaly. Interstitial pulmonary changes that are not significantly changed from previous. Right upper lung field opacity that appears to be chronic but improved from previous which was 11/17/17. Radiology results as stated below per my review and [facility]. CT HEAD: No acute intracranial hemorrhage, midline shift, mass effect, infarct or hydrocephalus. Incidental buster-cisterna magna. Bony structures and soft tissues are grossly unremarkable. Laboratory Results Test 12/24/17 00:06 12/24/17 00:08 12/24/17 00:42 Immature Granulocyte % (Auto) 0.3 % White Blood Count 3.35 K/uL (4.8-10.8) Red Blood Count 3.83 M/uL (4.2-5.4) Hemoglobin 12.6 g/dL (12.0-16.0) Hematocrit 37.5 % (37-47) Mean Corpuscular Volume 97.9 fL (80-100) Mean Corpuscular Hemoglobin 32.9 pg (25-34) Mean Corpuscular Hemoglobin Concent 33.6 g/dl (32-36) Platelet Count 61 K/uL (130-400) Mean Platelet Volume 11.6 fL (7.4-10.4) Neutrophils (%) (Auto) 62.6 % Lymphocytes (%) (Auto) 17.3 % Monocytes (%) (Auto) 9.9 % Eosinophils (%) (Auto) 8.1 % Basophils (%) (Auto) 1.8 % Neutrophils # (Auto) 2.10 K/uL (1.4-6.5) Lymphocytes # (Auto) 0.58 K/uL (1.2-3.4) Monocytes # (Auto) 0.33 K/uL (0.11-0.59) Eosinophils # (Auto) 0.27 K/uL (0-0.5) Basophils # (Auto) 0.06 K/uL (0-0.2) Immature Granulocyte # (Auto) 0.01 K/uL (0.00-0.02) Prothrombin Time 15.9 SECONDS (9.0-12.0) Prothromb Time International Ratio 1.5 (0.9-1.1) Activated Partial Thromboplast Time 30.2 SECONDS (21.0-31.0) Partial Thromboplastin Ratio 1.2 Bedside Troponin I 0.370 ng/ml (0-0.045) Urine Color YELLOW Urine Appearance TURBID (CLEAR) Urine pH 8.5 (4.5-7.5) Urine Specific [place] 1.014 (1.000-1.030) Urine Protein NEG (NEG) Urine Glucose (UA) NEG (NEG) Urine Ketones NEG (NEG) Urine Occult Blood NEG (NEG) Urine Nitrite NEG (NEG) Urine Bilirubin NEG (NEG) Urine Urobilinogen NEG (NEG) Urine Leukocyte Esterase SMALL (NEG) Urine WBC (Auto) 5-10 /hpf (0-5) Urine RBC (Auto) 0-4 /hpf (0-4) Urine Hyaline Casts (Auto) 1-5 /lpf (0-5) Urine Epithelial Cells (Auto) >30 /lpf (0-5) Urine Bacteria (Auto) NEG (NEG) Laboratory results per my review. Medications Administered Medications (Trade) Dose Ordered Sig/Rodrigo Route Start Time Stop Time Status Last Admin Dose Admin Lactulose (Chronulac Syrup) 60 gm NOW STAT PO 12/24/17 00:56 12/24/17 00:58 DC 12/24/17 01:20 60 GM ECG Per My Interpretation Indication: altered mental status Rate (beats per minute): 71 Rhythm: sinus with SA Findings: PVC, other (no ST changes, QTC of 415) ED Course 1141: Past medical records reviewed. The patient was evaluated in room B9. A complete history and physical examination was performed. 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 Her sister states concern that the patient is having a mental breakdown. 0056: Ordered Lactulose 60 gm PO. 0111: I checked on the patient and updated her on her results. 0138: Ordered Aspirin 324 mg PO. 0150: Upon reevaluation, the patient is resting comfortably. I discussed laboratory and radiographic results with her. She verbalized agreement of the treatment plan. The patient will be evaluated for further management and care by Dr. Mcgovern. Medical Decision Differential diagnosis: Etiologies such as metabolic, infection, hypoglycemia, electrolyte abnormalities , cardiac sources, intracerebral event, toxicologic, neurologic, hyperammonemia , as well as others were entertained. This pt was evaluation and appears to be in no distress. Pt is pleasant but confused. CT head is negative for acute abnl. CXR reveals no acute abnormality , chronic changes. Lab work reveals an elevated ammonia level at 112. POC trop was elevated, but lab trop is negative. EKG reveals no significant changes. Pt was given lactulose 60 gm po. Pt will be evaluated by the hospitalist service for further management. Pt and sister were made aware of the plan and agree. Medication Reconcilliation Current Medication List: was personally reviewed by me Blood Pressure Screening Patient's blood pressure: Normal blood pressure Consults Time Called: 0105 Consulting Physician: Dr. Mcgovern- [place] Returned Call: 0150 I reviewed the patient's case with Dr. Mcgovern. He will evaluate the patient for further management. Impression Primary Impression: Hyperammonemia Additional Impression: Hepatic encephalopathy Scribe Attestation The scribe's documentation has been prepared under my direction and personally reviewed by me in its entirety. I confirm that the note above accurately reflects all work, treatment, procedures, and medical decision making performed by me. Departure Information Dispostion Being Evaluated By Hospitalist Prescriptions Prednisone (Prednisone) 10 Mg Tab 10 MG PO DAILY for 30 Days, #30 TAB Prov: Trudy Mayers M.D. 12/24/17 Lactulose (Lactulose) 30 Gm/45 Ml Syrp 30 GM PO Q12 for 30 Days, #2700 ML Prov: Trudy Mayers M.D. 12/24/17 Fluoxetine HCl (Fluoxetine HCl) 10 Mg Cap 10 MG PO QAM for 30 Days, #30 CAP Prov: Trudy Mayers M.D. 12/24/17 Referrals No Doctor, Assigned (PCP) Patient Instructions My [facility] Problem Qualifiers
[2017-12-24 00:20] LABS: HEMATOCRIT 37.5 % (37-47); HEMOGLOBIN 12.6 g/dL (12.0-16.0); MEAN CELL VOLUME 97.9 fL (80-100); MEAN CORPUSCULAR HEMOGLOBIN 32.9 pg (25-34); MEAN CORPUSCULAR HGB CONC 33.6 g/dl (32-36); RED CELL DISTRIBUTION WIDTH CV 18.7 % (11.5-14.5); RED CELL DISTRIBUTION WIDTH SD 67.6 fL (36.4-46.3); WHITE BLOOD COUNT 3.35 K/uL (4.8-10.8)
[2017-12-24 00:38] LABS: INR 1.5 (0.9-1.1); PTT PATIENT 30.2 SECONDS (21.0-31.0)
[2017-12-24 00:43] LABS: ALBUMIN 2.3 gm/dl (3.4-5.0); ALT/SGPT 43 U/L (12-78); AST/SGOT 63 U/L (15-37); BLOOD UREA NITROGEN 8 mg/dl (7-18); CALCIUM 8.1 mg/dl (8.5-10.1); CARBON DIOXIDE 24 mmol/L (21-32); GLUCOSE 91 mg/dl (70-99); POTASSIUM 3.2 mmol/L (3.5-5.1); SODIUM 141 mmol/L (136-145)
[2017-12-24 00:46] LABS: ALKALINE PHOSPHATASE 100 U/L (45-117); TOTAL PROTEIN 8.9 gm/dl (6.4-8.2)
[2017-12-24] MEDS ORDERED: LACTULOSE SYRUP 20 GM/30 ML UDC PO STA (00:56)
[2017-12-24 01:11] LABS: MEAN PLATELET VOLUME 11.6 fL (7.4-10.4); PLATELET COUNT 61 K/uL (130-400)
[2017-12-24 01:20] LABS: BASO % 1.8 %; BASO ABS # 0.06 K/uL (0-0.2); EOS % 8.1 %; EOS ABS # 0.27 K/uL (0-0.5); IG# 0.01 K/uL (0.00-0.02); LYMPH % 17.3 %; LYMPH ABS # 0.58 K/uL (1.2-3.4); MONO % 9.9 %; MONO ABS # 0.33 K/uL (0.11-0.59); NEUT % 62.6 %
[2017-12-24] MEDS ORDERED: ASPIRIN 81 MG CHEW PO STA (01:38)
[2017-12-24] MEDS ORDERED: ALUMINUM/MAGNESIUM/SIMETH (MAALOX MAX) 30 ML UDC PO PRN (01:45)
[2017-12-24] MEDS ORDERED: ONDANSETRON INJ 2 MG/ML 2 ML VIAL IV PRN (01:45)
[2017-12-24] MEDS ORDERED: MAGNESIUM HYDROXIDE SUSP 30 ML UDC PO PRN (01:45)
[2017-12-24] MEDS ORDERED: POLYETHYLENE (MIRALAX) 17 GM PACK PO PRN (01:45)
[2017-12-24 02:20] VITALS: BP 109/66; PULSE 81; TEMP 36.7; O2SAT 91
[2017-12-24 02:30] VITALS: Ht 167.6 cm; Wt 59.4 kg
--- NOTE | 2017-12-24 02:40 | History and Physical ---
History & Physical Date & Time of Service: Dec 24, 2017 at 02:09 Chief Complaint: Thinks Had/Having A Stroke Primary Care Physician: Trudy Mayers M.D. History of Present Illness Source: patient, family, hospital records Unfortunate 57 y/o F with history of hypothyroidism, chronic hypoxia, severe autoimmune hepatitis which was recently diagnosed. The pt presented to the ER 11/07 for SOB and cough and was diagnosed with PNM. She was hypoxic at the time of admission. It was noted that her LFTs were deranged. She was sent for a CT abdomen which described cirrhosis, portal hypertension and varices. She was eventually diagnosed with autoimmune hepatitis. She underwent a liver biopsy 12/01 which confirmed severe inflammation but negated the cirrhosis described on initial CT. An EGD was completed on 12/09 where grade 2 varices were identified and banded. In addition to her hepatitis, she has required 5L 02 to maintain oxygenation since her PNM diagnosis 11/07. Family were unable to provide clarity as to why she is requiring 02. They follow with a pusher operator and deny a diagnosis of COPD. The pt presents this evening with progressive dizziness, disorientation and memory impairment for approximately 48 hours. She denies CP, SOB or 02 requirements above baseline, n/v or diarrhea. She does not normally take lactulose. Initial labs are notable for an elevated ammonium. CBC, LFTs are abnormal but represent baseline values. Past Medical/Surgical History 1) Autoimmune hepatitis 2) Portal hypertension and grade II esophageal varices 3) Hypothyroidism 4) Chronic hypoxia - 5L 02-dependent 5) Leukopenia 6) Thrombocytopenia Family History Patient reports no known family medical history. M - MO, CVA F - CAD Social History 20 pack year history - quit several years ago - occasional ETOH prior to hepatitis diagnosis Smoking Status: Former Smoker Drug Use: none Marital Status: Housing status: lives with significant other Occupational Status: employed Immunizations History of Influenza Vaccine: No History of Tetanus Vaccine?: No History of Pneumococcal: No History of Hepatitis B Vaccine: No Allergies Coded Allergies: No Known Allergies (Verified , 12/24/17) Home Medications Scheduled Cholecalciferol (D 1000), 2,000 UNITS PO DAILY Yycqgcvmzik-Gelsmlqkvfzf-Ioqhb (Trelegy Ellipta 100-62.5-25 Mcg/INH), 1 PUFF INH QAM Home O2 Therapy (Oxygen), 5 LITERS NA CONTINOUS Levothyroxine Sodium (Levothyroxine Sodium), 88 MCG PO QAM Multivitamin (Multivitamin), 1 TAB PO DAILY Vitamin E (Alph-E), 400 UNITS PO DAILY Review of Systems Constitutional: No fever, No chills, No sweats Eyes: No worsening of vision ENT: No hearing loss, No unusual epistaxis, No nasal symptoms Respiratory: + shortness of breath (chronic), No cough, No sputum, No wheezing Cardiovascular: No chest pain, No orthopnea, No PND Abdomen: + problem reported (poor intake), No pain, No nausea, No vomiting Musculoskeletal: No joint pain Genitourinary - Female: No dysuria, No urinary frequency Neurologic: + memory loss, + weakness, + problem reported (dizziness and disorientation reported) Endocrine: + fatigue Hematologic / Lymphatic: No abnormal bleeding/bruising Integumentary: No rash Allergic / Immunologic: No environmental allergies Physical Exam Vital Signs Date Time Temp Pulse Resp B/P (MAP) Pulse Ox O2 Delivery O2 Flow Rate FiO2 12/24/17 00:46 70 20 122/54 91 Nasal Cannula 5.0 12/23/17 23:47 91 Nasal Cannula 5.0 12/23/17 23:39 73 12/23/17 23:27 36.5 79 18 128/69 92 Nasal Cannula 5.0 General Appearance: WD/WN, no apparent distress, + thin, + pertinent finding ( Thin, iddle-aged female - no distress - slow to answer question - appears oriented) Head: normocephalic Eyes: + pertinent finding (mild icterus) ENT: normal ENT inspection, pharynx normal Neck: supple, no JVD Respiratory/Chest: chest non-tender, + pertinent finding (poor air movement - nno breath sounds at R base - no wheezing) Cardiovascular: regular rate, rhythm, no edema, no gallop Abdomen/GI: + pertinent finding (Mild distention - nontender) Back: normal inspection, no CVA tenderness Extremities/Musculoskelatal: + pertinent finding (minmal edema and stasis discoloration) Neurologic/Psych: aerospace engineer officer armament II-XII nml as tested, no motor/sensory deficits, alert, + pertinent finding (AAO x 2 - no focal findings) Skin: normal color Diagnostics Laboratory Results Results Past 24 Hours Test 12/24/17 00:06 12/24/17 00:08 12/24/17 00:42 Range/Units White Blood Count 3.35 4.8-10.8 K/uL Red Blood Count 3.83 4.2-5.4 M/uL Hemoglobin 12.6 12.0-16.0 g/dL Hematocrit 37.5 37-47 % Mean Corpuscular Volume 97.9 80-100 fL Mean Corpuscular Hemoglobin 32.9 25-34 pg Mean Corpuscular Hemoglobin Concent 33.6 32-36 g/dl Platelet Count 61 130-400 K/uL Mean Platelet Volume 11.6 7.4-10.4 fL Neutrophils (%) (Auto) 62.6 % Lymphocytes (%) (Auto) 17.3 % Monocytes (%) (Auto) 9.9 % Eosinophils (%) (Auto) 8.1 % Basophils (%) (Auto) 1.8 % Neutrophils # (Auto) 2.10 1.4-6.5 K/uL Lymphocytes # (Auto) 0.58 1.2-3.4 K/uL Monocytes # (Auto) 0.33 0.11-0.59 K/uL Eosinophils # (Auto) 0.27 0-0.5 K/uL Basophils # (Auto) 0.06 0-0.2 K/uL RDW Standard Deviation 67.6 36.4-46.3 fL RDW Coefficient of Variation 18.7 11.5-14.5 % Immature Granulocyte % (Auto) 0.3 % Immature Granulocyte # (Auto) 0.01 0.00-0.02 K/uL Prothrombin Time 15.9 9.0-12.0 SECONDS Prothromb Time International Ratio 1.5 0.9-1.1 Activated Partial Thromboplast Time 30.2 21.0-31.0 SECONDS Partial Thromboplastin Ratio 1.2 Sodium Level 141 136-145 mmol/L Potassium Level 3.2 3.5-5.1 mmol/L Chloride Level 111 98-107 mmol/L Carbon Dioxide Level 24 21-32 mmol/L Anion Gap 6.0 3-11 mmol/L Blood Urea Nitrogen 8 7-18 mg/dl Creatinine 0.60 0.60-1.20 mg/dl Estimated GFR () 115.6 Estimated GFR (Non- 99.8 BUN/Creatinine Ratio 12.7 10-20 Random Glucose 91 70-99 mg/dl Calcium Level 8.1 8.5-10.1 mg/dl Magnesium Level 2.2 1.8-2.4 mg/dl Total Bilirubin 2.6 0.2-1 mg/dl Direct Bilirubin 0.8 0-0.2 mg/dl Aspartate Amino Transf (AST/SGOT) 63 15-37 U/L Alanine Aminotransferase (ALT/SGPT) 43 12-78 U/L Alkaline Phosphatase 100 45-117 U/L Ammonia 112.0 11-32 umol/L Troponin I 0.027 0-0.045 ng/ml Total Protein 8.9 6.4-8.2 gm/dl Albumin 2.3 3.4-5.0 gm/dl Bedside Troponin I 0.370 0-0.045 ng/ml Urine Color YELLOW Urine Appearance TURBID CLEAR Urine pH 8.5 4.5-7.5 Urine Specific [place] 1.014 1.000-1.030 Urine Protein NEG NEG Urine Glucose (UA) NEG NEG Urine Ketones NEG NEG Urine Occult Blood NEG NEG Urine Nitrite NEG NEG Urine Bilirubin NEG NEG Urine Urobilinogen NEG NEG Urine Leukocyte Esterase SMALL NEG Urine WBC (Auto) 5-10 0-5 /hpf Urine RBC (Auto) 0-4 0-4 /hpf Urine Hyaline Casts (Auto) 1-5 0-5 /lpf Urine Epithelial Cells (Auto) >30 0-5 /lpf Urine Bacteria (Auto) NEG NEG Diagnostic Radiology CXR: no change from previous - interstitial prominence CT head: unremarkable EKG Sinus , PVCs Impression Assessment and Plan Unfortunate 57 y/o F with history of hypothyroidism, chronic hypoxia, severe autoimmune hepatitis which was recently diagnosed. The pt presented to the ER 11/07 for SOB and cough and was diagnosed with PNM. She was hypoxic at the time of admission. It was noted that her LFTs were deranged. She was sent for a CT abdomen which described cirrhosis, portal hypertension and varices. She was eventually diagnosed with autoimmune hepatitis. She underwent a liver biopsy 12/01 which confirmed severe inflammation but negated the cirrhosis described on initial CT. An EGD was completed on 12/09 where grade 2 varices were identified and banded. In addition to her hepatitis, she has required 5L 02 to maintain oxygenation since her PNM diagnosis 11/07. Family were unable to provide clarity as to why she is requiring 02. They follow with a pusher operator and deny a diagnosis of COPD. The pt presents this evening with progressive dizziness, disorientation and memory impairment for approximately 48 hours. She denies CP, SOB or 02 requirements above baseline, n/v or diarrhea. She does not normally take lactulose. Initial labs are notable for an elevated ammonium. CBC, LFTs are abnormal but represent baseline values. 1) AMS - likely hepatic encephalopathy - we will start the pt on TID Lactulose. There is no current evidence of infection or focal signs to merit work-up for alternative etiologies at present. 2) Hepatitis - may be worsening - she is on a low steroid dose only in terms of treatment. We will consult her briar cutter for additional input. Cont Coreg, PRN Lasix. 3) Hypothyroidism - cont Synthroid 4) Leukopenia and thrombocytopenia due to hepatitis - CBC is at baseline - will trend in hospital 5) Chronic hypoxia - unclear etiology - stable on 5L 02 Full code - SCDs due to bleeding risk Total time for this admit including review of labs, meds imaging, records, EKG - discussion with pt, family, ER attending - 45 min Resuscitation Status VTE Prophylaxis Will order VTE Prophylaxis: Yes
[2017-12-24] MEDS ORDERED: POTASSIUM CHLORIDE PWD 20 MEQ PACK PO ONE (04:00)
[2017-12-24] MEDS: LACTULOSE SYRUP 30 GM/45 ML UDP PO SCH ×2 (05:48→16:02)
[2017-12-24] MEDS ORDERED: LEVOTHYROXINE 88 MCG TAB PO SCH (06:00)
--- NOTE | 2017-12-24 06:59 | DIAGNOSTIC IMAGING REPORT ---
CT OF THE HEAD WITHOUT CONTRAST CLINICAL HISTORY: Altered mental status. COMPARISON STUDY: Head CT October 22, 2017. CT DOSE: 537.48 mGy.cm TECHNIQUE: Helical axial images of the head were obtained without IV contrast. Automated exposure control was utilized for the study. A dose lowering technique was utilized adhering to the principles of ALARA. FINDINGS: No acute intracranial hemorrhage, midline shift or mass effect is present. Ventricular system is normal. The basilar cisterns are patent. There are no extra-axial collections. Michaels-white differentiation is maintained. There is bilateral basal ganglia calcification which is unchanged. There are no findings to suggest acute dural sinus thrombosis or acute territorial infarct. There is a buster cisterna magna. There are no calvarial abnormalities. Visualized portions of the sinuses and mastoid air cells are clear. IMPRESSION: No acute intracranial findings. Electronically signed by: Artur Jordan M.D. 12/24/2017 6:58 AM Dictated Date/Time: 12/24/2017 6:55 AM
--- NOTE | 2017-12-24 07:25 | DIAGNOSTIC IMAGING REPORT ---
CHEST ONE VIEW PORTABLE CLINICAL HISTORY: Altered mental status. COMPARISON STUDY: Chest CT October 22, 2017 and chest radiograph November 17, 2017. FINDINGS: Elevation of the left hemidiaphragm is unchanged. There is no pneumothorax or pleural effusion. There is no evidence for pulmonary edema. Irregular right upper lobe opacity has slightly improved since prior exam. This remains indeterminate. There may be minimal left upper lung airspace opacity. IMPRESSION: Persistent biapical opacities, right greater than left. Slight improvement in the right apical opacity since prior exam however this remains indeterminate and a follow-up chest CT in one month to ensure complete resolution is recommended to exclude the possibility of an underlying lesion. Electronically signed by: Artur Jordan M.D. 12/24/2017 7:24 AM Dictated Date/Time: 12/24/2017 7:22 AM
[2017-12-24 07:55] VITALS: BP 109/65; PULSE 73; TEMP 36.8; O2SAT 95
[2017-12-24 08:10] VITALS: O2SAT 95
[2017-12-24 08:41] LABS: HEMATOCRIT 36.5 % (37-47); HEMOGLOBIN 12.2 g/dL (12.0-16.0); MEAN CELL VOLUME 98.4 fL (80-100); MEAN CORPUSCULAR HEMOGLOBIN 32.9 pg (25-34); MEAN CORPUSCULAR HGB CONC 33.4 g/dl (32-36); RED CELL DISTRIBUTION WIDTH CV 18.3 % (11.5-14.5); RED CELL DISTRIBUTION WIDTH SD 67.1 fL (36.4-46.3); WHITE BLOOD COUNT 3.29 K/uL (4.8-10.8)
[2017-12-24 08:48] LABS: MEAN PLATELET VOLUME 10.5 fL (7.4-10.4); PLATELET COUNT 51 K/uL (130-400)
[2017-12-24] MEDS ORDERED: PANTOprazole SOD 40 MG TAB PO SCH (09:00)
[2017-12-24] MEDS ORDERED: CARVEDILOL 3.125 MG TAB PO SCH (09:00)
[2017-12-24] MEDS ORDERED: FLUOXETINE HCL 10 MG CAP PO SCH (09:00)
[2017-12-24] MEDS ORDERED: POTASSIUM CHLORIDE 10 MEQ TABCR PO SCH (09:00)
[2017-12-24] MEDS ORDERED: THIAMINE HCL 100 MG TAB PO SCH (09:00)
[2017-12-24 09:11] LABS: CALCIUM 8.4 mg/dl (8.5-10.1); CREATININE 0.52 mg/dl (0.60-1.20); POTASSIUM 3.5 mmol/L (3.5-5.1)
[2017-12-24 09:15] LABS: TOTAL PROTEIN 7.5 gm/dl (6.4-8.2)
[2017-12-24 15:08] VITALS: BP 113/71; PULSE 77; TEMP 36.7; O2SAT 93
[2017-12-24] MEDS ORDERED: FLUO10CA24 PO (15:35)
[2017-12-24] MEDS ORDERED: PRD10 PO (15:35)
[2017-12-24] MEDS ORDERED: LCTL45 PO (15:35)
--- NOTE | 2017-12-24 16:13 | Discharge Instructions ---
Discharge Instructions Date of Service Dec 24, 2017. Admission Reason for Admission: Hepatic Encephalopathy Discharge Discharge Diagnosis / Problem: Hepatic Encephalopathy Discharge Goals Goal(s): Decrease discomfort, Improve function, Increase independence Activity Recommendations Activity Limitations: per Instructions/Follow-up section . Instructions / Follow-Up Instructions / Follow-Up You were admitted due to high levels of ammonia in your blood, due to your ongoing liver problems. This can happen due to a diet too high in proteins ( like red meat) but it can also be brought on by poor water intake, dehydration, and also constipation. Ammonia is excreted through the bowels. This is the reason you were treated with lactulose syrup -- you are to continue taking this medication at home, twice a day, with the goal of 2-3 soft, pasty stools. Please keep your appointment with Dr. Franz on Wednesday for your EGD. He is aware of your hospital stay due to this, so please discuss and ask him questions. - Don't drink alcohol. Whether your cirrhosis was caused by chronic alcohol use or another disease, avoid alcohol. Drinking alcohol may cause further liver damage. - Eat a low-sodium diet. Excess salt can cause your body to retain fluids, worsening swelling in your abdomen and legs. Use herbs for seasoning your food, rather than salt. Choose prepared foods that are low in sodium. - Eat a healthy diet. Cirrhosis leads to malnutrition and loss of muscle. The best defense against this development is to maintain a healthy diet, with a variety of fruits and vegetables. You also need protein, contrary to outdated but still circulating advice to limit this food group if you have cirrhosis. Choose lean protein, such as legumes, poultry or fish. Avoid raw seafood. Cut down on red meat in particular. - Avoid infections. Cirrhosis makes it more difficult for you to fight off infections. Protect yourself by washing your hands frequently. Also, get vaccinated for hepatitis A and B, influenza, and pneumonia. - Use hcov-nvl-gqggoeg medications carefully. Cirrhosis makes it more difficult for your liver to process drugs. For this reason, ask your doctor before taking any medications, including nonprescription drugs. Avoid drugs such as aspirin and ibuprofen (Advil, Motrin IB, others). If you have liver damage, your doctor may recommend you use a lower dose of acetaminophen (Tylenol , others). Source: [facility] well [facility] Diet Patient's current hospital diet: Regular Diet Discharge Diet Recommended Diet: Low Sodium Diet (2gm Na) (Hepatic diet) Pending Studies Studies pending at discharge: no Laboratory Results Hemoglobin A1c Test 10/23/17 07:08 Range/Units Estimated Average Glucose 88 mg/dl Hemoglobin A1c 4.7 4.5-5.6 % Lipid Panel Test 10/28/17 05:46 Range/Units Triglycerides Level 91 0-150 mg/dl Cholesterol Level 60 0-200 mg/dl HDL Cholesterol 12 mg/dl Cholesterol/HDL Ratio 5.0 LDL Cholesterol, Calculated 30 mg/dl Medical Emergencies . Who to Call and When: Medical Emergencies: If at any time you feel your situation is an emergency, please call 911 immediately. . Non-Emergent Contact Non-Emergency issues call your: Primary Care Provider, Director Of [employer] . . "Provider Documentation" section prepared by Trudy Mayers. .
--- NOTE | 2017-12-24 16:38 | Discharge Summary ---
Discharge Summary Date of Service Dec 24, 2017. Discharge Summary Admission Date: Dec 24, 2017 at 01:38 Discharge Date: Dec 24, 2017 Discharge Disposition: Home Principal Diagnosis: Hepatic Encephalopathy Problems/Secondary Diagnoses: Chronic hypoxia Depression/anxiety Immunizations: Have You Had Influenza Vaccine: No History of Tetanus Vaccine?: No History of Pneumococcal: No History of Hepatitis B Vaccine: No Consultations: GI - Dr. Franz Medication Reconciliation New Medications: Fluoxetine HCl (Fluoxetine HCl) 10 Mg Cap 10 MG PO QAM for 30 Days, #30 CAP Lactulose (Lactulose) 30 Gm/45 Ml Syrp 30 GM PO Q12 for 30 Days, #2700 ML Prednisone (Prednisone) 10 Mg Tab 10 MG PO DAILY for 30 Days, #30 TAB Continued Medications: Cholecalciferol (D 1000) 1,000 Unit Tab 2000 UNITS PO DAILY Qzdardsizll-Omighzqvjqso-Bhmft (Trelegy Ellipta 100-62.5-25 Mcg/INH) 1 Aer Aer 1 PUFF INH QAM Home O2 Therapy (Oxygen) Gas 5 LITERS NA CONTINOUS, BTL Levothyroxine Sodium (Levothyroxine Sodium) 88 Mcg Tab 88 MCG PO QAM Multivitamin (Multivitamin) Tab 1 TAB PO DAILY Vitamin E (Alph-E) 400 Unit Cap 400 UNITS PO DAILY Discharge Exam Pt feeling much more like herself on day of discharge. Sister and are at bedside and agree. Mental status changes are resolved. Breathing is at baseline. Pt reports that the lactulose caused her to have very loose stool, and a little nausea. But denies vomiting. ROS See HPI for pertinent positives and negatives. PE GENERAL: Awake, alert, in no distress HENT: Normocephalic, atraumatic. NECK: Supple. No nuchal rigidity. RESPIRATORY: Diminished breath sounds CARDIAC: Regular rate, normal rhythm. Extremities warm and well perfused. Pulses equal. ABDOMEN: Soft, non-distended. No tenderness to palpation. No rebound or guarding. LOWER EXTREMITIES: Calves are equal size bilaterally and non-tender. No edema. No discoloration. NEURO: Normal sensorium. No sensory or motor deficits noted. SKIN: Jaundice present. Hospital Course Ms. Scanlon was admitted for acute mental status changes and brought in the ED by family, found to have hyperammonemia level 112. Morning labs show significant improvement in ammonia level, 71. Pt's alertness and orientation had mostly resolved by the morning after only one dose of lactulose, observed over the day to have several bouts of loose stool. Pt tolerated the treatment well, associated with some nausea, which was to be expected. While here we also consulted dietary to educate about the hepatic diet -- low in sodium, good lean protein intake and hydration. Pt educated by me personally as well. Pt's case discussed with Dr. Franz, recommendations discussed were to continue the lactulose 30gm/45mL BID --with the goal to produce 2-3 soft pasty stools per day. Underlying Depression is likely contributing to her poor dietary intake. Pt has admitted to some history of excessive food restriction, and pt does continue to struggle with increasing her intake. Pt is seen by me in the family clinic and will be starting her fluoxetine 10 mg daily this week. Pt had not begun the medication prior to discharge. Pt will keep her appointment for EGD and esophageal banding procedure with Dr. Franz on Wednesday. Thank you for the opportunity to participate in her care. Total Time Spent: Greater than 30 minutes This includes examination of the patient, discharge planning, medication reconciliation, and communication with other providers. Discharge Instructions Please refer to the electronic Patient Visit Report (Discharge Instructions) for additional information. Additional Copies To Trudy Mayers M.D. Resident Tracking Resident Involvement: Resident Care Provided Care Provided: Adult Hospital Medicine Reviewed: Pt Seen/Exam by Me History mentation clear. ate well Constitutional: denies: fever Respiratory: negative: short of breath Cardiovascular: denies chest pain Gastrointestinal/Abdominal: negative: abdominal pain, nausea General Appearance: no apparent distress Respiratory: lungs clear, no respiratory distress Cardiovascular: regular rate, rhythm Gastrointestinal: normal bowel sounds, non tender, soft, distended Neurologic/Psychiatric: alert, oriented x 3 Skin Characteristics: warm/dry Assessment/Plan Resident Physician Supervision Note: I independently interviewed and examined the patient and verified the snider history and physical, reviewed labs and image studies, discussed the case with the resident Dr. Mayers and agree with the findings and care plan. Time spent in discharge 35 min
[2017-12-24 16:54] VITALS: BP 113/71; PULSE 77; TEMP 36.7; O2SAT 93
--- NOTE | 2017-12-24 19:28 | GASTROINTESTINAL CONSULTATION ---
DATE OF CONSULTATION: 12/24/2017 CHIEF COMPLAINT: Change in mental status. HISTORY OF PRESENT ILLNESS: Ms. Scanlon is a 57-year-old white female known to our GI service for newly diagnosed cirrhosis of unclear etiology. She was initially hospitalized for influenza and seen by Dr. Viera during her last admission. Since discharge, patient had undergone an upper endoscopy which revealed esophageal varices and she underwent band placement on 12/09/2017 with 4 bands placed. She is due for an upcoming upper endoscopy this week for repeat serial banding per protocol. The patient apparently had been eating increased amounts of red meats over the past several days to weeks in an effort to build up her body strength. She presented to the Emergency Room with dizziness, disorientation and changes in memory status for approximately 2 days. There was no chest pain and shortness of breath described, and there was no complete loss of consciousness described. She is not on encephalopathic medications, although she did present to the Emergency Room with an increased ammonia level. Her other labs, although decreased and affected by her chronic medical conditions, are at baseline value. PAST MEDICAL HISTORY: Autoimmune hepatitis, portal hypertension with varices and banding, chronic hypoxemia, leukopenia, thrombocytopenia, hypothyroidism. FAMILY HISTORY: Significant for GA, coronary artery disease and CVA. SOCIAL HISTORY: The patient quit tobacco several years ago, although did smoke a pack of cigarettes daily for at least 20 years. She did use alcoholic beverages, but she reports never to excess. She is . ALLERGIES: She has no known drug allergies. CURRENT HOME MEDICATIONS: Include multivitamins, vitamin D, levothyroxine, Trelegy Ellipta inhaler, vitamin D, and home oxygen. REVIEW OF SYSTEMS: Otherwise noncontributory based on 13-point exam except for mentioned above. Specifically, patient denies any fevers, chills, hematemesis, coffee-ground emesis, melena, bright red blood per rectum, dysuria, hematuria. She denies any new medications and the only change to her diet is that of increased amounts of animal proteins by way of red meats. She had not been on any antiencephalopathic medications in the past. PHYSICAL EXAMINATION: VITAL SIGNS: On admission, patient with a temperature 36.5, pulse 79, respirations 18, blood pressure 128/69, 92% on 5 liters. GENERAL: The patient at the present time is awake, alert and oriented x3. She is in no acute distress. She is resting comfortably in bed, accompanied by her brother. HEENT: Head: Normocephalic, atraumatic. Sclerae are anicteric, conjunctivae moist. Oral mucosa moist. NECK: Normal range of motion. HEART: Normal S1, S2. LUNGS: Clear to auscultation without rales, rhonchi or wheezes. ABDOMEN: There is no rebound or guarding. I do not appreciate evidence of tense ascites, shifting dullness or bulging flanks. There are no abdominal bruits or masses. There is no evidence of ecchymosis. There are positive bowel sounds. EXTREMITIES: Without clubbing, cyanosis or edema. RECTAL: Deferred at this time. NEUROLOGIC: She appears intact. All extremities show normal range of motion. SKIN: Warm, dry and intact. LABORATORY STUDIES: At midnight today white count 3.35, hemoglobin 12.6, MCV 97, platelets 61,000. INR 1.5. PTT 30.2, potassium is slightly low at 3.2, sodium 141, BUN and creatinine are 8 and 0.6, total bilirubin 2.6, direct 0.8, magnesium 2.2, calcium 8.1, AST 63, ALT 43, alkaline phosphatase 100, ammonia level was elevated at 112 (top normal 32). Troponins negative. Urine showed no evidence of obvious infection, although there is small amount of leukocyte esterase positive and 5-10 white blood cells noted. However, there are many neuroepithelial cells. Ketones, occult blood, protein, and nitrites were negative. IMAGING DATA: She had a head CT last evening which showed no acute intracranial findings and a chest x-ray this morning which showed bilateral persistent by biapical opacities, right greater than left. HOSPITAL MEDICATIONS: Include potassium, fluoxetine 10 mg daily, prednisone 10 mg, pantoprazole 40 mg daily, thiamine 100 mg daily, levothyroxine 88 mcg daily, lactulose 30 grams q. 8, magnesium oxide, Zofran p.r.n. IMPRESSION AND PLAN: The patient with features of encephalopathy which may be dietary related. For reasons that she describes as an intention to build up her strength, she has increased her meat intake and this was corroborated by her brother. I believe it is prudent for patient to have a nutrition evaluation in order to help her go over a hepatic diet to improve compliance. Although she should not protein restrict to prevent sarcopenia associated with cirrhosis, she should have some degree of restriction in order to avoid encephalopathy. I believe lactulose is reasonable, but we would reduce this to 30 grams (45 mL) b.i.d. and if diarrhea ensues (greater than 2-3 pasty bowel movements daily), this dose should be titrated downward as needed. If this becomes a recurrent issue then source of infection may need to be excluded. There is a questionable early possible urinary tract infection, although there are many epithelials. Certainly if her confusion persists, then consideration for urinalysis and culture along with proper antibiotic coverage would be reasonable. The patient is tentatively scheduled next Wednesday for upper endoscopy as an outpatient to continue the banding sessions and this should be continued if patient is discharged. If she is here on Wednesday, we can do this as an inpatient. We will also make arrangements for patient to be seen in GI Clinic upon discharge for continued followup. We will follow with you. All questions answered for patient and her brother. Thank you for allowing me to participate in this patient's care.
[2017-12-25] MEDS ORDERED: TRELEGY ELLIPTA INH SCH (09:00)
== END 2017-12-24 18:10 | disposition home or self-care (01) | DRG 442 ==
LOC: C.EDB 23:24 → C.MSW 12-24 01:38 → ENRESERV 12-24 01:50
PROVIDERS: ADMIT Internal Medicine; ATTEND Family Medicine
DX: K72.90 Hepatic failure, unspecified without coma (principal); E72.20 Disorder of urea cycle metabolism, unspecified; F32.9 Major depressive disorder, single episode, unspecified; F41.9 Anxiety disorder, unspecified; E03.9 Hypothyroidism, unspecified; K75.4 Autoimmune hepatitis; R09.02 Hypoxemia; D72.819 Decreased white blood cell count, unspecified; D69.6 Thrombocytopenia, unspecified; Z99.81 Dependence on supplemental oxygen; Z87.891 Personal history of nicotine dependence

== ENCOUNTER → 2018-01-05 | Outpatient (CLI) | payer BC ==
[~2018-01-05] MED LIST changes: +CARV3.122 PO; +FLUO10CA24 PO; +FURO-85 PO; +LCTL45 PO; +OMEP40CA41 PO; +PRD10 PO
--- NOTE | 2018-01-05 08:51 | DIAGNOSTIC IMAGING REPORT ---
(CHEST) THORAX WITHOUT CLINICAL HISTORY: 57 years-old Female presenting with R91.[address] scan, [id number]. TECHNIQUE: Multidetector CT imaging of the chest was performed without the use of intravenous contrast. IV contrast: None. A dose lowering technique was used consistent with the principles of ALARA (as low as reasonably achievable). COMPARISON: 10/22/2017. CT DOSE (mGy.cm): The estimated cumulative dose is 298.10 mGycm. FINDINGS: Hoop Puncher topogram: Elevation of the left hemidiaphragm, unchanged. Previously noted right upper lung opacity decreased from prior accounting recruiter topogram. On soft tissue windows, thyroid poorly visualized and not significantly radiodense, which could suggest iodine depletion. No axillary, supraclavicular, or mediastinal lymphadenopathy. Evaluation of the taya limited without intravenous contrast. Minimal atherosclerosis of aortic arch. Top normal heart size. Coronary artery calcification. No pericardial or pleural effusion. Spleen remains enlarged. Evidence of cirrhosis with capsular retraction in the medial left hepatic lobe. No gross evidence of biliary ductal dilatation allowing for noncontrast technique and only partial visualization of the liver. Significant retroperitoneal lymphadenopathy as on prior exam. On lung windows, irregular spiculated nodule in the superior segment of the right lower lobe, which was not present on the prior exam and measures 13 mm in diameter. In this region on prior, there was more diffuse groundglass consolidation. Bandlike and reticular opacities in the right apex now evident with resolution of the previously noted groundglass opacities. Resolution of lower lobe atelectasis. Minimal reticular opacity at the posterior apical left upper lobe at the site of prior consolidation. Trace emphysema suggested. Airways patent. On bone windows, normal osseous structures. IMPRESSION: 1. Significant interval decrease in patchy bilateral pulmonary opacities compatible with resolving pneumonia. At these sites, bandlike and reticular opacities are present suggesting involving postinfectious inflammatory change. 2. In one of the sites of prior consolidation at the superior segment of the right upper lobe is an irregular 13 mm nodule, which also most likely represents postinfectious inflammatory change (i.e. organizing pneumonia). However, this should be followed to resolution. 3. Upper abdominal retroperitoneal lymphadenopathy is highly suspicious for metastatic disease or lymphoma. 4. Cirrhosis. 5. Focal capsular retraction in the medial left hepatic lobe of the liver could suggest focal fibrosis, although cholangiocarcinoma cannot be excluded. Dedicated evaluation with contrast-enhanced liver MR with Gadavist recommended for further evaluation. The report will be called/faxed according to standard departmental protocol. Electronically signed by: Frank Dejesus M.D. 01/05/2018 8:49 AM Dictated Date/Time: 01/05/2018 8:42 AM
== END | disposition home or self-care (01) ==
LOC: C.CTS 08:20
PROVIDERS: ATTEND Internal Medicine Critical Care Medicine
DX: R91.1 Solitary pulmonary nodule (principal); R91.8 Other nonspecific abnormal finding of lung field; R59.1 Generalized enlarged lymph nodes; K74.60 Unspecified cirrhosis of liver

== ENCOUNTER → 2018-01-10 | Outpatient (CLI) | payer BC ==
--- NOTE | 2018-01-10 12:09 | DIAGNOSTIC IMAGING REPORT ---
PET/CT SKULL-THIGH CLINICAL HISTORY: 57 years-old Female presenting with R91.1 solitary pulmonary nodule. TECHNIQUE: PET/CT was performed from the base of the skull through the proximal thighs following the intravenous administration of 10.539 mCi of F18-FDG. Blood glucose level 96 mg/dL. The injection was performed at 9:35 AM and imaging began at 10:[address] was performed for attenuation correction purposes and anatomic localization. COMPARISON: CT chest from 01/05/2018. CT DOSE (mGy.cm): The estimated cumulative dose is 212.71. FINDINGS: Head and neck: No FDG-avid mass in the visualized portion of the head or neck. No FDG avid or enlarged lymph nodes in the neck. Chest: Normal thyroid and thoracic inlet. No FDG avid axillary, supraclavicular, or mediastinal lymphadenopathy. Evaluation of the tyaa on anatomic imaging limited without intravenous contrast. Atherosclerosis of the aorta. Normal heart size. Coronary artery calcification. No pericardial or pleural effusion. No focal FDG avidity. Patchy bandlike and reticular opacities in the right lung as on prior exam. The more focal nodular consolidation in the superior segment of the right lower lobe does not demonstrate significant FDG avidity. Abdomen and pelvis: Cirrhotic morphology of the liver. Focal capsular retraction without FDG avidity in the medial left hepatic lobe. Splenomegaly though the spleen is not significantly FDG avid (max SUV 2.13 versus liver parenchyma max SUV 2.16). The previously suggested upper abdominal lymphadenopathy on the noncontrast chest CT from December correlates with opacified prominent varices on abdominopelvic CT from October. No lymphadenopathy. Prominent right inguinal hernia containing bowel. Smaller left inguinal hernia also containing bowel. Small amount of ascites. Mild diffuse mesenteric infiltration. Few abdominal wall varices noted. Musculoskeletal: No FDG-avid or destructive osseous lesion. IMPRESSION: 1. No evidence of malignancy. No elevated FDG avidity associated with the patchy opacities in the right lung, including the focal nodular consolidation in the superior segment of the right upper lobe. This is most consistent with a postinfectious and/or postinflammatory etiologies such as organizing pneumonia. 2. Cirrhosis with portal hypertension evidenced by spinal megaly, large upper abdominal varices, and small ascites. 3. The previously suggested upper abdominal lymphadenopathy on noncontrast chest CT from December correlates with large varices and is best demonstrated on prior contrast enhanced exam from 10/23/2017. Electronically signed by: Frank Dejesus M.D. 01/10/2018 12:08 PM Dictated Date/Time: 01/10/2018 11:55 AM
== END | disposition home or self-care (01) ==
LOC: C.PET 08:50
PROVIDERS: ATTEND Internal Medicine Critical Care Medicine
DX: R91.1 Solitary pulmonary nodule (principal); K74.60 Unspecified cirrhosis of liver; K76.6 Portal hypertension; R16.1 Splenomegaly, not elsewhere classified; R18.8 Other ascites; I86.4 Gastric varices

== ENCOUNTER → 2018-01-10 | Outpatient (CLI) | payer BC ==
[2018-01-10 10:13] LABS: ALBUMIN 2.2 gm/dl (3.4-5.0); TOTAL PROTEIN 8.1 gm/dl (6.4-8.2)
== END | disposition home or self-care (01) ==
LOC: C.LAB 08:16
PROVIDERS: ATTEND Internal Medicine Gastroenterology
DX: K74.60 Unspecified cirrhosis of liver (principal)

== ENCOUNTER → 2018-01-12 | Day surgery (SDC) | payer BC ==
[2017-12-28 10:55] VITALS: Ht 170.2 cm; Wt 63.8 kg
[~2018-01-12] VITALS: Ht 170.2 cm; Wt 63.8 kg
[~2018-01-12] MED LIST changes: +LIDOCAINE HCL 2% 2 ML VIAL (20MG/ML) ONE; +PROPOFOL IV EMULSION 10 MG/ML 20 ML VIAL IV ONE
--- NOTE | 2018-01-12 13:31 | Endo History and Physical ---
History & Physical Date of Service: Jan 12, 2018. Chief Complaint: Esophageal varices Referring Physician: Dr. Trudy Mayers History of Present Illness For EGD Past Surgical History Hx Cardiac Surgery: No Hx Internal Defibrillator: No Hx Pacemaker: No Hx Abdominal Surgery: No Hx of Implantable Prosthesis: No Hx Post-Op Nausea and Vomiting: No Hx Cancer Surgery: No Hx Thoracic Surgery: No Hx Orthopedic: No Hx Urinary Tract Surgery: No Family History None Social History Smoking Status: Former Smoker Hx Substance Use: No Hx Alcohol Use: Yes (red wine occasionally) Allergies Coded Allergies: No Known Allergies (Verified , 12/28/17) Current Medications Reported Home Medications Medications Dose Route/Sig Max Daily Dose Days Date Category Prilosec (Omeprazole) 40 Mg Cap 40 Mg PO QAM 12/28/17 Reported Coreg (Carvedilol) 3.125 Mg Tab 3.125 Mg PO BID 12/28/17 Reported Lasix (Furosemide) 20 Mg Tab 20 Mg PO QAM 12/28/17 Reported Prednisone 10 Mg Tab 10 Mg PO DAILY 30 12/24/17 Rx Lactulose 30 Gm/45 Ml Syrp 30 Gm PO Q12 30 12/24/17 Rx Fluoxetine HCl 10 Mg Cap 10 Mg PO QAM 30 12/24/17 Rx Oxygen Gas 5 Liters NA CONTINOUS 12/01/17 Reported Trelegy Ellipta 100-62.5-25 Mcg/INH (Isggxgkdwmp-Qpncjozyktqg-Deojv) 1 Aer Aer 1 Puff INH QAM 11/29/17 Reported Levothyroxine Sodium 88 Mcg Tab 88 Mcg PO QAM 11/29/17 Reported Alph-E (Vitamin E) 400 Unit Cap 400 Units PO DAILY 11/17/17 Reported D 1000 (Cholecalciferol) 1,000 Unit Tab 2,000 Units PO DAILY 11/17/17 Reported Multivitamin (Multivitamins) Tab 1 Tab PO DAILY 10/22/17 Reported Vital Signs Weight (Kilograms): 63.8 Height (Feet): 5 Height (Inches): 7 Date Time Temp Pulse Resp B/P (MAP) Pulse Ox O2 Delivery O2 Flow Rate FiO2 01/12/18 13:23 36.4 60 18 101/63 (76) 96 Nasal Cannula 5 Physical Exam General Appearance: + thin Respiratory/Chest: Respiratory effort: dyspneic Cardiovascular: Heart Auscultation: RRR Abdomen: Inspection & Palpation: soft Assessment and Plan Liver disease for EGD
--- NOTE | 2018-01-12 14:06 | Discharge Instructions ---
Endoscopy Patient Instructions Date / Procedure(s) Performed Jan 12, 2018. EGD Allergy Information Coded Allergies: No Known Allergies (Verified , 12/28/17) Discharge Date / Findings Jan 12, 2018. Gastric varices, esophageal varices banded Medication Instructions Stopped Medication(s): Patient was told to stop lasix and lactulose. Restart Stopped Medication(s): resume meds Reported Home Medications Medications Dose Route/Sig Max Daily Dose Days Date Category Prilosec (Omeprazole) 40 Mg Cap 40 Mg PO QAM 12/28/17 Reported Coreg (Carvedilol) 3.125 Mg Tab 3.125 Mg PO BID 12/28/17 Reported Lasix (Furosemide) 20 Mg Tab 20 Mg PO QAM 12/28/17 Reported Prednisone 10 Mg Tab 10 Mg PO DAILY 30 12/24/17 Rx Lactulose 30 Gm/45 Ml Syrp 30 Gm PO Q12 30 12/24/17 Rx Fluoxetine HCl 10 Mg Cap 10 Mg PO QAM 30 12/24/17 Rx Oxygen Gas 5 Liters NA CONTINOUS 12/01/17 Reported Trelegy Ellipta 100-62.5-25 Mcg/INH (Vixcbvwlset-Qwvjlsrcuudh-Kubas) 1 Aer Aer 1 Puff INH QAM 11/29/17 Reported Levothyroxine Sodium 88 Mcg Tab 88 Mcg PO QAM 11/29/17 Reported Alph-E (Vitamin E) 400 Unit Cap 400 Units PO DAILY 11/17/17 Reported D 1000 (Cholecalciferol) 1,000 Unit Tab 2,000 Units PO DAILY 11/17/17 Reported Multivitamin (Multivitamins) Tab 1 Tab PO DAILY 10/22/17 Reported Provider Instructions Activity Restrictions - No exercising or heavy lifting for 24 hours. - Do not drink alcohol the day of the procedure. - Do not drive a car or operate machinery until the day after the procedure. - Do not make any important decisions or sign important papers in 24 hours after the procedure. Following Day: - Return to full activity which may include returning to work/school. Diet Start your diet with liquids and light foods (jello, soup, juice, toast). Then eat your usual diet if not nauseated. Treatment For Common After Affects For mild abdominal pain, bloating, or excessive gas: - Rest - Eat lightly - Lie on right side Follow-Up Information Follow-up with Dr. Trudy Mayers as scheduled Anesthesia Information What You Should Know You have had a procedure that required some medicine to reduce anxiety and discomfort. This treatment is called moderate sedation. After receiving the treatment, you may be sleepy, but you will be able to breathe on your own. The effects of the treatment may last for several hours. Follow these instructions along with Activity/Diet recommendations noted above: * Do NOT do anything where dizziness or clumsiness would be dangerous. * Rest quietly at home today, then you can be up and about tomorrow. * Have a responsible person stay with you the rest of today. * You may have had an I.V. today. If so, you may take the dressing off later today. Recommendations Call your doctor if: * Trouble breathing * Continuous vomiting for more than 24 hours * Temperature above 101 degrees * Severe abdominal pain or bloating * Pain not relieved by pain medicine ordered * There is increased drainage or redness from any incision * A large amount of rectal bleeding greater than 2-3 tablespoons. (If you had a polyp/s removed or have hemorrhoids, a small amount of blood - from the rectum is to be expected.) * You have any unanswered questions or concerns. IN THE EVENT OF A SERIOUS EMERGENCY, GO TO THE NEAREST EMERGENCY ROOM Your discharge instructions were prepared by provider Filiberto Jameson. Patient Instructions Signature Page Paty Arredondo Patient (or Guardian) Signature/Date: I have read and understand the instructions given to me by my caregivers. Caregiver/RN/Doctor Signature/Date: The above-named patient and/or guardian has received patient instructions on this date. + Original Patient Signature Page (only) stays with chart. Please make copy for patient.
--- NOTE | 2018-01-12 14:10 | GI REPORT ---
Procedure Date: 01/12/2018 1:42 PM Procedure: Upper GI endoscopy Indications: Esophageal varices, Cirrhosis Medicines: Propofol total dose 240 mg IV, Lidocaine 60 mg IV Complications: No immediate complications. Estimated Blood Loss: Estimated blood loss: none. Procedure: Pre-Anesthesia Assessment: - Prior to the procedure, a History and Physical was performed, and patient medications, allergies and sensitivities were reviewed. The patient's tolerance of previous anesthesia was reviewed. - The risks and benefits of the procedure and the sedation options and risks were discussed with the patient. All questions were answered and informed consent was obtained. After obtaining informed consent, the endoscope was passed under direct vision. Throughout the procedure, the patient's blood pressure, pulse, and oxygen saturations were monitored continuously. The scope was introduced through the mouth, and advanced to the second part of duodenum. The upper GI endoscopy was accomplished without difficulty. The patient tolerated the procedure well. Findings: Grade II varices were found in the lower third of the esophagus. Five bands were successfully placed with complete eradication, resulting in deflation of varices. There was no bleeding during, and at the end, of the procedure. Type 1 isolated gastric varices (IGV1, varices located in the fundus) with no bleeding were found in the gastric fundus. There were no stigmata of recent bleeding. The examined duodenum was normal. Estimated blood loss: none. Impression: - Grade II esophageal varices. Completely eradicated. Banded. - Type 1 isolated gastric varices (IGV1, varices located in the fundus), without bleeding. - Normal examined duodenum. - No specimens collected. Recommendation: - Discharge patient to home (ambulatory). - Continue present medications. - Soft diet for 2 weeks. - Return to GI office as previously scheduled. Filiberto Jameson M.D. Filiberto Jameson MD 01/12/2018 2:10:33 PM This report has been signed electronically. Note Initiated On: 01/12/2018 1:42 PM I attest to the content of the Intraoperative Record and orders documented therein, exceptions below
[2018-01-12 14:44] VITALS: BP 128/75; PULSE 60; O2SAT 93
--- NOTE | 2018-01-12 14:53 | Anesthesiology Progress Note ---
Anesthesia Post Op Note Date & Time Jan 12, 2018 at 14:53 Vital Signs Pain Intensity: 0 Vital Signs Past 12 Hours Date Time Temp Pulse Resp B/P (MAP) Pulse Ox O2 Delivery O2 Flow Rate FiO2 01/12/18 14:44 60 16 128/75 (92) 93 Nasal Cannula 5 01/12/18 14:29 58 16 105/66 (79) 95 Nasal Cannula 5 01/12/18 14:14 62 14 91/57 (68) 93 Nasal Cannula 5 01/12/18 13:23 36.4 60 18 101/63 (76) 96 Nasal Cannula 5 Notes Mental Status: alert / awake / arousable, participated in evaluation Pt Amnestic to Procedure: Yes Nausea / Vomiting: adequately controlled Pain: adequately controlled Airway Patency, RR, SpO2: stable & adequate BP & HR: stable & adequate Hydration State: stable & adequate Anesthetic Complications: no major complications apparent
== END | disposition home or self-care (01) ==
LOC: C.GI 12:53
PROVIDERS: ATTEND Internal Medicine Gastroenterology
DX: I85.00 Esophageal varices without bleeding (principal); Z87.891 Personal history of nicotine dependence; Z79.899 Other long term (current) drug therapy; Z79.52 Long term (current) use of systemic steroids; Z99.81 Dependence on supplemental oxygen

== ENCOUNTER → 2018-05-06 | Outpatient (CLI) | payer BC ==
[~2018-05-06] MED LIST changes: -LIDOCAINE HCL 2% 2 ML VIAL (20MG/ML) ONE; -PROPOFOL IV EMULSION 10 MG/ML 20 ML VIAL IV ONE
[2018-05-06 12:55] LABS: HEMOGLOBIN A1C 5.1 % (4.5-5.6)
[2018-05-06 13:09] LABS: HEMATOCRIT 38.8 % (37-47); HEMOGLOBIN 12.6 g/dL (12.0-16.0); MEAN CELL VOLUME 90.4 fL (80-100); MEAN CORPUSCULAR HEMOGLOBIN 29.4 pg (25-34); MEAN CORPUSCULAR HGB CONC 32.5 g/dl (32-36); RED CELL DISTRIBUTION WIDTH CV 17.6 % (11.5-14.5); RED CELL DISTRIBUTION WIDTH SD 58.2 fL (36.4-46.3); WHITE BLOOD COUNT 2.99 K/uL (4.8-10.8)
[2018-05-06 13:14] LABS: INR 1.4 (0.9-1.1)
[2018-05-06 13:16] LABS: PLATELET COUNT 39 K/uL (130-400)
[2018-05-06 13:17] LABS: BASO ABS # 0.03 K/uL (0-0.2); EOS % 5.4 %; EOS ABS # 0.16 K/uL (0-0.5); LYMPH % 18.7 %; LYMPH ABS # 0.56 K/uL (1.2-3.4); MONO ABS # 0.39 K/uL (0.11-0.59); NEUT % 61.9 %; NEUT ABS # 1.85 K/uL (1.4-6.5)
[2018-05-06 13:41] LABS: ALBUMIN 2.8 gm/dl (3.4-5.0); ALKALINE PHOSPHATASE 77 U/L (45-117); ALT/SGPT 41 U/L (12-78); AST/SGOT 52 U/L (15-37); BLOOD UREA NITROGEN 8 mg/dl (7-18); CALCIUM 8.3 mg/dl (8.5-10.1); CARBON DIOXIDE 24 mmol/L (21-32); CREATININE 0.56 mg/dl (0.60-1.20); GLUCOSE 77 mg/dl (70-99); POTASSIUM 3.4 mmol/L (3.5-5.1); SODIUM 142 mmol/L (136-145); TOTAL PROTEIN 7.3 gm/dl (6.4-8.2); TRANSFERRIN 266 mg/dl (200-360)
[2018-05-06 14:24] LABS: HEP C IGG 13 YRS+OLDER_RFLX NEG (NEG)
[2018-05-07 05:53] LABS: HEPATITIS A IGM TC 51813E NON-REACTIVE (NON-REACTIVE)
== END | disposition home or self-care (01) ==
LOC: C.LABPBG 10:41
PROVIDERS: ATTEND Internal Medicine Gastroenterology
DX: K75.4 Autoimmune hepatitis (principal); R68.3 Clubbing of fingers; I86.4 Gastric varices; K75.81 Nonalcoholic steatohepatitis (NASH); Z87.891 Personal history of nicotine dependence; E03.9 Hypothyroidism, unspecified; K76.6 Portal hypertension; K74.3 Primary biliary cirrhosis; R91.8 Other nonspecific abnormal finding of lung field